=== PATIENT | male | born 1940 | race American Indian/Alaskan Native ===

== ENCOUNTER 2017-06-19 16:11 | Inpatient (IN) | payer MEDICARE ==
[2017-06-19 17:40] LABS: Hematocrit 51.3 % (35.5-45.6); Hemoglobin 15.7 gm/dl (11.8-15.2); Mean Corpuscular HGB Conc 31 % (32-34); Mean Corpuscular Hemoglobin 32 pg (28-32); Mean Corpuscular Volume 105 fl (84-94); Platelet Count 192 K/mm3 (140-440); Red Cell Distribution Width 15.4 % (13.2-15.2); White Blood Count 8.4 K/mm3 (4.5-11.0)
[2017-06-19 18:02] LABS: BUN/Creatinine Ratio 30; Blood Urea Nitrogen 66 mg/dL (9-20); Calcium 9.2 mg/dL (8.4-10.2); Chloride 80.4 mmol/L (98-107); Sodium 132 mmol/L (137-145)
[2017-06-19 18:12] LABS: Basophils % (Manual) 0 % (0.0-1.8); Blastocytes % (Manual) 0 %; Eosinophils % (Manual) 0 % (0.0-4.3)
[2017-06-19 18:14] LABS: Anisocytosis Few; Diff Status Complete; Poikilocytosis Few
[2017-06-19 18:15] LABS: Anion Gap 50 mmol/L; Carbon Dioxide 9 mmol/L (22-30); Potassium 7.5 mmol/L (3.6-5.0)
[2017-06-19 18:16] LABS: Glucose 865 mg/dL (75-100)
[2017-06-19] MEDS ORDERED: KIONEX PO ONE (18:42)
[2017-06-19] MEDS ORDERED: D50W (25GM) Syringe IV PRN (18:45)
[2017-06-19] MEDS ORDERED: NACL 0.9% 500 ML 500 ML IV ONE (18:48)
--- NOTE | 2017-06-19 18:54 | Emergency Department Report ---
ED Chest Pain HPI - General Chief Complaint: Chest Pain Stated Complaint: CP Time Seen by Provider: 06/19/17 18:31 Source: patient Mode of arrival: Ambulatory Limitations: No Limitations - History of Present Illness Initial Comments: 76 yo male who comes in today due to chest pain, fatigue, and malaise times three days. He states that he hasn't felt well, and has a decreased appetite. History of diabetes. Chest pain described as midsternal, pressure-like, 4/10, with no associated nausea, vomiting, diaphoresis, shortness of breath, or radiation of the pain. Patient admits to extreme thirst. MD Complaint: chest pain -: days(s) (3) Onset: during rest Pain Location: substernal Pain Radiation: none Severity scale (0 -10): 4 Quality: aching, heaviness, pressure Consistency: constant Improves With: nothing Worsens With: exertion, movement Context: other (elevated blood glucose/history of diabetes ) re: other (none) Other Symptoms: other (polydipsia) Treatments Prior to Arrival: none Aspirin use within the Past 7 Days: (0) No - Related Data On Oral Contraceptives: No Home Medications Medication Instructions Recorded Confirmed Last Taken Insulin Aspart [Novolog Flexpen] 4 unit SQ TIDDIAB 12/31/13 12/31/13 12/31/13 17 :30 Insulin Glargine,Hum.rec.anlog 16 unit SQ QHS 12/31/13 12/31/13 12/30/13 21:00 [Lantus Solostar] Allergies Allergy/AdvReac Type Severity Reaction Status Date / Time No Known Allergies Allergy Verified 06/19/17 16:27 Heart Score - HEART Score History: Slightly suspicious EKG: Non-specific Age: > 65 Risk factors: 1-2 risk factors Troponin: < normal limit HEART Score: 4 ED Review of Systems ROS: Stated complaint: CP Other details as noted in HPI Constitutional: malaise, weakness Eyes: denies: eye pain, eye discharge, vision change ENT: other (dry mucous membranes ) Respiratory: denies: cough, shortness of breath, wheezing Cardiovascular: as per HPI, chest pain Endocrine: see HPI, increased thirst Gastrointestinal: denies: abdominal pain, nausea, diarrhea Genitourinary: denies: urgency, dysuria Musculoskeletal: denies: back pain, joint swelling, arthralgia Skin: denies: rash, lesions Neurological: denies: headache, weakness, paresthesias Psychiatric: denies: anxiety, depression Hematological/Lymphatic: denies: easy bleeding, easy bruising ED Past Medical Hx - Past Medical History Previous Medical History?: Yes Hx Diabetes: Yes - Surgical History Past Surgical History?: Yes Additional Surgical History: hernia repair - Social History Smoking Status: Former Smoker Substance Use Type: Alcohol - Medications Home Medications: Home Medications Medication Instructions Recorded Confirmed Last Taken Type Insulin Aspart [Novolog Flexpen] 4 unit SQ TIDDIAB 12/31/13 12/31/13 12/31/13 17 :30 History Insulin Glargine,Hum.rec.anlog 16 unit SQ QHS 12/31/13 12/31/13 12/30/13 21:00 History [Lantus Solostar] ED Physical Exam - General Limitations: No Limitations General appearance: other (somnolent ) - Head Head exam: Present: atraumatic, normocephalic - Eye Eye exam: Present: normal appearance - ENT ENT exam: Present: mucous membranes dry - Neck Neck exam: Present: normal inspection - Respiratory Respiratory exam: Present: normal lung sounds bilaterally. Absent: respiratory distress - Cardiovascular Cardiovascular Exam: Present: tachycardia - GI/Abdominal GI/Abdominal exam: Present: soft, normal bowel sounds - Extremities Exam Extremities exam: Present: normal inspection - Back Exam Back exam: Present: normal inspection - Neurological Exam Neurological exam: Present: alert, oriented X3 - Psychiatric Psychiatric exam: Present: other (somnolent ) - Skin Skin exam: Present: warm, dry, intact, normal color. Absent: rash ED Course Vital Signs 06/19/17 06/19/17 06/19/17 16:28 19:18 21:44 Temperature 97.3 F L Pulse Rate 119 H 99 H Respiratory 18 22 Rate Blood Pressure 141/79 Blood Pressure 147/96 [Left] O2 Sat by Pulse 97 95 Oximetry EMERY score - Emery Score Age > 65: (1) Yes Aspirin use within the Past 7 Days: (0) No 3 or more CAD Risk Factors: (0) No 2 or more Angina events in past 24 hrs: (0) No Known CAD with more than 50% Stenosis: (0) No Elevated Cardiac Markers: (0) No ST Deviation Greater than 0.5mm: (0) No EMERY Score: 1 ED Medical Decision Making - Lab Data Result diagrams: 06/19/17 16:57 06/19/17 21:15 - EKG Data -: EKG Interpreted by Me EKG shows normal: sinus rhythm (sinus tachycardia) Rate: tachycardia - EKG Data When compared to previous EKG there are: other (Normal prior ekg dated-2015) Interpretation: other (sinus tachycardia ) - Radiology Data Radiology results: report reviewed No acute pathology. - Medical Decision Making DKA - Differential Diagnosis DKA Critical care attestation.: If time is entered above; I have spent that time in minutes in the direct care of this critically ill patient, excluding procedure time. ED Disposition Clinical Impression: DKA (diabetic ketoacidosis) Disposition: DC-[id number] OP ADMIT IP TO THIS HOSP Is pt being admited?: Yes Does the pt Need Aspirin: No Condition: Stable Instructions: Diabetic Ketoacidosis (ED) Time of Disposition: 22:41
[2017-06-19] MEDS ORDERED: NACL 0.9% 1000 ML 1,000 ML IV SCH ×2 (19:00→23:45)
[2017-06-19] MEDS ORDERED: D5W/0.45% NACL/KCL 20 MEQ 20 MEQ/1,000 ML BAG IV SCH (19:00)
[2017-06-19] MEDS ORDERED: CALCIUM GLUCONATE 1,000 MG in NACL 0.9% 100 ML IV ONE (19:30)
--- NOTE | 2017-06-19 19:55 | XRay Report ---
FINAL REPORT PROCEDURE: XR CHEST 1V AP TECHNIQUE: Chest radiograph anteroposterior view. CPT 30785 HISTORY: chest pain COMPARISON: No prior studies are available for comparison. FINDINGS: Heart: Normal. Mediastinum/Vessels: Central vascular congestion. Left suprahilar prominence may reflect pulmonary vascularity or adenopathy.. Suspect calcified adenopathy in the AP window. Lungs/Pleural space: Pulmonary emphysema with central bronchiectasis and peribronchial cuffing. Bony thorax: No acute osseous abnormality. Life support devices: None. IMPRESSION: No acute cardiopulmonary process.
[2017-06-19] MEDS: NovoLIN R 100 UNITS in NACL 0.9% 99 ML IV SCH (20:00)
[2017-06-19 20:01] LABS: Magnesium 2.8 mg/dL (1.7-2.3); Phosphorous 7.5 mg/dL (2.5-4.5)
[2017-06-19 20:26] LABS: Calcium 8.5 mg/dL (8.4-10.2); Chloride 81.3 mmol/L (98-107)
[2017-06-19 20:28] LABS: Creatine Kinase 221 units/L (55-170); Creatine Kinase MB 4.2 ng/mL (0.0-4.0)
[2017-06-19 21:04] LABS: Potassium 6.5 mmol/L (3.6-5.0)
[2017-06-19 21:51] LABS: Calcium 8.3 mg/dL (8.4-10.2); Chloride 93.5 mmol/L (98-107); Potassium 5.3 mmol/L (3.6-5.0)
[2017-06-19] MEDS ORDERED: NACL 0.9% 1000 ML 1,000 ML IV ONE (23:04)
--- NOTE | 2017-06-19 23:04 | History and Physical Report ---
History of Present Illness Date of examination: 06/19/17 History of present illness: This is a 76-year-old man with a history of diabetes, emergency room with complaints of subjective fever. He stated he caught a cold, complaining of cough productive of yellow phlegm, generalized weakness, no appetite over the last 3 days Review Of Systems: Constitutional: no weight loss Ears, eyes, nose, mouth and throat: no nasal congestion, no nasal discharge, no sinus pressure, blurry vision, diplopia Neck: No neck pain or rigidity. Cardiovascular: No chest pain, palpitations Respiratory: No shortness of breath, cough Gastrointestinal: No abdominal pain, hematochezia Genitourinary : no dysuria, frequency , hematuria Musculoskeletal: no muscle ache Integumentary: no rash, no pruritis Neurological: no parathesias, focal weakness Endocrine: no cold or heat intolerance, no polyuria or polydipsia Hematologic/Lymphatic: no easy bruising, no easy bleeding, no gland swelling Allergic/Immunologic: no urticaria, no angioedema. PAST MEDICAL HISTORY:diabetes PAST SURGICAL HISTORY: Hernia repair FAMILY HISTORY:diabetes SOCIAL HISTORY: Denies alcohol, tobacco, drugs Medications and Allergies Allergies Allergy/AdvReac Type Severity Reaction Status Date / Time No Known Allergies Allergy Verified 06/19/17 16:27 Home Medications Medication Instructions Recorded Confirmed Last Taken Type Insulin Aspart [Novolog Flexpen] 4 unit SQ TIDDIAB 12/31/13 12/31/13 12/31/13 17 :30 History Insulin Glargine,Hum.rec.anlog 16 unit SQ QHS 12/31/13 12/31/13 12/30/13 21:00 History [Lantus Solostar] Active Meds: Active Medications Dextrose (D50w (25gm) Syringe) 0 ml IV ONCE PRN PRN Reason: Hypoglycemia Sodium Chloride (Nacl 0.9% 1000 Ml) 1,000 mls @ 200 mls/hr IV DIRECT ZENY Potassium Chloride/Dextrose/Sod Cl (D5w/0.45% Nacl/Kcl 20 Meq) 20 meq in 1,000 mls @ 125 mls/hr IV DIRECT ZENY Insulin Human Regular 100 (units/ Sodium Chloride) 100 mls @ 1 mls/hr IV TITR ZENY; 1 UNITS/HR PRN Reason: Protocol Last Titration: 06/19/17 21:13 Dose: 8 units/hr, 8 mls/hr Exam - Physical Exam Narrative exam: Gen. appearance: Patient lying in bed in no acute distress HEENT: Normocephalic/atraumatic, pupils equal round reactive to light, extra occular movement intact, no scleral icterus, no JVD or thyromegaly or nodule, neck is supple, mucous membrane very dry, no erythema or exudate Heart: S1-S2, regular rate and rhythm Lungs: Clear to auscultation bilateral breathing comfortable Abdomen: Positive bowel sounds, nontender, nondistended, no organomegaly Extremities: No edema, cyanosis, clubbing Neuro:: Oriented 3 , cranial nerves II-12 intact, speech, motor intact Skin: No rash, nodules, warm dry - Constitutional Vitals: Temp Pulse Resp BP Pulse Ox 97.3 F L 99 H 22 147/96 95 06/19/17 16:28 06/19/17 21:44 06/19/17 19:18 06/19/17 21:44 06/19/17 19:18 Results - Labs CBC & Chem 7: 06/19/17 16:57 06/19/17 21:15 Labs: Abnormal lab results 06/19/17 06/19/17 06/19/17 Range/Units 16:57 16:57 19:12 Hgb 15.7 H (11.8-15.2) gm/dl Hct 51.3 H (35.5-45.6) % MCV 105 H (84-94) fl MCHC 31 L (32-34) % RDW 15.4 H (13.2-15.2) % Seg Neuts % (Manual) 82.0 H (40.0-70.0) % Lymphocytes % (Manual) 10.0 L (13.4-35.0) % Monocytes % (Manual) 8.0 H (0.0-7.3) % Lymphocytes # (Manual) 0.8 L (1.2-5.4) K/mm3 Sodium 132 L (137-145) mmol/L Potassium 7.5 H* (3.6-5.0) mmol/L Chloride 80.4 L (98-107) mmol/L Carbon Dioxide 9 L* (22-30) mmol/L BUN 66 H (9-20) mg/dL Creatinine 2.2 H (0.8-1.5) mg/dL Glucose 865 H* (75-100) mg/dL POC Glucose (70-105) Calcium (8.4-10.2) mg/dL Phosphorus (2.5-4.5) mg/dL Magnesium (1.7-2.3) mg/dL Total Creatine Kinase 221 H (55-170) units/L CK-MB (CK-2) 4.2 H (0.0-4.0) ng/mL 06/19/17 06/19/17 06/19/17 Range/Units 19:12 19:12 19:59 Hgb (11.8-15.2) gm/dl Hct (35.5-45.6) % MCV (84-94) fl MCHC (32-34) % RDW (13.2-15.2) % Seg Neuts % (Manual) (40.0-70.0) % Lymphocytes % (Manual) (13.4-35.0) % Monocytes % (Manual) (0.0-7.3) % Lymphocytes # (Manual) (1.2-5.4) K/mm3 Sodium 132 L (137-145) mmol/L Potassium 6.5 H* (3.6-5.0) mmol/L Chloride 81.3 L (98-107) mmol/L Carbon Dioxide 6 L* (22-30) mmol/L BUN 68 H (9-20) mg/dL Creatinine 2.1 H (0.8-1.5) mg/dL Glucose 879 H* (75-100) mg/dL POC Glucose > 500 H (70-105) Calcium (8.4-10.2) mg/dL Phosphorus 7.50 H (2.5-4.5) mg/dL Magnesium 2.80 H (1.7-2.3) mg/dL Total Creatine Kinase (55-170) units/L CK-MB (CK-2) (0.0-4.0) ng/mL 06/19/17 Range/Units 21:15 Hgb (11.8-15.2) gm/dl Hct (35.5-45.6) % MCV (84-94) fl MCHC (32-34) % RDW (13.2-15.2) % Seg Neuts % (Manual) (40.0-70.0) % Lymphocytes % (Manual) (13.4-35.0) % Monocytes % (Manual) (0.0-7.3) % Lymphocytes # (Manual) (1.2-5.4) K/mm3 Sodium 132 L (137-145) mmol/L Potassium 5.3 H (3.6-5.0) mmol/L Chloride 93.5 L (98-107) mmol/L Carbon Dioxide 7 L* (22-30) mmol/L BUN 66 H (9-20) mg/dL Creatinine 2.1 H (0.8-1.5) mg/dL Glucose 734 H* (75-100) mg/dL POC Glucose (70-105) Calcium 8.3 L (8.4-10.2) mg/dL Phosphorus (2.5-4.5) mg/dL Magnesium (1.7-2.3) mg/dL Total Creatine Kinase (55-170) units/L CK-MB (CK-2) (0.0-4.0) ng/mL - Imaging and Cardiology EKG: image reviewed Abdominal x-ray: image reviewed Assessment and Plan Assessment DKA Metabolic acidosis Dehydration Plan Admit to medicine Continue insulin drip, start IV fluid Check serial chemistry, blood sugar Consult critical care DVT prophylaxis
[2017-06-19] MEDS ORDERED: TYLENOL PO PRN (23:05)
[2017-06-19] MEDS ORDERED: ZOFRAN IV PRN (23:05)
[2017-06-19] MEDS ORDERED: DULCOLAX PR PRN (23:05)
[2017-06-19] MEDS ORDERED: MILK OF MAGNESIA PO PRN (23:05)
[2017-06-19 23:33] LABS: Calcium 8.2 mg/dL (8.4-10.2); Chloride 97.4 mmol/L (98-107)
[2017-06-20 00:10] LABS: Bilirubin,Urine NEG (Negative); Blood,Urine SM (Negative); Ketones,Urine 20 mg/dL (Negative); Leukocyte Esterase,Urine NEG (Negative); Mucus,Urine FEW /HPF; Nitrite,Urine NEG (Negative); Protein,Urine <15 mg/dL mg/dL (Negative); Urobilinogen,Urine < 2.0 mg/dL (<2.0)
[2017-06-20 01:51] LABS: Calcium 8.3 mg/dL (8.4-10.2); Chloride 102.6 mmol/L (98-107); Potassium 4.7 mmol/L (3.6-5.0)
[2017-06-20 03:37] LABS: Calcium 8.2 mg/dL (8.4-10.2); Chloride 108.1 mmol/L (98-107); Potassium 3.9 mmol/L (3.6-5.0)
[2017-06-20] MEDS: NovoLIN R 100 UNITS in NACL 0.9% 99 ML IV SCH (04:01)
[2017-06-20] MEDS: cefTRIAXone 1 GM in NACL 0.9% 20 ML IV SCH (07:16)
[2017-06-20] MEDS: D5/0.45NS 1,000 ML IV SCH ×2 (08:40→20:47)
[2017-06-20] MEDS: LOVENOX SUB-Q SCH (09:49)
[2017-06-20 11:26] LABS: BUN/Creatinine Ratio 36; Blood Urea Nitrogen 40 mg/dL (9-20); Calcium 7.9 mg/dL (8.4-10.2); Carbon Dioxide 25 mmol/L (22-30); Glucose 118 mg/dL (75-100)
[2017-06-20 11:27] LABS: Chloride 112.7 mmol/L (98-107); Sodium 151 mmol/L (137-145)
[2017-06-20 12:00] LABS: Anion Gap 16 mmol/L; Potassium 2.7 mmol/L (3.6-5.0)
[2017-06-20] MEDS: KCL 10MEQ/100ML 10 MEQ/100 ML BAG IV SCH ×4 (13:09→17:10)
[2017-06-20 13:45] LABS: Anion Gap 17 mmol/L; BUN/Creatinine Ratio 35; Blood Urea Nitrogen 38 mg/dL (9-20); Calcium 8.1 mg/dL (8.4-10.2); Carbon Dioxide 27 mmol/L (22-30); Chloride 111.3 mmol/L (98-107); Glucose 154 mg/dL (75-100); Sodium 152 mmol/L (137-145)
[2017-06-20 13:46] LABS: Magnesium 2.3 mg/dL (1.7-2.3)
--- NOTE | 2017-06-20 15:08 | Consultation ---
History of Present Illness Consult date: 06/20/17 Reason for consult: other (DKA) History of present illness: 76-year-old -[place] male was admitted to the hospital with cough congestion shortness of breath. Patient was found to be in diabetic ketoacidosis with blood sugar over 600. Patient is currently being treated with IV fluids and insulin drip with improvement in his lab data patient is a poor historian remain somewhat lethargic but awake. Has history of diabetes. Past History Past Medical History: diabetes Medications and Allergies Allergies Allergy/AdvReac Type Severity Reaction Status Date / Time No Known Allergies Allergy Verified 06/19/17 16:27 Home Medications Medication Instructions Recorded Confirmed Last Taken Type Insulin Aspart [Novolog Flexpen] 4 unit SQ TIDDIAB 12/31/13 12/31/13 12/31/13 17 :30 History Insulin Glargine,Hum.rec.anlog 16 unit SQ QHS 12/31/13 12/31/13 12/30/13 21:00 History [Lantus Solostar] Active Meds: Active Medications Acetaminophen (Tylenol) 650 mg PO Q4H PRN PRN Reason: Pain MILD(1-3)/Fever >100.5/COHEN Bisacodyl (Dulcolax) 10 mg VT QDAY PRN PRN Reason: Constipation unrelieved by MOM Dextrose (D50w (25gm) Syringe) 0 ml IV ONCE PRN PRN Reason: Hypoglycemia Enoxaparin Sodium (Lovenox) 30 mg SUB-Q QDAY ZENY Last Admin: 06/20/17 09:49 Dose: 30 mg Insulin Human Regular 100 (units/ Sodium Chloride) 100 mls @ 1 mls/hr IV TITR ZENY; 1 UNITS/HR PRN Reason: Protocol Last Titration: 06/20/17 14:46 Dose: 2 units/hr, 2 mls/hr Dextrose/Sodium Chloride (D5/0.45ns) 1,000 mls @ 150 mls/hr IV DIRECT ZENY Last Admin: 06/20/17 08:40 Dose: 150 mls/hr Sodium Chloride (Nacl 0.9% 1000 Ml) 1,000 mls @ 150 mls/hr IV DIRECT ZENY Last Admin: 06/20/17 04:11 Dose: 150 mls/hr Ceftriaxone Sodium 1 gm/ (Sodium Chloride) 20 mls @ 20 mls/10 min IV Q24HR ZENY PRN Reason: Protocol Last Admin: 06/20/17 07:16 Dose: 20 mls/10 min Potassium Chloride (Kcl 10meq/100ml) 10 meq in 100 mls @ 100 mls/hr IV Q1H ZENY Stop: 06/20/17 16:59 Last Admin: 06/20/17 14:28 Dose: 100 mls/hr Magnesium Hydroxide (Milk Of Magnesia) 30 ml PO Q4H PRN PRN Reason: Constipation Ondansetron HCl (Zofran) 4 mg IV Q8H PRN PRN Reason: N/V unrelieved by Reglan Review of Systems ROS unobtainable: due to mental status Physical Examination Vital signs: Vital Signs Pulse Resp Pulse Ox 81 17 98 06/19/17 16:16 06/19/17 16:16 06/19/17 16:16 General appearance: no acute distress, lethargic, other (smaller statured thin) Eyes: non-icteric ENT: oropharynx dry Neck: other (rigid in all directions) Ascultation: Bilateral: clear, diminished breath sounds Cardiovascular: irregular rhythm Gastrointestinal: normoactive bowel sounds, soft, non-tender Extremities: no cyanosis, no edema Musculoskeletal: no deformities Gait: other (not evaluated) unable to assess Results - Laboratory Findings CBC and BMP: 06/19/17 16:57 06/20/17 13:29 Abnormal lab findings: Abnormal Labs 06/19/17 06/19/17 06/19/17 16:57 16:57 19:12 Hgb 15.7 H Hct 51.3 H MCV 105 H MCHC 31 L RDW 15.4 H Seg Neuts % (Manual) 82.0 H Lymphocytes % (Manual) 10.0 L Monocytes % (Manual) 8.0 H Lymphocytes # (Manual) 0.8 L Sodium 132 L Potassium 7.5 H* Chloride 80.4 L Carbon Dioxide 9 L* BUN 66 H Creatinine 2.2 H Glucose 865 H* POC Glucose Calcium Phosphorus Magnesium Total Creatine Kinase 221 H CK-MB (CK-2) 4.2 H 06/19/17 06/19/17 06/19/17 19:12 19:12 19:59 Hgb Hct MCV MCHC RDW Seg Neuts % (Manual) Lymphocytes % (Manual) Monocytes % (Manual) Lymphocytes # (Manual) Sodium 132 L Potassium 6.5 H* Chloride 81.3 L Carbon Dioxide 6 L* BUN 68 H Creatinine 2.1 H Glucose 879 H* POC Glucose > 500 H Calcium Phosphorus 7.50 H Magnesium 2.80 H Total Creatine Kinase CK-MB (CK-2) 06/19/17 06/19/17 06/19/17 21:09 21:15 22:46 Hgb Hct MCV MCHC RDW Seg Neuts % (Manual) Lymphocytes % (Manual) Monocytes % (Manual) Lymphocytes # (Manual) Sodium 132 L Potassium 5.3 H Chloride 93.5 L 97.4 L Carbon Dioxide 7 L* 9 L* BUN 66 H 63 H Creatinine 2.1 H 2.0 H Glucose 734 H* 673 H* POC Glucose > 500 H Calcium 8.3 L 8.2 L Phosphorus Magnesium Total Creatine Kinase CK-MB (CK-2) 06/19/17 06/20/17 06/20/17 23:11 00:12 00:59 Hgb Hct MCV MCHC RDW Seg Neuts % (Manual) Lymphocytes % (Manual) Monocytes % (Manual) Lymphocytes # (Manual) Sodium Potassium Chloride Carbon Dioxide BUN Creatinine Glucose POC Glucose > 500 H 483 H 484 H Calcium Phosphorus Magnesium Total Creatine Kinase CK-MB (CK-2) 06/20/17 06/20/17 06/20/17 01:11 02:35 02:51 Hgb Hct MCV MCHC RDW Seg Neuts % (Manual) Lymphocytes % (Manual) Monocytes % (Manual) Lymphocytes # (Manual) Sodium 148 H Potassium Chloride 108.1 H Carbon Dioxide 14 L 17 L BUN 58 H 54 H Creatinine 1.7 H 1.6 H Glucose 539 H* 426 H POC Glucose 483 H Calcium 8.3 L 8.2 L Phosphorus Magnesium Total Creatine Kinase CK-MB (CK-2) 06/20/17 06/20/17 06/20/17 03:38 05:11 06:08 Hgb Hct MCV MCHC RDW Seg Neuts % (Manual) Lymphocytes % (Manual) Monocytes % (Manual) Lymphocytes # (Manual) Sodium Potassium Chloride Carbon Dioxide BUN Creatinine Glucose POC Glucose 363 H 317 H 272 H Calcium Phosphorus Magnesium Total Creatine Kinase CK-MB (CK-2) 06/20/17 06/20/17 06/20/17 06:49 07:43 08:36 Hgb Hct MCV MCHC RDW Seg Neuts % (Manual) Lymphocytes % (Manual) Monocytes % (Manual) Lymphocytes # (Manual) Sodium Potassium Chloride Carbon Dioxide BUN Creatinine Glucose POC Glucose 256 H 238 H 139 H Calcium Phosphorus Magnesium Total Creatine Kinase CK-MB (CK-2) 06/20/17 06/20/17 06/20/17 09:56 10:50 11:05 Hgb Hct MCV MCHC RDW Seg Neuts % (Manual) Lymphocytes % (Manual) Monocytes % (Manual) Lymphocytes # (Manual) Sodium 151 H Potassium 2.7 L* D Chloride 112.7 H Carbon Dioxide BUN 40 H Creatinine Glucose 118 H POC Glucose 136 H 117 H Calcium 7.9 L Phosphorus Magnesium Total Creatine Kinase CK-MB (CK-2) 06/20/17 06/20/17 06/20/17 13:29 13:29 13:48 Hgb Hct MCV MCHC RDW Seg Neuts % (Manual) Lymphocytes % (Manual) Monocytes % (Manual) Lymphocytes # (Manual) Sodium 152 H Potassium 3.0 L Chloride 111.3 H Carbon Dioxide BUN 38 H Creatinine Glucose 154 H POC Glucose 107 H Calcium 8.1 L Phosphorus 2.00 L D Magnesium Total Creatine Kinase CK-MB (CK-2) - Diagnostic Findings Chest x-ray: report reviewed (unremarkable), image reviewed (unremarkable) Assessment and Plan Impression: Diuretic ketoacidosis with improvement with insulin drip Hypernatremia and dehydration Recommendation: Continue the current therapy with insulin drip to be wean off as blood sugar declines Supplemental potassium line check magnesium and phosphorus as well. Continue with IV fluids Critical care time 31 minute
--- NOTE | 2017-06-20 16:46 | Progress Note ---
Subjective Date of service: 06/20/17 Objective - Constitutional Vitals: Vital Signs - 12hr 06/20/17 06/20/17 06/20/17 04:51 05:00 05:11 Temperature Pulse Rate Pulse Rate [ From Monitor] Pulse Rate [ None] Respiratory Rate Blood Pressure 107/60 96/57 96/57 O2 Sat by Pulse 98 98 99 Oximetry 06/20/17 06/20/17 06/20/17 05:21 05:31 05:41 Temperature Pulse Rate Pulse Rate [ From Monitor] Pulse Rate [ None] Respiratory Rate Blood Pressure 96/57 96/57 96/57 O2 Sat by Pulse 99 98 99 Oximetry 06/20/17 06/20/17 06/20/17 05:56 06:10 07:00 Temperature Pulse Rate 95 H Pulse Rate [ From Monitor] Pulse Rate [ 94 H None] Respiratory 17 Rate Blood Pressure 96/57 115/67 O2 Sat by Pulse 94 95 Oximetry 06/20/17 06/20/17 06/20/17 07:15 08:00 09:00 Temperature 97.6 F Pulse Rate Pulse Rate [ From Monitor] Pulse Rate [ 93 H 90 None] Respiratory 18 16 15 Rate Blood Pressure 113/67 114/63 O2 Sat by Pulse 96 93 93 Oximetry 06/20/17 06/20/17 06/20/17 10:00 10:07 10:08 Temperature Pulse Rate 87 90 Pulse Rate [ From Monitor] Pulse Rate [ None] Respiratory 18 Rate Blood Pressure O2 Sat by Pulse 93 94 Oximetry 06/20/17 06/20/17 06/20/17 10:11 10:21 10:31 Temperature Pulse Rate 86 90 91 H Pulse Rate [ From Monitor] Pulse Rate [ None] Respiratory 17 14 17 Rate Blood Pressure O2 Sat by Pulse 95 94 94 Oximetry 06/20/17 06/20/17 06/20/17 10:41 10:51 11:00 Temperature Pulse Rate 93 H 87 88 Pulse Rate [ From Monitor] Pulse Rate [ None] Respiratory 19 17 16 Rate Blood Pressure 119/66 116/67 O2 Sat by Pulse 93 88 Oximetry 06/20/17 06/20/17 06/20/17 11:11 11:21 11:31 Temperature Pulse Rate 86 86 94 H Pulse Rate [ From Monitor] Pulse Rate [ None] Respiratory 18 16 21 Rate Blood Pressure 116/67 116/67 116/67 O2 Sat by Pulse 91 93 94 Oximetry 06/20/17 06/20/17 06/20/17 11:33 11:41 11:51 Temperature Pulse Rate 86 86 Pulse Rate [ 89 From Monitor] Pulse Rate [ None] Respiratory 14 18 19 Rate Blood Pressure 116/67 116/67 O2 Sat by Pulse 93 92 92 Oximetry 06/20/17 06/20/17 06/20/17 12:00 12:11 12:21 Temperature 97.7 F Pulse Rate 83 83 81 Pulse Rate [ From Monitor] Pulse Rate [ None] Respiratory 18 18 16 Rate Blood Pressure 122/65 122/65 122/65 O2 Sat by Pulse 93 94 Oximetry 06/20/17 06/20/17 06/20/17 12:31 12:41 12:51 Temperature Pulse Rate 81 86 76 Pulse Rate [ From Monitor] Pulse Rate [ None] Respiratory 15 16 20 Rate Blood Pressure 122/65 122/65 122/65 O2 Sat by Pulse 95 94 94 Oximetry 06/20/17 06/20/17 06/20/17 13:00 13:11 13:21 Temperature Pulse Rate 87 82 83 Pulse Rate [ From Monitor] Pulse Rate [ None] Respiratory 14 17 18 Rate Blood Pressure 121/72 121/72 121/72 O2 Sat by Pulse 98 94 93 Oximetry 06/20/17 06/20/17 06/20/17 13:31 13:41 13:57 Temperature Pulse Rate 83 83 96 H Pulse Rate [ From Monitor] Pulse Rate [ None] Respiratory 20 18 22 Rate Blood Pressure 121/72 121/72 121/72 O2 Sat by Pulse 92 92 Oximetry 06/20/17 06/20/17 06/20/17 14:00 14:11 14:21 Temperature Pulse Rate 82 91 H 87 Pulse Rate [ From Monitor] Pulse Rate [ None] Respiratory 21 15 16 Rate Blood Pressure 139/78 139/78 139/78 O2 Sat by Pulse 93 93 92 Oximetry 06/20/17 06/20/17 06/20/17 14:30 14:31 14:41 Temperature Pulse Rate 92 H 96 H Pulse Rate [ From Monitor] Pulse Rate [ None] Respiratory 15 15 15 Rate Blood Pressure 121/72 121/72 O2 Sat by Pulse 93 93 96 Oximetry 06/20/17 06/20/17 06/20/17 14:50 15:00 15:11 Temperature Pulse Rate 79 76 80 Pulse Rate [ From Monitor] Pulse Rate [ None] Respiratory 15 16 18 Rate Blood Pressure 139/78 129/78 129/78 O2 Sat by Pulse 94 96 93 Oximetry 06/20/17 06/20/17 06/20/17 15:21 15:31 15:38 Temperature Pulse Rate 80 82 Pulse Rate [ 83 From Monitor] Pulse Rate [ None] Respiratory 16 16 16 Rate Blood Pressure 129/78 129/78 O2 Sat by Pulse 93 92 94 Oximetry 06/20/17 15:41 Temperature Pulse Rate 81 Pulse Rate [ From Monitor] Pulse Rate [ None] Respiratory 15 Rate Blood Pressure 129/78 O2 Sat by Pulse 94 Oximetry - Labs CBC & Chem 7: 06/19/17 16:57 06/20/17 13:29 Labs: Abnormal lab results 06/19/17 06/19/17 06/19/17 Range/Units 16:57 16:57 19:12 Hgb 15.7 H (11.8-15.2) gm/dl Hct 51.3 H (35.5-45.6) % MCV 105 H (84-94) fl MCHC 31 L (32-34) % RDW 15.4 H (13.2-15.2) % Seg Neuts % (Manual) 82.0 H (40.0-70.0) % Lymphocytes % (Manual) 10.0 L (13.4-35.0) % Monocytes % (Manual) 8.0 H (0.0-7.3) % Lymphocytes # (Manual) 0.8 L (1.2-5.4) K/mm3 Sodium 132 L (137-145) mmol/L Potassium 7.5 H* (3.6-5.0) mmol/L Chloride 80.4 L (98-107) mmol/L Carbon Dioxide 9 L* (22-30) mmol/L BUN 66 H (9-20) mg/dL Creatinine 2.2 H (0.8-1.5) mg/dL Glucose 865 H* (75-100) mg/dL POC Glucose (70-105) Calcium (8.4-10.2) mg/dL Phosphorus (2.5-4.5) mg/dL Magnesium (1.7-2.3) mg/dL Total Creatine Kinase 221 H (55-170) units/L CK-MB (CK-2) 4.2 H (0.0-4.0) ng/mL 06/19/17 06/19/17 06/19/17 Range/Units 19:12 19:12 19:59 Hgb (11.8-15.2) gm/dl Hct (35.5-45.6) % MCV (84-94) fl MCHC (32-34) % RDW (13.2-15.2) % Seg Neuts % (Manual) (40.0-70.0) % Lymphocytes % (Manual) (13.4-35.0) % Monocytes % (Manual) (0.0-7.3) % Lymphocytes # (Manual) (1.2-5.4) K/mm3 Sodium 132 L (137-145) mmol/L Potassium 6.5 H* (3.6-5.0) mmol/L Chloride 81.3 L (98-107) mmol/L Carbon Dioxide 6 L* (22-30) mmol/L BUN 68 H (9-20) mg/dL Creatinine 2.1 H (0.8-1.5) mg/dL Glucose 879 H* (75-100) mg/dL POC Glucose > 500 H (70-105) Calcium (8.4-10.2) mg/dL Phosphorus 7.50 H (2.5-4.5) mg/dL Magnesium 2.80 H (1.7-2.3) mg/dL Total Creatine Kinase (55-170) units/L CK-MB (CK-2) (0.0-4.0) ng/mL 06/19/17 06/19/17 06/19/17 Range/Units 21:09 21:15 22:46 Hgb (11.8-15.2) gm/dl Hct (35.5-45.6) % MCV (84-94) fl MCHC (32-34) % RDW (13.2-15.2) % Seg Neuts % (Manual) (40.0-70.0) % Lymphocytes % (Manual) (13.4-35.0) % Monocytes % (Manual) (0.0-7.3) % Lymphocytes # (Manual) (1.2-5.4) K/mm3 Sodium 132 L (137-145) mmol/L Potassium 5.3 H (3.6-5.0) mmol/L Chloride 93.5 L 97.4 L (98-107) mmol/L Carbon Dioxide 7 L* 9 L* (22-30) mmol/L BUN 66 H 63 H (9-20) mg/dL Creatinine 2.1 H 2.0 H (0.8-1.5) mg/dL Glucose 734 H* 673 H* (75-100) mg/dL POC Glucose > 500 H (70-105) Calcium 8.3 L 8.2 L (8.4-10.2) mg/dL Phosphorus (2.5-4.5) mg/dL Magnesium (1.7-2.3) mg/dL Total Creatine Kinase (55-170) units/L CK-MB (CK-2) (0.0-4.0) ng/mL 06/19/17 06/20/17 06/20/17 Range/Units 23:11 00:12 00:59 Hgb (11.8-15.2) gm/dl Hct (35.5-45.6) % MCV (84-94) fl MCHC (32-34) % RDW (13.2-15.2) % Seg Neuts % (Manual) (40.0-70.0) % Lymphocytes % (Manual) (13.4-35.0) % Monocytes % (Manual) (0.0-7.3) % Lymphocytes # (Manual) (1.2-5.4) K/mm3 Sodium (137-145) mmol/L Potassium (3.6-5.0) mmol/L Chloride (98-107) mmol/L Carbon Dioxide (22-30) mmol/L BUN (9-20) mg/dL Creatinine (0.8-1.5) mg/dL Glucose (75-100) mg/dL POC Glucose > 500 H 483 H 484 H (70-105) Calcium (8.4-10.2) mg/dL Phosphorus (2.5-4.5) mg/dL Magnesium (1.7-2.3) mg/dL Total Creatine Kinase (55-170) units/L CK-MB (CK-2) (0.0-4.0) ng/mL 06/20/17 06/20/17 06/20/17 Range/Units 01:11 02:35 02:51 Hgb (11.8-15.2) gm/dl Hct (35.5-45.6) % MCV (84-94) fl MCHC (32-34) % RDW (13.2-15.2) % Seg Neuts % (Manual) (40.0-70.0) % Lymphocytes % (Manual) (13.4-35.0) % Monocytes % (Manual) (0.0-7.3) % Lymphocytes # (Manual) (1.2-5.4) K/mm3 Sodium 148 H (137-145) mmol/L Potassium (3.6-5.0) mmol/L Chloride 108.1 H (98-107) mmol/L Carbon Dioxide 14 L 17 L (22-30) mmol/L BUN 58 H 54 H (9-20) mg/dL Creatinine 1.7 H 1.6 H (0.8-1.5) mg/dL Glucose 539 H* 426 H (75-100) mg/dL POC Glucose 483 H (70-105) Calcium 8.3 L 8.2 L (8.4-10.2) mg/dL Phosphorus (2.5-4.5) mg/dL Magnesium (1.7-2.3) mg/dL Total Creatine Kinase (55-170) units/L CK-MB (CK-2) (0.0-4.0) ng/mL 06/20/17 06/20/17 06/20/17 Range/Units 03:38 05:11 06:08 Hgb (11.8-15.2) gm/dl Hct (35.5-45.6) % MCV (84-94) fl MCHC (32-34) % RDW (13.2-15.2) % Seg Neuts % (Manual) (40.0-70.0) % Lymphocytes % (Manual) (13.4-35.0) % Monocytes % (Manual) (0.0-7.3) % Lymphocytes # (Manual) (1.2-5.4) K/mm3 Sodium (137-145) mmol/L Potassium (3.6-5.0) mmol/L Chloride (98-107) mmol/L Carbon Dioxide (22-30) mmol/L BUN (9-20) mg/dL Creatinine (0.8-1.5) mg/dL Glucose (75-100) mg/dL POC Glucose 363 H 317 H 272 H (70-105) Calcium (8.4-10.2) mg/dL Phosphorus (2.5-4.5) mg/dL Magnesium (1.7-2.3) mg/dL Total Creatine Kinase (55-170) units/L CK-MB (CK-2) (0.0-4.0) ng/mL 06/20/17 06/20/17 06/20/17 Range/Units 06:49 07:43 08:36 Hgb (11.8-15.2) gm/dl Hct (35.5-45.6) % MCV (84-94) fl MCHC (32-34) % RDW (13.2-15.2) % Seg Neuts % (Manual) (40.0-70.0) % Lymphocytes % (Manual) (13.4-35.0) % Monocytes % (Manual) (0.0-7.3) % Lymphocytes # (Manual) (1.2-5.4) K/mm3 Sodium (137-145) mmol/L Potassium (3.6-5.0) mmol/L Chloride (98-107) mmol/L Carbon Dioxide (22-30) mmol/L BUN (9-20) mg/dL Creatinine (0.8-1.5) mg/dL Glucose (75-100) mg/dL POC Glucose 256 H 238 H 139 H (70-105) Calcium (8.4-10.2) mg/dL Phosphorus (2.5-4.5) mg/dL Magnesium (1.7-2.3) mg/dL Total Creatine Kinase (55-170) units/L CK-MB (CK-2) (0.0-4.0) ng/mL 06/20/17 06/20/17 06/20/17 Range/Units 09:56 10:50 11:05 Hgb (11.8-15.2) gm/dl Hct (35.5-45.6) % MCV (84-94) fl MCHC (32-34) % RDW (13.2-15.2) % Seg Neuts % (Manual) (40.0-70.0) % Lymphocytes % (Manual) (13.4-35.0) % Monocytes % (Manual) (0.0-7.3) % Lymphocytes # (Manual) (1.2-5.4) K/mm3 Sodium 151 H (137-145) mmol/L Potassium 2.7 L* D (3.6-5.0) mmol/L Chloride 112.7 H (98-107) mmol/L Carbon Dioxide (22-30) mmol/L BUN 40 H (9-20) mg/dL Creatinine (0.8-1.5) mg/dL Glucose 118 H (75-100) mg/dL POC Glucose 136 H 117 H (70-105) Calcium 7.9 L (8.4-10.2) mg/dL Phosphorus (2.5-4.5) mg/dL Magnesium (1.7-2.3) mg/dL Total Creatine Kinase (55-170) units/L CK-MB (CK-2) (0.0-4.0) ng/mL 06/20/17 06/20/17 06/20/17 Range/Units 13:29 13:29 13:48 Hgb (11.8-15.2) gm/dl Hct (35.5-45.6) % MCV (84-94) fl MCHC (32-34) % RDW (13.2-15.2) % Seg Neuts % (Manual) (40.0-70.0) % Lymphocytes % (Manual) (13.4-35.0) % Monocytes % (Manual) (0.0-7.3) % Lymphocytes # (Manual) (1.2-5.4) K/mm3 Sodium 152 H (137-145) mmol/L Potassium 3.0 L (3.6-5.0) mmol/L Chloride 111.3 H (98-107) mmol/L Carbon Dioxide (22-30) mmol/L BUN 38 H (9-20) mg/dL Creatinine (0.8-1.5) mg/dL Glucose 154 H (75-100) mg/dL POC Glucose 107 H (70-105) Calcium 8.1 L (8.4-10.2) mg/dL Phosphorus 2.00 L D (2.5-4.5) mg/dL Magnesium (1.7-2.3) mg/dL Total Creatine Kinase (55-170) units/L CK-MB (CK-2) (0.0-4.0) ng/mL 06/20/17 06/20/17 Range/Units 14:48 16:03 Hgb (11.8-15.2) gm/dl Hct (35.5-45.6) % MCV (84-94) fl MCHC (32-34) % RDW (13.2-15.2) % Seg Neuts % (Manual) (40.0-70.0) % Lymphocytes % (Manual) (13.4-35.0) % Monocytes % (Manual) (0.0-7.3) % Lymphocytes # (Manual) (1.2-5.4) K/mm3 Sodium (137-145) mmol/L Potassium (3.6-5.0) mmol/L Chloride (98-107) mmol/L Carbon Dioxide (22-30) mmol/L BUN (9-20) mg/dL Creatinine (0.8-1.5) mg/dL Glucose (75-100) mg/dL POC Glucose 132 H 158 H (70-105) Calcium (8.4-10.2) mg/dL Phosphorus (2.5-4.5) mg/dL Magnesium (1.7-2.3) mg/dL Total Creatine Kinase (55-170) units/L CK-MB (CK-2) (0.0-4.0) ng/mL
[2017-06-20 16:48] LABS: Magnesium 2.1 mg/dL (1.7-2.3); Phosphorous 1.4 mg/dL (2.5-4.5)
[2017-06-20] MEDS ORDERED: NOVOLOG SUB-Q SCH (20:00)
[2017-06-20] MEDS ORDERED: KPHOS 30 MMOL in NACL 0.9% 500 ML 500 ML IV ONE (20:00)
[2017-06-20] MEDS: NOVOLOG SUB-Q SCH ×2 (20:44→23:53)
[2017-06-21 02:04] LABS: Anion Gap 22 mmol/L; BUN/Creatinine Ratio 26; Blood Urea Nitrogen 23 mg/dL (9-20); Calcium 8.2 mg/dL (8.4-10.2); Carbon Dioxide 22 mmol/L (22-30); Chloride 106.1 mmol/L (98-107); Glucose 204 mg/dL (75-100); Potassium 3.6 mmol/L (3.6-5.0); Sodium 146 mmol/L (137-145)
[2017-06-21] MEDS: NOVOLOG SUB-Q SCH ×4 (02:45→14:50)
[2017-06-21] MEDS: LOVENOX SUB-Q SCH (10:09)
[2017-06-21] MEDS: cefTRIAXone 1 GM in NACL 0.9% 20 ML IV SCH (10:09)
--- NOTE | 2017-06-21 10:32 | Progress Note ---
Assessment and Plan Assessment and plan: DKA. Resolved. We will start 70/30 twice a day. Accu-Cheks and sliding scale insulin. The patient will be transferred to the Hypernatremia. Etiology likely second Continue IV fluid hydration. hypokalemia. It resolved. History Interval history: no new complaints overnight Hospitalist Physical - Constitutional Vitals: Temp Pulse Resp BP Pulse Ox 99.1 F 68 15 119/63 96 06/21/17 08:00 06/21/17 08:40 06/21/17 08:40 06/21/17 08:40 06/21/17 08:40 General appearance: Present: no acute distress, well-nourished - EENT Eyes: Present: PERRL, EOM intact ENT: hearing intact, clear oral mucosa, dentition normal - Neck Neck: Present: supple, normal ROM - Respiratory Respiratory effort: normal Respiratory: bilateral: CTA - Cardiovascular Rhythm: regular Heart Sounds: Present: S1 & S2. Absent: gallop, rub - Extremities Extremities: no ischemia, No edema, Full ROM - Abdominal General gastrointestinal: soft, non-tender, non-distended, normal bowel sounds - Integumentary Integumentary: Present: clear, warm, dry - Neurologic Neurologic: CNII-XII intact, moves all extremities Results - Labs CBC & Chem 7: 06/19/17 16:57 06/21/17 00:58 Labs: Laboratory Last Values WBC 8.4 K/mm3 (4.5-11.0) 06/19/17 16:57 RBC 4.90 M/mm3 (3.65-5.03) 06/19/17 16:57 Hgb 15.7 gm/dl (11.8-15.2) H 06/19/17 16:57 Hct 51.3 % (35.5-45.6) H 06/19/17 16:57 MCV 105 fl (84-94) H 06/19/17 16:57 MCH 32 pg (28-32) 06/19/17 16:57 MCHC 31 % (32-34) L 06/19/17 16:57 RDW 15.4 % (13.2-15.2) H 06/19/17 16:57 Plt Count 192 K/mm3 (140-440) 06/19/17 16:57 Add Manual Diff Complete 06/19/17 16:57 Total Counted 100 06/19/17 16:57 Seg Neuts % (Manual) 82.0 % (40.0-70.0) H 06/19/17 16:57 Band Neutrophils % 0 % 06/19/17 16:57 Lymphocytes % (Manual) 10.0 % (13.4-35.0) L 06/19/17 16:57 Reactive Lymphs % (Man) 0 % 06/19/17 16:57 Monocytes % (Manual) 8.0 % (0.0-7.3) H 06/19/17 16:57 Eosinophils % (Manual) 0 % (0.0-4.3) 06/19/17 16:57 Basophils % (Manual) 0 % (0.0-1.8) 06/19/17 16:57 Metamyelocytes % 0 % 06/19/17 16:57 Myelocytes % 0 % 06/19/17 16:57 Promyelocytes % 0 % 06/19/17 16:57 Blast Cells % 0 % 06/19/17 16:57 Nucleated RBC % Not Reportable 06/19/17 16:57 Seg Neutrophils # Man 6.9 K/mm3 (1.8-7.7) 06/19/17 16:57 Band Neutrophils # 0.0 K/mm3 06/19/17 16:57 Lymphocytes # (Manual) 0.8 K/mm3 (1.2-5.4) L 06/19/17 16:57 Abs React Lymphs (Man) 0.0 K/mm3 06/19/17 16:57 Monocytes # (Manual) 0.7 K/mm3 (0.0-0.8) 06/19/17 16:57 Eosinophils # (Manual) 0.0 K/mm3 (0.0-0.4) 06/19/17 16:57 Basophils # (Manual) 0.0 K/mm3 (0.0-0.1) 06/19/17 16:57 Metamyelocytes # 0.0 K/mm3 06/19/17 16:57 Myelocytes # 0.0 K/mm3 06/19/17 16:57 Promyelocytes # 0.0 K/mm3 06/19/17 16:57 Blast Cells # 0.0 K/mm3 06/19/17 16:57 WBC Morphology Not Reportable 06/19/17 16:57 Hypersegmented Neuts Not Reportable 06/19/17 16:57 Hyposegmented Neuts Not Reportable 06/19/17 16:57 Hypogranular Neuts Not Reportable 06/19/17 16:57 Smudge Cells Not Reportable 06/19/17 16:57 Toxic Granulation Not Reportable 06/19/17 16:57 Toxic Vacuolation Not Reportable 06/19/17 16:57 Dohle Bodies Not Reportable 06/19/17 16:57 Pelger-Huet Anomaly Not Reportable 06/19/17 16:57 Carmen Rods Not Reportable 06/19/17 16:57 Platelet Estimate Appears normal 06/19/17 16:57 Clumped Platelets Not Reportable 06/19/17 16:57 Plt Clumps, EDTA Not Reportable 06/19/17 16:57 Large Platelets Not Reportable 06/19/17 16:57 Giant Platelets Not Reportable 06/19/17 16:57 Platelet Satelliting Not Reportable 06/19/17 16:57 Plt Morphology Comment Not Reportable 06/19/17 16:57 RBC Morphology Not Reportable 06/19/17 16:57 Dimorphic RBCs Not Reportable 06/19/17 16:57 Polychromasia Not Reportable 06/19/17 16:57 Hypochromasia Not Reportable 06/19/17 16:57 Poikilocytosis Few 06/19/17 16:57 Anisocytosis Few 06/19/17 16:57 Microcytosis Not Reportable 06/19/17 16:57 Macrocytosis Not Reportable 06/19/17 16:57 Spherocytes Not Reportable 06/19/17 16:57 Pappenheimer Bodies Not Reportable 06/19/17 16:57 Sickle Cells Not Reportable 06/19/17 16:57 Target Cells Not Reportable 06/19/17 16:57 Tear Drop Cells Not Reportable 06/19/17 16:57 Ovalocytes Not Reportable 06/19/17 16:57 Helmet Cells Not Reportable 06/19/17 16:57 [place] Bodies Not Reportable 06/19/17 16:57 [place] Rings Not Reportable 06/19/17 16:57 [place] Cells Not Reportable 06/19/17 16:57 Bite Cells Not Reportable 06/19/17 16:57 Crenated Cell Not Reportable 06/19/17 16:57 Elliptocytes Not Reportable 06/19/17 16:57 Acanthocytes (Spur) Not Reportable 06/19/17 16:57 Rouleaux Not Reportable 06/19/17 16:57 Hemoglobin C Crystals Not Reportable 06/19/17 16:57 Schistocytes Not Reportable 06/19/17 16:57 Malaria parasites Not Reportable 06/19/17 16:57 Janes Bodies Not Reportable 06/19/17 16:57 Hem Pathologist Commnt No 06/19/17 16:57 Sodium 146 mmol/L (137-145) H 06/21/17 00:58 Potassium 3.6 mmol/L (3.6-5.0) 06/21/17 00:58 Chloride 106.1 mmol/L (98-107) 06/21/17 00:58 Carbon Dioxide 22 mmol/L (22-30) 06/21/17 00:58 Anion Gap 22 mmol/L 06/21/17 00:58 BUN 23 mg/dL (9-20) H 06/21/17 00:58 Creatinine 0.9 mg/dL (0.8-1.5) 06/21/17 00:58 Estimated GFR > 60 ml/min 06/21/17 00:58 BUN/Creatinine Ratio 26 % 06/21/17 00:58 Glucose 204 mg/dL (75-100) H 06/21/17 00:58 POC Glucose 211 (70-105) H 06/21/17 05:38 Calcium 8.2 mg/dL (8.4-10.2) L 06/21/17 00:58 Phosphorus 1.40 mg/dL (2.5-4.5) L D 06/20/17 15:57 Magnesium 2.10 mg/dL (1.7-2.3) 06/20/17 15:57 Total Creatine Kinase 221 units/L (55-170) H 06/19/17 19:12 CK-MB (CK-2) 4.2 ng/mL (0.0-4.0) H 06/19/17 19:12 CK-MB (CK-2) Rel Index 1.9 (0-4) 06/19/17 19:12 Troponin T < 0.010 ng/mL (0.00-0.029) 06/19/17 22:46 Urine Color Yellow (Yellow) 06/19/17 Unknown Urine Turbidity Clear (Clear) 06/19/17 Unknown Urine pH 5.0 (5.0-7.0) 06/19/17 Unknown Ur Specific [place] 1.016 (1.003-1.030) 06/19/17 Unknown Urine Protein <15 mg/dl mg/dL (Negative) 06/19/17 Unknown Urine Glucose (UA) >=500 mg/dL (Negative) 06/19/17 Unknown Urine Ketones 20 mg/dL (Negative) 06/19/17 Unknown Urine Blood Sm (Negative) 06/19/17 Unknown Urine Nitrite Neg (Negative) 06/19/17 Unknown Urine Bilirubin Neg (Negative) 06/19/17 Unknown Urine Urobilinogen < 2.0 mg/dL (<2.0) 06/19/17 Unknown Ur Leukocyte Esterase Neg (Negative) 06/19/17 Unknown Urine WBC (Auto) 2.0 /HPF (0.0-6.0) 06/19/17 Unknown Urine RBC (Auto) 1.0 /HPF (0.0-6.0) 06/19/17 Unknown Urine Mucus Few /HPF 06/19/17 Unknown
[2017-06-21] MEDS ORDERED: D50W (25GM) Syringe IV PRN (10:34)
[2017-06-21] MEDS ORDERED: NACL 0.45% 1000 ML 1,000 ML IV SCH (11:00)
--- NOTE | 2017-06-21 16:00 | Progress Note ---
Assessment and Plan Impression: Diuretic ketoacidosis with resolved with insulin drip Hypernatremia and dehydration Possible COPD Recommendation: Add nebs PFT as out pt Subjective Date of service: 06/21/17 Interval history: C/o cough and congestion. H/o smoking in the past Objective Vital Signs - 12hr 06/21/17 06/21/17 06/21/17 04:00 04:10 04:20 Temperature Pulse Rate 85 80 81 Respiratory 17 18 16 Rate Blood Pressure 114/65 114/65 114/65 O2 Sat by Pulse 95 95 94 Oximetry 06/21/17 06/21/17 06/21/17 04:30 04:34 04:40 Temperature Pulse Rate 86 86 75 Respiratory 18 16 Rate Blood Pressure 114/65 122/54 O2 Sat by Pulse 94 94 Oximetry 06/21/17 06/21/17 06/21/17 04:50 05:00 05:10 Temperature Pulse Rate 87 79 81 Respiratory 21 18 18 Rate Blood Pressure 122/54 113/62 114/65 O2 Sat by Pulse 93 93 92 Oximetry 06/21/17 06/21/17 06/21/17 05:20 05:30 05:40 Temperature Pulse Rate 74 81 78 Respiratory 16 15 20 Rate Blood Pressure 114/65 114/65 113/62 O2 Sat by Pulse 96 94 95 Oximetry 06/21/17 06/21/17 06/21/17 05:50 06:00 06:10 Temperature Pulse Rate 78 75 79 Respiratory 18 19 17 Rate Blood Pressure 113/62 108/45 108/45 O2 Sat by Pulse 94 93 91 Oximetry 06/21/17 06/21/17 06/21/17 06:20 06:30 06:40 Temperature Pulse Rate 81 89 90 Respiratory 18 19 20 Rate Blood Pressure 108/45 108/45 108/45 O2 Sat by Pulse 94 94 93 Oximetry 06/21/17 06/21/17 06/21/17 06:50 07:00 07:10 Temperature Pulse Rate 85 84 83 Respiratory 19 19 18 Rate Blood Pressure 108/45 110/63 108/45 O2 Sat by Pulse 94 94 92 Oximetry 06/21/17 06/21/17 06/21/17 07:20 07:30 07:40 Temperature Pulse Rate 83 83 78 Respiratory 17 18 19 Rate Blood Pressure 108/45 108/45 108/45 O2 Sat by Pulse 94 95 95 Oximetry 06/21/17 06/21/17 06/21/17 07:50 08:00 08:10 Temperature 99.1 F Pulse Rate 73 71 76 Respiratory 17 18 21 Rate Blood Pressure 108/45 119/63 119/63 O2 Sat by Pulse 94 94 95 Oximetry 06/21/17 06/21/17 06/21/17 08:16 08:20 08:30 Temperature Pulse Rate 69 70 Respiratory 15 19 Rate Blood Pressure 119/63 119/63 O2 Sat by Pulse 94 96 96 Oximetry 06/21/17 06/21/17 06/21/17 08:40 08:50 09:00 Temperature Pulse Rate 68 85 82 Respiratory 15 22 20 Rate Blood Pressure 119/63 119/63 127/69 O2 Sat by Pulse 96 96 93 Oximetry 06/21/17 06/21/17 06/21/17 09:10 09:20 09:30 Temperature Pulse Rate 74 75 93 H Respiratory 17 19 16 Rate Blood Pressure 127/69 127/69 127/69 O2 Sat by Pulse 94 94 95 Oximetry 06/21/17 06/21/17 06/21/17 09:40 09:50 10:00 Temperature Pulse Rate 82 86 98 H Respiratory 20 21 18 Rate Blood Pressure 127/69 127/69 132/76 O2 Sat by Pulse 94 96 95 Oximetry 06/21/17 06/21/17 06/21/17 10:10 10:20 10:30 Temperature Pulse Rate 88 92 H 84 Respiratory 22 20 22 Rate Blood Pressure 132/76 132/76 132/76 O2 Sat by Pulse 90 93 Oximetry 06/21/17 06/21/17 10:40 10:50 Temperature Pulse Rate 83 89 Respiratory 20 19 Rate Blood Pressure 132/76 132/76 O2 Sat by Pulse 95 91 Oximetry Constitutional: no acute distress, lethargic, other (smaller statured thin) Eyes: non-icteric ENT: oropharynx dry Neck: other (rigid in all directions) Ascultation: Bilateral: clear, diminished breath sounds Cardiovascular: irregular rhythm Gastrointestinal: normoactive bowel sounds, soft, non-tender Extremities: no cyanosis, no edema Neurologic: unable to assess CBC and BMP: 06/19/17 16:57 06/21/17 00:58 Abnormal lab findings: Abnormal Labs 06/19/17 06/19/17 06/19/17 16:57 16:57 19:12 Hgb 15.7 H Hct 51.3 H MCV 105 H MCHC 31 L RDW 15.4 H Seg Neuts % (Manual) 82.0 H Lymphocytes % (Manual) 10.0 L Monocytes % (Manual) 8.0 H Lymphocytes # (Manual) 0.8 L Sodium 132 L Potassium 7.5 H* Chloride 80.4 L Carbon Dioxide 9 L* BUN 66 H Creatinine 2.2 H Glucose 865 H* POC Glucose Calcium Phosphorus Magnesium Total Creatine Kinase 221 H CK-MB (CK-2) 4.2 H 06/19/17 06/19/17 06/19/17 19:12 19:12 19:59 Hgb Hct MCV MCHC RDW Seg Neuts % (Manual) Lymphocytes % (Manual) Monocytes % (Manual) Lymphocytes # (Manual) Sodium 132 L Potassium 6.5 H* Chloride 81.3 L Carbon Dioxide 6 L* BUN 68 H Creatinine 2.1 H Glucose 879 H* POC Glucose > 500 H Calcium Phosphorus 7.50 H Magnesium 2.80 H Total Creatine Kinase CK-MB (CK-2) 06/19/17 06/19/17 06/19/17 21:09 21:15 22:46 Hgb Hct MCV MCHC RDW Seg Neuts % (Manual) Lymphocytes % (Manual) Monocytes % (Manual) Lymphocytes # (Manual) Sodium 132 L Potassium 5.3 H Chloride 93.5 L 97.4 L Carbon Dioxide 7 L* 9 L* BUN 66 H 63 H Creatinine 2.1 H 2.0 H Glucose 734 H* 673 H* POC Glucose > 500 H Calcium 8.3 L 8.2 L Phosphorus Magnesium Total Creatine Kinase CK-MB (CK-2) 06/19/17 06/20/17 06/20/17 23:11 00:12 00:59 Hgb Hct MCV MCHC RDW Seg Neuts % (Manual) Lymphocytes % (Manual) Monocytes % (Manual) Lymphocytes # (Manual) Sodium Potassium Chloride Carbon Dioxide BUN Creatinine Glucose POC Glucose > 500 H 483 H 484 H Calcium Phosphorus Magnesium Total Creatine Kinase CK-MB (CK-2) 06/20/17 06/20/17 06/20/17 01:11 02:35 02:51 Hgb Hct MCV MCHC RDW Seg Neuts % (Manual) Lymphocytes % (Manual) Monocytes % (Manual) Lymphocytes # (Manual) Sodium 148 H Potassium Chloride 108.1 H Carbon Dioxide 14 L 17 L BUN 58 H 54 H Creatinine 1.7 H 1.6 H Glucose 539 H* 426 H POC Glucose 483 H Calcium 8.3 L 8.2 L Phosphorus Magnesium Total Creatine Kinase CK-MB (CK-2) 06/20/17 06/20/17 06/20/17 03:38 05:11 06:08 Hgb Hct MCV MCHC RDW Seg Neuts % (Manual) Lymphocytes % (Manual) Monocytes % (Manual) Lymphocytes # (Manual) Sodium Potassium Chloride Carbon Dioxide BUN Creatinine Glucose POC Glucose 363 H 317 H 272 H Calcium Phosphorus Magnesium Total Creatine Kinase CK-MB (CK-2) 06/20/17 06/20/17 06/20/17 06:49 07:43 08:36 Hgb Hct MCV MCHC RDW Seg Neuts % (Manual) Lymphocytes % (Manual) Monocytes % (Manual) Lymphocytes # (Manual) Sodium Potassium Chloride Carbon Dioxide BUN Creatinine Glucose POC Glucose 256 H 238 H 139 H Calcium Phosphorus Magnesium Total Creatine Kinase CK-MB (CK-2) 06/20/17 06/20/17 06/20/17 09:56 10:50 11:05 Hgb Hct MCV MCHC RDW Seg Neuts % (Manual) Lymphocytes % (Manual) Monocytes % (Manual) Lymphocytes # (Manual) Sodium 151 H Potassium 2.7 L* D Chloride 112.7 H Carbon Dioxide BUN 40 H Creatinine Glucose 118 H POC Glucose 136 H 117 H Calcium 7.9 L Phosphorus Magnesium Total Creatine Kinase CK-MB (CK-2) 06/20/17 06/20/17 06/20/17 13:29 13:29 13:48 Hgb Hct MCV MCHC RDW Seg Neuts % (Manual) Lymphocytes % (Manual) Monocytes % (Manual) Lymphocytes # (Manual) Sodium 152 H Potassium 3.0 L Chloride 111.3 H Carbon Dioxide BUN 38 H Creatinine Glucose 154 H POC Glucose 107 H Calcium 8.1 L Phosphorus 2.00 L D Magnesium Total Creatine Kinase CK-MB (CK-2) 06/20/17 06/20/17 06/20/17 14:48 15:57 16:03 Hgb Hct MCV MCHC RDW Seg Neuts % (Manual) Lymphocytes % (Manual) Monocytes % (Manual) Lymphocytes # (Manual) Sodium Potassium Chloride Carbon Dioxide BUN Creatinine Glucose POC Glucose 132 H 158 H Calcium Phosphorus 1.40 L D Magnesium Total Creatine Kinase CK-MB (CK-2) 06/20/17 06/20/17 06/20/17 17:06 20:09 23:31 Hgb Hct MCV MCHC RDW Seg Neuts % (Manual) Lymphocytes % (Manual) Monocytes % (Manual) Lymphocytes # (Manual) Sodium Potassium Chloride Carbon Dioxide BUN Creatinine Glucose POC Glucose 118 H 144 H 200 H Calcium Phosphorus Magnesium Total Creatine Kinase CK-MB (CK-2) 06/21/17 06/21/17 06/21/17 00:58 02:14 05:38 Hgb Hct MCV MCHC RDW Seg Neuts % (Manual) Lymphocytes % (Manual) Monocytes % (Manual) Lymphocytes # (Manual) Sodium 146 H Potassium Chloride Carbon Dioxide BUN 23 H Creatinine Glucose 204 H POC Glucose 205 H 211 H Calcium 8.2 L Phosphorus Magnesium Total Creatine Kinase CK-MB (CK-2) 06/21/17 06/21/17 09:03 14:47 Hgb Hct MCV MCHC RDW Seg Neuts % (Manual) Lymphocytes % (Manual) Monocytes % (Manual) Lymphocytes # (Manual) Sodium Potassium Chloride Carbon Dioxide BUN Creatinine Glucose POC Glucose 308 H 424 H Calcium Phosphorus Magnesium Total Creatine Kinase CK-MB (CK-2)
--- NOTE | 2017-06-22 10:02 | Progress Note ---
Assessment and Plan Assessment and plan: DKA. Resolved. We will start 70/30 6 units twice a day. Accu-Cheks and sliding scale insulin. The patient will be transferred to the Hypernatremia. Etiology likely second Continue IV fluid hydration. hypokalemia. resolved deconditioning. PT eval History Interval history: no new complaints overnight Hospitalist Physical - Constitutional Vitals: Temp Pulse Resp BP Pulse Ox 99.2 F 90 18 127/81 96 06/22/17 07:48 06/22/17 07:48 06/22/17 07:48 06/22/17 07:48 06/22/17 07:48 General appearance: Present: no acute distress, well-nourished - EENT Eyes: Present: PERRL, EOM intact ENT: hearing intact, clear oral mucosa, dentition normal - Neck Neck: Present: supple, normal ROM - Respiratory Respiratory effort: normal Respiratory: bilateral: CTA - Cardiovascular Rhythm: regular Heart Sounds: Present: S1 & S2. Absent: gallop, rub - Extremities Extremities: no ischemia, No edema, Full ROM - Abdominal General gastrointestinal: soft, non-tender, non-distended, normal bowel sounds - Integumentary Integumentary: Present: clear, warm, dry - Neurologic Neurologic: CNII-XII intact, moves all extremities Results - Labs CBC & Chem 7: 06/19/17 16:57 06/21/17 00:58 Labs: Laboratory Last Values WBC 8.4 K/mm3 (4.5-11.0) 06/19/17 16:57 RBC 4.90 M/mm3 (3.65-5.03) 06/19/17 16:57 Hgb 15.7 gm/dl (11.8-15.2) H 06/19/17 16:57 Hct 51.3 % (35.5-45.6) H 06/19/17 16:57 MCV 105 fl (84-94) H 06/19/17 16:57 MCH 32 pg (28-32) 06/19/17 16:57 MCHC 31 % (32-34) L 06/19/17 16:57 RDW 15.4 % (13.2-15.2) H 06/19/17 16:57 Plt Count 192 K/mm3 (140-440) 06/19/17 16:57 Add Manual Diff Complete 12/22/17 16:57 Total Counted 100 06/19/17 16:57 Seg Neuts % (Manual) 82.0 % (40.0-70.0) H 06/19/17 16:57 Band Neutrophils % 0 % 06/19/17 16:57 Lymphocytes % (Manual) 10.0 % (13.4-35.0) L 06/19/17 16:57 Reactive Lymphs % (Man) 0 % 06/19/17 16:57 Monocytes % (Manual) 8.0 % (0.0-7.3) H 06/19/17 16:57 Eosinophils % (Manual) 0 % (0.0-4.3) 06/19/17 16:57 Basophils % (Manual) 0 % (0.0-1.8) 06/19/17 16:57 Metamyelocytes % 0 % 06/19/17 16:57 Myelocytes % 0 % 06/19/17 16:57 Promyelocytes % 0 % 06/19/17 16:57 Blast Cells % 0 % 06/19/17 16:57 Nucleated RBC % Not Reportable 06/19/17 16:57 Seg Neutrophils # Man 6.9 K/mm3 (1.8-7.7) 06/19/17 16:57 Band Neutrophils # 0.0 K/mm3 06/19/17 16:57 Lymphocytes # (Manual) 0.8 K/mm3 (1.2-5.4) L 06/19/17 16:57 Abs React Lymphs (Man) 0.0 K/mm3 06/19/17 16:57 Monocytes # (Manual) 0.7 K/mm3 (0.0-0.8) 06/19/17 16:57 Eosinophils # (Manual) 0.0 K/mm3 (0.0-0.4) 06/19/17 16:57 Basophils # (Manual) 0.0 K/mm3 (0.0-0.1) 06/19/17 16:57 Metamyelocytes # 0.0 K/mm3 06/19/17 16:57 Myelocytes # 0.0 K/mm3 06/19/17 16:57 Promyelocytes # 0.0 K/mm3 06/19/17 16:57 Blast Cells # 0.0 K/mm3 06/19/17 16:57 WBC Morphology Not Reportable 06/19/17 16:57 Hypersegmented Neuts Not Reportable 06/19/17 16:57 Hyposegmented Neuts Not Reportable 06/19/17 16:57 Hypogranular Neuts Not Reportable 06/19/17 16:57 Smudge Cells Not Reportable 06/19/17 16:57 Toxic Granulation Not Reportable 06/19/17 16:57 Toxic Vacuolation Not Reportable 06/19/17 16:57 Dohle Bodies Not Reportable 06/19/17 16:57 Pelger-Huet Anomaly Not Reportable 06/19/17 16:57 Carmen Rods Not Reportable 06/19/17 16:57 Platelet Estimate Appears normal 06/19/17 16:57 Clumped Platelets Not Reportable 06/19/17 16:57 Plt Clumps, EDTA Not Reportable 06/19/17 16:57 Large Platelets Not Reportable 06/19/17 16:57 Giant Platelets Not Reportable 06/19/17 16:57 Platelet Satelliting Not Reportable 06/19/17 16:57 Plt Morphology Comment Not Reportable 06/19/17 16:57 RBC Morphology Not Reportable 06/19/17 16:57 Dimorphic RBCs Not Reportable 06/19/17 16:57 Polychromasia Not Reportable 06/19/17 16:57 Hypochromasia Not Reportable 06/19/17 16:57 Poikilocytosis Few 06/19/17 16:57 Anisocytosis Few 06/19/17 16:57 Microcytosis Not Reportable 06/19/17 16:57 Macrocytosis Not Reportable 06/19/17 16:57 Spherocytes Not Reportable 06/19/17 16:57 Pappenheimer Bodies Not Reportable 06/19/17 16:57 Sickle Cells Not Reportable 06/19/17 16:57 Target Cells Not Reportable 06/19/17 16:57 Tear Drop Cells Not Reportable 06/19/17 16:57 Ovalocytes Not Reportable 06/19/17 16:57 Helmet Cells Not Reportable 06/19/17 16:57 Perez-Marrero Bodies Not Reportable 06/19/17 16:57 [place] Rings Not Reportable 06/19/17 16:57 Srinivas Cells Not Reportable 06/19/17 16:57 Bite Cells Not Reportable 06/19/17 16:57 Crenated Cell Not Reportable 06/19/17 16:57 Elliptocytes Not Reportable 06/19/17 16:57 Acanthocytes (Spur) Not Reportable 06/19/17 16:57 Rouleaux Not Reportable 06/19/17 16:57 Hemoglobin C Crystals Not Reportable 06/19/17 16:57 Schistocytes Not Reportable 06/19/17 16:57 Malaria parasites Not Reportable 06/19/17 16:57 Janes Bodies Not Reportable 06/19/17 16:57 Hem Pathologist Commnt No 06/19/17 16:57 Sodium 146 mmol/L (137-145) H 06/21/17 00:58 Potassium 3.6 mmol/L (3.6-5.0) 06/21/17 00:58 Chloride 106.1 mmol/L (98-107) 06/21/17 00:58 Carbon Dioxide 22 mmol/L (22-30) 06/21/17 00:58 Anion Gap 22 mmol/L 06/21/17 00:58 BUN 23 mg/dL (9-20) H 06/21/17 00:58 Creatinine 0.9 mg/dL (0.8-1.5) 06/21/17 00:58 Estimated GFR > 60 ml/min 06/21/17 00:58 BUN/Creatinine Ratio 26 % 06/21/17 00:58 Glucose 204 mg/dL (75-100) H 06/21/17 00:58 POC Glucose 247 (70-105) H 06/22/17 05:59 Calcium 8.2 mg/dL (8.4-10.2) L 06/21/17 00:58 Phosphorus 1.40 mg/dL (2.5-4.5) L D 06/20/17 15:57 Magnesium 2.10 mg/dL (1.7-2.3) 06/20/17 15:57 Total Creatine Kinase 221 units/L (55-170) H 06/19/17 19:12 CK-MB (CK-2) 4.2 ng/mL (0.0-4.0) H 06/19/17 19:12 CK-MB (CK-2) Rel Index 1.9 (0-4) 06/19/17 19:12 Troponin T < 0.010 ng/mL (0.00-0.029) 06/19/17 22:46 Urine Color Yellow (Yellow) 06/19/17 Unknown Urine Turbidity Clear (Clear) 06/19/17 Unknown Urine pH 5.0 (5.0-7.0) 06/19/17 Unknown Ur Specific Flushing 1.016 (1.003-1.030) 06/19/17 Unknown Urine Protein <15 mg/dl mg/dL (Negative) 06/19/17 Unknown Urine Glucose (UA) >=500 mg/dL (Negative) 06/19/17 Unknown Urine Ketones 20 mg/dL (Negative) 06/19/17 Unknown Urine Blood Sm (Negative) 06/19/17 Unknown Urine Nitrite Neg (Negative) 06/19/17 Unknown Urine Bilirubin Neg (Negative) 06/19/17 Unknown Urine Urobilinogen < 2.0 mg/dL (<2.0) 06/19/17 Unknown Ur Leukocyte Esterase Neg (Negative) 06/19/17 Unknown Urine WBC (Auto) 2.0 /HPF (0.0-6.0) 06/19/17 Unknown Urine RBC (Auto) 1.0 /HPF (0.0-6.0) 06/19/17 Unknown Urine Mucus Few /HPF 06/19/17 Unknown
[2017-06-22] MEDS: LOVENOX SUB-Q SCH (10:23)
[2017-06-22] MEDS: cefTRIAXone 1 GM in NACL 0.9% 20 ML IV SCH (10:23)
--- NOTE | 2017-06-22 14:50 | Progress Note ---
Assessment and Plan Impression: Diuretic ketoacidosis with resolved with insulin drip Hypernatremia and dehydration Possible COPD Recommendation: Add nebs PFT as out pt Subjective Date of service: 06/22/17 Interval history: C/o cough and congestion yellowish sputum. H/o smoking in the past Objective Vital Signs - 12hr 06/22/17 06/22/17 06/22/17 03:37 07:48 10:00 Temperature 98.5 F 99.2 F Pulse Rate 87 90 Respiratory 18 18 20 Rate Blood Pressure 108/63 127/81 O2 Sat by Pulse 92 96 Oximetry Constitutional: no acute distress, alert Eyes: non-icteric ENT: oropharynx dry Neck: other (rigid in all directions) Ascultation: Bilateral: clear, diminished breath sounds Cardiovascular: irregular rhythm Gastrointestinal: normoactive bowel sounds, soft, non-tender Extremities: no cyanosis, no edema Neurologic: unable to assess CBC and BMP: 06/19/17 16:57 06/21/17 00:58 Abnormal lab findings: Abnormal Labs 06/19/17 06/19/17 06/19/17 16:57 16:57 19:12 Hgb 15.7 H Hct 51.3 H MCV 105 H MCHC 31 L RDW 15.4 H Seg Neuts % (Manual) 82.0 H Lymphocytes % (Manual) 10.0 L Monocytes % (Manual) 8.0 H Lymphocytes # (Manual) 0.8 L Sodium 132 L Potassium 7.5 H* Chloride 80.4 L Carbon Dioxide 9 L* BUN 66 H Creatinine 2.2 H Glucose 865 H* POC Glucose Calcium Phosphorus Magnesium Total Creatine Kinase 221 H CK-MB (CK-2) 4.2 H 06/19/17 06/19/17 06/19/17 19:12 19:12 19:59 Hgb Hct MCV MCHC RDW Seg Neuts % (Manual) Lymphocytes % (Manual) Monocytes % (Manual) Lymphocytes # (Manual) Sodium 132 L Potassium 6.5 H* Chloride 81.3 L Carbon Dioxide 6 L* BUN 68 H Creatinine 2.1 H Glucose 879 H* POC Glucose > 500 H Calcium Phosphorus 7.50 H Magnesium 2.80 H Total Creatine Kinase CK-MB (CK-2) 06/19/17 06/19/17 06/19/17 21:09 21:15 22:46 Hgb Hct MCV MCHC RDW Seg Neuts % (Manual) Lymphocytes % (Manual) Monocytes % (Manual) Lymphocytes # (Manual) Sodium 132 L Potassium 5.3 H Chloride 93.5 L 97.4 L Carbon Dioxide 7 L* 9 L* BUN 66 H 63 H Creatinine 2.1 H 2.0 H Glucose 734 H* 673 H* POC Glucose > 500 H Calcium 8.3 L 8.2 L Phosphorus Magnesium Total Creatine Kinase CK-MB (CK-2) 06/19/17 06/20/17 06/20/17 23:11 00:12 00:59 Hgb Hct MCV MCHC RDW Seg Neuts % (Manual) Lymphocytes % (Manual) Monocytes % (Manual) Lymphocytes # (Manual) Sodium Potassium Chloride Carbon Dioxide BUN Creatinine Glucose POC Glucose > 500 H 483 H 484 H Calcium Phosphorus Magnesium Total Creatine Kinase CK-MB (CK-2) 06/20/17 06/20/17 06/20/17 01:11 02:35 02:51 Hgb Hct MCV MCHC RDW Seg Neuts % (Manual) Lymphocytes % (Manual) Monocytes % (Manual) Lymphocytes # (Manual) Sodium 148 H Potassium Chloride 108.1 H Carbon Dioxide 14 L 17 L BUN 58 H 54 H Creatinine 1.7 H 1.6 H Glucose 539 H* 426 H POC Glucose 483 H Calcium 8.3 L 8.2 L Phosphorus Magnesium Total Creatine Kinase CK-MB (CK-2) 06/20/17 06/20/17 06/20/17 03:38 05:11 06:08 Hgb Hct MCV MCHC RDW Seg Neuts % (Manual) Lymphocytes % (Manual) Monocytes % (Manual) Lymphocytes # (Manual) Sodium Potassium Chloride Carbon Dioxide BUN Creatinine Glucose POC Glucose 363 H 317 H 272 H Calcium Phosphorus Magnesium Total Creatine Kinase CK-MB (CK-2) 06/20/17 06/20/17 06/20/17 06:49 07:43 08:36 Hgb Hct MCV MCHC RDW Seg Neuts % (Manual) Lymphocytes % (Manual) Monocytes % (Manual) Lymphocytes # (Manual) Sodium Potassium Chloride Carbon Dioxide BUN Creatinine Glucose POC Glucose 256 H 238 H 139 H Calcium Phosphorus Magnesium Total Creatine Kinase CK-MB (CK-2) 06/20/17 06/20/17 06/20/17 09:56 10:50 11:05 Hgb Hct MCV MCHC RDW Seg Neuts % (Manual) Lymphocytes % (Manual) Monocytes % (Manual) Lymphocytes # (Manual) Sodium 151 H Potassium 2.7 L* D Chloride 112.7 H Carbon Dioxide BUN 40 H Creatinine Glucose 118 H POC Glucose 136 H 117 H Calcium 7.9 L Phosphorus Magnesium Total Creatine Kinase CK-MB (CK-2) 06/20/17 06/20/17 06/20/17 13:29 13:29 13:48 Hgb Hct MCV MCHC RDW Seg Neuts % (Manual) Lymphocytes % (Manual) Monocytes % (Manual) Lymphocytes # (Manual) Sodium 152 H Potassium 3.0 L Chloride 111.3 H Carbon Dioxide BUN 38 H Creatinine Glucose 154 H POC Glucose 107 H Calcium 8.1 L Phosphorus 2.00 L D Magnesium Total Creatine Kinase CK-MB (CK-2) 06/20/17 06/20/17 06/20/17 14:48 15:57 16:03 Hgb Hct MCV MCHC RDW Seg Neuts % (Manual) Lymphocytes % (Manual) Monocytes % (Manual) Lymphocytes # (Manual) Sodium Potassium Chloride Carbon Dioxide BUN Creatinine Glucose POC Glucose 132 H 158 H Calcium Phosphorus 1.40 L D Magnesium Total Creatine Kinase CK-MB (CK-2) 06/20/17 06/20/17 06/20/17 17:06 20:09 23:31 Hgb Hct MCV MCHC RDW Seg Neuts % (Manual) Lymphocytes % (Manual) Monocytes % (Manual) Lymphocytes # (Manual) Sodium Potassium Chloride Carbon Dioxide BUN Creatinine Glucose POC Glucose 118 H 144 H 200 H Calcium Phosphorus Magnesium Total Creatine Kinase CK-MB (CK-2) 06/21/17 06/21/17 06/21/17 00:58 02:14 05:38 Hgb Hct MCV MCHC RDW Seg Neuts % (Manual) Lymphocytes % (Manual) Monocytes % (Manual) Lymphocytes # (Manual) Sodium 146 H Potassium Chloride Carbon Dioxide BUN 23 H Creatinine Glucose 204 H POC Glucose 205 H 211 H Calcium 8.2 L Phosphorus Magnesium Total Creatine Kinase CK-MB (CK-2) 06/21/17 06/21/17 06/21/17 09:03 14:47 17:28 Hgb Hct MCV MCHC RDW Seg Neuts % (Manual) Lymphocytes % (Manual) Monocytes % (Manual) Lymphocytes # (Manual) Sodium Potassium Chloride Carbon Dioxide BUN Creatinine Glucose POC Glucose 308 H 424 H 378 H Calcium Phosphorus Magnesium Total Creatine Kinase CK-MB (CK-2) 06/21/17 06/22/17 06/22/17 20:27 01:34 05:59 Hgb Hct MCV MCHC RDW Seg Neuts % (Manual) Lymphocytes % (Manual) Monocytes % (Manual) Lymphocytes # (Manual) Sodium Potassium Chloride Carbon Dioxide BUN Creatinine Glucose POC Glucose 212 H 183 H 247 H Calcium Phosphorus Magnesium Total Creatine Kinase CK-MB (CK-2) 06/22/17 10:26 Hgb Hct MCV MCHC RDW Seg Neuts % (Manual) Lymphocytes % (Manual) Monocytes % (Manual) Lymphocytes # (Manual) Sodium Potassium Chloride Carbon Dioxide BUN Creatinine Glucose POC Glucose 246 H Calcium Phosphorus Magnesium Total Creatine Kinase CK-MB (CK-2)
[2017-06-22] MEDS ORDERED: PROVENTIL IH PRN (20:00)
[2017-06-23 05:52] LABS: Anion Gap 14 mmol/L; BUN/Creatinine Ratio 28; Blood Urea Nitrogen 14 mg/dL (9-20); Calcium 8.1 mg/dL (8.4-10.2); Carbon Dioxide 28 mmol/L (22-30); Chloride 100.8 mmol/L (98-107); Glucose 170 mg/dL (75-100); Potassium 3.2 mmol/L (3.6-5.0); Sodium 140 mmol/L (137-145)
[2017-06-23 05:53] LABS: Basophils % (Auto) 0.8 % (0.0-1.8); Eosinophils % (Auto) 0.7 % (0.0-4.3); Hematocrit 38.9 % (35.5-45.6); Hemoglobin 12.8 gm/dl (11.8-15.2); Mean Corpuscular HGB Conc 33 % (32-34); Mean Corpuscular Hemoglobin 31 pg (28-32); Mean Corpuscular Volume 94 fl (84-94); Platelet Count 116 K/mm3 (140-440); Red Blood Count 4.16 M/mm3 (3.65-5.03); Red Cell Distribution Width 13.6 % (13.2-15.2); White Blood Count 4.4 K/mm3 (4.5-11.0)
[2017-06-23 08:23] VITALS: BP 128/79
--- NOTE | 2017-06-23 09:41 | Discharge Summary ---
<ALBERTRIGO STOREY - Last Filed: 06/23/17 14:58> Providers - Providers Date of Admission: 06/19/17 23:05 Date of discharge: 06/23/17 Attending physician: PURA RIVERA 06/19/17 23:05 Consult to Physician [CONS] Routine Consulting Provider: SOLIS YOUNG Reason For Exam: cc Place consult to:: Answering service Notified:: Katie Phone number called:: [phone] Was contact made?: Yes If yes, spoke with:: answering ag service manager Katie Time called:: 00:47 06/22/17 09:59 Physical Therapy Evaluation and Treat [CONS] Routine Comment: Reason For Exam: deconditioning Primary care physician: SONDRA ESPARZA Hospitalization Reason for admission: DKA Condition: Good Hospital course: Patient is a 76-year-old male with past medical history of diabetes who presentes to the emergency room with complaints of subjective fever,productive cough of yellow phlegm, generalized weakness, no appetite over the last 3 days. Patient diagnosed with Diabetes mellitus with Diabetic ketoacidosis,and Hypokalemia, Hypernatremia and hypokalemia.He was treated with potassium supplement ,IV insulin drip and subcutaneous. He is being discharged on insulin long acting and short acting. Patient clinically improved and stable for discharge. Patient was advised to follow up with his primary care. Discharge Diagnosed Diabetes mellitus with Diabetic ketoacidosis Hypernatremia. hypokalemia. Disposition: DC-01 TO HOME OR SELFCARE Time spent for discharge: 35 minuts Core Measure Documentation - Palliative Care Palliative Care/ Comfort Measures: Not Applicable - Core Measures Any of the following diagnoses?: none Exam - Constitutional Vitals: Temp Pulse Resp BP Pulse Ox 99.1 F 78 20 128/79 98 06/23/17 07:40 06/23/17 07:40 06/23/17 08:17 06/23/17 07:40 06/23/17 07:40 General appearance: Present: no acute distress - EENT Eyes: Present: PERRL, irregular pupil - Neck Neck: Present: supple, normal ROM - Respiratory Respiratory effort: normal Respiratory: bilateral: CTA - Cardiovascular Rhythm: regular Heart Sounds: Present: S1 & S2 - Abdominal General gastrointestinal: Present: soft, non-tender Male genitourinary: Present: deferred - Rectal Rectal Exam: deferred - Integumentary Integumentary: Present: clear, warm, dry - Musculoskeletal Musculoskeletal: strength equal bilaterally - Psychiatric Psychiatric: appropriate mood/affect - Neurologic Neurologic: moves all extremities - Allied Health Allied health notes reviewed: nursing Plan Diet: low fat, low cholesterol, low salt, diabetic Follow up with: [facility] [Provider Group] - 7 Days PRIMARY CARE,MD [Referring] - 3-5 Days Prescriptions: Insulin Glargine,Hum.rec.anlog [Lantus Solostar] 16 unit SQ QHS 30 Days insuln.pen Insulin Aspart [NovoLOG Flexpen] 4 unit SQ TIDDIAB 30 Days insuln.pen <PURA RIVERA - Last Filed: 06/24/17 08:33> Providers - Providers Date of Admission: 06/19/17 23:05 Attending physician: PURA RIVERA 06/19/17 23:05 Consult to Physician [CONS] Routine Consulting Provider: SOLIS YOUNG Reason For Exam: cc Place consult to:: Answering service Notified:: Katie Phone number called:: [phone] Was contact made?: Yes If yes, spoke with:: answering ag service manager Katie Time called:: 00:47 06/22/17 09:59 Physical Therapy Evaluation and Treat [CONS] Routine Comment: Reason For Exam: deconditioning Primary care physician: SONDRA ESPARZA Hospitalization Hospital course: I saw and evaluated the patient. I agree with the findings and the plan of care as documented in the Nurse Practitioner's~note, with the following corrections and additions. Exam - Constitutional Vitals: Temp Pulse Resp BP Pulse Ox 99.1 F 78 20 128/79 98 06/23/17 07:40 06/23/17 07:40 06/23/17 08:17 06/23/17 07:40 06/23/17 07:40
[2017-06-23] MEDS ORDERED: LOVENOX SUB-Q SCH (10:00)
[2017-06-23] MEDS: cefTRIAXone 1 GM in NACL 0.9% 20 ML IV SCH (10:11)
--- NOTE | 2017-06-29 15:13 | Query- Nutrition ---
Dearakesh Saba____Chuy Date:____06/29/17 Integrated Circuit Layout Designer/CDS:____[employer] / Kody Phone#:___[phone] Exercise your independent professional judgment when responding to query. Questions asked do not imply a particular answer is desired or expected. We greatly appreciate your clarification on this issue. Clinical Documentation States: 76 year old male was admitted on 06/19/17 The discharge summary (Dr. eVra) states " Patient is a 76-year-old male with past medical history of diabetes who presentes to the emergency room with complaints of subjective fever,productive cough of yellow phlegm, generalized weakness, no appetite over the last 3 days Discharge Diagnosed Diabetes mellitus with Diabetic ketoacidosis " Clinical Findings Show: BMI: 16.5 Please select the most appropriate option 3 [] Mild Malnutrition [x] Mild - Moderate Malnutrition [] Moderate - Severe Malnutrition [] Severe Malnutrition Serum Albumin 2.8 to 3.4 g/dl or Pre-albumin 5 to 17 mg/dl1,2 Inadequate nutritional intake1,2,3,4 NPO > 5 days Weight loss: 5% in 1 month or 7.5% in 3 months or 10% in 6 months1, 3,4 BMI 16 to 18.4 or Weight <90% of ideal body weight1,2,3,4 Serum Albumin < 2.8 g/ dl1,2 Lymphocytes < 1500/ L2 Inadequate nutritional intake3, high stress e.g. major trauma, sepsis,pancreatitis, lowery etc. Decubitus ulcers1,2, , skin breakdown2, easy hair pluckability2 Weight <80% standard for height2 Triceps skin fold <3 mm2 Mid-arm muscle circumference <15 cm2 Creatinine-height index <60% standard2 [ ] Cachexia [ ] Emaciated w/Malnutrition [ ] Other: [ ] Unable to determine [ ] Comment/Explanation: Present on Admission: [ x] Yes (Y) [ ] Clinically undeterminable (W) [ ] No (N) Please also document response in your Progress Notes and/or Discharge Summary and indicate if the condition was present on admission. MTDD
--- NOTE | 2017-06-29 15:22 | Query- General ---
Dear ____Chuy Date:___06/29/17 Server Programmer/CDS: Jaz / Kody Phone#:___[phone] Exercise your independent professional judgment when responding to this query. Questions asked do not imply a particular answer is desired or expected. We greatly appreciate your clarification on this issue. Clinical Documentation States: 76 year old male was admitted on 06/19/17 The discharge summary (Dr. Vera) states " presentes to the emergency room with complaints of subjective fever,productive cough of yellow phlegm, generalized weakness, no appetite over the last 3 days Discharge Diagnosed Diabetes mellitus with Diabetic ketoacidosis Hypernatremia. hypokalemia. " Clinical Findings Show (include reference to source document): 06/19/17 06/23/17 Creatinine: 2.2 0.5 BUN/Creatinine Ratio: 30 28 Given the above clinical scenario can you please provide an appropriate diagnosis based on your knowledge of the patient: PHYSICIAN RESPONSE: [ ] Tubular Necrosis [ ] Medullary Necrosis [x ] Vasomotor Nephropathy [ ] Shock Kidney [ ] Tubular Nephrosis [ ] Renal Tubular Stasis [ ] Cortical Necrosis [ ] Acute Renal Failure (unspecified) [ ] Lower Tubular Nephrosis [ ] Other: [ ] Not Applicable Present on Admission: [ x] Yes (Y) [ ] Clinically undeterminable (W) [ ]No(N) Please also document response in your Progress Notes and/or Discharge Summary and indicate if the condition was present on admission. [email or web address]
== END 2017-06-23 11:58 | disposition home or self-care (01) | DRG 682 ==
LOC: ED 16:11 → CC1 23:05 → 4A 06-21 11:12
PROVIDERS: ADMIT Internal Medicine; ATTEND Hospitalist
DX: N17.0 Acute kidney failure with tubular necrosis (principal); E11.10 Type 2 diabetes mellitus with ketoacidosis without coma; E87.0 Hyperosmolality and hypernatremia; E44.0 Moderate protein-calorie malnutrition; E87.6 Hypokalemia; E86.0 Dehydration; Z83.3 Family history of diabetes mellitus; Z79.4 Long term (current) use of insulin
CPT/HCPCS: 36415; 71010; 80048; 81001; 82550; 82553; 82962; 83735; 84100; 84484; 85007; 85025; 87040; 93005; 93010; 96361; 96374; G8978-GP; G8980-GP; J0610; J0696; J1650; J1815; J3480; J7030; J7040

== ENCOUNTER 2017-06-25 02:13 | Inpatient (IN) | payer MEDICARE ==
[2017-06-25] MEDS ORDERED: ROCEPHIN/NS 1 GM/50 ML 1 GM/50 ML BAG IV ONE (02:53)
[2017-06-25] MEDS ORDERED: NACL 0.9% 1000 ML 2,000 ML IV ONE (02:53)
[2017-06-25] MEDS ORDERED: NACL 0.9% 1000 ML 1,000 ML IV ONE ×4 (02:53→11:17)
--- NOTE | 2017-06-25 02:55 | Emergency Department Report ---
ED General Adult HPI - General Chief complaint: Weakness Stated complaint: HYPERGLYCEMIA Time Seen by Provider: 06/25/17 02:44 Source: patient, family, EMS, RN notes reviewed, old records reviewed Mode of arrival: Stretcher Limitations: Altered Mental Status - History of Present Illness Initial comments: This is a 76-year-old male who was previously unknown to this provider, patient has a past medical history of diabetic ketoacidosis, recently admitted to the hospital here at this institution for the same. 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 This is constant, and does not have exacerbating or relieving factors. She reports the patient has been lethargic and generally weak. There is no trauma. No exacerbating or relieving factors, patient is too altered to describe. -: Gradual Consistency: constant Improves with: none Worsens with: none Associated Symptoms: confusion, malaise, weakness - Related Data Previous Rx's Medication Instructions Recorded Last Taken Type Insulin Aspart [NovoLOG Flexpen] 4 unit SQ TIDDIAB 30 Days 06/23/17 Unknown Rx insuln.pen Insulin Glargine,Hum.rec.anlog 16 unit SQ QHS 30 Days insuln.pen 06/23/17 Unknown Rx [Lantus Solostar] Allergies Allergy/AdvReac Type Severity Reaction Status Date / Time No Known Allergies Allergy Verified 06/19/17 16:27 ED Review of Systems ROS: Stated complaint: HYPERGLYCEMIA Other details as noted in HPI Comment: Unobtainable due to pts medical conditions ED Past Medical Hx - Past Medical History Hx Congestive Heart Failure: No Hx Diabetes: Yes Hx Asthma: No Hx COPD: No - Surgical History Additional Surgical History: hernia repair - Social History Smoking Status: Former Smoker - Medications Home Medications: Home Medications Medication Instructions Recorded Confirmed Last Taken Type Insulin Aspart [NovoLOG Flexpen] 4 unit SQ TIDDIAB 30 Days 06/23/17 Unknown Rx insuln.pen Insulin Glargine,Hum.rec.anlog 16 unit SQ QHS 30 Days insuln.pen 06/23/17 Unknown Rx [Lantus Solostar] ED Physical Exam - General Limitations: Altered Mental Status General appearance: lethargic - Head Head exam: Present: atraumatic, normocephalic - Eye Eye exam: Present: normal appearance - ENT ENT exam: Present: mucous membranes dry - Neck Neck exam: Present: normal inspection, full ROM - Respiratory Respiratory exam: Present: normal lung sounds bilaterally. Absent: respiratory distress - Cardiovascular Cardiovascular Exam: Present: normal rhythm, tachycardia, normal heart sounds. Absent: systolic murmur, diastolic murmur, rubs, gallop - GI/Abdominal GI/Abdominal exam: Present: soft, normal bowel sounds. Absent: distended, tenderness, guarding, rebound, rigid, pulsatile mass - Rectal Rectal exam: Present: normal inspection - exam: Present: normal inspection External exam: Present: normal external exam - Extremities Exam Extremities exam: Present: normal inspection. Absent: pedal edema, joint swelling, calf tenderness - Back Exam Back exam: Present: normal inspection. Absent: tenderness, CVA tenderness (R), paraspinal tenderness, vertebral tenderness - Neurological Exam Neurological exam: Present: altered, other (patient occasionally moves 4 extremities and makes nonsensical sounds. Unable to assess orientation, or ability to perceive sensation.) - Psychiatric Psychiatric exam: Present: agitated - Skin Skin exam: Present: warm, dry, intact, normal color. Absent: rash ED Course Vital Signs 06/25/17 03:44 Temperature 94.7 F L Pulse Rate 114 H Respiratory 22 Rate Blood Pressure 93/49 [Right] O2 Sat by Pulse 100 Oximetry - Reevaluation(s) Reevaluation #1: 06/25/17 04:18 Differential diagnosis, including but not limited to: Bacteremia, viremia, pneumonia, urinary tract infection, diabetic ketoacidosis Assessment and plan: 76-year-old male who is hypotensive, hypothermic, tachycardic, altered, has a lactic acidosis, acidotic venous pH, laboratory studies are pending otherwise at this time, concerning for sepsis and diabetic ketoacidosis. Patient will be treated according to the empiric sepsis pathway, he is saturating well, protecting his airway at this time, arterial blood gas demonstrates a metabolic acidosis with respiratory compensation. He is also found to be hypothermic and we placed on a bear hugger. Noncontrast CT scan of the brain is pending at this time Reevaluation #2: 06/25/17 04:38 CT scan of the brain is negative. As expected, laboratory studies corroborated diagnosis of diabetic ketoacidosis, with ABG demonstrating a profound metabolic acidosis with respiratory compensation. Serum bicarbonate is less than 2. Patient given 2 A of sodium bicarbonate and in order for sodium bicarbonate drip. Case presents to the Hospital physician, Dr. Howard, who accepts the patient to the medical service, and requests broadening antibiotic coverage to vancomycin and Zosyn. Case also presented to the hospital intensive care physician on-call, Dr. Cruz, who agrees with placement into the intensive care unit, and will see the patient in consultation. ED Medical Decision Making - Lab Data Result diagrams: 06/25/17 03:28 Vital Signs 06/25/17 03:44 Temperature 94.7 F L Pulse Rate 114 H Respiratory 22 Rate Blood Pressure 93/49 [Right] O2 Sat by Pulse 100 Oximetry Lab Results 06/25/17 06/25/17 06/25/17 Range/Units 02:21 03:28 03:28 PT 14.9 (12.2-14.9) Sec. INR 1.11 (0.87-1.13) VBG pH (7.320-7.420) Sodium 141 (137-145) mmol/L Chloride 91.9 L (98-107) mmol/L BUN 31 H (9-20) mg/dL Estimated GFR 48 ml/min BUN/Creatinine Ratio 18 % POC Glucose 392 H (70-105) Lactic Acid (0.7-2.0) mmol/L Calcium 9.2 (8.4-10.2) mg/dL Total Bilirubin 0.20 (0.1-1.2) mg/dL AST 32 (5-40) units/L ALT 26 (7-56) units/L Alkaline Phosphatase 89 (35-129) units/L Ammonia (25-60) umol/L Troponin T 0.061 H (0.00-0.029) ng/mL Total Protein 5.7 L (6.3-8.2) g/dL Albumin 3.5 L (3.9-5) g/dL Albumin/Globulin Ratio 1.6 % Free T4 (0.76-1.46) ng/dL Salicylates (2.8-20.0) mg/dL 06/25/17 06/25/17 06/25/17 Range/Units 03:28 03:28 03:28 PT (12.2-14.9) Sec. INR (0.87-1.13) VBG pH 7.022 L* (7.320-7.420) Sodium (137-145) mmol/L Chloride (98-107) mmol/L BUN (9-20) mg/dL Estimated GFR ml/min BUN/Creatinine Ratio % POC Glucose (70-105) Lactic Acid (0.7-2.0) mmol/L Calcium (8.4-10.2) mg/dL Total Bilirubin (0.1-1.2) mg/dL AST (5-40) units/L ALT (7-56) units/L Alkaline Phosphatase (35-129) units/L Ammonia 44.0 (25-60) umol/L Troponin T (0.00-0.029) ng/mL Total Protein (6.3-8.2) g/dL Albumin (3.9-5) g/dL Albumin/Globulin Ratio % Free T4 1.10 (0.76-1.46) ng/dL Salicylates (2.8-20.0) mg/dL 06/25/17 06/25/17 Range/Units 03:28 03:28 PT (12.2-14.9) Sec. INR (0.87-1.13) VBG pH (7.320-7.420) Sodium (137-145) mmol/L Chloride (98-107) mmol/L BUN (9-20) mg/dL Estimated GFR ml/min BUN/Creatinine Ratio % POC Glucose (70-105) Lactic Acid 8.10 H* (0.7-2.0) mmol/L Calcium (8.4-10.2) mg/dL Total Bilirubin (0.1-1.2) mg/dL AST (5-40) units/L ALT (7-56) units/L Alkaline Phosphatase (35-129) units/L Ammonia (25-60) umol/L Troponin T (0.00-0.029) ng/mL Total Protein (6.3-8.2) g/dL Albumin (3.9-5) g/dL Albumin/Globulin Ratio % Free T4 (0.76-1.46) ng/dL Salicylates < 0.3 L (2.8-20.0) mg/dL - EKG Data -: EKG Interpreted by Me - EKG Data 06/25/17 04:17 EKG is profoundly limited by motion artifact. Appears to have a tachycardic rate, 124, patient does not endorse a complaint of chest pain, EKG is limited by motion artifact. Multiple requests were made by myself and staff members for patient to lay still , and to place hands underneath his back to obtain the EKG. Patient delirious, hypothermic, septic, therefore he is unable to cooperate. - Radiology Data Radiology results: report reviewed, image reviewed X-ray of the chest, interpreted by myself and radiology: No acute disease Noncontrast CT scan of the brain, interpreted by radiology: No acute disease Critical Care Time: Yes Critical care time in (mins) excluding proc time.: 45 Critical care attestation.: If time is entered above; I have spent that time in minutes in the direct care of this critically ill patient, excluding procedure time. ED Disposition Clinical Impression: Hypothermia, SIRS (systemic inflammatory response syndrome) Disposition: DC-[id number] OP ADMIT IP TO THIS HOSP Is pt being admited?: Yes Condition: Critical Referrals: SONDRA ESPARZA MD [Primary Care Provider] - 3-5 Days
--- NOTE | 2017-06-25 03:14 | XRay Report ---
FINAL REPORT EXAM: XR CHEST 1V AP HISTORY: Chest pain. TECHNIQUE: A single frontal portable radiograph of the chest was obtained. Comparison is made with prior study 06/19/2017. FINDINGS: The heart is normal in size. Small left suprahilar calcified lymph nodes are again demonstrated. The lungs are clear bilaterally, without focal infiltrate or effusion. There is no pneumothorax. No significant osseous abnormalities are identified. IMPRESSION: No active disease seen in the chest.
[2017-06-25] MEDS ORDERED: cefTRIAXone 1 GM in NACL 0.9% 20 ML IV ONE (03:15)
[2017-06-25 04:08] LABS: Alanine Aminotransferase 26 units/L (7-56); Albumin 3.5 g/dL (3.9-5); BUN/Creatinine Ratio 18; Blood Urea Nitrogen 31 mg/dL (9-20); Calcium 9.2 mg/dL (8.4-10.2); Hemolysis Index 5
--- NOTE | 2017-06-25 04:15 | Cat Scan Report ---
FINAL REPORT EXAM: CT HEAD/BRAIN WO CON HISTORY: ams TECHNIQUE: CT imaging is acquired through the brain without contrast. Transaxial reformations are provided. PRIORS: None. FINDINGS: Ventricles and CSF spaces are proportionately enlarged, consistent with parenchymal atrophy. Scattered deep and subcortical white matter hypodense foci are confluent in some areas and are compatible with microvascular angiopathy. No acute intracranial hemorrhage or mass effect. No skull fracture. No significant abnormality within the imaged paranasal sinuses or mastoid air cells. IMPRESSION: No acute intracranial abnormality. 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
[2017-06-25 04:17] LABS: INR 1.11 (0.87-1.13); Partial Thromboplastin Time 28.2 Sec. (24.2-36.6)
[2017-06-25 04:20] LABS: Mean Corpuscular HGB Conc 29 % (32-34); Mean Corpuscular Hemoglobin 31 pg (28-32); Mean Corpuscular Volume 108 fl (84-94); Platelet Count 331 K/mm3 (140-440); Red Cell Distribution Width 15.9 % (13.2-15.2)
[2017-06-25] MEDS ORDERED: SODIUM BICARBONATE 50 MEQ in NACL 0.9% 1000 ML 1,000 ML IV ONE (04:36)
[2017-06-25] MEDS ORDERED: VANCOMYCIN VIAL IV ONE (04:36)
[2017-06-25] MEDS ORDERED: SODIUM BICARBONATE IV ONE ×3 (04:36→04:50)
[2017-06-25] MEDS ORDERED: D50W (25GM) Syringe IV PRN ×2 (04:38→05:04)
[2017-06-25 04:47] LABS: Chol/HDL Ratio 5.39 %; HDL Cholesterol 33 mg/dL (40-59); LDL Cholesterol,Direct 83 mg/dL (50-130)
--- NOTE | 2017-06-25 04:57 | History and Physical Report ---
History of Present Illness Date of examination: 06/25/17 Chief complaint: Generalized weakness and altered mental status History of present illness: This is a 76-year-old male who was indicated to the hospital for DKA and discharged on Thursday. patient has a past medical history of diabetic ketoacidosis, Patient is brought to the hospital by EMS for "diabetic problems. 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 This is constant, and does not have exacerbating or relieving factors. She reports the patient has been lethargic and generally weak. There is no trauma. No exacerbating or relieving factors, patient is too altered to describe. Patient is a altered mental status confusion lethargic minimally responsive moaning and groaning in pain. Most of the history is obtained from his are hr payroll coordinator who is at the bedside. She states that he got home Thursday on was fine all day Thursday he started feeling bad was not eating well and went downhill pretty fast. He badly any diuretics for a few bites. She did not report any fevers chills or any nausea vomiting or diarrhea. Patient had not complained of any pain. Past History Past Medical History: diabetes Past Surgical History: hernia repair Social history: no significant social history Family history: other (unobtainable secondary to altered mental status) Medications and Allergies Allergies Allergy/AdvReac Type Severity Reaction Status Date / Time No Known Allergies Allergy Verified 06/19/17 16:27 Home Medications Medication Instructions Recorded Confirmed Last Taken Type Insulin Aspart [NovoLOG Flexpen] 4 unit SQ TIDDIAB 30 Days 06/23/17 Unknown Rx insuln.pen Insulin Glargine,Hum.rec.anlog 16 unit SQ QHS 30 Days insuln.pen 06/23/17 Unknown Rx [Lantus Solostar] Active Meds: Active Medications Dextrose (D50w (25gm) Syringe) 0 ml IV PRN PRN PRN Reason: Hypoglycemia Sodium Bicarbonate 50 meq/ (Sodium Chloride) 1,050 mls @ 100 mls/hr IV DIRECT ONE Stop: 06/25/17 15:05 Piperacillin Sod/Tazobactam Sod (Zosyn/Ns 3.375gm/50ml) 3.375 gm in 50 mls @ 100 mls/hr IV Q6HR ZENY Insulin Human Regular 100 (units/ Sodium Chloride) 100 mls @ 1 mls/hr IV TITR ZENY; 1 UNITS/HR PRN Reason: Protocol Sodium Chloride (Sodium Chloride Flush Syringe 10 Ml) 10 ml IV PRN PRN PRN Reason: LINE FLUSH Vancomycin HCl (Vancomycin Pharmacy To Dose) 1 each IV PKCONSULT ZENY PRN Reason: Protocol Vancomycin HCl (Vancomycin Vial) 1,250 mg 20 mg/kg (1250 mg) IV ONCE ONE PRN Reason: Protocol Stop: 06/25/17 04:37 Review of Systems ROS unobtainable: due to mental status Exam - Physical Exam Narrative exam: General: the patient is somnolent and poorly arousable. Moaning and groaning appears to be in distress. HEENT: Head is atraumatic normocephalic,. Pupils equal round reactive to light and accommodation, extraocular movements intact. Oral mucosa slightly dry. Oropharynx clear. Poor dentition, No pharyngeal erythema or tonsillar exudate. Neck: Supple no JVD no thyromegaly or lymphadenopathy. Heart: Regular rate and rhythm no murmurs or gallops. S1 and S2 normal. PMI not displaced. Lungs: Clear to auscultation bilaterally except for decreased breath sounds both bases. No rales rhonchi wheezing. Mildly labored breathing. No accessory respiratory muscle use. Normal chest wall expansion. Abdomen: Soft, nondistended, and nontender. Normoactive bowel sounds. No hepatosplenomegaly. No abdominal masses or bruit appreciated. Extremities: No cyanosis/clubbing/ edema. Musculoskeletal: No obvious deformity or tenderness to palpation. Normal muscle tone. Back: No midline or paraspinal tenderness. No CVA tenderness. Neurological: Limited exam due to altered mental status. Grossly intact and nonfocal. Patient moving all 4 extremities equally bilaterally Skin: Patient on a bear hugger blanket. Warm and dry no rashes or bruises. Psychiatric: Could not be assessed due to altered mental status Vascular system: No lymphadenopathy. Distal pulses 2+ bilaterally. - Constitutional Vitals: Temp Pulse Resp BP Pulse Ox 94.7 F L 114 H 22 93/49 100 06/25/17 03:44 06/25/17 03:44 06/25/17 03:44 06/25/17 03:44 06/25/17 03:44 Results - Labs CBC & Chem 7: 06/25/17 04:03 06/25/17 03:28 Labs: Laboratory Last Values WBC 19.7 K/mm3 (4.5-11.0) H 06/25/17 04:03 RBC 3.90 M/mm3 (3.65-5.03) 06/25/17 04:03 Hgb 12.0 gm/dl (11.8-15.2) 06/25/17 04:03 Hct 42.0 % (35.5-45.6) 06/25/17 04:03 MCV 108 fl (84-94) H 06/25/17 04:03 MCH 31 pg (28-32) 06/25/17 04:03 MCHC 29 % (32-34) L 06/25/17 04:03 RDW 15.9 % (13.2-15.2) H 06/25/17 04:03 Plt Count 331 K/mm3 (140-440) D 06/25/17 04:03 PT 14.9 Sec. (12.2-14.9) 06/25/17 03:28 INR 1.11 (0.87-1.13) 06/25/17 03:28 APTT 28.2 Sec. (24.2-36.6) 06/25/17 03:28 POC ABG pH 7.019 (7.35-7.45) L 06/25/17 04:22 POC ABG pCO2 11.4 (35-45) L 06/25/17 04:22 POC ABG pO2 149 (80-105) H 06/25/17 04:22 POC ABG HCO3 2.9 06/25/17 04:22 POC ABG Total CO2 < 5 06/25/17 04:22 POC ABG O2 Sat 98 06/25/17 04:22 POC ABG Base Excess -28 06/25/17 04:22 VBG pH 7.022 (7.320-7.420) L* 06/25/17 03:28 FiO2 21 % 06/25/17 04:22 Sodium 141 mmol/L (137-145) 06/25/17 03:28 Potassium 6.8 mmol/L (3.6-5.0) H* D 06/25/17 03:28 Chloride 91.9 mmol/L (98-107) L 06/25/17 03:28 Carbon Dioxide < 2.0 mmol/L (22-30) L* D 06/25/17 03:28 Anion Gap 54 mmol/L 06/25/17 03:28 BUN 31 mg/dL (9-20) H 06/25/17 03:28 Creatinine 1.7 mg/dL (0.8-1.5) H D 06/25/17 03:28 Estimated GFR 48 ml/min 06/25/17 03:28 BUN/Creatinine Ratio 18 % 06/25/17 03:28 Glucose 918 mg/dL (75-100) H* 06/25/17 03:28 POC Glucose 392 (70-105) H 06/25/17 02:21 Lactic Acid 8.10 mmol/L (0.7-2.0) H* 06/25/17 03:28 Calcium 9.2 mg/dL (8.4-10.2) 06/25/17 03:28 Total Bilirubin 0.20 mg/dL (0.1-1.2) 06/25/17 03:28 AST 32 units/L (5-40) 06/25/17 03:28 ALT 26 units/L (7-56) 06/25/17 03:28 Alkaline Phosphatase 89 units/L (35-129) 06/25/17 03:28 Ammonia 44.0 umol/L (25-60) 06/25/17 03:28 Troponin T 0.061 ng/mL (0.00-0.029) H 06/25/17 03:28 Total Protein 5.7 g/dL (6.3-8.2) L 06/25/17 03:28 Albumin 3.5 g/dL (3.9-5) L 06/25/17 03:28 Albumin/Globulin Ratio 1.6 % 06/25/17 03:28 Triglycerides 311 mg/dL (2-149) H 06/25/17 03:28 Cholesterol 178 mg/dL (50-199) 06/25/17 03:28 LDL Cholesterol Direct 83 mg/dL (50-130) 06/25/17 03:28 HDL Cholesterol 33 mg/dL (40-59) L 06/25/17 03:28 Cholesterol/HDL Ratio 5.39 % 12/28/17 03:28 TSH 0.840 mlU/mL (0.270-4.200) 06/25/17 03:28 Free T4 1.10 ng/dL (0.76-1.46) 06/25/17 03:28 Salicylates < 0.3 mg/dL (2.8-20.0) L 06/25/17 03:28 Acetaminophen < 15.0 ug/mL (10.0-30.0) 06/25/17 03:28 - Imaging and Cardiology Imaging and Cardiology: CT head without contrast showing no acute intracranial abnormality 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 Chest x-ray showing no active cardiopulmonary process Assessment and Plan Assessment and plan: Assessment and plan - * Altered mental status secondary to DKA / metabolic encephalopathy * Severe high anion gap metabolic acidosis secondary to DKA * Lactic acidosis * Sepsis - unclear source * Hyperlipidemia * Hyperkalemia * Acute renal failure * Leukocytosis - likely secondary to underlying sepsis Plan - Admit the patient to ICU, consult critical care for further evaluation and management recommendations Rubble Placer critical care DKA protocol Insulin drip as per DKA protocol Aggressive IV fluid rehydration Bicarbonate IV push followed by bicarbonate drip Monitor renal function quite all nephrotoxins avoided NSAIDs as he really does all medications Monitor labs frequently Patient has been pancultured, started the patient empirically on vancomycin and Zosyn. Follow culture results and modify antibiotic treatment based culture and sensitivity data Monitor CBC and electrolytes The patient electrolytes when necessary as per protocol DVT GI prophylaxis as ordered Monitor and follow the patient closely Total critical care time spent 55 minutes Advance Directives: No VTE prophylaxis?: Chemical, Mechanical Plan of care discussed with patient/family: Yes
[2017-06-25] MEDS ORDERED: VANCOMYCIN 1,250 MG in NACL 0.9% 250ML 250 ML IV ONE (05:00)
[2017-06-25] MEDS ORDERED: VANCOMYCIN PHARMACY TO DOSE IV SCH (05:00)
[2017-06-25] MEDS ORDERED: SODIUM CHLORIDE FLUSH SYRINGE 10 ML IV PRN (05:00)
[2017-06-25] MEDS ORDERED: NovoLIN R 100 UNITS in NACL 0.9% 99 ML IV SCH (05:00)
[2017-06-25] MEDS ORDERED: DULCOLAX PR PRN (05:04)
[2017-06-25] MEDS ORDERED: ZOFRAN IV PRN (05:04)
[2017-06-25] MEDS ORDERED: REGLAN IV PRN ×2 (05:04→05:28)
[2017-06-25] MEDS ORDERED: MILK OF MAGNESIA PO PRN (05:04)
[2017-06-25] MEDS ORDERED: ALUM-MAG HYDROX-SIMETH 200-200-20MG/5ML PO PRN (05:04)
[2017-06-25] MEDS ORDERED: MORPHINE IV PRN (05:04)
[2017-06-25] MEDS ORDERED: ATIVAN IV PRN (05:04)
[2017-06-25 05:32] LABS: Amorphous Crystals,Urine Few; Bacteria,Urine 1+ /HPF (Negative); Bilirubin,Urine NEG (Negative); Blood,Urine MOD (Negative); Color,Urine Yellow (Yellow); Mucus,Urine FEW /HPF; Nitrite,Urine NEG (Negative); Protein,Urine <15 mg/dL mg/dL (Negative); Urobilinogen,Urine < 2.0 mg/dL (<2.0)
[2017-06-25 05:43] LABS: Anisocytosis 1+; Band Neutrophils # (Manual) 0.2 K/mm3; Basophils % (Manual) 0 % (0.0-1.8); Eosinophils % (Manual) 0 % (0.0-4.3); Platelet Estimate Consistent w Auto; Total Cells Counted 100
[2017-06-25] MEDS: ZOSYN/NS 4.5GM/100ML 4.5 GM/100 ML VIAL IV SCH ×3 (06:00→22:52)
[2017-06-25] MEDS ORDERED: ZOSYN/NS 3.375GM/50ML 3.375 GM/50 ML BAG IV SCH (06:00)
[2017-06-25 06:01] LABS: Calcium 8.1 mg/dL (8.4-10.2)
[2017-06-25 06:26] LABS: Magnesium 2.5 mg/dL (1.7-2.3)
[2017-06-25] MEDS: NovoLIN R 100 UNITS in NACL 0.9% 99 ML IV SCH ×2 (06:30→16:20)
[2017-06-25 07:23] LABS: Calcium 8.3 mg/dL (8.4-10.2)
[2017-06-25 07:43] LABS: Calcium 8.3 mg/dL (8.4-10.2)
[2017-06-25 09:53] LABS: Calcium 8.2 mg/dL (8.4-10.2)
[2017-06-25] MEDS ORDERED: PROTONIX PO SCH (10:00)
--- NOTE | 2017-06-25 11:11 | Consultation ---
History of Present Illness Consult date: 06/25/17 Requesting physician: KAREN CRUZ History of present illness: This is a 76-year-old male who was indicated to the hospital for DKA and discharged on Thursday. patient has a past medical history of diabetic ketoacidosis, Patient is brought to the hospital by EMS for "diabetic problems. 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 This is constant, and does not have exacerbating or relieving factors. She reports the patient has been lethargic and generally weak. There is no trauma. No exacerbating or relieving factors, patient is too altered to describe. Patient is a altered mental status confusion lethargic minimally responsive moaning and groaning in pain. Most of the history is obtained from his are decorator store who is at the bedside. She states that he got home Thursday on was fine all day Thursday he started feeling bad was not eating well and went downhill pretty fast. He badly any diuretics for a few bites. She did not report any fevers chills or any nausea vomiting or diarrhea. Patient had not complained of any pain. Patient was seen and examined. Vitals, labs, medications, chart were reviewed. Past History Past Medical History: diabetes Past Surgical History: hernia repair Social history: no significant social history Family history: other (unobtainable secondary to altered mental status) Medications and Allergies Allergies Allergy/AdvReac Type Severity Reaction Status Date / Time No Known Allergies Allergy Verified 06/19/17 16:27 Home Medications Medication Instructions Recorded Confirmed Last Taken Type Insulin Aspart [NovoLOG Flexpen] 4 unit SQ TIDDIAB 30 Days 06/23/17 06/25/17 Unknown Rx insuln.pen Insulin Glargine,Hum.rec.anlog 16 unit SQ QHS 30 Days insuln.pen 06/23/1706/25 Unknown Rx [Lantus Solostar] Levofloxacin [Levaquin TAB] 500 mg PO QDAY #7 tablet 06/29/17 Unknown Rx Active Meds: Active Medications Al Hydrox/Mg Hydrox/Simethicone (Alum-Mag Hydrox-Simeth 208-139-56kl/5ml) 30 ml PO Q4H PRN PRN Reason: Indigestion Albuterol/Ipratropium (Duoneb *Not For Prn Use*) 1 ampul IH Q6HRT ZENY Bisacodyl (Dulcolax) 10 mg NM QDAY PRN PRN Reason: constipation unrelieved by MOM Dextrose (D50w (25gm) Syringe) 0 ml IV PRN PRN PRN Reason: Hypoglycemia Heparin Sodium (Porcine) (Heparin) 5,000 unit SUB-Q Q12HR ZENY Sodium Bicarbonate 50 meq/ (Sodium Chloride) 1,050 mls @ 100 mls/hr IV ONCE.ED ONE Stop: 06/25/17 15:05 Last Admin: 06/25/17 06:00 Dose: 100 mls/hr Insulin Human Regular 100 (units/ Sodium Chloride) 100 mls @ 1 mls/hr IV TITR ZENY; 1 UNITS/HR PRN Reason: Protocol Last Titration: 06/25/17 10:12 Dose: 11 units/hr, 11 mls/hr Piperacillin Sod/Tazobactam Sod (Zosyn/Ns 4.5gm/100ml) 4.5 gm in 100 mls @ 200 mls/hr IV Q8HR ZENY PRN Reason: Protocol Last Admin: 06/25/17 06:00 Dose: 200 mls/hr Vancomycin HCl (Vancomycin/Ns 1 Gm/250 Ml) 1 gm in 250 mls @ 166.667 mls/hr IV Q24H ZENY Lorazepam (Ativan) 1 mg IV Q4H PRN PRN Reason: Agitation Magnesium Hydroxide (Milk Of Magnesia) 30 ml PO Q4H PRN PRN Reason: Constipation Metoclopramide HCl (Reglan) 5 mg IV Q6H PRN PRN Reason: Nausea And Vomiting Morphine Sulfate (Morphine) 2 mg IV Q4H PRN PRN Reason: Pain, Moderate (4-6) Ondansetron HCl (Zofran) 4 mg IV Q8H PRN PRN Reason: N/V unrelieved by Reglan Pantoprazole Sodium (Protonix) 40 mg PO QDAY [facility] Sodium Chloride (Sodium Chloride Flush Syringe 10 Ml) 10 ml IV PRN PRN PRN Reason: LINE FLUSH Vancomycin HCl (Vancomycin Pharmacy To Dose) 1 each IV PKCONSULT ZENY PRN Reason: Protocol Review of Systems ROS unobtainable: due to mental status Physical Examination Vital signs: Vital Signs Temp Pulse Resp BP Pulse Ox 94.7 F L 114 H 22 93/49 100 06/25/17 03:44 06/25/17 03:44 06/25/17 03:44 06/25/17 03:44 06/25/17 03:44 General: the patient is somnolent and poorly arousable. Moaning and groaning appears to be in distress. HEENT: Head is atraumatic normocephalic,. Pupils equal round reactive to light and accommodation, extraocular movements intact. Oral mucosa slightly dry. Oropharynx clear. Poor dentition, No pharyngeal erythema or tonsillar exudate. Neck: Supple no JVD no thyromegaly or lymphadenopathy. Heart: Regular rate and rhythm no murmurs or gallops. S1 and S2 normal. PMI not displaced. Lungs: Clear to auscultation bilaterally except for decreased breath sounds both bases. No rales, rhonchi or wheezing. Mildly labored breathing. No accessory respiratory muscle use. Normal chest wall expansion. Abdomen: Soft, nondistended, and nontender. Normoactive bowel sounds. No hepatosplenomegaly. No abdominal masses or bruit appreciated. Extremities: No cyanosis/clubbing/ edema. Musculoskeletal: No obvious deformity or tenderness to palpation. Normal muscle tone. Back: No midline or paraspinal tenderness. No CVA tenderness. Neurological: Limited exam due to altered mental status. Grossly intact and non -focal. Patient moving all 4 extremities equally bilaterally Skin: Patient on a bear hugger blanket. Warm and dry no rashes or bruises. Psychiatric: Could not be assessed due to altered mental status Vascular system: No lymphadenopathy. Distal pulses 2+ bilaterally. Results - Laboratory Findings CBC and BMP: 06/27/17 07:53 06/29/17 06:06 ABG POC ABG pH 7.019 (7.35-7.45) L 06/25/17 04:22 POC ABG pCO2 11.4 (35-45) L 06/25/17 04:22 POC ABG pO2 149 (80-105) H 06/25/17 04:22 POC ABG HCO3 2.9 06/25/17 04:22 POC ABG Total CO2 < 5 06/25/17 04:22 POC ABG O2 Sat 98 06/25/17 04:22 PT/INR, D-dimer PT 14.9 Sec. (12.2-14.9) 06/25/17 03:28 INR 1.11 (0.87-1.13) 06/25/17 03:28 Abnormal lab findings: Abnormal Labs 06/25/17 06/25/17 06/25/17 02:21 03:28 03:28 WBC MCV MCHC RDW Seg Neuts % (Manual) Lymphocytes % (Manual) Monocytes % (Manual) Seg Neutrophils # Man Monocytes # (Manual) POC ABG pH POC ABG pCO2 POC ABG pO2 VBG pH 7.022 L* Sodium Potassium 6.8 H* D Chloride 91.9 L Carbon Dioxide < 2.0 L* D BUN 31 H Creatinine 1.7 H D Glucose 918 H* POC Glucose 392 H Lactic Acid Calcium Phosphorus Magnesium Troponin T 0.061 H Total Protein 5.7 L Albumin 3.5 L Triglycerides 311 H HDL Cholesterol 33 L Salicylates 06/25/17 06/25/17 06/25/17 03:28 03:28 04:03 WBC 19.7 H MCV 108 H MCHC 29 L RDW 15.9 H Seg Neuts % (Manual) 79.0 H Lymphocytes % (Manual) 8.0 L Monocytes % (Manual) 12.0 H Seg Neutrophils # Man 15.6 H Monocytes # (Manual) 2.4 H POC ABG pH POC ABG pCO2 POC ABG pO2 VBG pH Sodium Potassium Chloride Carbon Dioxide BUN Creatinine Glucose POC Glucose Lactic Acid 8.10 H* Calcium Phosphorus Magnesium Troponin T Total Protein Albumin Triglycerides HDL Cholesterol Salicylates < 0.3 L 06/25/17 06/25/17 06/25/17 04:22 04:54 05:24 WBC MCV MCHC RDW Seg Neuts % (Manual) Lymphocytes % (Manual) Monocytes % (Manual) Seg Neutrophils # Man Monocytes # (Manual) POC ABG pH 7.019 L POC ABG pCO2 11.4 L POC ABG pO2 149 H VBG pH Sodium Potassium Chloride Carbon Dioxide BUN Creatinine Glucose POC Glucose > 500 H Lactic Acid Calcium Phosphorus Magnesium Troponin T 0.104 H* D Total Protein Albumin Triglycerides HDL Cholesterol Salicylates 06/25/17 06/25/17 06/25/17 05:24 05:24 06:32 WBC MCV MCHC RDW Seg Neuts % (Manual) Lymphocytes % (Manual) Monocytes % (Manual) Seg Neutrophils # Man Monocytes # (Manual) POC ABG pH POC ABG pCO2 POC ABG pO2 VBG pH Sodium 146 H Potassium 5.9 H Chloride 97.1 L Carbon Dioxide 3 L* BUN 31 H Creatinine 1.6 H Glucose 857 H* POC Glucose > 500 H Lactic Acid Calcium 8.1 L Phosphorus 7.60 H Magnesium 2.50 H Troponin T Total Protein Albumin Triglycerides HDL Cholesterol Salicylates 06/25/17 06/25/17 06/25/17 06:50 07:18 09:03 WBC MCV MCHC RDW Seg Neuts % (Manual) Lymphocytes % (Manual) Monocytes % (Manual) Seg Neutrophils # Man Monocytes # (Manual) POC ABG pH POC ABG pCO2 POC ABG pO2 VBG pH Sodium 146 H 147 H Potassium 6.0 H 6.0 H Chloride Carbon Dioxide 5 L* 5 L* BUN 33 H 33 H Creatinine 1.7 H 1.7 H Glucose 802 H* 802 H* POC Glucose > 500 H Lactic Acid Calcium 8.3 L 8.3 L Phosphorus Magnesium Troponin T Total Protein Albumin Triglycerides HDL Cholesterol Salicylates 06/25/17 06/25/17 06/25/17 09:22 09:23 09:23 WBC MCV MCHC RDW Seg Neuts % (Manual) Lymphocytes % (Manual) Monocytes % (Manual) Seg Neutrophils # Man Monocytes # (Manual) POC ABG pH POC ABG pCO2 POC ABG pO2 VBG pH Sodium 150 H Potassium Chloride Carbon Dioxide 9 L* BUN 32 H Creatinine 1.7 H Glucose 647 H* POC Glucose Lactic Acid 2.40 H* Calcium 8.2 L Phosphorus Magnesium Troponin T 0.241 H* D Total Protein Albumin Triglycerides HDL Cholesterol Salicylates - Diagnostic Findings Chest x-ray: image reviewed Assessment and Plan Sepsis Syndrome DKA Acute Encephalopathy (Likely toxic-metabolic) NSTEMI Severe Hypernatremia Lactic Acidosis Hyperlipidemia Hyperkalemia Metabolic Acidosis Acute renal failure/Vasomotor nephropathy upon CKD -Admit ICU -- IV insulin infusion with DKA protocol -Monitor hemodynamics closely - cardiology consult for NSTEMI - aspiration precautions - continue isotonic fluids -Keep NPO for now - continue empiric AB's and follow cultures/clinically - GI & VTE prophylaxis - flu & pneumovax per protocol
[2017-06-25 11:15] LABS: Calcium 8.5 mg/dL (8.4-10.2)
--- NOTE | 2017-06-25 11:16 | Progress Note ---
Assessment and Plan Assessment and plan: This is a 76-year-old male who was indicated to the hospital for DKA and discharged on Thursday. patient has a past medical history of diabetic ketoacidosis, Patient is brought to the hospital by EMS for "diabetic problems. 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 This is constant, and does not have exacerbating or relieving factors. She reports the patient has been lethargic and generally weak. There is no trauma. No exacerbating or relieving factors, patient is too altered to describe. Patient is a altered mental status confusion lethargic minimally responsive moaning and groaning in pain. Most of the history is obtained from his are fusing machine operator who is at the bedside. She states that he got home Thursday on was fine all day Thursday he started feeling bad was not eating well and went downhill pretty fast. He badly any diuretics for a few bites. She did not report any fevers chills or any nausea vomiting or diarrhea. Patient had not complained of any pain. Assessment and plan - Altered mental status secondary to DKA / acute metabolic encephalopathy * rx underlying cause which is DKA and dehydrations DKA continue bicarb drip and Insulin drip and IVF SIRS; infectious workup so far neg, continue empiric abx Hyperlipidemia statin when able to tolerate PO Hypokalemia -continue K supplement Acute renal failure/Vasomotor nephropathy upon CKD continue IVF, should improve as he is hydrated Trop 0.2 * denies CP, likely a type 2 VT * cardiology consult hypernatremia: will switch to half NS, always give hypotonic solution Hypovolemic shock -has responded well to FLuid resuscitation The high probability of a clinically significant, sudden or life threatening deterioration of the [cv, neuro, endocrine, renal] system(s) required my full and direct attention, intervention and personal management. The aggregate critical care time was [44] minutes. This time is in addition to time spent performing reported procedures but includes the following: [] Data Review and interpretation [] Patient assessment and monitoring of vital signs [] Documentation [] Medication orders and management History Interval history: somnolent and lethargy reported by RN he denies CP, SOB, dysuria or abdominal pain, admits anorexia and lethargy Hospitalist Physical - Physical exam Narrative exam: General: the patient is somnolent and poorly arousable. Moaning and groaning appears to be in distress. HEENT: Head is atraumatic normocephalic,. Pupils equal round reactive to light and accommodation, extraocular movements intact. Oral mucosa slightly dry. Oropharynx clear. Poor dentition, No pharyngeal erythema or tonsillar exudate. Neck: Supple no JVD no thyromegaly or lymphadenopathy. Heart: Regular rate and rhythm no murmurs or gallops. S1 and S2 normal. PMI not displaced. Lungs: Clear to auscultation bilaterally except for decreased breath sounds both bases. No rales rhonchi wheezing. Mildly labored breathing. No accessory respiratory muscle use. Normal chest wall expansion. Abdomen: Soft, nondistended, and nontender. Normoactive bowel sounds. No hepatosplenomegaly. No abdominal masses or bruit appreciated. Extremities: No cyanosis/clubbing/ edema. Musculoskeletal: No obvious deformity or tenderness to palpation. Normal muscle tone. Back: No midline or paraspinal tenderness. No CVA tenderness. Neurological: Limited exam due to altered mental status. Grossly intact and nonfocal. Patient moving all 4 extremities equally bilaterally Skin: Patient on a bear hugger blanket. Warm and dry no rashes or bruises. Psychiatric: Could not be assessed due to altered mental status Vascular system: No lymphadenopathy. Distal pulses 2+ bilaterally. - Constitutional Vitals: Temp Pulse Resp BP Pulse Ox 97.5 F L 109 H 25 H 81/42 99 06/25/17 09:38 06/25/17 10:42 06/25/17 10:42 06/25/17 10:42 06/25/17 10:42 Results - Labs CBC & Chem 7: 06/26/17 05:20 06/26/17 05:20 Labs: Laboratory Last Values WBC 19.7 K/mm3 (4.5-11.0) H 06/25/17 04:03 RBC 3.90 M/mm3 (3.65-5.03) 06/25/17 04:03 Hgb 12.0 gm/dl (11.8-15.2) 06/25/17 04:03 Hct 42.0 % (35.5-45.6) 06/25/17 04:03 MCV 108 fl (84-94) H 06/25/17 04:03 MCH 31 pg (28-32) 06/25/17 04:03 MCHC 29 % (32-34) L 06/25/17 04:03 RDW 15.9 % (13.2-15.2) H 06/25/17 04:03 Plt Count 331 K/mm3 (140-440) D 06/25/17 04:03 Add Manual Diff Complete 06/25/17 04:03 Total Counted 100 06/25/17 04:03 Seg Neuts % (Manual) 79.0 % (40.0-70.0) H 06/25/17 04:03 Band Neutrophils % 1.0 % 06/25/17 04:03 Lymphocytes % (Manual) 8.0 % (13.4-35.0) L 06/25/17 04:03 Reactive Lymphs % (Man) 0 % 06/25/17 04:03 Monocytes % (Manual) 12.0 % (0.0-7.3) H 06/25/17 04:03 Eosinophils % (Manual) 0 % (0.0-4.3) 06/25/17 04:03 Basophils % (Manual) 0 % (0.0-1.8) 06/25/17 04:03 Metamyelocytes % 0 % 06/25/17 04:03 Myelocytes % 0 % 06/25/17 04:03 Promyelocytes % 0 % 06/25/17 04:03 Blast Cells % 0 % 06/25/17 04:03 Nucleated RBC % Not Reportable 06/25/17 04:03 Seg Neutrophils # Man 15.6 K/mm3 (1.8-7.7) H 06/25/17 04:03 Band Neutrophils # 0.2 K/mm3 06/25/17 04:03 Lymphocytes # (Manual) 1.6 K/mm3 (1.2-5.4) 06/25/17 04:03 Abs React Lymphs (Man) 0.0 K/mm3 06/25/17 04:03 Monocytes # (Manual) 2.4 K/mm3 (0.0-0.8) H 06/25/17 04:03 Eosinophils # (Manual) 0.0 K/mm3 (0.0-0.4) 06/25/17 04:03 Basophils # (Manual) 0.0 K/mm3 (0.0-0.1) 06/25/17 04:03 Metamyelocytes # 0.0 K/mm3 06/25/17 04:03 Myelocytes # 0.0 K/mm3 06/25/17 04:03 Promyelocytes # 0.0 K/mm3 06/25/17 04:03 Blast Cells # 0.0 K/mm3 06/25/17 04:03 WBC Morphology Not Reportable 06/25/17 04:03 Hypersegmented Neuts Not Reportable 06/25/17 04:03 Hyposegmented Neuts Not Reportable 06/25/17 04:03 Hypogranular Neuts Not Reportable 06/25/17 04:03 Smudge Cells Not Reportable 06/25/17 04:03 Toxic Granulation Not Reportable 06/25/17 04:03 Toxic Vacuolation Not Reportable 06/25/17 04:03 Dohle Bodies Not Reportable 06/25/17 04:03 Pelger-Huet Anomaly Not Reportable 06/25/17 04:03 Carmen Rods Not Reportable 06/25/17 04:03 Platelet Estimate Consistent w auto 06/25/17 04:03 Clumped Platelets Not Reportable 06/25/17 04:03 Plt Clumps, EDTA Not Reportable 06/25/17 04:03 Large Platelets Not Reportable 06/25/17 04:03 Giant Platelets Not Reportable 06/25/17 04:03 Platelet Satelliting Not Reportable 06/25/17 04:03 Plt Morphology Comment Not Reportable 06/25/17 04:03 RBC Morphology Not Reportable 06/25/17 04:03 Dimorphic RBCs Not Reportable 06/25/17 04:03 Polychromasia Not Reportable 06/25/17 04:03 Hypochromasia Not Reportable 06/25/17 04:03 Poikilocytosis Not Reportable 06/25/17 04:03 Anisocytosis 1+ 06/25/17 04:03 Microcytosis Not Reportable 06/25/17 04:03 Macrocytosis Not Reportable 06/25/17 04:03 Spherocytes Not Reportable 06/25/17 04:03 Pappenheimer Bodies Not Reportable 06/25/17 04:03 Sickle Cells Not Reportable 06/25/17 04:03 Target Cells Not Reportable 06/25/17 04:03 Tear Drop Cells Not Reportable 06/25/17 04:03 Ovalocytes Not Reportable 06/25/17 04:03 Helmet Cells Not Reportable 06/25/17 04:03 [place] Bodies Not Reportable 06/25/17 04:03 [place] Rings Not Reportable 06/25/17 04:03 Srinivas Cells Not Reportable 06/25/17 04:03 Bite Cells Not Reportable 06/25/17 04:03 Crenated Cell Not Reportable 06/25/17 04:03 Elliptocytes Not Reportable 06/25/17 04:03 Acanthocytes (Spur) Not Reportable 06/25/17 04:03 Rouleaux Not Reportable 06/25/17 04:03 Hemoglobin C Crystals Not Reportable 06/25/17 04:03 Schistocytes Not Reportable 06/25/17 04:03 Malaria parasites Not Reportable 06/25/17 04:03 Janes Bodies Not Reportable 06/25/17 04:03 Hem Pathologist Commnt No 06/25/17 04:03 PT 14.9 Sec. (12.2-14.9) 06/25/17 03:28 INR 1.11 (0.87-1.13) 06/25/17 03:28 APTT 28.2 Sec. (24.2-36.6) 06/25/17 03:28 POC ABG pH 7.019 (7.35-7.45) L 06/25/17 04:22 POC ABG pCO2 11.4 (35-45) L 06/25/17 04:22 POC ABG pO2 149 (80-105) H 06/25/17 04:22 POC ABG HCO3 2.9 06/25/17 04:22 POC ABG Total CO2 < 5 06/25/17 04:22 POC ABG O2 Sat 98 06/25/17 04:22 POC ABG Base Excess -28 06/25/17 04:22 VBG pH 7.022 (7.320-7.420) L* 06/25/17 03:28 FiO2 21 % 06/25/17 04:22 Sodium 150 mmol/L (137-145) H 06/25/17 09:23 Potassium 4.7 mmol/L (3.6-5.0) D 06/25/17 09:23 Chloride 104.4 mmol/L (98-107) 06/25/17 09:23 Carbon Dioxide 9 mmol/L (22-30) L* 06/25/17 09:23 Anion Gap 41 mmol/L 06/25/17 09:23 BUN 32 mg/dL (9-20) H 06/25/17 09:23 Creatinine 1.7 mg/dL (0.8-1.5) H 06/25/17 09:23 Estimated GFR 48 ml/min 06/25/17 09:23 BUN/Creatinine Ratio 19 % 06/25/17 09:23 Glucose 647 mg/dL (75-100) H* 06/25/17 09:23 POC Glucose > 500 (70-105) H 06/25/17 09:03 Lactic Acid 2.40 mmol/L (0.7-2.0) H* 06/25/17 09:23 Calcium 8.2 mg/dL (8.4-10.2) L 06/25/17 09:23 Phosphorus 7.60 mg/dL (2.5-4.5) H 06/25/17 05:24 Magnesium 2.50 mg/dL (1.7-2.3) H 06/25/17 05:24 Total Bilirubin 0.20 mg/dL (0.1-1.2) 06/25/17 03:28 AST 32 units/L (5-40) 06/25/17 03:28 ALT 26 units/L (7-56) 06/25/17 03:28 Alkaline Phosphatase 89 units/L (35-129) 06/25/17 03:28 Ammonia 44.0 umol/L (25-60) 06/25/17 03:28 Troponin T 0.241 ng/mL (0.00-0.029) H* D 06/25/17 09:22 Total Protein 5.7 g/dL (6.3-8.2) L 06/25/17 03:28 Albumin 3.5 g/dL (3.9-5) L 06/25/17 03:28 Albumin/Globulin Ratio 1.6 % 06/25/17 03:28 Triglycerides 311 mg/dL (2-149) H 06/25/17 03:28 Cholesterol 178 mg/dL (50-199) 06/25/17 03:28 LDL Cholesterol Direct 83 mg/dL (50-130) 06/25/17 03:28 HDL Cholesterol 33 mg/dL (40-59) L 06/25/17 03:28 Cholesterol/HDL Ratio 5.39 % 06/25/17 03:28 TSH 0.840 mlU/mL (0.270-4.200) 06/25/17 03:28 Free T4 1.10 ng/dL (0.76-1.46) 06/25/17 03:28 Urine Color Yellow (Yellow) 06/25/17 Unknown Urine Turbidity Clear (Clear) 06/25/17 Unknown Urine pH 5.0 (5.0-7.0) 06/25/17 Unknown Ur Specific [place] 1.017 (1.003-1.030) 06/25/17 Unknown Urine Protein <15 mg/dl mg/dL (Negative) 06/25/17 Unknown Urine Glucose (UA) >=500 mg/dL (Negative) 06/25/17 Unknown Urine Ketones 80 mg/dL (Negative) 06/25/17 Unknown Urine Blood Mod (Negative) 06/25/17 Unknown Urine Nitrite Neg (Negative) 06/25/17 Unknown Urine Bilirubin Neg (Negative) 06/25/17 Unknown Urine Urobilinogen < 2.0 mg/dL (<2.0) 06/25/17 Unknown Ur Leukocyte Esterase Neg (Negative) 06/25/17 Unknown Urine WBC (Auto) 5.0 /HPF (0.0-6.0) 06/25/17 Unknown Urine RBC (Auto) 3.0 /HPF (0.0-6.0) 06/25/17 Unknown Urine Bacteria (Auto) 1+ /HPF (Negative) 06/25/17 Unknown Amorphous Crystals Few 06/25/17 Unknown Urine Mucus Few /HPF 06/25/17 Unknown Salicylates < 0.3 mg/dL (2.8-20.0) L 06/25/17 03:28 Acetaminophen < 15.0 ug/mL (10.0-30.0) 06/25/17 03:28 Blood Type O NEGATIVE 06/25/17 05:24 Antibody Screen Negative 06/25/17 05:24 - Imaging and Cardiology Chest x-ray: image reviewed (no acute path) CT Scan - head: image reviewed (no acute pathology)
[2017-06-25] MEDS: HEPARIN SUB-Q SCH ×2 (12:06→23:52)
[2017-06-25 12:35] LABS: Calcium 8.4 mg/dL (8.4-10.2)
[2017-06-25 12:51] LABS: Calcium 8.3 mg/dL (8.4-10.2)
[2017-06-25 14:27] LABS: Calcium 8.2 mg/dL (8.4-10.2)
[2017-06-25 14:30] LABS: Calcium 8.5 mg/dL (8.4-10.2)
[2017-06-25 15:46] LABS: Calcium 7.9 mg/dL (8.4-10.2)
[2017-06-25] MEDS: DUONEB *Not for PRN Use IH SCH ×2 (16:59→17:00)
--- NOTE | 2017-06-25 17:45 | XRay Report ---
FINAL REPORT EXAM: XR CHEST 1V AP HISTORY: L arm PICC placement TECHNIQUE: Frontal chest radiograph. PRIORS: 06/24/2017. FINDINGS: Left upper extremity PICC tip lies in the mid SVC. The cardiomediastinal silhouette is normal. No focal consolidation. Unchanged hyperinflated lungs. The left lateral costophrenic angle was not completely included on the study. No pleural effusion. No pneumothorax. No acute osseous abnormality. IMPRESSION: Left upper extremity PICC tip lying in the mid SVC.
[2017-06-25] MEDS: PROTONIX IV SCH (18:21)
[2017-06-25 21:41] LABS: BUN/Creatinine Ratio 16; Blood Urea Nitrogen 21 mg/dL (9-20); Calcium 7.8 mg/dL (8.4-10.2); Hemolysis Index 4
[2017-06-25] MEDS: D5W/0.45% NACL/KCL 20 MEQ 20 MEQ/1,000 ML BAG IV SCH (23:45)
[2017-06-26] MEDS: DUONEB *Not for PRN Use IH SCH ×5 (00:14→20:41)
[2017-06-26] MEDS: NovoLIN R 100 UNITS in NACL 0.9% 99 ML IV SCH (00:31)
[2017-06-26] MEDS: ZOSYN/NS 4.5GM/100ML 4.5 GM/100 ML VIAL IV SCH ×3 (05:29→22:30)
[2017-06-26] MEDS: D5W/0.45% NACL/KCL 20 MEQ 20 MEQ/1,000 ML BAG IV SCH ×2 (05:36→08:08)
[2017-06-26 05:38] LABS: Basophils % (Auto) 0.2 % (0.0-1.8); Hematocrit 33.9 % (35.5-45.6); Hemoglobin 11.5 gm/dl (11.8-15.2); Lymphocytes % (Auto) 9.4 % (13.4-35.0); Mean Corpuscular HGB Conc 34 % (32-34); Mean Corpuscular Hemoglobin 32 pg (28-32); Mean Corpuscular Volume 93 fl (84-94); Monocytes # (Auto) 1.2 K/mm3 (0.0-0.8); Monocytes % (Auto) 10.8 % (0.0-7.3); Platelet Count 238 K/mm3 (140-440); Red Blood Count 3.63 M/mm3 (3.65-5.03); Red Cell Distribution Width 13.8 % (13.2-15.2)
[2017-06-26] MEDS ORDERED: VANCOMYCIN/NS 1 GM/250 ML 1 GM/250 ML BAG IV SCH (06:00)
[2017-06-26 07:05] LABS: Alanine Aminotransferase 29 units/L (7-56); Albumin 2.7 g/dL (3.9-5); BUN/Creatinine Ratio 16; Blood Urea Nitrogen 21 mg/dL (9-20); Calcium 8.2 mg/dL (8.4-10.2); Hemolysis Index 3
[2017-06-26] MEDS ORDERED: K-DUR PO NR (10:00)
[2017-06-26] MEDS: PROTONIX IV SCH (12:01)
[2017-06-26] MEDS: HEPARIN SUB-Q SCH (12:01)
--- NOTE | 2017-06-26 12:42 | Progress Note ---
Assessment and Plan Sepsis Syndrome DKA Acute Encephalopathy (Likely toxic-metabolic) NSTEMI Severe Hypernatremia Lactic Acidosis Hyperlipidemia Hyperkalemia Metabolic Acidosis - continue to transition off IV insulin - to begin long acting insulin - cardiology consult for NSTEMI - aspiration precautions - SSI for BG >180 - continue isotonic fluids - continue empiric AB's and folow cultures/clinically - continue GI & VTE prophylaxis - flu & pneumovax per protocol - continue other care per attending and other consultants ....improved .....re-evaluate in am & prn ..36' Subjective Date of service: 06/26/17 Principal diagnosis: Sepsis Syndrome; DKA; Adult FTT Interval history: Patient is seen today for: Sepsis Syndrome; DKA; Adult FTT Seen and examined at bedside; 24hour events reviewed; nursing and respiratory care staff consulted; no adverse overnight events reported to me; resting in bed ; eating lunch; denies acute chest pains or increased SOB; No N/V/F/C; about to transition off IV insulin Objective Vital Signs - 12hr 06/26/17 06/26/17 06/26/17 01:15 02:00 03:00 Temperature Pulse Rate 94 H 99 H 96 H Pulse Rate [ Anterior Bilateral Throughout] Respiratory 13 25 H 23 Rate Respiratory Rate [Anterior Bilateral Throughout] Blood Pressure 126/71 106/70 94/73 O2 Sat by Pulse 100 98 98 Oximetry 06/26/17 06/26/17 06/26/17 03:44 04:00 05:00 Temperature 99.8 F H Pulse Rate 93 H 91 H Pulse Rate [ Anterior Bilateral Throughout] Respiratory 21 18 Rate Respiratory Rate [Anterior Bilateral Throughout] Blood Pressure 120/68 120/68 O2 Sat by Pulse 100 100 Oximetry 06/26/17 06/26/17 06/26/17 06:00 07:04 07:06 Temperature Pulse Rate 90 Pulse Rate [ 82 Anterior Bilateral Throughout] Respiratory 23 Rate Respiratory 12 Rate [Anterior Bilateral Throughout] Blood Pressure 118/69 O2 Sat by Pulse 100 100 Oximetry 06/26/17 06/26/17 07:15 08:09 Temperature 97.8 F Pulse Rate Pulse Rate [ 88 Anterior Bilateral Throughout] Respiratory Rate Respiratory 18 Rate [Anterior Bilateral Throughout] Blood Pressure O2 Sat by Pulse Oximetry Constitutional: alert, appears uncomfortable Eyes: non-icteric ENT: oropharynx moist, other (mallampatti III) Neck: supple, no lymphadenopathy, no JVD, other (No thyromegaly) Effort: mildly labored Ascultation: Bilateral: diminished breath sounds, rales (bases) Percussion: Bilateral: not dull Cardiovascular: regular rate and rhythm, other (No rubs or murmurs) Gastrointestinal: normoactive bowel sounds, soft, non-tender, non-distended, other (No HSM) Integumentary: other (poor turgor; no rash or cellulitis) Extremities: no cyanosis, no edema, pulses normal, no ischemia or petechiae Neurologic: normal mental status, non-focal exam (grossly), pupils equal and round, CN II-XII normal Psychiatric: mood appropriate CBC and BMP: 06/26/17 05:20 06/26/17 05:20 ABG, PT/INR, D-dimer: ABG POC ABG pH 7.379 (7.35-7.45) 06/25/17 12:59 POC ABG pCO2 27.4 (35-45) L 06/25/17 12:59 POC ABG pO2 126 (80-105) H 06/25/17 12:59 POC ABG HCO3 16.1 06/25/17 12:59 POC ABG Total CO2 17 06/25/17 12:59 POC ABG O2 Sat 99 06/25/17 12:59 PT/INR, D-dimer PT 14.9 Sec. (12.2-14.9) 06/25/17 03:28 INR 1.11 (0.87-1.13) 06/25/17 03:28 Abnormal lab findings: Abnormal Labs 06/25/17 06/25/17 06/25/17 02:21 03:28 03:28 WBC RBC Hgb Hct MCV MCHC RDW Lymph % (Auto) [place] % (Auto) Lymph # [place] # Seg Neutrophils % Seg Neuts % (Manual) Lymphocytes % (Manual) Monocytes % (Manual) Seg Neutrophils # Seg Neutrophils # Man Monocytes # (Manual) POC ABG pH POC ABG pCO2 POC ABG pO2 VBG pH 7.022 L* Sodium Potassium 6.8 H* D Chloride 91.9 L Carbon Dioxide < 2.0 L* D BUN 31 H Creatinine 1.7 H D Glucose 918 H* POC Glucose 392 H Lactic Acid Calcium Phosphorus Magnesium AST Troponin T 0.061 H Total Protein 5.7 L Albumin 3.5 L Triglycerides 311 H HDL Cholesterol 33 L Salicylates 06/25/17 06/25/17 06/25/17 03:28 03:28 04:03 WBC 19.7 H RBC Hgb Hct MCV 108 H MCHC 29 L RDW 15.9 H Lymph % (Auto) [place] % (Auto) Lymph # [place] # Seg Neutrophils % Seg Neuts % (Manual) 79.0 H Lymphocytes % (Manual) 8.0 L Monocytes % (Manual) 12.0 H Seg Neutrophils # Seg Neutrophils # Man 15.6 H Monocytes # (Manual) 2.4 H POC ABG pH POC ABG pCO2 POC ABG pO2 VBG pH Sodium Potassium Chloride Carbon Dioxide BUN Creatinine Glucose POC Glucose Lactic Acid 8.10 H* Calcium Phosphorus Magnesium AST Troponin T Total Protein Albumin Triglycerides HDL Cholesterol Salicylates < 0.3 L 06/25/17 06/25/17 06/25/17 04:22 04:54 05:24 WBC RBC Hgb Hct MCV MCHC RDW Lymph % (Auto) [place] % (Auto) Lymph # [place] # Seg Neutrophils % Seg Neuts % (Manual) Lymphocytes % (Manual) Monocytes % (Manual) Seg Neutrophils # Seg Neutrophils # Man Monocytes # (Manual) POC ABG pH 7.019 L POC ABG pCO2 11.4 L POC ABG pO2 149 H VBG pH Sodium Potassium Chloride Carbon Dioxide BUN Creatinine Glucose POC Glucose > 500 H Lactic Acid Calcium Phosphorus Magnesium AST Troponin T 0.104 H* D Total Protein Albumin Triglycerides HDL Cholesterol Salicylates 06/25/17 06/25/17 06/25/17 05:24 05:24 06:32 WBC RBC Hgb Hct MCV MCHC RDW Lymph % (Auto) [place] % (Auto) Lymph # [place] # Seg Neutrophils % Seg Neuts % (Manual) Lymphocytes % (Manual) Monocytes % (Manual) Seg Neutrophils # Seg Neutrophils # Man Monocytes # (Manual) POC ABG pH POC ABG pCO2 POC ABG pO2 VBG pH Sodium 146 H Potassium 5.9 H Chloride 97.1 L Carbon Dioxide 3 L* BUN 31 H Creatinine 1.6 H Glucose 857 H* POC Glucose > 500 H Lactic Acid Calcium 8.1 L Phosphorus 7.60 H Magnesium 2.50 H AST Troponin T Total Protein Albumin Triglycerides HDL Cholesterol Salicylates 06/25/17 06/25/17 06/25/17 06:50 07:18 09:03 WBC RBC Hgb Hct MCV MCHC RDW Lymph % (Auto) [place] % (Auto) Lymph # [place] # Seg Neutrophils % Seg Neuts % (Manual) Lymphocytes % (Manual) Monocytes % (Manual) Seg Neutrophils # Seg Neutrophils # Man Monocytes # (Manual) POC ABG pH POC ABG pCO2 POC ABG pO2 VBG pH Sodium 146 H 147 H Potassium 6.0 H 6.0 H Chloride Carbon Dioxide 5 L* 5 L* BUN 33 H 33 H Creatinine 1.7 H 1.7 H Glucose 802 H* 802 H* POC Glucose > 500 H Lactic Acid Calcium 8.3 L 8.3 L Phosphorus Magnesium AST Troponin T Total Protein Albumin Triglycerides HDL Cholesterol Salicylates 06/25/17 06/25/17 06/25/17 09:22 09:23 09:23 WBC RBC Hgb Hct MCV MCHC RDW Lymph % (Auto) [place] % (Auto) Lymph # [place] # Seg Neutrophils % Seg Neuts % (Manual) Lymphocytes % (Manual) Monocytes % (Manual) Seg Neutrophils # Seg Neutrophils # Man Monocytes # (Manual) POC ABG pH POC ABG pCO2 POC ABG pO2 VBG pH Sodium 150 H Potassium Chloride Carbon Dioxide 9 L* BUN 32 H Creatinine 1.7 H Glucose 647 H* POC Glucose Lactic Acid 2.40 H* Calcium 8.2 L Phosphorus Magnesium AST Troponin T 0.241 H* D Total Protein Albumin Triglycerides HDL Cholesterol Salicylates 06/25/17 06/25/17 06/25/17 10:30 11:58 12:22 WBC RBC Hgb Hct MCV MCHC RDW Lymph % (Auto) [place] % (Auto) Lymph # [place] # Seg Neutrophils % Seg Neuts % (Manual) Lymphocytes % (Manual) Monocytes % (Manual) Seg Neutrophils # Seg Neutrophils # Man Monocytes # (Manual) POC ABG pH POC ABG pCO2 POC ABG pO2 VBG pH Sodium 150 H 155 H 154 H Potassium Chloride 112.3 H 113.1 H Carbon Dioxide 8 L* 15 L D 15 L BUN 31 H 30 H 27 H Creatinine 1.7 H 1.6 H Glucose 646 H* 500 H 484 H POC Glucose Lactic Acid Calcium 8.3 L Phosphorus Magnesium AST Troponin T Total Protein Albumin Triglycerides HDL Cholesterol Salicylates 06/25/17 06/25/17 06/25/17 12:49 12:59 13:24 WBC RBC Hgb Hct MCV MCHC RDW Lymph % (Auto) [place] % (Auto) Lymph # [place] # Seg Neutrophils % Seg Neuts % (Manual) Lymphocytes % (Manual) Monocytes % (Manual) Seg Neutrophils # Seg Neutrophils # Man Monocytes # (Manual) POC ABG pH POC ABG pCO2 27.4 L POC ABG pO2 126 H VBG pH Sodium 156 H 155 H Potassium Chloride 113.3 H 112.2 H Carbon Dioxide 14 L 15 L BUN 28 H 28 H Creatinine 1.7 H 1.6 H Glucose 482 H 466 H POC Glucose Lactic Acid Calcium 8.2 L Phosphorus Magnesium AST Troponin T Total Protein Albumin Triglycerides HDL Cholesterol Salicylates 06/25/17 06/25/17 06/25/17 14:59 16:07 17:00 WBC RBC Hgb Hct MCV MCHC RDW Lymph % (Auto) [place] % (Auto) Lymph # [place] # Seg Neutrophils % Seg Neuts % (Manual) Lymphocytes % (Manual) Monocytes % (Manual) Seg Neutrophils # Seg Neutrophils # Man Monocytes # (Manual) POC ABG pH POC ABG pCO2 POC ABG pO2 VBG pH Sodium 157 H Potassium Chloride 119.0 H Carbon Dioxide 20 L BUN 25 H Creatinine Glucose 328 H POC Glucose 365 H 337 H Lactic Acid Calcium 7.9 L Phosphorus Magnesium AST Troponin T Total Protein Albumin Triglycerides HDL Cholesterol Salicylates 06/25/17 06/25/17 06/25/17 18:04 19:20 20:13 WBC RBC Hgb Hct MCV MCHC RDW Lymph % (Auto) [place] % (Auto) Lymph # [place] # Seg Neutrophils % Seg Neuts % (Manual) Lymphocytes % (Manual) Monocytes % (Manual) Seg Neutrophils # Seg Neutrophils # Man Monocytes # (Manual) POC ABG pH POC ABG pCO2 POC ABG pO2 VBG pH Sodium Potassium Chloride Carbon Dioxide BUN Creatinine Glucose POC Glucose 275 H 284 H 108 H Lactic Acid Calcium Phosphorus Magnesium AST Troponin T Total Protein Albumin Triglycerides HDL Cholesterol Salicylates 06/25/17 06/25/17 06/25/17 20:30 21:15 21:53 WBC RBC Hgb Hct MCV MCHC RDW Lymph % (Auto) [place] % (Auto) Lymph # [place] # Seg Neutrophils % Seg Neuts % (Manual) Lymphocytes % (Manual) Monocytes % (Manual) Seg Neutrophils # Seg Neutrophils # Man Monocytes # (Manual) POC ABG pH POC ABG pCO2 POC ABG pO2 VBG pH Sodium 161 H* Potassium 3.4 L Chloride 125.2 H Carbon Dioxide BUN 21 H Creatinine Glucose 40 L POC Glucose 201 H < 40 L Lactic Acid Calcium 7.8 L Phosphorus Magnesium AST Troponin T Total Protein Albumin Triglycerides HDL Cholesterol Salicylates 06/25/17 06/25/17 06/25/17 21:55 22:18 23:53 WBC RBC Hgb Hct MCV MCHC RDW Lymph % (Auto) [place] % (Auto) Lymph # [place] # Seg Neutrophils % Seg Neuts % (Manual) Lymphocytes % (Manual) Monocytes % (Manual) Seg Neutrophils # Seg Neutrophils # Man Monocytes # (Manual) POC ABG pH POC ABG pCO2 POC ABG pO2 VBG pH Sodium Potassium Chloride Carbon Dioxide BUN Creatinine Glucose POC Glucose < 40 L 150 H 123 H Lactic Acid Calcium Phosphorus Magnesium AST Troponin T Total Protein Albumin Triglycerides HDL Cholesterol Salicylates 06/26/17 06/26/17 06/26/17 01:09 01:54 03:07 WBC RBC Hgb Hct MCV MCHC RDW Lymph % (Auto) [place] % (Auto) Lymph # [place] # Seg Neutrophils % Seg Neuts % (Manual) Lymphocytes % (Manual) Monocytes % (Manual) Seg Neutrophils # Seg Neutrophils # Man Monocytes # (Manual) POC ABG pH POC ABG pCO2 POC ABG pO2 VBG pH Sodium Potassium Chloride Carbon Dioxide BUN Creatinine Glucose POC Glucose 180 H 183 H 151 H Lactic Acid Calcium Phosphorus Magnesium AST Troponin T Total Protein Albumin Triglycerides HDL Cholesterol Salicylates 06/26/17 06/26/17 06/26/17 04:50 05:20 05:20 WBC RBC 3.63 L Hgb 11.5 L Hct 33.9 L D MCV MCHC RDW Lymph % (Auto) 9.4 L [place] % (Auto) 10.8 H Lymph # 1.0 L [place] # 1.2 H Seg Neutrophils % 79.6 H Seg Neuts % (Manual) Lymphocytes % (Manual) Monocytes % (Manual) Seg Neutrophils # 8.7 H Seg Neutrophils # Man Monocytes # (Manual) POC ABG pH POC ABG pCO2 POC ABG pO2 VBG pH Sodium 160 H Potassium 3.3 L Chloride 125.1 H Carbon Dioxide BUN 21 H Creatinine Glucose POC Glucose 124 H Lactic Acid Calcium 8.2 L Phosphorus Magnesium AST 72 H Troponin T Total Protein 5.0 L Albumin 2.7 L Triglycerides HDL Cholesterol Salicylates 06/26/17 06/26/17 06/26/17 07:56 09:03 10:03 WBC RBC Hgb Hct MCV MCHC RDW Lymph % (Auto) [place] % (Auto) Lymph # [place] # Seg Neutrophils % Seg Neuts % (Manual) Lymphocytes % (Manual) Monocytes % (Manual) Seg Neutrophils # Seg Neutrophils # Man Monocytes # (Manual) POC ABG pH POC ABG pCO2 POC ABG pO2 VBG pH Sodium Potassium Chloride Carbon Dioxide BUN Creatinine Glucose POC Glucose 147 H 206 H 212 H Lactic Acid Calcium Phosphorus Magnesium AST Troponin T Total Protein Albumin Triglycerides HDL Cholesterol Salicylates 06/26/17 06/26/17 11:09 12:16 WBC RBC Hgb Hct MCV MCHC RDW Lymph % (Auto) [place] % (Auto) Lymph # [place] # Seg Neutrophils % Seg Neuts % (Manual) Lymphocytes % (Manual) Monocytes % (Manual) Seg Neutrophils # Seg Neutrophils # Man Monocytes # (Manual) POC ABG pH POC ABG pCO2 POC ABG pO2 VBG pH Sodium Potassium Chloride Carbon Dioxide BUN Creatinine Glucose POC Glucose 202 H 126 H Lactic Acid Calcium Phosphorus Magnesium AST Troponin T Total Protein Albumin Triglycerides HDL Cholesterol Salicylates Chest x-ray: image reviewed (New left chest PICC with tip in distal SVC) Allied health notes reviewed: nursing
[2017-06-26] MEDS ORDERED: LEVEMIR SUB-Q ONE (13:00)
[2017-06-26] MEDS ORDERED: NACL 0.9% 1000 ML 1,000 ML ONE (13:41)
--- NOTE | 2017-06-26 15:53 | Progress Note ---
Assessment and Plan Assessment and plan: 76-year-old male was discharged recently from the hospital after he was treated for DKA. Patient presented to the emergency department for the complaints of altered mental status and workup showed DKA. Patient said patient was sick and was not able to take his medications at home. Patient said he had subjective fever DKA - Resolved after he was treated according to DKA protocol Metabolic encephalopathy - Resolved likely due to DKS Metabolic acidosis - Resolved SIRS; infectious workup so far neg, continue empiric abx HLD - Continue statin Hypokalemia -continue K supplement Acute renal failure/Vasomotor nephropathy upon CKD -continue IVF, should improve as he is hydrated Elevated troponin level - Continue give consulted The high probability of a clinically significant, sudden or life threatening deterioration of the [neuro, endocrine, renal] system(s) required my full and direct attention, intervention and personal management. The aggregate critical care time was [41] minutes. This time is in addition to time spent performing reported procedures but includes the following: [x] Data Review and interpretation [x] Patient assessment and monitoring of vital signs [x] Documentation [x] Medication orders and management History Interval history: Patient was seen and evaluated this morning, patient is feeling better. Hospitalist Physical - Physical exam Narrative exam: Not in cardiopulmonary distress. The patient appeared well nourished and normally developed. Vital signs as documented. Head exam is unremarkable. No scleral icterus . Neck is without jugular venous distension, thyromegaly, or carotid bruits. Lungs are clear to auscultation. Cardiac exam reveals regular rate and Rhythm. First and second heart sounds normal. No murmurs, rubs or gallops. Abdominal exam reveals normal bowel sounds, no masses, no organomegaly and no aortic enlargement. Extremities are nonedematous and both femoral and pedal pulses are normal. [employer]: Alert and oriented 3. - Constitutional Vitals: Temp Pulse Resp BP Pulse Ox 97.8 F 88 18 118/69 100 06/26/17 08:09 06/26/17 07:15 06/26/17 07:15 06/26/17 06:00 06/26/17 07:04 Results - Labs CBC & Chem 7: 06/26/17 05:20 06/26/17 05:20 Labs: Laboratory Last Values WBC 10.9 K/mm3 (4.5-11.0) 06/26/17 05:20 RBC 3.63 M/mm3 (3.65-5.03) L 06/26/17 05:20 Hgb 11.5 gm/dl (11.8-15.2) L 06/26/17 05:20 Hct 33.9 % (35.5-45.6) L D 06/26/17 05:20 MCV 93 fl (84-94) 06/26/17 05:20 MCH 32 pg (28-32) 06/26/17 05:20 MCHC 34 % (32-34) 06/26/17 05:20 RDW 13.8 % (13.2-15.2) 06/26/17 05:20 Plt Count 238 K/mm3 (140-440) 06/26/17 05:20 Lymph % (Auto) 9.4 % (13.4-35.0) L 06/26/17 05:20 [place] % (Auto) 10.8 % (0.0-7.3) H 06/26/17 05:20 Eos % (Auto) 0.0 % (0.0-4.3) 06/26/17 05:20 Baso % (Auto) 0.2 % (0.0-1.8) 06/26/17 05:20 Lymph # 1.0 K/mm3 (1.2-5.4) L 06/26/17 05:20 [place] # 1.2 K/mm3 (0.0-0.8) H 06/26/17 05:20 Eos # 0.0 K/mm3 (0.0-0.4) 06/26/17 05:20 Baso # 0.0 K/mm3 (0.0-0.1) 06/26/17 05:20 Add Manual Diff Complete 06/25/17 04:03 Total Counted 100 06/25/17 04:03 Seg Neutrophils % 79.6 % (40.0-70.0) H 06/26/17 05:20 Seg Neuts % (Manual) 79.0 % (40.0-70.0) H 06/25/17 04:03 Band Neutrophils % 1.0 % 06/25/17 04:03 Lymphocytes % (Manual) 8.0 % (13.4-35.0) L 06/25/17 04:03 Reactive Lymphs % (Man) 0 % 06/25/17 04:03 Monocytes % (Manual) 12.0 % (0.0-7.3) H 06/25/17 04:03 Eosinophils % (Manual) 0 % (0.0-4.3) 06/25/17 04:03 Basophils % (Manual) 0 % (0.0-1.8) 06/25/17 04:03 Metamyelocytes % 0 % 06/25/17 04:03 Myelocytes % 0 % 06/25/17 04:03 Promyelocytes % 0 % 06/25/17 04:03 Blast Cells % 0 % 06/25/17 04:03 Nucleated RBC % Not Reportable 06/25/17 04:03 Seg Neutrophils # 8.7 K/mm3 (1.8-7.7) H 06/26/17 05:20 Seg Neutrophils # Man 15.6 K/mm3 (1.8-7.7) H 06/25/17 04:03 Band Neutrophils # 0.2 K/mm3 06/25/17 04:03 Lymphocytes # (Manual) 1.6 K/mm3 (1.2-5.4) 06/25/17 04:03 Abs React Lymphs (Man) 0.0 K/mm3 06/25/17 04:03 Monocytes # (Manual) 2.4 K/mm3 (0.0-0.8) H 06/25/17 04:03 Eosinophils # (Manual) 0.0 K/mm3 (0.0-0.4) 06/25/17 04:03 Basophils # (Manual) 0.0 K/mm3 (0.0-0.1) 06/25/17 04:03 Metamyelocytes # 0.0 K/mm3 06/25/17 04:03 Myelocytes # 0.0 K/mm3 06/25/17 04:03 Promyelocytes # 0.0 K/mm3 06/25/17 04:03 Blast Cells # 0.0 K/mm3 06/25/17 04:03 WBC Morphology Not Reportable 06/25/17 04:03 Hypersegmented Neuts Not Reportable 06/25/17 04:03 Hyposegmented Neuts Not Reportable 06/25/17 04:03 Hypogranular Neuts Not Reportable 06/25/17 04:03 Smudge Cells Not Reportable 06/25/17 04:03 Toxic Granulation Not Reportable 06/25/17 04:03 Toxic Vacuolation Not Reportable 06/25/17 04:03 Dohle Bodies Not Reportable 06/25/17 04:03 Pelger-Huet Anomaly Not Reportable 06/25/17 04:03 Carmen Rods Not Reportable 06/25/17 04:03 Platelet Estimate Consistent w auto 06/25/17 04:03 Clumped Platelets Not Reportable 06/25/17 04:03 Plt Clumps, EDTA Not Reportable 06/25/17 04:03 Large Platelets Not Reportable 06/25/17 04:03 Giant Platelets Not Reportable 06/25/17 04:03 Platelet Satelliting Not Reportable 06/25/17 04:03 Plt Morphology Comment Not Reportable 06/25/17 04:03 RBC Morphology Not Reportable 06/25/17 04:03 Dimorphic RBCs Not Reportable 06/25/17 04:03 Polychromasia Not Reportable 06/25/17 04:03 Hypochromasia Not Reportable 06/25/17 04:03 Poikilocytosis Not Reportable 06/25/17 04:03 Anisocytosis 1+ 06/25/17 04:03 Microcytosis Not Reportable 06/25/17 04:03 Macrocytosis Not Reportable 06/25/17 04:03 Spherocytes Not Reportable 06/25/17 04:03 Pappenheimer Bodies Not Reportable 06/25/17 04:03 Sickle Cells Not Reportable 06/25/17 04:03 Target Cells Not Reportable 06/25/17 04:03 Tear Drop Cells Not Reportable 06/25/17 04:03 Ovalocytes Not Reportable 06/25/17 04:03 Helmet Cells Not Reportable 06/25/17 04:03 [place] Bodies Not Reportable 06/25/17 04:03 [place] Rings Not Reportable 06/25/17 04:03 [place] Cells Not Reportable 06/25/17 04:03 Bite Cells Not Reportable 06/25/17 04:03 Crenated Cell Not Reportable 06/25/17 04:03 Elliptocytes Not Reportable 06/25/17 04:03 Acanthocytes (Spur) Not Reportable 06/25/17 04:03 Rouleaux Not Reportable 06/25/17 04:03 Hemoglobin C Crystals Not Reportable 06/25/17 04:03 Schistocytes Not Reportable 06/25/17 04:03 Malaria parasites Not Reportable 06/25/17 04:03 Janes Bodies Not Reportable 06/25/17 04:03 Hem Pathologist Commnt No 06/25/17 04:03 PT 14.9 Sec. (12.2-14.9) 06/25/17 03:28 INR 1.11 (0.87-1.13) 06/25/17 03:28 APTT 28.2 Sec. (24.2-36.6) 06/25/17 03:28 POC ABG pH 7.379 (7.35-7.45) 06/25/17 12:59 POC ABG pCO2 27.4 (35-45) L 06/25/17 12:59 POC ABG pO2 126 (80-105) H 06/25/17 12:59 POC ABG HCO3 16.1 06/25/17 12:59 POC ABG Total CO2 17 06/25/17 12:59 POC ABG O2 Sat 99 06/25/17 12:59 POC ABG Base Excess -9 06/25/17 12:59 VBG pH 7.022 (7.320-7.420) L* 06/25/17 03:28 FiO2 36 % 06/25/17 12:59 Sodium 160 mmol/L (137-145) H 06/26/17 05:20 Potassium 3.3 mmol/L (3.6-5.0) L 06/26/17 05:20 Chloride 125.1 mmol/L (98-107) H 06/26/17 05:20 Carbon Dioxide 25 mmol/L (22-30) 06/26/17 05:20 Anion Gap 14 mmol/L 06/26/17 05:20 BUN 21 mg/dL (9-20) H 06/26/17 05:20 Creatinine 1.3 mg/dL (0.8-1.5) 06/26/17 05:20 Estimated GFR > 60 ml/min 06/26/17 05:20 BUN/Creatinine Ratio 16 % 06/26/17 05:20 Glucose 94 mg/dL (75-100) 06/26/17 05:20 POC Glucose 168 (70-105) H 06/26/17 14:22 Lactic Acid 2.40 mmol/L (0.7-2.0) H* 06/25/17 09:23 Calcium 8.2 mg/dL (8.4-10.2) L 06/26/17 05:20 Phosphorus 7.60 mg/dL (2.5-4.5) H 06/25/17 05:24 Magnesium 2.50 mg/dL (1.7-2.3) H 06/25/17 05:24 Total Bilirubin 0.20 mg/dL (0.1-1.2) 06/26/17 05:20 AST 72 units/L (5-40) H 06/26/17 05:20 ALT 29 units/L (7-56) 06/26/17 05:20 Alkaline Phosphatase 68 units/L (35-129) 06/26/17 05:20 Ammonia 44.0 umol/L (25-60) 06/25/17 03:28 Troponin T 0.241 ng/mL (0.00-0.029) H* D 06/25/17 09:22 Total Protein 5.0 g/dL (6.3-8.2) L 06/26/17 05:20 Albumin 2.7 g/dL (3.9-5) L 06/26/17 05:20 Albumin/Globulin Ratio 1.2 % 06/26/17 05:20 Triglycerides 311 mg/dL (2-149) H 06/25/17 03:28 Cholesterol 178 mg/dL (50-199) 06/25/17 03:28 LDL Cholesterol Direct 83 mg/dL (50-130) 06/25/17 03:28 HDL Cholesterol 33 mg/dL (40-59) L 06/25/17 03:28 Cholesterol/HDL Ratio 5.39 % 06/25/17 03:28 TSH 0.840 mlU/mL (0.270-4.200) 06/25/17 03:28 Free T4 1.10 ng/dL (0.76-1.46) 06/25/17 03:28 Urine Color Yellow (Yellow) 06/25/17 Unknown Urine Turbidity Clear (Clear) 06/25/17 Unknown Urine pH 5.0 (5.0-7.0) 06/25/17 Unknown Ur Specific [place] 1.017 (1.003-1.030) 06/25/17 Unknown Urine Protein <15 mg/dl mg/dL (Negative) 06/25/17 Unknown Urine Glucose (UA) >=500 mg/dL (Negative) 06/25/17 Unknown Urine Ketones 80 mg/dL (Negative) 06/25/17 Unknown Urine Blood Mod (Negative) 06/25/17 Unknown Urine Nitrite Neg (Negative) 06/25/17 Unknown Urine Bilirubin Neg (Negative) 06/25/17 Unknown Urine Urobilinogen < 2.0 mg/dL (<2.0) 06/25/17 Unknown Ur Leukocyte Esterase Neg (Negative) 06/25/17 Unknown Urine WBC (Auto) 5.0 /HPF (0.0-6.0) 06/25/17 Unknown Urine RBC (Auto) 3.0 /HPF (0.0-6.0) 06/25/17 Unknown Urine Bacteria (Auto) 1+ /HPF (Negative) 06/25/17 Unknown Amorphous Crystals Few 06/25/17 Unknown Urine Mucus Few /HPF 06/25/17 Unknown Salicylates < 0.3 mg/dL (2.8-20.0) L 06/25/17 03:28 Acetaminophen < 15.0 ug/mL (10.0-30.0) 06/25/17 03:28 Blood Type O NEGATIVE 06/25/17 05:24 Antibody Screen Negative 06/25/17 05:24 Hypokalemia
[2017-06-26] MEDS ORDERED: NACL 0.9% 1000 ML 1,000 ML IV SCH (18:00)
[2017-06-26] MEDS ORDERED: D5W/0.45% NACL/KCL 10 MEQ 10 MEQ/1,000 ML BAG IV SCH (18:00)
--- NOTE | 2017-06-27 07:15 | Progress Note ---
Assessment and Plan Assessment and plan: 76-year-old male was discharged recently from the hospital after he was treated for DKA. Patient presented to the emergency department for the complaints of altered mental status and workup showed DKA. Patient said patient was sick and was not able to take his medications at home. Patient said he had subjective fever DKA - Resolved after he was treated according to DKA protocol Metabolic encephalopathy - Resolved likely due to DKA Metabolic acidosis - Resolved SIRS - Infectious workup so far neg, continue empiric abx HLD - Continue statin Hypokalemia - repleted and currently hyperkalemia Acute renal failure - continue IVF - Resolved Elevated troponin level - Cardiology consulted Hypernatremia - Resolved DVT prophylaxis - Heparin Plan - Possible DC tomorrow. History Interval history: Patient was seen and evaluated this morning, patient is feeling better. Hospitalist Physical - Physical exam Narrative exam: Not in cardiopulmonary distress. The patient is cachectic. Vital signs as documented. Head exam is unremarkable. No scleral icterus . Neck is without jugular venous distension, thyromegaly, or carotid bruits. Lungs are clear to auscultation. Cardiac exam reveals regular rate and Rhythm. First and second heart sounds normal. No murmurs, rubs or gallops. Abdominal exam reveals normal bowel sounds, no masses, no organomegaly and no aortic enlargement. Extremities are nonedematous and both femoral and pedal pulses are normal. DRIER TENDER: Alert and oriented 3. - Constitutional Vitals: Temp Pulse Resp BP Pulse Ox 99.1 F 85 19 109/65 99 06/27/17 04:10 06/27/17 04:10 06/27/17 04:10 06/27/17 04:10 06/27/17 04:10 Results - Labs CBC & Chem 7: 06/27/17 07:53 06/27/17 12:22 Labs: Laboratory Last Values WBC 10.9 K/mm3 (4.5-11.0) 06/26/17 05:20 RBC 3.63 M/mm3 (3.65-5.03) L 06/26/17 05:20 Hgb 11.5 gm/dl (11.8-15.2) L 06/26/17 05:20 Hct 33.9 % (35.5-45.6) L D 06/26/17 05:20 MCV 93 fl (84-94) 06/26/17 05:20 MCH 32 pg (28-32) 06/26/17 05:20 MCHC 34 % (32-34) 06/26/17 05:20 RDW 13.8 % (13.2-15.2) 06/26/17 05:20 Plt Count 238 K/mm3 (140-440) 06/26/17 05:20 Lymph % (Auto) 9.4 % (13.4-35.0) L 06/26/17 05:20 [place] % (Auto) 10.8 % (0.0-7.3) H 06/26/17 05:20 Eos % (Auto) 0.0 % (0.0-4.3) 06/26/17 05:20 Baso % (Auto) 0.2 % (0.0-1.8) 06/26/17 05:20 Lymph # 1.0 K/mm3 (1.2-5.4) L 06/26/17 05:20 [place] # 1.2 K/mm3 (0.0-0.8) H 06/26/17 05:20 Eos # 0.0 K/mm3 (0.0-0.4) 06/26/17 05:20 Baso # 0.0 K/mm3 (0.0-0.1) 06/26/17 05:20 Add Manual Diff Complete 06/25/17 04:03 Total Counted 100 06/25/17 04:03 Seg Neutrophils % 79.6 % (40.0-70.0) H 06/26/17 05:20 Seg Neuts % (Manual) 79.0 % (40.0-70.0) H 06/25/17 04:03 Band Neutrophils % 1.0 % 06/25/17 04:03 Lymphocytes % (Manual) 8.0 % (13.4-35.0) L 06/25/17 04:03 Reactive Lymphs % (Man) 0 % 06/25/17 04:03 Monocytes % (Manual) 12.0 % (0.0-7.3) H 06/25/17 04:03 Eosinophils % (Manual) 0 % (0.0-4.3) 06/25/17 04:03 Basophils % (Manual) 0 % (0.0-1.8) 06/25/17 04:03 Metamyelocytes % 0 % 06/25/17 04:03 Myelocytes % 0 % 06/25/17 04:03 Promyelocytes % 0 % 06/25/17 04:03 Blast Cells % 0 % 06/25/17 04:03 Nucleated RBC % Not Reportable 06/25/17 04:03 Seg Neutrophils # 8.7 K/mm3 (1.8-7.7) H 06/26/17 05:20 Seg Neutrophils # Man 15.6 K/mm3 (1.8-7.7) H 06/25/17 04:03 Band Neutrophils # 0.2 K/mm3 06/25/17 04:03 Lymphocytes # (Manual) 1.6 K/mm3 (1.2-5.4) 06/25/17 04:03 Abs React Lymphs (Man) 0.0 K/mm3 06/25/17 04:03 Monocytes # (Manual) 2.4 K/mm3 (0.0-0.8) H 06/25/17 04:03 Eosinophils # (Manual) 0.0 K/mm3 (0.0-0.4) 06/25/17 04:03 Basophils # (Manual) 0.0 K/mm3 (0.0-0.1) 06/25/17 04:03 Metamyelocytes # 0.0 K/mm3 06/25/17 04:03 Myelocytes # 0.0 K/mm3 06/25/17 04:03 Promyelocytes # 0.0 K/mm3 06/25/17 04:03 Blast Cells # 0.0 K/mm3 06/25/17 04:03 WBC Morphology Not Reportable 06/25/17 04:03 Hypersegmented Neuts Not Reportable 06/25/17 04:03 Hyposegmented Neuts Not Reportable 06/25/17 04:03 Hypogranular Neuts Not Reportable 06/25/17 04:03 Smudge Cells Not Reportable 06/25/17 04:03 Toxic Granulation Not Reportable 06/25/17 04:03 Toxic Vacuolation Not Reportable 06/25/17 04:03 Dohle Bodies Not Reportable 06/25/17 04:03 Pelger-Huet Anomaly Not Reportable 06/25/17 04:03 Carmen Rods Not Reportable 06/25/17 04:03 Platelet Estimate Consistent w auto 06/25/17 04:03 Clumped Platelets Not Reportable 06/25/17 04:03 Plt Clumps, EDTA Not Reportable 06/25/17 04:03 Large Platelets Not Reportable 06/25/17 04:03 Giant Platelets Not Reportable 06/25/17 04:03 Platelet Satelliting Not Reportable 06/25/17 04:03 Plt Morphology Comment Not Reportable 06/25/17 04:03 RBC Morphology Not Reportable 06/25/17 04:03 Dimorphic RBCs Not Reportable 06/25/17 04:03 Polychromasia Not Reportable 06/25/17 04:03 Hypochromasia Not Reportable 06/25/17 04:03 Poikilocytosis Not Reportable 06/25/17 04:03 Anisocytosis 1+ 06/25/17 04:03 Microcytosis Not Reportable 06/25/17 04:03 Macrocytosis Not Reportable 06/25/17 04:03 Spherocytes Not Reportable 06/25/17 04:03 Pappenheimer Bodies Not Reportable 06/25/17 04:03 Sickle Cells Not Reportable 06/25/17 04:03 Target Cells Not Reportable 06/25/17 04:03 Tear Drop Cells Not Reportable 06/25/17 04:03 Ovalocytes Not Reportable 06/25/17 04:03 Helmet Cells Not Reportable 06/25/17 04:03 Perez-Gillette Bodies Not Reportable 06/25/17 04:03 [place]ifton Rings Not Reportable 06/25/17 04:03 Srinivas Cells Not Reportable 06/25/17 04:03 Bite Cells Not Reportable 06/25/17 04:03 Crenated Cell Not Reportable 06/25/17 04:03 Elliptocytes Not Reportable 06/25/17 04:03 Acanthocytes (Spur) Not Reportable 06/25/17 04:03 Rouleaux Not Reportable 06/25/17 04:03 Hemoglobin C Crystals Not Reportable 06/25/17 04:03 Schistocytes Not Reportable 06/25/17 04:03 Malaria parasites Not Reportable 06/25/17 04:03 Janes Bodies Not Reportable 06/25/17 04:03 Hem Pathologist Commnt No 06/25/17 04:03 PT 14.9 Sec. (12.2-14.9) 06/25/17 03:28 INR 1.11 (0.87-1.13) 06/25/17 03:28 APTT 28.2 Sec. (24.2-36.6) 06/25/17 03:28 POC ABG pH 7.379 (7.35-7.45) 06/25/17 12:59 POC ABG pCO2 27.4 (35-45) L 06/25/17 12:59 POC ABG pO2 126 (80-105) H 06/25/17 12:59 POC ABG HCO3 16.1 06/25/17 12:59 POC ABG Total CO2 17 06/25/17 12:59 POC ABG O2 Sat 99 06/25/17 12:59 POC ABG Base Excess -9 06/25/17 12:59 VBG pH 7.022 (7.320-7.420) L* 06/25/17 03:28 FiO2 36 % 06/25/17 12:59 Sodium 160 mmol/L (137-145) H 06/26/17 05:20 Potassium 3.3 mmol/L (3.6-5.0) L 06/26/17 05:20 Chloride 125.1 mmol/L (98-107) H 06/26/17 05:20 Carbon Dioxide 25 mmol/L (22-30) 06/26/17 05:20 Anion Gap 14 mmol/L 06/26/17 05:20 BUN 21 mg/dL (9-20) H 06/26/17 05:20 Creatinine 1.3 mg/dL (0.8-1.5) 06/26/17 05:20 Estimated GFR > 60 ml/min 06/26/17 05:20 BUN/Creatinine Ratio 16 % 06/26/17 05:20 Glucose 107 mg/dL (75-100) H 06/27/17 00:15 POC Glucose < 40 (70-105) L 06/26/17 23:30 Lactic Acid 2.40 mmol/L (0.7-2.0) H* 06/25/17 09:23 Calcium 8.2 mg/dL (8.4-10.2) L 06/26/17 05:20 Phosphorus 7.60 mg/dL (2.5-4.5) H 06/25/17 05:24 Magnesium 2.50 mg/dL (1.7-2.3) H 06/25/17 05:24 Total Bilirubin 0.20 mg/dL (0.1-1.2) 06/26/17 05:20 AST 72 units/L (5-40) H 06/26/17 05:20 ALT 29 units/L (7-56) 06/26/17 05:20 Alkaline Phosphatase 68 units/L (35-129) 06/26/17 05:20 Ammonia 44.0 umol/L (25-60) 06/25/17 03:28 Troponin T 0.241 ng/mL (0.00-0.029) H* D 06/25/17 09:22 Total Protein 5.0 g/dL (6.3-8.2) L 06/26/17 05:20 Albumin 2.7 g/dL (3.9-5) L 06/26/17 05:20 Albumin/Globulin Ratio 1.2 % 06/26/17 05:20 Triglycerides 311 mg/dL (2-149) H 06/25/17 03:28 Cholesterol 178 mg/dL (50-199) 06/25/17 03:28 LDL Cholesterol Direct 83 mg/dL (50-130) 06/25/17 03:28 HDL Cholesterol 33 mg/dL (40-59) L 06/25/17 03:28 Cholesterol/HDL Ratio 5.39 % 06/25/17 03:28 TSH 0.840 mlU/mL (0.270-4.200) 06/25/17 03:28 Free T4 1.10 ng/dL (0.76-1.46) 06/25/17 03:28 Urine Color Yellow (Yellow) 06/25/17 Unknown Urine Turbidity Clear (Clear) 06/25/17 Unknown Urine pH 5.0 (5.0-7.0) 06/25/17 Unknown Ur Specific [place] 1.017 (1.003-1.030) 06/25/17 Unknown Urine Protein <15 mg/dl mg/dL (Negative) 06/25/17 Unknown Urine Glucose (UA) >=500 mg/dL (Negative) 06/25/17 Unknown Urine Ketones 80 mg/dL (Negative) 06/25/17 Unknown Urine Blood Mod (Negative) 06/25/17 Unknown Urine Nitrite Neg (Negative) 06/25/17 Unknown Urine Bilirubin Neg (Negative) 06/25/17 Unknown Urine Urobilinogen < 2.0 mg/dL (<2.0) 06/25/17 Unknown Ur Leukocyte Esterase Neg (Negative) 06/25/17 Unknown Urine WBC (Auto) 5.0 /HPF (0.0-6.0) 06/25/17 Unknown Urine RBC (Auto) 3.0 /HPF (0.0-6.0) 06/25/17 Unknown Urine Bacteria (Auto) 1+ /HPF (Negative) 06/25/17 Unknown Amorphous Crystals Few 06/25/17 Unknown Urine Mucus Few /HPF 06/25/17 Unknown Salicylates < 0.3 mg/dL (2.8-20.0) L 06/25/17 03:28 Acetaminophen < 15.0 ug/mL (10.0-30.0) 06/25/17 03:28 Blood Type O NEGATIVE 06/25/17 05:24 Antibody Screen Negative 06/25/17 05:24
[2017-06-27] MEDS ORDERED: INSULIN ASPART 4 UNIT SQ SCH (08:00)
[2017-06-27 08:14] LABS: Basophils % (Auto) 0.5 % (0.0-1.8); Eosinophils % (Auto) 0.2 % (0.0-4.3); Hematocrit 37.7 % (35.5-45.6); Hemoglobin 12.4 gm/dl (11.8-15.2); Lymphocytes # (Auto) 1.6 K/mm3 (1.2-5.4); Lymphocytes % (Auto) 21.1 % (13.4-35.0); Mean Corpuscular HGB Conc 33 % (32-34); Mean Corpuscular Hemoglobin 31 pg (28-32); Mean Corpuscular Volume 94 fl (84-94); Monocytes # (Auto) 0.8 K/mm3 (0.0-0.8); Monocytes % (Auto) 10.3 % (0.0-7.3); Platelet Count 220 K/mm3 (140-440); Red Blood Count 3.99 M/mm3 (3.65-5.03); Red Cell Distribution Width 14.2 % (13.2-15.2)
[2017-06-27 08:30] LABS: BUN/Creatinine Ratio 11; Blood Urea Nitrogen 11 mg/dL (9-20); Calcium 8.3 mg/dL (8.4-10.2); Hemolysis Index 25
[2017-06-27] MEDS: NOVOLOG SUB-Q SCH ×6 (08:30→23:04)
[2017-06-27] MEDS: DUONEB *Not for PRN Use IH SCH ×3 (08:56→20:47)
[2017-06-27] MEDS: HEPARIN SUB-Q SCH ×3 (10:08→23:08)
[2017-06-27] MEDS ORDERED: K-DUR PO ONE ×2 (11:30→19:30)
[2017-06-27] MEDS: NACL 0.45% 1000 ML 1,000 ML IV SCH ×2 (11:30→23:24)
[2017-06-27] MEDS: PROTONIX IV SCH (11:32)
[2017-06-27 13:12] LABS: BUN/Creatinine Ratio 13; Blood Urea Nitrogen 12 mg/dL (9-20); Calcium 7.8 mg/dL (8.4-10.2); Hemolysis Index 303
[2017-06-27] MEDS: ZOSYN/NS 4.5GM/100ML 4.5 GM/100 ML VIAL IV SCH ×4 (14:05→23:03)
--- NOTE | 2017-06-27 16:06 | Event Note ---
Date: 06/27/17 Cardiology note dictated #1 abnormal troponin. Possible N STEMI Patient denies any chest pain. EKG shows inferior ST changes there is a nonspecific and difficult to assess because of poor baseline. Will obtain a repeat EKG and monitor closely. Will obtain echocardiogram for further assessment. Thank you Dr. SHARIFA Cruz
--- NOTE | 2017-06-27 20:56 | Progress Note ---
Assessment and Plan Patient sleeping at this time. On room air. O2 saturation 98%. - Patient Problems (1) Hypothermia Current Visit: Yes Status: Acute Plan to address problem: Improved. To days temparature 99.7. (2) SIRS (systemic inflammatory response syndrome) Current Visit: Yes Status: Acute Plan to address problem: Patient is on zosyn and vancomycin. (3) DKA (diabetic ketoacidosis) Current Visit: No Status: Acute Plan to address problem: Improving. Management as per primary care. Subjective Date of service: 06/27/17 Principal diagnosis: Sepsis Syndrome; DKA; Adult FTT Interval history: Patient sleeping at this time. On room air. O2 saturation 98%. Objective Vital Signs - 12hr 06/27/17 06/27/17 06/27/17 08:56 08:58 09:25 Temperature Pulse Rate Pulse Rate [ 84 62 Anterior Bilateral Throughout] Respiratory Rate Respiratory 18 18 Rate [Anterior Bilateral Throughout] Blood Pressure O2 Sat by Pulse 96 Oximetry 06/27/17 06/27/17 06/27/17 10:00 13:48 14:53 Temperature 98.5 F Pulse Rate 78 Pulse Rate [ 107 H Anterior Bilateral Throughout] Respiratory 16 Rate Respiratory 18 Rate [Anterior Bilateral Throughout] Blood Pressure 109/62 O2 Sat by Pulse Oximetry 06/27/17 06/27/17 06/27/17 15:10 20:47 20:48 Temperature Pulse Rate Pulse Rate [ 104 H 88 Anterior Bilateral Throughout] Respiratory Rate Respiratory 18 19 Rate [Anterior Bilateral Throughout] Blood Pressure O2 Sat by Pulse 98 Oximetry Constitutional: no acute distress, alert, asleep Eyes: non-icteric ENT: oropharynx moist, other (mallampatti III) Neck: supple, no lymphadenopathy, no JVD, other (No thyromegaly) Effort: mildly labored Ascultation: Bilateral: diminished breath sounds, rhonchi (Bilateral rhonchi) Percussion: Bilateral: not dull Cardiovascular: regular rate and rhythm, other (No rubs or murmurs) Gastrointestinal: normoactive bowel sounds, soft, non-tender, non-distended, other (No HSM) Integumentary: other (poor turgor; no rash or cellulitis) Extremities: no cyanosis, no edema, pulses normal, no ischemia or petechiae Neurologic: normal mental status, non-focal exam (grossly), pupils equal and round, CN II-XII normal Psychiatric: mood appropriate CBC and BMP: 06/27/17 07:53 06/27/17 12:22 ABG, PT/INR, D-dimer: ABG POC ABG pH 7.379 (7.35-7.45) 06/25/17 12:59 POC ABG pCO2 27.4 (35-45) L 06/25/17 12:59 POC ABG pO2 126 (80-105) H 06/25/17 12:59 POC ABG HCO3 16.1 06/25/17 12:59 POC ABG Total CO2 17 06/25/17 12:59 POC ABG O2 Sat 99 06/25/17 12:59 PT/INR, D-dimer PT 14.9 Sec. (12.2-14.9) 06/25/17 03:28 INR 1.11 (0.87-1.13) 06/25/17 03:28 Abnormal lab findings: Abnormal Labs 06/25/17 06/25/17 06/25/17 02:21 03:28 03:28 WBC RBC Hgb Hct MCV MCHC RDW Lymph % (Auto) [place] % (Auto) Lymph # [place] # Seg Neutrophils % Seg Neuts % (Manual) Lymphocytes % (Manual) Monocytes % (Manual) Seg Neutrophils # Seg Neutrophils # Man Monocytes # (Manual) POC ABG pH POC ABG pCO2 POC ABG pO2 VBG pH 7.022 L* Sodium Potassium 6.8 H* D Chloride 91.9 L Carbon Dioxide < 2.0 L* D BUN 31 H Creatinine 1.7 H D Glucose 918 H* POC Glucose 392 H Lactic Acid Calcium Phosphorus Magnesium AST Troponin T 0.061 H Total Protein 5.7 L Albumin 3.5 L Triglycerides 311 H HDL Cholesterol 33 L Salicylates 06/25/17 06/25/17 06/25/17 03:28 03:28 04:03 WBC 19.7 H RBC Hgb Hct MCV 108 H MCHC 29 L RDW 15.9 H Lymph % (Auto) [place] % (Auto) Lymph # [place] # Seg Neutrophils % Seg Neuts % (Manual) 79.0 H Lymphocytes % (Manual) 8.0 L Monocytes % (Manual) 12.0 H Seg Neutrophils # Seg Neutrophils # Man 15.6 H Monocytes # (Manual) 2.4 H POC ABG pH POC ABG pCO2 POC ABG pO2 VBG pH Sodium Potassium Chloride Carbon Dioxide BUN Creatinine Glucose POC Glucose Lactic Acid 8.10 H* Calcium Phosphorus Magnesium AST Troponin T Total Protein Albumin Triglycerides HDL Cholesterol Salicylates < 0.3 L 06/25/17 06/25/17 06/25/17 04:22 04:54 05:24 WBC RBC Hgb Hct MCV MCHC RDW Lymph % (Auto) [place] % (Auto) Lymph # [place] # Seg Neutrophils % Seg Neuts % (Manual) Lymphocytes % (Manual) Monocytes % (Manual) Seg Neutrophils # Seg Neutrophils # Man Monocytes # (Manual) POC ABG pH 7.019 L POC ABG pCO2 11.4 L POC ABG pO2 149 H VBG pH Sodium Potassium Chloride Carbon Dioxide BUN Creatinine Glucose POC Glucose > 500 H Lactic Acid Calcium Phosphorus Magnesium AST Troponin T 0.104 H* D Total Protein Albumin Triglycerides HDL Cholesterol Salicylates 06/25/17 06/25/17 06/25/17 05:24 05:24 06:32 WBC RBC Hgb Hct MCV MCHC RDW Lymph % (Auto) [place] % (Auto) Lymph # [place] # Seg Neutrophils % Seg Neuts % (Manual) Lymphocytes % (Manual) Monocytes % (Manual) Seg Neutrophils # Seg Neutrophils # Man Monocytes # (Manual) POC ABG pH POC ABG pCO2 POC ABG pO2 VBG pH Sodium 146 H Potassium 5.9 H Chloride 97.1 L Carbon Dioxide 3 L* BUN 31 H Creatinine 1.6 H Glucose 857 H* POC Glucose > 500 H Lactic Acid Calcium 8.1 L Phosphorus 7.60 H Magnesium 2.50 H AST Troponin T Total Protein Albumin Triglycerides HDL Cholesterol Salicylates 06/25/17 06/25/17 06/25/17 06:50 07:18 09:03 WBC RBC Hgb Hct MCV MCHC RDW Lymph % (Auto) [place] % (Auto) Lymph # [place] # Seg Neutrophils % Seg Neuts % (Manual) Lymphocytes % (Manual) Monocytes % (Manual) Seg Neutrophils # Seg Neutrophils # Man Monocytes # (Manual) POC ABG pH POC ABG pCO2 POC ABG pO2 VBG pH Sodium 146 H 147 H Potassium 6.0 H 6.0 H Chloride Carbon Dioxide 5 L* 5 L* BUN 33 H 33 H Creatinine 1.7 H 1.7 H Glucose 802 H* 802 H* POC Glucose > 500 H Lactic Acid Calcium 8.3 L 8.3 L Phosphorus Magnesium AST Troponin T Total Protein Albumin Triglycerides HDL Cholesterol Salicylates 06/25/17 06/25/17 06/25/17 09:22 09:23 09:23 WBC RBC Hgb Hct MCV MCHC RDW Lymph % (Auto) [place] % (Auto) Lymph # [place] # Seg Neutrophils % Seg Neuts % (Manual) Lymphocytes % (Manual) Monocytes % (Manual) Seg Neutrophils # Seg Neutrophils # Man Monocytes # (Manual) POC ABG pH POC ABG pCO2 POC ABG pO2 VBG pH Sodium 150 H Potassium Chloride Carbon Dioxide 9 L* BUN 32 H Creatinine 1.7 H Glucose 647 H* POC Glucose Lactic Acid 2.40 H* Calcium 8.2 L Phosphorus Magnesium AST Troponin T 0.241 H* D Total Protein Albumin Triglycerides HDL Cholesterol Salicylates 06/25/17 06/25/17 06/25/17 10:30 11:58 12:22 WBC RBC Hgb Hct MCV MCHC RDW Lymph % (Auto) [place] % (Auto) Lymph # [place] # Seg Neutrophils % Seg Neuts % (Manual) Lymphocytes % (Manual) Monocytes % (Manual) Seg Neutrophils # Seg Neutrophils # Man Monocytes # (Manual) POC ABG pH POC ABG pCO2 POC ABG pO2 VBG pH Sodium 150 H 155 H 154 H Potassium Chloride 112.3 H 113.1 H Carbon Dioxide 8 L* 15 L D 15 L BUN 31 H 30 H 27 H Creatinine 1.7 H 1.6 H Glucose 646 H* 500 H 484 H POC Glucose Lactic Acid Calcium 8.3 L Phosphorus Magnesium AST Troponin T Total Protein Albumin Triglycerides HDL Cholesterol Salicylates 06/25/17 06/25/17 06/25/17 12:49 12:59 13:24 WBC RBC Hgb Hct MCV MCHC RDW Lymph % (Auto) [place] % (Auto) Lymph # [place] # Seg Neutrophils % Seg Neuts % (Manual) Lymphocytes % (Manual) Monocytes % (Manual) Seg Neutrophils # Seg Neutrophils # Man Monocytes # (Manual) POC ABG pH POC ABG pCO2 27.4 L POC ABG pO2 126 H VBG pH Sodium 156 H 155 H Potassium Chloride 113.3 H 112.2 H Carbon Dioxide 14 L 15 L BUN 28 H 28 H Creatinine 1.7 H 1.6 H Glucose 482 H 466 H POC Glucose Lactic Acid Calcium 8.2 L Phosphorus Magnesium AST Troponin T Total Protein Albumin Triglycerides HDL Cholesterol Salicylates 06/25/17 06/25/17 06/25/17 14:59 16:07 17:00 WBC RBC Hgb Hct MCV MCHC RDW Lymph % (Auto) [place] % (Auto) Lymph # [place] # Seg Neutrophils % Seg Neuts % (Manual) Lymphocytes % (Manual) Monocytes % (Manual) Seg Neutrophils # Seg Neutrophils # Man Monocytes # (Manual) POC ABG pH POC ABG pCO2 POC ABG pO2 VBG pH Sodium 157 H Potassium Chloride 119.0 H Carbon Dioxide 20 L BUN 25 H Creatinine Glucose 328 H POC Glucose 365 H 337 H Lactic Acid Calcium 7.9 L Phosphorus Magnesium AST Troponin T Total Protein Albumin Triglycerides HDL Cholesterol Salicylates 06/25/17 06/25/17 06/25/17 18:04 19:20 20:13 WBC RBC Hgb Hct MCV MCHC RDW Lymph % (Auto) [place] % (Auto) Lymph # [place] # Seg Neutrophils % Seg Neuts % (Manual) Lymphocytes % (Manual) Monocytes % (Manual) Seg Neutrophils # Seg Neutrophils # Man Monocytes # (Manual) POC ABG pH POC ABG pCO2 POC ABG pO2 VBG pH Sodium Potassium Chloride Carbon Dioxide BUN Creatinine Glucose POC Glucose 275 H 284 H 108 H Lactic Acid Calcium Phosphorus Magnesium AST Troponin T Total Protein Albumin Triglycerides HDL Cholesterol Salicylates 06/25/17 06/25/17 06/25/17 20:30 21:15 21:53 WBC RBC Hgb Hct MCV MCHC RDW Lymph % (Auto) [place] % (Auto) Lymph # [place] # Seg Neutrophils % Seg Neuts % (Manual) Lymphocytes % (Manual) Monocytes % (Manual) Seg Neutrophils # Seg Neutrophils # Man Monocytes # (Manual) POC ABG pH POC ABG pCO2 POC ABG pO2 VBG pH Sodium 161 H* Potassium 3.4 L Chloride 125.2 H Carbon Dioxide BUN 21 H Creatinine Glucose 40 L POC Glucose 201 H < 40 L Lactic Acid Calcium 7.8 L Phosphorus Magnesium AST Troponin T Total Protein Albumin Triglycerides HDL Cholesterol Salicylates 06/25/17 06/25/17 06/25/17 21:55 22:18 23:53 WBC RBC Hgb Hct MCV MCHC RDW Lymph % (Auto) [place] % (Auto) Lymph # [place] # Seg Neutrophils % Seg Neuts % (Manual) Lymphocytes % (Manual) Monocytes % (Manual) Seg Neutrophils # Seg Neutrophils # Man Monocytes # (Manual) POC ABG pH POC ABG pCO2 POC ABG pO2 VBG pH Sodium Potassium Chloride Carbon Dioxide BUN Creatinine Glucose POC Glucose < 40 L 150 H 123 H Lactic Acid Calcium Phosphorus Magnesium AST Troponin T Total Protein Albumin Triglycerides HDL Cholesterol Salicylates 06/26/17 06/26/17 06/26/17 01:09 01:54 03:07 WBC RBC Hgb Hct MCV MCHC RDW Lymph % (Auto) [place] % (Auto) Lymph # [place] # Seg Neutrophils % Seg Neuts % (Manual) Lymphocytes % (Manual) Monocytes % (Manual) Seg Neutrophils # Seg Neutrophils # Man Monocytes # (Manual) POC ABG pH POC ABG pCO2 POC ABG pO2 VBG pH Sodium Potassium Chloride Carbon Dioxide BUN Creatinine Glucose POC Glucose 180 H 183 H 151 H Lactic Acid Calcium Phosphorus Magnesium AST Troponin T Total Protein Albumin Triglycerides HDL Cholesterol Salicylates 06/26/17 06/26/17 06/26/17 04:50 05:20 05:20 WBC RBC 3.63 L Hgb 11.5 L Hct 33.9 L D MCV MCHC RDW Lymph % (Auto) 9.4 L [place] % (Auto) 10.8 H Lymph # 1.0 L [place] # 1.2 H Seg Neutrophils % 79.6 H Seg Neuts % (Manual) Lymphocytes % (Manual) Monocytes % (Manual) Seg Neutrophils # 8.7 H Seg Neutrophils # Man Monocytes # (Manual) POC ABG pH POC ABG pCO2 POC ABG pO2 VBG pH Sodium 160 H Potassium 3.3 L Chloride 125.1 H Carbon Dioxide BUN 21 H Creatinine Glucose POC Glucose 124 H Lactic Acid Calcium 8.2 L Phosphorus Magnesium AST 72 H Troponin T Total Protein 5.0 L Albumin 2.7 L Triglycerides HDL Cholesterol Salicylates 06/26/17 06/26/17 06/26/17 07:56 09:03 10:03 WBC RBC Hgb Hct MCV MCHC RDW Lymph % (Auto) [place] % (Auto) Lymph # [place] # Seg Neutrophils % Seg Neuts % (Manual) Lymphocytes % (Manual) Monocytes % (Manual) Seg Neutrophils # Seg Neutrophils # Man Monocytes # (Manual) POC ABG pH POC ABG pCO2 POC ABG pO2 VBG pH Sodium Potassium Chloride Carbon Dioxide BUN Creatinine Glucose POC Glucose 147 H 206 H 212 H Lactic Acid Calcium Phosphorus Magnesium AST Troponin T Total Protein Albumin Triglycerides HDL Cholesterol Salicylates 06/26/17 06/26/17 06/26/17 11:09 12:16 13:23 WBC RBC Hgb Hct MCV MCHC RDW Lymph % (Auto) [place] % (Auto) Lymph # [place] # Seg Neutrophils % Seg Neuts % (Manual) Lymphocytes % (Manual) Monocytes % (Manual) Seg Neutrophils # Seg Neutrophils # Man Monocytes # (Manual) POC ABG pH POC ABG pCO2 POC ABG pO2 VBG pH Sodium Potassium Chloride Carbon Dioxide BUN Creatinine Glucose POC Glucose 202 H 126 H 130 H Lactic Acid Calcium Phosphorus Magnesium AST Troponin T Total Protein Albumin Triglycerides HDL Cholesterol Salicylates 06/26/17 06/26/17 06/26/17 14:22 17:13 23:30 WBC RBC Hgb Hct MCV MCHC RDW Lymph % (Auto) [place] % (Auto) Lymph # [place] # Seg Neutrophils % Seg Neuts % (Manual) Lymphocytes % (Manual) Monocytes % (Manual) Seg Neutrophils # Seg Neutrophils # Man Monocytes # (Manual) POC ABG pH POC ABG pCO2 POC ABG pO2 VBG pH Sodium Potassium Chloride Carbon Dioxide BUN Creatinine Glucose POC Glucose 168 H 122 H < 40 L Lactic Acid Calcium Phosphorus Magnesium AST Troponin T Total Protein Albumin Triglycerides HDL Cholesterol Salicylates 06/27/17 06/27/17 06/27/17 00:15 07:53 07:53 WBC RBC Hgb Hct MCV MCHC RDW Lymph % (Auto) [place] % (Auto) 10.3 H Lymph # [place] # Seg Neutrophils % Seg Neuts % (Manual) Lymphocytes % (Manual) Monocytes % (Manual) Seg Neutrophils # Seg Neutrophils # Man Monocytes # (Manual) POC ABG pH POC ABG pCO2 POC ABG pO2 VBG pH Sodium 152 H Potassium 3.0 L Chloride 114.3 H Carbon Dioxide BUN Creatinine Glucose 107 H POC Glucose Lactic Acid Calcium 8.3 L Phosphorus Magnesium AST Troponin T Total Protein Albumin Triglycerides HDL Cholesterol Salicylates 06/27/17 06/27/17 06/27/17 11:43 12:22 17:01 WBC RBC Hgb Hct MCV MCHC RDW Lymph % (Auto) [place] % (Auto) Lymph # [place] # Seg Neutrophils % Seg Neuts % (Manual) Lymphocytes % (Manual) Monocytes % (Manual) Seg Neutrophils # Seg Neutrophils # Man Monocytes # (Manual) POC ABG pH POC ABG pCO2 POC ABG pO2 VBG pH Sodium Potassium 5.4 H D Chloride 110.3 H Carbon Dioxide 19 L BUN Creatinine Glucose 297 H POC Glucose 305 H 356 H Lactic Acid Calcium 7.8 L Phosphorus Magnesium AST Troponin T Total Protein Albumin Triglycerides HDL Cholesterol Salicylates Chest x-ray: report reviewed (No focal consolidation, No pneumothorax, No pleural effusions.), image reviewed Allied health notes reviewed: nursing
[2017-06-27] MEDS ORDERED: LEVEMIR SUB-Q SCH (22:00)
[2017-06-27] MEDS: LEVEMIR SUB-Q SCH (23:06)
[2017-06-27] MEDS: KCL 10 MEQ in NACL 0.45% 1000 ML 1,000 ML IV SCH (23:23)
[2017-06-27] MEDS: VANCOMYCIN VIAL 500 MG in NACL 0.9% 100 ML IV SCH (23:25)
[2017-06-28] MEDS: VANCOMYCIN VIAL 500 MG in NACL 0.9% 100 ML IV SCH (06:08)
[2017-06-28] MEDS: ZOSYN/NS 4.5GM/100ML 4.5 GM/100 ML VIAL IV SCH ×3 (06:08→22:07)
[2017-06-28] MEDS ORDERED: LEVEMIR SUB-Q ONE (09:00)
[2017-06-28] MEDS: NOVOLOG SUB-Q SCH ×4 (09:02→22:10)
[2017-06-28] MEDS: DUONEB *Not for PRN Use IH SCH ×3 (09:16→20:50)
[2017-06-28 10:10] LABS: BUN/Creatinine Ratio 10; Blood Urea Nitrogen 9 mg/dL (9-20); Calcium 8.3 mg/dL (8.4-10.2); Hemolysis Index 9
[2017-06-28] MEDS: PROTONIX IV SCH (11:01)
[2017-06-28] MEDS: HEPARIN SUB-Q SCH ×2 (11:02→22:08)
--- NOTE | 2017-06-28 13:57 | Progress Note ---
Assessment and Plan Assessment and plan: 76-year-old male was discharged recently from the hospital after he was treated for DKA. Patient presented to the emergency department for the complaints of altered mental status and workup showed DKA. Patient said patient was sick and was not able to take his medications at home. Patient said he had subjective fever DKA - Resolved after he was treated according to DKA protocol Metabolic encephalopathy - Resolved likely due to DKA Metabolic acidosis - Resolved SIRS - Infectious workup so far neg, continue empiric abx HLD - Continue statin Hypokalemia - repleted Acute renal failure - continue IVF - Resolved Elevated troponin level - Cardiology consulted - Echo is pending Hypernatremia - Resolved Malnutrition - nutrition consulted DVT prophylaxis - Heparin Plan - waiting for Echo that was recommended by cardiology. History Interval history: Patient was seen and evaluated this morning, patient is feeling better. Hospitalist Physical - Physical exam Narrative exam: Not in cardiopulmonary distress. The patient is cachectic. Vital signs as documented. Head exam is unremarkable. No scleral icterus . Neck is without jugular venous distension, thyromegaly, or carotid bruits. Lungs are clear to auscultation. Cardiac exam reveals regular rate and Rhythm. First and second heart sounds normal. No murmurs, rubs or gallops. Abdominal exam reveals normal bowel sounds, no masses, no organomegaly and no aortic enlargement. Extremities are nonedematous and both femoral and pedal pulses are normal. CHEMICAL TESTER: Alert and oriented 3. - Constitutional Vitals: Temp Pulse Resp BP Pulse Ox 98.5 F 70 18 107/64 98 06/28/17 08:15 06/28/17 08:15 06/28/17 08:15 06/28/17 08:15 06/28/17 08:15 Results - Labs CBC & Chem 7: 06/27/17 07:53 06/28/17 09:30 Labs: Laboratory Last Values WBC 7.4 K/mm3 (4.5-11.0) 06/27/17 07:53 RBC 3.99 M/mm3 (3.65-5.03) 06/27/17 07:53 Hgb 12.4 gm/dl (11.8-15.2) 06/27/17 07:53 Hct 37.7 % (35.5-45.6) 06/27/17 07:53 MCV 94 fl (84-94) 06/27/17 07:53 MCH 31 pg (28-32) 06/27/17 07:53 MCHC 33 % (32-34) 06/27/17 07:53 RDW 14.2 % (13.2-15.2) 06/27/17 07:53 Plt Count 220 K/mm3 (140-440) 06/27/17 07:53 Lymph % (Auto) 21.1 % (13.4-35.0) 06/27/17 07:53 [place] % (Auto) 10.3 % (0.0-7.3) H 06/27/17 07:53 Eos % (Auto) 0.2 % (0.0-4.3) 06/27/17 07:53 Baso % (Auto) 0.5 % (0.0-1.8) 06/27/17 07:53 Lymph # 1.6 K/mm3 (1.2-5.4) 06/27/17 07:53 [place] # 0.8 K/mm3 (0.0-0.8) 06/27/17 07:53 Eos # 0.0 K/mm3 (0.0-0.4) 06/27/17 07:53 Baso # 0.0 K/mm3 (0.0-0.1) 06/27/17 07:53 Add Manual Diff Complete 06/25/17 04:03 Total Counted 100 06/25/17 04:03 Seg Neutrophils % 67.9 % (40.0-70.0) 06/27/17 07:53 Seg Neuts % (Manual) 79.0 % (40.0-70.0) H 06/25/17 04:03 Band Neutrophils % 1.0 % 06/25/17 04:03 Lymphocytes % (Manual) 8.0 % (13.4-35.0) L 06/25/17 04:03 Reactive Lymphs % (Man) 0 % 06/25/17 04:03 Monocytes % (Manual) 12.0 % (0.0-7.3) H 06/25/17 04:03 Eosinophils % (Manual) 0 % (0.0-4.3) 06/25/17 04:03 Basophils % (Manual) 0 % (0.0-1.8) 06/25/17 04:03 Metamyelocytes % 0 % 06/25/17 04:03 Myelocytes % 0 % 06/25/17 04:03 Promyelocytes % 0 % 06/25/17 04:03 Blast Cells % 0 % 06/25/17 04:03 Nucleated RBC % Not Reportable 06/25/17 04:03 Seg Neutrophils # 5.0 K/mm3 (1.8-7.7) 06/27/17 07:53 Seg Neutrophils # Man 15.6 K/mm3 (1.8-7.7) H 06/25/17 04:03 Band Neutrophils # 0.2 K/mm3 06/25/17 04:03 Lymphocytes # (Manual) 1.6 K/mm3 (1.2-5.4) 06/25/17 04:03 Abs React Lymphs (Man) 0.0 K/mm3 06/25/17 04:03 Monocytes # (Manual) 2.4 K/mm3 (0.0-0.8) H 06/25/17 04:03 Eosinophils # (Manual) 0.0 K/mm3 (0.0-0.4) 06/25/17 04:03 Basophils # (Manual) 0.0 K/mm3 (0.0-0.1) 06/25/17 04:03 Metamyelocytes # 0.0 K/mm3 06/25/17 04:03 Myelocytes # 0.0 K/mm3 06/25/17 04:03 Promyelocytes # 0.0 K/mm3 06/25/17 04:03 Blast Cells # 0.0 K/mm3 06/25/17 04:03 WBC Morphology Not Reportable 06/25/17 04:03 Hypersegmented Neuts Not Reportable 06/25/17 04:03 Hyposegmented Neuts Not Reportable 06/25/17 04:03 Hypogranular Neuts Not Reportable 06/25/17 04:03 Smudge Cells Not Reportable 06/25/17 04:03 Toxic Granulation Not Reportable 06/25/17 04:03 Toxic Vacuolation Not Reportable 06/25/17 04:03 Dohle Bodies Not Reportable 06/25/17 04:03 Pelger-Huet Anomaly Not Reportable 06/25/17 04:03 Carmen Rods Not Reportable 06/25/17 04:03 Platelet Estimate Consistent w auto 06/25/17 04:03 Clumped Platelets Not Reportable 06/25/17 04:03 Plt Clumps, EDTA Not Reportable 06/25/17 04:03 Large Platelets Not Reportable 06/25/17 04:03 Giant Platelets Not Reportable 06/25/17 04:03 Platelet Satelliting Not Reportable 06/25/17 04:03 Plt Morphology Comment Not Reportable 06/25/17 04:03 RBC Morphology Not Reportable 06/25/17 04:03 Dimorphic RBCs Not Reportable 06/25/17 04:03 Polychromasia Not Reportable 06/25/17 04:03 Hypochromasia Not Reportable 06/25/17 04:03 Poikilocytosis Not Reportable 06/25/17 04:03 Anisocytosis 1+ 06/25/17 04:03 Microcytosis Not Reportable 06/25/17 04:03 Macrocytosis Not Reportable 06/25/17 04:03 Spherocytes Not Reportable 06/25/17 04:03 Pappenheimer Bodies Not Reportable 06/25/17 04:03 Sickle Cells Not Reportable 06/25/17 04:03 Target Cells Not Reportable 06/25/17 04:03 Tear Drop Cells Not Reportable 06/25/17 04:03 Ovalocytes Not Reportable 06/25/17 04:03 Helmet Cells Not Reportable 06/25/17 04:03 [place] Bodies Not Reportable 06/25/17 04:03 [place] Rings Not Reportable 06/25/17 04:03 [place] Cells Not Reportable 06/25/17 04:03 Bite Cells Not Reportable 06/25/17 04:03 Crenated Cell Not Reportable 06/25/17 04:03 Elliptocytes Not Reportable 06/25/17 04:03 Acanthocytes (Spur) Not Reportable 06/25/17 04:03 Rouleaux Not Reportable 06/25/17 04:03 Hemoglobin C Crystals Not Reportable 06/25/17 04:03 Schistocytes Not Reportable 06/25/17 04:03 Malaria parasites Not Reportable 06/25/17 04:03 Janes Bodies Not Reportable 06/25/17 04:03 Hem Pathologist Commnt No 06/25/17 04:03 PT 14.9 Sec. (12.2-14.9) 06/25/17 03:28 INR 1.11 (0.87-1.13) 06/25/17 03:28 APTT 28.2 Sec. (24.2-36.6) 06/25/17 03:28 POC ABG pH 7.379 (7.35-7.45) 06/25/17 12:59 POC ABG pCO2 27.4 (35-45) L 06/25/17 12:59 POC ABG pO2 126 (80-105) H 06/25/17 12:59 POC ABG HCO3 16.1 06/25/17 12:59 POC ABG Total CO2 17 06/25/17 12:59 POC ABG O2 Sat 99 06/25/17 12:59 POC ABG Base Excess -9 06/25/17 12:59 VBG pH 7.022 (7.320-7.420) L* 06/25/17 03:28 FiO2 36 % 06/25/17 12:59 Sodium 147 mmol/L (137-145) H 06/28/17 09:30 Potassium 3.2 mmol/L (3.6-5.0) L D 06/28/17 09:30 Chloride 111.1 mmol/L (98-107) H 06/28/17 09:30 Carbon Dioxide 26 mmol/L (22-30) D 06/28/17 09:30 Anion Gap 13 mmol/L 06/28/17 09:30 BUN 9 mg/dL (9-20) 06/28/17 09:30 Creatinine 0.9 mg/dL (0.8-1.5) 06/28/17 09:30 Estimated GFR > 60 ml/min 06/28/17 09:30 BUN/Creatinine Ratio 10 % 06/28/17 09:30 Glucose 51 mg/dL (75-100) L 06/28/17 09:30 POC Glucose 95 (70-105) 06/28/17 11:38 Lactic Acid 2.40 mmol/L (0.7-2.0) H* 06/25/17 09:23 Calcium 8.3 mg/dL (8.4-10.2) L 06/28/17 09:30 Phosphorus 7.60 mg/dL (2.5-4.5) H 06/25/17 05:24 Magnesium 2.50 mg/dL (1.7-2.3) H 06/25/17 05:24 Total Bilirubin 0.20 mg/dL (0.1-1.2) 06/26/17 05:20 AST 72 units/L (5-40) H 06/26/17 05:20 ALT 29 units/L (7-56) 06/26/17 05:20 Alkaline Phosphatase 68 units/L (35-129) 06/26/17 05:20 Ammonia 44.0 umol/L (25-60) 06/25/17 03:28 Troponin T 0.241 ng/mL (0.00-0.029) H* D 06/25/17 09:22 Total Protein 5.0 g/dL (6.3-8.2) L 06/26/17 05:20 Albumin 2.7 g/dL (3.9-5) L 06/26/17 05:20 Albumin/Globulin Ratio 1.2 % 06/26/17 05:20 Triglycerides 311 mg/dL (2-149) H 06/25/17 03:28 Cholesterol 178 mg/dL (50-199) 06/25/17 03:28 LDL Cholesterol Direct 83 mg/dL (50-130) 06/25/17 03:28 HDL Cholesterol 33 mg/dL (40-59) L 06/25/17 03:28 Cholesterol/HDL Ratio 5.39 % 06/25/17 03:28 TSH 0.840 mlU/mL (0.270-4.200) 06/25/17 03:28 Free T4 1.10 ng/dL (0.76-1.46) 06/25/17 03:28 Urine Color Yellow (Yellow) 06/25/17 Unknown Urine Turbidity Clear (Clear) 06/25/17 Unknown Urine pH 5.0 (5.0-7.0) 06/25/17 Unknown Ur Specific [place] 1.017 (1.003-1.030) 06/25/17 Unknown Urine Protein <15 mg/dl mg/dL (Negative) 06/25/17 Unknown Urine Glucose (UA) >=500 mg/dL (Negative) 06/25/17 Unknown Urine Ketones 80 mg/dL (Negative) 06/25/17 Unknown Urine Blood Mod (Negative) 06/25/17 Unknown Urine Nitrite Neg (Negative) 06/25/17 Unknown Urine Bilirubin Neg (Negative) 06/25/17 Unknown Urine Urobilinogen < 2.0 mg/dL (<2.0) 06/25/17 Unknown Ur Leukocyte Esterase Neg (Negative) 06/25/17 Unknown Urine WBC (Auto) 5.0 /HPF (0.0-6.0) 06/25/17 Unknown Urine RBC (Auto) 3.0 /HPF (0.0-6.0) 06/25/17 Unknown Urine Bacteria (Auto) 1+ /HPF (Negative) 06/25/17 Unknown Amorphous Crystals Few 06/25/17 Unknown Urine Mucus Few /HPF 06/25/17 Unknown Salicylates < 0.3 mg/dL (2.8-20.0) L 06/25/17 03:28 Acetaminophen < 15.0 ug/mL (10.0-30.0) 06/25/17 03:28 Blood Type O NEGATIVE 06/25/17 05:24 Antibody Screen Negative 06/25/17 05:24
[2017-06-28] MEDS ORDERED: K-DUR PO ONE (15:00)
--- NOTE | 2017-06-28 15:04 | Progress Note ---
Assessment and Plan No significant chest pain today. Repeat EKG does not show acute changes in the inferior leads. Cardiac examination is stable. Waiting for the echocardiogram. Cardiac status appears to be stable. - Patient Problems (1) DKA (diabetic ketoacidosis) Current Visit: No Status: Acute Subjective Date of service: 06/28/17 Principal diagnosis: Sepsis Syndrome; DKA; Adult FTT Interval history: Patient is comfortable today no significant chest pain is noted. Objective Vital Signs Temp Pulse Pulse Resp Resp Resp BP 06/28/17 14:35 82 15 06/28/17 14:34 06/28/17 14:18 83 14 06/28/17 13:58 98.3 F 73 16 113/64 06/28/17 10:00 20 06/28/17 08:15 98.5 F 70 18 107/64 06/28/17 03:25 98.1 F 83 18 97/56 06/27/17 22:00 20 20 06/27/17 20:57 88 19 06/27/17 20:48 06/27/17 20:47 88 19 06/27/17 20:16 99.4 F 96 H 18 98/59 06/27/17 15:10 104 H 18 Pulse Ox 06/28/17 14:35 06/28/17 14:34 97 06/28/17 14:18 06/28/17 13:58 99 06/28/17 10:00 06/28/17 08:15 98 06/28/17 03:25 98 06/27/17 22:00 97 06/27/17 20:57 06/27/17 20:48 98 06/27/17 20:47 06/27/17 20:16 97 06/27/17 15:10 - Physical Examination General: Appears Well HEENT: Positive: PERRL Neck: Positive: neck supple Cardiac: Positive: Regular Rate, Regular Rhythm Lungs: Positive: clear to auscultation Abdomen: Positive: Soft Skin: Positive: Clear Extremities: Present: Other (mild edema is present) - Labs and Meds Comprehensive Metabolic Panel 06/28/17 Range/Units 09:30 Sodium 147 H (137-145) mmol/L Potassium 3.2 L D (3.6-5.0) mmol/L Chloride 111.1 H (98-107) mmol/L Carbon Dioxide 26 D (22-30) mmol/L BUN 9 (9-20) mg/dL Creatinine 0.9 (0.8-1.5) mg/dL Glucose 51 L (75-100) mg/dL Calcium 8.3 L (8.4-10.2) mg/dL - Allied health notes Allied health notes reviewed: nursing
[2017-06-28] MEDS ORDERED: POTASSIUM CHLORIDE PO ONE (17:00)
--- NOTE | 2017-06-28 21:46 | Progress Note ---
Assessment and Plan Patient sleeping at this time. On room air. O2 saturation 97%. - Patient Problems (1) Hypothermia Current Visit: Yes Status: Acute Plan to address problem: Improved. To days temparature 98.3. (2) SIRS (systemic inflammatory response syndrome) Current Visit: Yes Status: Acute Plan to address problem: Patient is on zosyn and vancomycin. (3) DKA (diabetic ketoacidosis) Current Visit: No Status: Acute Plan to address problem: Improving. Management as per primary care. Subjective Date of service: 06/28/17 Principal diagnosis: Sepsis Syndrome; DKA; Adult FTT Interval history: Patient sleeping at this time. On room air. O2 saturation 97%. Objective Vital Signs - 12hr 06/28/17 06/28/17 06/28/17 10:00 13:58 14:18 Temperature 98.3 F Pulse Rate 73 Pulse Rate [ 83 Anterior Bilateral Throughout] Respiratory 16 Rate Respiratory 14 Rate [Anterior Bilateral Throughout] Respiratory 20 Rate [Upper Chest] Blood Pressure 113/64 O2 Sat by Pulse 99 Oximetry 06/28/17 06/28/17 14:34 14:35 Temperature Pulse Rate Pulse Rate [ 82 Anterior Bilateral Throughout] Respiratory Rate Respiratory 15 Rate [Anterior Bilateral Throughout] Respiratory Rate [Upper Chest] Blood Pressure O2 Sat by Pulse 97 Oximetry Constitutional: no acute distress, alert, asleep Eyes: non-icteric ENT: oropharynx moist, other (mallampatti III) Neck: supple, no lymphadenopathy, no JVD, other (No thyromegaly) Effort: mildly labored Ascultation: Bilateral: diminished breath sounds, rales (bases), rhonchi ( Bilateral rhonchi) Percussion: Bilateral: not dull Cardiovascular: regular rate and rhythm, other (No rubs or murmurs) Gastrointestinal: normoactive bowel sounds, soft, non-tender, non-distended, other (No HSM) Integumentary: other (poor turgor; no rash or cellulitis) Extremities: no cyanosis, no edema, pulses normal, no ischemia or petechiae Neurologic: normal mental status, non-focal exam (grossly), pupils equal and round, CN II-XII normal Psychiatric: mood appropriate CBC and BMP: 06/27/17 07:53 06/28/17 09:30 ABG, PT/INR, D-dimer: ABG POC ABG pH 7.379 (7.35-7.45) 06/25/17 12:59 POC ABG pCO2 27.4 (35-45) L 06/25/17 12:59 POC ABG pO2 126 (80-105) H 06/25/17 12:59 POC ABG HCO3 16.1 06/25/17 12:59 POC ABG Total CO2 17 06/25/17 12:59 POC ABG O2 Sat 99 06/25/17 12:59 PT/INR, D-dimer PT 14.9 Sec. (12.2-14.9) 06/25/17 03:28 INR 1.11 (0.87-1.13) 06/25/17 03:28 Abnormal lab findings: Abnormal Labs 06/25/17 06/25/17 06/25/17 02:21 03:28 03:28 WBC RBC Hgb Hct MCV MCHC RDW Lymph % (Auto) Sac % (Auto) Lymph # Sac # Seg Neutrophils % Seg Neuts % (Manual) Lymphocytes % (Manual) Monocytes % (Manual) Seg Neutrophils # Seg Neutrophils # Man Monocytes # (Manual) POC ABG pH POC ABG pCO2 POC ABG pO2 VBG pH 7.022 L* Sodium Potassium 6.8 H* D Chloride 91.9 L Carbon Dioxide < 2.0 L* D BUN 31 H Creatinine 1.7 H D Glucose 918 H* POC Glucose 392 H Lactic Acid Calcium Phosphorus Magnesium AST Troponin T 0.061 H Total Protein 5.7 L Albumin 3.5 L Triglycerides 311 H HDL Cholesterol 33 L Salicylates 06/25/17 06/25/17 06/25/17 03:28 03:28 04:03 WBC 19.7 H RBC Hgb Hct MCV 108 H MCHC 29 L RDW 15.9 H Lymph % (Auto) Sac % (Auto) Lymph # Sac # Seg Neutrophils % Seg Neuts % (Manual) 79.0 H Lymphocytes % (Manual) 8.0 L Monocytes % (Manual) 12.0 H Seg Neutrophils # Seg Neutrophils # Man 15.6 H Monocytes # (Manual) 2.4 H POC ABG pH POC ABG pCO2 POC ABG pO2 VBG pH Sodium Potassium Chloride Carbon Dioxide BUN Creatinine Glucose POC Glucose Lactic Acid 8.10 H* Calcium Phosphorus Magnesium AST Troponin T Total Protein Albumin Triglycerides HDL Cholesterol Salicylates < 0.3 L 06/25/17 06/25/17 06/25/17 04:22 04:54 05:24 WBC RBC Hgb Hct MCV MCHC RDW Lymph % (Auto) Sac % (Auto) Lymph # Sac # Seg Neutrophils % Seg Neuts % (Manual) Lymphocytes % (Manual) Monocytes % (Manual) Seg Neutrophils # Seg Neutrophils # Man Monocytes # (Manual) POC ABG pH 7.019 L POC ABG pCO2 11.4 L POC ABG pO2 149 H VBG pH Sodium Potassium Chloride Carbon Dioxide BUN Creatinine Glucose POC Glucose > 500 H Lactic Acid Calcium Phosphorus Magnesium AST Troponin T 0.104 H* D Total Protein Albumin Triglycerides HDL Cholesterol Salicylates 06/25/17 06/25/17 06/25/17 05:24 05:24 06:32 WBC RBC Hgb Hct MCV MCHC RDW Lymph % (Auto) Sac % (Auto) Lymph # Sac # Seg Neutrophils % Seg Neuts % (Manual) Lymphocytes % (Manual) Monocytes % (Manual) Seg Neutrophils # Seg Neutrophils # Man Monocytes # (Manual) POC ABG pH POC ABG pCO2 POC ABG pO2 VBG pH Sodium 146 H Potassium 5.9 H Chloride 97.1 L Carbon Dioxide 3 L* BUN 31 H Creatinine 1.6 H Glucose 857 H* POC Glucose > 500 H Lactic Acid Calcium 8.1 L Phosphorus 7.60 H Magnesium 2.50 H AST Troponin T Total Protein Albumin Triglycerides HDL Cholesterol Salicylates 06/25/17 06/25/17 06/25/17 06:50 07:18 09:03 WBC RBC Hgb Hct MCV MCHC RDW Lymph % (Auto) Sac % (Auto) Lymph # Sac # Seg Neutrophils % Seg Neuts % (Manual) Lymphocytes % (Manual) Monocytes % (Manual) Seg Neutrophils # Seg Neutrophils # Man Monocytes # (Manual) POC ABG pH POC ABG pCO2 POC ABG pO2 VBG pH Sodium 146 H 147 H Potassium 6.0 H 6.0 H Chloride Carbon Dioxide 5 L* 5 L* BUN 33 H 33 H Creatinine 1.7 H 1.7 H Glucose 802 H* 802 H* POC Glucose > 500 H Lactic Acid Calcium 8.3 L 8.3 L Phosphorus Magnesium AST Troponin T Total Protein Albumin Triglycerides HDL Cholesterol Salicylates 06/25/17 06/25/17 06/25/17 09:22 09:23 09:23 WBC RBC Hgb Hct MCV MCHC RDW Lymph % (Auto) Sac % (Auto) Lymph # Sac # Seg Neutrophils % Seg Neuts % (Manual) Lymphocytes % (Manual) Monocytes % (Manual) Seg Neutrophils # Seg Neutrophils # Man Monocytes # (Manual) POC ABG pH POC ABG pCO2 POC ABG pO2 VBG pH Sodium 150 H Potassium Chloride Carbon Dioxide 9 L* BUN 32 H Creatinine 1.7 H Glucose 647 H* POC Glucose Lactic Acid 2.40 H* Calcium 8.2 L Phosphorus Magnesium AST Troponin T 0.241 H* D Total Protein Albumin Triglycerides HDL Cholesterol Salicylates 06/25/17 06/25/17 06/25/17 10:30 11:58 12:22 WBC RBC Hgb Hct MCV MCHC RDW Lymph % (Auto) Sac % (Auto) Lymph # Sac # Seg Neutrophils % Seg Neuts % (Manual) Lymphocytes % (Manual) Monocytes % (Manual) Seg Neutrophils # Seg Neutrophils # Man Monocytes # (Manual) POC ABG pH POC ABG pCO2 POC ABG pO2 VBG pH Sodium 150 H 155 H 154 H Potassium Chloride 112.3 H 113.1 H Carbon Dioxide 8 L* 15 L D 15 L BUN 31 H 30 H 27 H Creatinine 1.7 H 1.6 H Glucose 646 H* 500 H 484 H POC Glucose Lactic Acid Calcium 8.3 L Phosphorus Magnesium AST Troponin T Total Protein Albumin Triglycerides HDL Cholesterol Salicylates 06/25/17 06/25/17 06/25/17 12:49 12:59 13:24 WBC RBC Hgb Hct MCV MCHC RDW Lymph % (Auto) Sac % (Auto) Lymph # Sac # Seg Neutrophils % Seg Neuts % (Manual) Lymphocytes % (Manual) Monocytes % (Manual) Seg Neutrophils # Seg Neutrophils # Man Monocytes # (Manual) POC ABG pH POC ABG pCO2 27.4 L POC ABG pO2 126 H VBG pH Sodium 156 H 155 H Potassium Chloride 113.3 H 112.2 H Carbon Dioxide 14 L 15 L BUN 28 H 28 H Creatinine 1.7 H 1.6 H Glucose 482 H 466 H POC Glucose Lactic Acid Calcium 8.2 L Phosphorus Magnesium AST Troponin T Total Protein Albumin Triglycerides HDL Cholesterol Salicylates 06/25/17 06/25/17 06/25/17 14:59 16:07 17:00 WBC RBC Hgb Hct MCV MCHC RDW Lymph % (Auto) Sac % (Auto) Lymph # Sac # Seg Neutrophils % Seg Neuts % (Manual) Lymphocytes % (Manual) Monocytes % (Manual) Seg Neutrophils # Seg Neutrophils # Man Monocytes # (Manual) POC ABG pH POC ABG pCO2 POC ABG pO2 VBG pH Sodium 157 H Potassium Chloride 119.0 H Carbon Dioxide 20 L BUN 25 H Creatinine Glucose 328 H POC Glucose 365 H 337 H Lactic Acid Calcium 7.9 L Phosphorus Magnesium AST Troponin T Total Protein Albumin Triglycerides HDL Cholesterol Salicylates 06/25/17 06/25/17 06/25/17 18:04 19:20 20:13 WBC RBC Hgb Hct MCV MCHC RDW Lymph % (Auto) Sac % (Auto) Lymph # Sac # Seg Neutrophils % Seg Neuts % (Manual) Lymphocytes % (Manual) Monocytes % (Manual) Seg Neutrophils # Seg Neutrophils # Man Monocytes # (Manual) POC ABG pH POC ABG pCO2 POC ABG pO2 VBG pH Sodium Potassium Chloride Carbon Dioxide BUN Creatinine Glucose POC Glucose 275 H 284 H 108 H Lactic Acid Calcium Phosphorus Magnesium AST Troponin T Total Protein Albumin Triglycerides HDL Cholesterol Salicylates 06/25/17 06/25/17 06/25/17 20:30 21:15 21:53 WBC RBC Hgb Hct MCV MCHC RDW Lymph % (Auto) Sac % (Auto) Lymph # Sac # Seg Neutrophils % Seg Neuts % (Manual) Lymphocytes % (Manual) Monocytes % (Manual) Seg Neutrophils # Seg Neutrophils # Man Monocytes # (Manual) POC ABG pH POC ABG pCO2 POC ABG pO2 VBG pH Sodium 161 H* Potassium 3.4 L Chloride 125.2 H Carbon Dioxide BUN 21 H Creatinine Glucose 40 L POC Glucose 201 H < 40 L Lactic Acid Calcium 7.8 L Phosphorus Magnesium AST Troponin T Total Protein Albumin Triglycerides HDL Cholesterol Salicylates 06/25/17 06/25/17 06/25/17 21:55 22:18 23:53 WBC RBC Hgb Hct MCV MCHC RDW Lymph % (Auto) Sac % (Auto) Lymph # Sac # Seg Neutrophils % Seg Neuts % (Manual) Lymphocytes % (Manual) Monocytes % (Manual) Seg Neutrophils # Seg Neutrophils # Man Monocytes # (Manual) POC ABG pH POC ABG pCO2 POC ABG pO2 VBG pH Sodium Potassium Chloride Carbon Dioxide BUN Creatinine Glucose POC Glucose < 40 L 150 H 123 H Lactic Acid Calcium Phosphorus Magnesium AST Troponin T Total Protein Albumin Triglycerides HDL Cholesterol Salicylates 06/26/17 06/26/17 06/26/17 01:09 01:54 03:07 WBC RBC Hgb Hct MCV MCHC RDW Lymph % (Auto) Sac % (Auto) Lymph # Sac # Seg Neutrophils % Seg Neuts % (Manual) Lymphocytes % (Manual) Monocytes % (Manual) Seg Neutrophils # Seg Neutrophils # Man Monocytes # (Manual) POC ABG pH POC ABG pCO2 POC ABG pO2 VBG pH Sodium Potassium Chloride Carbon Dioxide BUN Creatinine Glucose POC Glucose 180 H 183 H 151 H Lactic Acid Calcium Phosphorus Magnesium AST Troponin T Total Protein Albumin Triglycerides HDL Cholesterol Salicylates 06/26/17 06/26/17 06/26/17 04:50 05:20 05:20 WBC RBC 3.63 L Hgb 11.5 L Hct 33.9 L D MCV MCHC RDW Lymph % (Auto) 9.4 L Sac % (Auto) 10.8 H Lymph # 1.0 L Sac # 1.2 H Seg Neutrophils % 79.6 H Seg Neuts % (Manual) Lymphocytes % (Manual) Monocytes % (Manual) Seg Neutrophils # 8.7 H Seg Neutrophils # Man Monocytes # (Manual) POC ABG pH POC ABG pCO2 POC ABG pO2 VBG pH Sodium 160 H Potassium 3.3 L Chloride 125.1 H Carbon Dioxide BUN 21 H Creatinine Glucose POC Glucose 124 H Lactic Acid Calcium 8.2 L Phosphorus Magnesium AST 72 H Troponin T Total Protein 5.0 L Albumin 2.7 L Triglycerides HDL Cholesterol Salicylates 06/26/17 06/26/17 06/26/17 07:56 09:03 10:03 WBC RBC Hgb Hct MCV MCHC RDW Lymph % (Auto) Sac % (Auto) Lymph # Sac # Seg Neutrophils % Seg Neuts % (Manual) Lymphocytes % (Manual) Monocytes % (Manual) Seg Neutrophils # Seg Neutrophils # Man Monocytes # (Manual) POC ABG pH POC ABG pCO2 POC ABG pO2 VBG pH Sodium Potassium Chloride Carbon Dioxide BUN Creatinine Glucose POC Glucose 147 H 206 H 212 H Lactic Acid Calcium Phosphorus Magnesium AST Troponin T Total Protein Albumin Triglycerides HDL Cholesterol Salicylates 06/26/17 06/26/17 06/26/17 11:09 12:16 13:23 WBC RBC Hgb Hct MCV MCHC RDW Lymph % (Auto) Sac % (Auto) Lymph # Sac # Seg Neutrophils % Seg Neuts % (Manual) Lymphocytes % (Manual) Monocytes % (Manual) Seg Neutrophils # Seg Neutrophils # Man Monocytes # (Manual) POC ABG pH POC ABG pCO2 POC ABG pO2 VBG pH Sodium Potassium Chloride Carbon Dioxide BUN Creatinine Glucose POC Glucose 202 H 126 H 130 H Lactic Acid Calcium Phosphorus Magnesium AST Troponin T Total Protein Albumin Triglycerides HDL Cholesterol Salicylates 06/26/17 06/26/17 06/26/17 14:22 17:13 23:30 WBC RBC Hgb Hct MCV MCHC RDW Lymph % (Auto) Sac % (Auto) Lymph # Sac # Seg Neutrophils % Seg Neuts % (Manual) Lymphocytes % (Manual) Monocytes % (Manual) Seg Neutrophils # Seg Neutrophils # Man Monocytes # (Manual) POC ABG pH POC ABG pCO2 POC ABG pO2 VBG pH Sodium Potassium Chloride Carbon Dioxide BUN Creatinine Glucose POC Glucose 168 H 122 H < 40 L Lactic Acid Calcium Phosphorus Magnesium AST Troponin T Total Protein Albumin Triglycerides HDL Cholesterol Salicylates 06/27/17 06/27/17 06/27/17 00:15 07:53 07:53 WBC RBC Hgb Hct MCV MCHC RDW Lymph % (Auto) Sac % (Auto) 10.3 H Lymph # Sac # Seg Neutrophils % Seg Neuts % (Manual) Lymphocytes % (Manual) Monocytes % (Manual) Seg Neutrophils # Seg Neutrophils # Man Monocytes # (Manual) POC ABG pH POC ABG pCO2 POC ABG pO2 VBG pH Sodium 152 H Potassium 3.0 L Chloride 114.3 H Carbon Dioxide BUN Creatinine Glucose 107 H POC Glucose Lactic Acid Calcium 8.3 L Phosphorus Magnesium AST Troponin T Total Protein Albumin Triglycerides HDL Cholesterol Salicylates 06/27/17 06/27/17 06/27/17 11:43 12:22 17:01 WBC RBC Hgb Hct MCV MCHC RDW Lymph % (Auto) Sac % (Auto) Lymph # Sac # Seg Neutrophils % Seg Neuts % (Manual) Lymphocytes % (Manual) Monocytes % (Manual) Seg Neutrophils # Seg Neutrophils # Man Monocytes # (Manual) POC ABG pH POC ABG pCO2 POC ABG pO2 VBG pH Sodium Potassium 5.4 H D Chloride 110.3 H Carbon Dioxide 19 L BUN Creatinine Glucose 297 H POC Glucose 305 H 356 H Lactic Acid Calcium 7.8 L Phosphorus Magnesium AST Troponin T Total Protein Albumin Triglycerides HDL Cholesterol Salicylates 1206/28/17 06/28/17 22:05 09:30 16:39 WBC RBC Hgb Hct MCV MCHC RDW Lymph % (Auto) Sac % (Auto) Lymph # Sac # Seg Neutrophils % Seg Neuts % (Manual) Lymphocytes % (Manual) Monocytes % (Manual) Seg Neutrophils # Seg Neutrophils # Man Monocytes # (Manual) POC ABG pH POC ABG pCO2 POC ABG pO2 VBG pH Sodium 147 H Potassium 3.2 L D Chloride 111.1 H Carbon Dioxide BUN Creatinine Glucose 51 L POC Glucose 304 H 320 H Lactic Acid Calcium 8.3 L Phosphorus Magnesium AST Troponin T Total Protein Albumin Triglycerides HDL Cholesterol Salicylates Allied health notes reviewed: nursing
[2017-06-28] MEDS: LEVEMIR SUB-Q SCH (22:18)
[2017-06-29] MEDS: ZOSYN/NS 4.5GM/100ML 4.5 GM/100 ML VIAL IV SCH ×2 (05:39→14:42)
[2017-06-29] MEDS: VANCOMYCIN VIAL 500 MG in NACL 0.9% 100 ML IV SCH (05:49)
[2017-06-29 07:01] LABS: BUN/Creatinine Ratio 14; Blood Urea Nitrogen 11 mg/dL (9-20); Calcium 7.8 mg/dL (8.4-10.2); Hemolysis Index 7
[2017-06-29] MEDS: KCL 10 MEQ in NACL 0.45% 1000 ML 1,000 ML IV SCH (07:06)
[2017-06-29] MEDS: NOVOLOG SUB-Q SCH ×3 (07:30→17:12)
[2017-06-29] MEDS: DUONEB *Not for PRN Use IH SCH ×3 (08:40→19:04)
--- NOTE | 2017-06-29 09:14 | Progress Note ---
Assessment and Plan Assessment and plan: 76-year-old male was discharged recently from the hospital after he was treated for DKA. Patient presented to the emergency department for the complaints of altered mental status and workup showed DKA. Patient said patient was sick and was not able to take his medications at home. Patient said he had subjective fever DKA - Resolved after he was treated according to DKA protocol Metabolic encephalopathy - Resolved likely due to DKA Metabolic acidosis - Resolved SIRS - Infectious workup so far neg, continue empiric abx HLD - Continue statin Hypokalemia - repleted Acute renal failure - continue IVF - Resolved Elevated troponin level - Cardiology consulted - Echo can be done as an O/P Hypernatremia - Resolved Malnutrition - nutrition consulted Diarrhea - C diff was sent DVT prophylaxis - Heparin Plan - Discharge home. History Interval history: Patient diarrhea yesterday. Hospitalist Physical - Physical exam Narrative exam: Not in cardiopulmonary distress. The patient is cachectic. Vital signs as documented. Head exam is unremarkable. No scleral icterus . Neck is without jugular venous distension, thyromegaly, or carotid bruits. Lungs are clear to auscultation. Cardiac exam reveals regular rate and Rhythm. First and second heart sounds normal. No murmurs, rubs or gallops. Abdominal exam reveals normal bowel sounds, no masses, no organomegaly and no aortic enlargement. Extremities are nonedematous and both femoral and pedal pulses are normal. 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 - Constitutional Vitals: Temp Pulse Resp BP Pulse Ox 98.5 F 77 18 121/73 96 06/29/17 08:21 06/29/17 08:00 06/29/17 08:21 06/29/17 08:21 06/28/17 22:00 Results - Labs CBC & Chem 7: 06/27/17 07:53 06/29/17 06:06 Labs: Laboratory Last Values WBC 7.4 K/mm3 (4.5-11.0) 06/27/17 07:53 RBC 3.99 M/mm3 (3.65-5.03) 06/27/17 07:53 Hgb 12.4 gm/dl (11.8-15.2) 06/27/17 07:53 Hct 37.7 % (35.5-45.6) 06/27/17 07:53 MCV 94 fl (84-94) 06/27/17 07:53 MCH 31 pg (28-32) 06/27/17 07:53 MCHC 33 % (32-34) 06/27/17 07:53 RDW 14.2 % (13.2-15.2) 06/27/17 07:53 Plt Count 220 K/mm3 (140-440) 06/27/17 07:53 Lymph % (Auto) 21.1 % (13.4-35.0) 06/27/17 07:53 [place] % (Auto) 10.3 % (0.0-7.3) H 06/27/17 07:53 Eos % (Auto) 0.2 % (0.0-4.3) 06/27/17 07:53 Baso % (Auto) 0.5 % (0.0-1.8) 06/27/17 07:53 Lymph # 1.6 K/mm3 (1.2-5.4) 06/27/17 07:53 [place] # 0.8 K/mm3 (0.0-0.8) 06/27/17 07:53 Eos # 0.0 K/mm3 (0.0-0.4) 06/27/17 07:53 Baso # 0.0 K/mm3 (0.0-0.1) 06/27/17 07:53 Add Manual Diff Complete 06/25/17 04:03 Total Counted 100 06/25/17 04:03 Seg Neutrophils % 67.9 % (40.0-70.0) 06/27/17 07:53 Seg Neuts % (Manual) 79.0 % (40.0-70.0) H 06/25/17 04:03 Band Neutrophils % 1.0 % 06/25/17 04:03 Lymphocytes % (Manual) 8.0 % (13.4-35.0) L 06/25/17 04:03 Reactive Lymphs % (Man) 0 % 06/25/17 04:03 Monocytes % (Manual) 12.0 % (0.0-7.3) H 06/25/17 04:03 Eosinophils % (Manual) 0 % (0.0-4.3) 06/25/17 04:03 Basophils % (Manual) 0 % (0.0-1.8) 06/25/17 04:03 Metamyelocytes % 0 % 06/25/17 04:03 Myelocytes % 0 % 06/25/17 04:03 Promyelocytes % 0 % 06/25/17 04:03 Blast Cells % 0 % 06/25/17 04:03 Nucleated RBC % Not Reportable 06/25/17 04:03 Seg Neutrophils # 5.0 K/mm3 (1.8-7.7) 06/27/17 07:53 Seg Neutrophils # Man 15.6 K/mm3 (1.8-7.7) H 06/25/17 04:03 Band Neutrophils # 0.2 K/mm3 06/25/17 04:03 Lymphocytes # (Manual) 1.6 K/mm3 (1.2-5.4) 06/25/17 04:03 Abs React Lymphs (Man) 0.0 K/mm3 06/25/17 04:03 Monocytes # (Manual) 2.4 K/mm3 (0.0-0.8) H 06/25/17 04:03 Eosinophils # (Manual) 0.0 K/mm3 (0.0-0.4) 06/25/17 04:03 Basophils # (Manual) 0.0 K/mm3 (0.0-0.1) 06/25/17 04:03 Metamyelocytes # 0.0 K/mm3 06/25/17 04:03 Myelocytes # 0.0 K/mm3 06/25/17 04:03 Promyelocytes # 0.0 K/mm3 06/25/17 04:03 Blast Cells # 0.0 K/mm3 06/25/17 04:03 WBC Morphology Not Reportable 06/25/17 04:03 Hypersegmented Neuts Not Reportable 06/25/17 04:03 Hyposegmented Neuts Not Reportable 06/25/17 04:03 Hypogranular Neuts Not Reportable 06/25/17 04:03 Smudge Cells Not Reportable 06/25/17 04:03 Toxic Granulation Not Reportable 06/25/17 04:03 Toxic Vacuolation Not Reportable 06/25/17 04:03 Dohle Bodies Not Reportable 06/25/17 04:03 Pelger-Huet Anomaly Not Reportable 06/25/17 04:03 Carmen Rods Not Reportable 06/25/17 04:03 Platelet Estimate Consistent w auto 06/25/17 04:03 Clumped Platelets Not Reportable 06/25/17 04:03 Plt Clumps, EDTA Not Reportable 06/25/17 04:03 Large Platelets Not Reportable 06/25/17 04:03 Giant Platelets Not Reportable 06/25/17 04:03 Platelet Satelliting Not Reportable 06/25/17 04:03 Plt Morphology Comment Not Reportable 06/25/17 04:03 RBC Morphology Not Reportable 06/25/17 04:03 Dimorphic RBCs Not Reportable 06/25/17 04:03 Polychromasia Not Reportable 06/25/17 04:03 Hypochromasia Not Reportable 06/25/17 04:03 Poikilocytosis Not Reportable 06/25/17 04:03 Anisocytosis 1+ 06/25/17 04:03 Microcytosis Not Reportable 06/25/17 04:03 Macrocytosis Not Reportable 06/25/17 04:03 Spherocytes Not Reportable 06/25/17 04:03 Pappenheimer Bodies Not Reportable 06/25/17 04:03 Sickle Cells Not Reportable 06/25/17 04:03 Target Cells Not Reportable 06/25/17 04:03 Tear Drop Cells Not Reportable 06/25/17 04:03 Ovalocytes Not Reportable 06/25/17 04:03 Helmet Cells Not Reportable 06/25/17 04:03 [place] Bodies Not Reportable 06/25/17 04:03 [place] Rings Not Reportable 06/25/17 04:03 Srinivas Cells Not Reportable 06/25/17 04:03 Bite Cells Not Reportable 06/25/17 04:03 Crenated Cell Not Reportable 06/25/17 04:03 Elliptocytes Not Reportable 06/25/17 04:03 Acanthocytes (Spur) Not Reportable 06/25/17 04:03 Rouleaux Not Reportable 06/25/17 04:03 Hemoglobin C Crystals Not Reportable 06/25/17 04:03 Schistocytes Not Reportable 06/25/17 04:03 Malaria parasites Not Reportable 06/25/17 04:03 Janes Bodies Not Reportable 06/25/17 04:03 Hem Pathologist Commnt No 06/25/17 04:03 PT 14.9 Sec. (12.2-14.9) 06/25/17 03:28 INR 1.11 (0.87-1.13) 06/25/17 03:28 APTT 28.2 Sec. (24.2-36.6) 06/25/17 03:28 POC ABG pH 7.379 (7.35-7.45) 06/25/17 12:59 POC ABG pCO2 27.4 (35-45) L 06/25/17 12:59 POC ABG pO2 126 (80-105) H 06/25/17 12:59 POC ABG HCO3 16.1 06/25/17 12:59 POC ABG Total CO2 17 06/25/17 12:59 POC ABG O2 Sat 99 06/25/17 12:59 POC ABG Base Excess -9 06/25/17 12:59 VBG pH 7.022 (7.320-7.420) L* 06/25/17 03:28 FiO2 36 % 06/25/17 12:59 Sodium 145 mmol/L (137-145) 06/29/17 06:06 Potassium 3.5 mmol/L (3.6-5.0) L 06/29/17 06:06 Chloride 110.8 mmol/L (98-107) H 06/29/17 06:06 Carbon Dioxide 24 mmol/L (22-30) 06/29/17 06:06 Anion Gap 14 mmol/L 06/29/17 06:06 BUN 11 mg/dL (9-20) 06/29/17 06:06 Creatinine 0.8 mg/dL (0.8-1.5) 06/29/17 06:06 Estimated GFR > 60 ml/min 06/29/17 06:06 BUN/Creatinine Ratio 14 % 06/29/17 06:06 Glucose 94 mg/dL (75-100) 06/29/17 06:06 POC Glucose 89 (70-105) 06/29/17 06:27 Lactic Acid 2.40 mmol/L (0.7-2.0) H* 06/25/17 09:23 Calcium 7.8 mg/dL (8.4-10.2) L 06/29/17 06:06 Phosphorus 7.60 mg/dL (2.5-4.5) H 06/25/17 05:24 Magnesium 2.50 mg/dL (1.7-2.3) H 06/25/17 05:24 Total Bilirubin 0.20 mg/dL (0.1-1.2) 06/26/17 05:20 AST 72 units/L (5-40) H 06/26/17 05:20 ALT 29 units/L (7-56) 06/26/17 05:20 Alkaline Phosphatase 68 units/L (35-129) 06/26/17 05:20 Ammonia 44.0 umol/L (25-60) 06/25/17 03:28 Troponin T 0.241 ng/mL (0.00-0.029) H* D 06/25/17 09:22 Total Protein 5.0 g/dL (6.3-8.2) L 06/26/17 05:20 Albumin 2.7 g/dL (3.9-5) L 06/26/17 05:20 Albumin/Globulin Ratio 1.2 % 06/26/17 05:20 Triglycerides 311 mg/dL (2-149) H 06/25/17 03:28 Cholesterol 178 mg/dL (50-199) 06/25/17 03:28 LDL Cholesterol Direct 83 mg/dL (50-130) 06/25/17 03:28 HDL Cholesterol 33 mg/dL (40-59) L 06/25/17 03:28 Cholesterol/HDL Ratio 5.39 % 06/25/17 03:28 TSH 0.840 mlU/mL (0.270-4.200) 06/25/17 03:28 Free T4 1.10 ng/dL (0.76-1.46) 06/25/17 03:28 Urine Color Yellow (Yellow) 06/25/17 Unknown Urine Turbidity Clear (Clear) 06/25/17 Unknown Urine pH 5.0 (5.0-7.0) 06/25/17 Unknown Ur Specific [place] 1.017 (1.003-1.030) 06/25/17 Unknown Urine Protein <15 mg/dl mg/dL (Negative) 06/25/17 Unknown Urine Glucose (UA) >=500 mg/dL (Negative) 06/25/17 Unknown Urine Ketones 80 mg/dL (Negative) 06/25/17 Unknown Urine Blood Mod (Negative) 06/25/17 Unknown Urine Nitrite Neg (Negative) 06/25/17 Unknown Urine Bilirubin Neg (Negative) 06/25/17 Unknown Urine Urobilinogen < 2.0 mg/dL (<2.0) 06/25/17 Unknown Ur Leukocyte Esterase Neg (Negative) 06/25/17 Unknown Urine WBC (Auto) 5.0 /HPF (0.0-6.0) 06/25/17 Unknown Urine RBC (Auto) 3.0 /HPF (0.0-6.0) 06/25/17 Unknown Urine Bacteria (Auto) 1+ /HPF (Negative) 06/25/17 Unknown Amorphous Crystals Few 06/25/17 Unknown Urine Mucus Few /HPF 06/25/17 Unknown Salicylates < 0.3 mg/dL (2.8-20.0) L 06/25/17 03:28 Acetaminophen < 15.0 ug/mL (10.0-30.0) 06/25/17 03:28 Blood Type O NEGATIVE 06/25/17 05:24 Antibody Screen Negative 06/25/17 05:24 Mild hypokalemia
[2017-06-29] MEDS: PROTONIX IV SCH (10:34)
[2017-06-29] MEDS: HEPARIN SUB-Q SCH (10:34)
--- NOTE | 2017-06-29 10:50 | Consultation ---
CARDIOLOGY EVALUATION REASON FOR EVALUATION: Abnormal cardiac enzymes. HISTORY OF PRESENT ILLNESS: The patient is a 76-year-old gentleman is known to have diabetes and he was admitted with altered mental status. Prior to this admission on 06/19/2017, he was admitted with generalized weakness, loss of appetite and what sounded like acute bronchitis. He was discharged on 06/23/2017 after being evaluated by Pulmonary. He was also noted to have hypokalemia and hypernatremia. Discharge diagnosis included diabetes ketoacidosis. The patient was readmitted on 06/25/2017 because of altered mental status and lethargy. The patient did not have any fever, chills, nausea, or vomiting. During the evaluation, he was noted to have elevated troponins and hence the consultation. The patient is presently reasonably alert, but he does complain about difficulty in breathing, but no chest pain. Troponins were noted to be elevated, but EKGs showed sinus rhythm with no acute changes; however, the baseline is very poor, even though the computer interprets it as an acute inferior myocardial infarction, it is rather difficult to see significant ST elevation because of the abnormal baseline. The patient denies any chest pain. He denies previous myocardial infarction and hypertension. The patient is a nonsmoker and nonalcoholic. Except for diabetes, he did not have any significant past history. The patient did have a hernia repair in the past. Rest of the system review is somewhat difficult to obtain, but from reviewing the chart, does not appear to have significant other medical issues. PHYSICAL EXAMINATION: GENERAL: Adult gentleman appears to be chronically ill, but currently he is fairly alert, in no acute distress. The patient is getting respiratory treatment. VITAL SIGNS: Blood pressure is 109/62, pulse 100. HEAD, EYES, EARS, NOSE and THROAT: Unremarkable. NECK: Supple. No thyromegaly. Both carotids are palpable and equal. Neck veins are flat. CHEST: Symmetrical. LUNGS: Somewhat prolonged expiratory phase is noted. Otherwise, essentially clear. HEART: S1 and S2 are heard well. No significant murmurs are appreciated. ABDOMEN: Soft, nontender. EXTREMITIES: No significant edema or calf tenderness. IMAGING: EKG sinus rhythm, extremely poor baseline. We will repeat the EKG. The computer interpretation is acute inferior NC. However, I doubt significant acute injury. LABORATORY DATA: WBC 7.4, hemoglobin 12.4, hematocrit 37.7. Sodium 143, potassium 5.4, chloride 110. Blood sugar 297. BUN 12, creatinine 0.9. Troponin 0.061, 0.104 and 0.241. Last troponin was done on 06/25/2017. IMPRESSION: 1. Abnormal cardiac enzymes in the absence of chest pain, possible non-ST elevation myocardial infarction. 2. Diabetes. 3. Acute bronchitis. The patient is seen for cardiac evaluation. At present, cardiac status appears to be satisfactory. His abnormal enzymes are somewhat bothersome. We will obtain an echocardiogram for further cardiac assessment. Once the pulmonary status improves, we may consider obtaining a nuclear stress test for further ischemic evaluation. Thank you for allowing me to participate in the care of this gentleman. JOB# [id number] DELTA/MARIA LUZ
[2017-06-29] MEDS ORDERED: K-DUR PO ONE (12:57)
--- NOTE | 2017-06-29 13:59 | Discharge Summary ---
Providers - Providers Date of Admission: 06/25/17 05:04 Date of discharge: 06/29/17 Attending physician: CHINYERE LOYA MD 06/25/17 04:34 Consult to Physician [CONS] Urgent Consulting Provider: PJ CRUZ Reason For Exam: dka Place consult to:: Dr. Cruz Notified:: Her number Phone number called:: Her number Was contact made?: Yes If yes, spoke with:: Dr. Cruz Time called:: 04:37 Comment:: Dr. Harman ( dr) spoke with Dr. Cruz 06/26/17 13:05 Consult to Physician [CONS] Routine Consulting Provider: LUIS WISE Reason For Exam: elevated trop Place consult to:: Notified:: Phone number called:: [phone] Was contact made?: Yes If yes, spoke with:: JEFF Time called:: 08:15 Comment:: EUGENIO 06/26/17 18:07 Occupational Therapy Evaluate and Treat [CONS] Routine Comment: Reason For Exam: debility Physical Therapy Evaluation and Treat [CONS] Routine Comment: Reason For Exam: debility Speech Therapy Evaluation and Treat [CONS] Routine Reason For Exam: dysphagia 06/27/17 11:22 Consult to Dietitian/Nutrition [CONS] Routine Physician Instructions: Reason For Exam: Reason for Consult: Malnutrition Primary care physician: SONDRA ESPARZA Hospitalization Reason for admission: DKA, SIRS Condition: Critical Hospital course: This is a 76-year-old male who was indicated to the hospital for DKA and discharged on Thursday. patient has a past medical history of diabetic ketoacidosis, Patient is brought to the hospital by EMS for "diabetic problems. " As per patient's /textbook associate, patient has been "out of it" for most of the day. This is constant, and does not have exacerbating or relieving factors. She reports the patient has been lethargic and generally weak. There is no trauma. No exacerbating or relieving factors, patient is too altered to describe. Patient is a altered mental status confusion lethargic minimally responsive moaning and groaning in pain. Most of the history is obtained from his are auto club travel counselor who is at the bedside. She states that he got home Thursday morning on was fine all day Thursday he started feeling bad was not eating well and went downhill pretty fast. He badly any diuretics for a few bites. She did not report any fevers chills or any nausea vomiting or diarrhea. Patient had not complained of any pain. Patient was admitted to the floor and he was managed for DKA according to DKA protocol and DKA resolved. Patient had SIRS and given his recent hospital admission patient was monitored vancomycin and Zosyn, but culture was negative, it was negative, stool culture was positive for Pseudomonas and antibiotics was switched to Levaquin at the time of discharge. Patient had elevated troponin and cardiology was consulted, given his normal EKG and no chest pain, recommended that to have an outpatient echo as sounds at [facility] cardiology office. Patient said he has enough insulin at home. Patient's medications were updated at the time of discharge. Patient is hemodynamically stable to discharge. Patient discharged home in stable condition. Cardiology and pulmonary consult appreciated. Disposition: TO HOME OR SELFCARE Time spent for discharge: 31 minutes - Discharge Diagnoses (1) Abnormal cardiac enzyme level Status: Acute (2) Hypothermia Status: Acute (3) SIRS (systemic inflammatory response syndrome) Status: Acute (4) DKA (diabetic ketoacidosis) Status: Acute Core Measure Documentation - Palliative Care Palliative Care/ Comfort Measures: Not Applicable - Core Measures Any of the following diagnoses?: none Exam - Physical Exam Narrative exam: Not in cardiopulmonary distress. The patient is cachectic. Vital signs as documented. Head exam is unremarkable. No scleral icterus . Neck is without jugular venous distension, thyromegaly, or carotid bruits. Lungs are clear to auscultation. Cardiac exam reveals regular rate and Rhythm. First and second heart sounds normal. No murmurs, rubs or gallops. Abdominal exam reveals normal bowel sounds, no masses, no organomegaly and no aortic enlargement. Extremities are nonedematous and both femoral and pedal pulses are normal. VIDEO PRODUCTION COORDINATOR: Alert and oriented 3. - Constitutional Vitals: Temp Pulse Resp BP Pulse Ox 98.5 F 98 H 20 121/73 97 06/29/17 08:21 06/29/17 08:50 06/29/17 08:50 06/29/17 08:21 06/29/17 08:40 Plan Activity: no restrictions Weight Bearing Status: Full Weight Bearing Diet: low cholesterol, low salt, diabetic Follow up with: SONDRA ESPARZA MD [Primary Care Provider] - 7 Days MACHELLE HARGROVE MD [Staff Physician] - 10 Days Prescriptions: Levofloxacin [Levaquin TAB] 500 mg PO QDAY #7 tablet
[2017-06-29] MEDS ORDERED: POTASSIUM CHLORIDE PO ONE (14:00)
--- NOTE | 2017-06-29 14:37 | Progress Note ---
Assessment and Plan No significant chest pain today. Cardiac examination is stable. Waiting for the echocardiogram. Cardiac status appears to be stable. - Patient Problems (1) DKA (diabetic ketoacidosis) Current Visit: No Status: Acute Subjective Date of service: 06/29/17 Principal diagnosis: Sepsis Syndrome; DKA; Adult FTT Interval history: Patient is comfortable today no significant chest pain is noted. Objective Vital Signs Temp Pulse Pulse Pulse Resp Resp BP 06/29/17 10:00 06/29/17 08:50 98 H 20 06/29/17 08:40 67 20 06/29/17 08:21 98.5 F 18 121/73 06/29/17 08:00 98.5 F 77 18 06/29/17 05:08 98.8 F 18 108/62 06/28/17 22:00 104 H 20 06/28/17 20:59 98.3 F 18 123/69 06/28/17 20:30 104 H 20 06/28/17 20:10 106 H 20 BP Pulse Ox 06/29/17 10:00 97 06/29/17 08:50 06/29/17 08:40 97 06/29/17 08:21 06/29/17 08:00 121/73 06/29/17 05:08 06/28/17 22:00 96 06/28/17 20:59 06/28/17 20:30 06/28/17 20:10 - Physical Examination General: Appears Well HEENT: Positive: PERRL Neck: Positive: neck supple Cardiac: Positive: Regular Rhythm Lungs: Positive: clear to auscultation Neuro: Positive: Grossly Intact Abdomen: Positive: Soft Skin: Positive: Clear Extremities: Present: Other (mild edema is present) - Labs and Meds Comprehensive Metabolic Panel 06/29/17 Range/Units 06:06 Sodium 145 (137-145) mmol/L Potassium 3.5 L (3.6-5.0) mmol/L Chloride 110.8 H (98-107) mmol/L Carbon Dioxide 24 (22-30) mmol/L BUN 11 (9-20) mg/dL Creatinine 0.8 (0.8-1.5) mg/dL Glucose 94 (75-100) mg/dL Calcium 7.8 L (8.4-10.2) mg/dL - Allied health notes Allied health notes reviewed: nursing
[2017-06-29 15:27] VITALS: BP 106/65
--- NOTE | 2017-06-29 18:00 | Progress Note ---
Assessment and Plan Patient alert, awake and resting On room air. O2 saturation 100%.No complaint of chest pain or shortness of breath. - Patient Problems (1) Hypothermia Current Visit: Yes Status: Acute Plan to address problem: Improved. To days temparature 98.5. (2) SIRS (systemic inflammatory response syndrome) Current Visit: Yes Status: Acute Plan to address problem: Patient is on zosyn and vancomycin. (3) DKA (diabetic ketoacidosis) Current Visit: No Status: Acute Plan to address problem: Improving. Management as per primary care. Subjective Date of service: 06/29/17 Principal diagnosis: Sepsis Syndrome; DKA; Adult FTT Interval history: Patient alert, awake and resting On room air. O2 saturation 100%.No complaint of chest pain or shortness of breath. Objective Vital Signs - 12hr 06/29/17 06/29/17 06/29/17 08:00 08:21 08:40 Temperature 98.5 F 98.5 F Pulse Rate 77 Pulse Rate [ 67 Anterior Bilateral Throughout] Respiratory 18 18 Rate Respiratory 20 Rate [Anterior Bilateral Throughout] Blood Pressure 121/73 Blood Pressure 121/73 [Right] O2 Sat by Pulse 97 Oximetry 06/29/17 06/29/17 06/29/17 08:50 10:00 14:54 Temperature 98.5 F Pulse Rate 101 H Pulse Rate [ 98 H Anterior Bilateral Throughout] Respiratory 18 Rate Respiratory 20 Rate [Anterior Bilateral Throughout] Blood Pressure 106/65 Blood Pressure [Right] O2 Sat by Pulse 97 100 Oximetry Constitutional: no acute distress, alert, asleep Eyes: non-icteric ENT: oropharynx moist, other (mallampatti III) Neck: supple, no lymphadenopathy, no JVD, other (No thyromegaly) Effort: mildly labored Ascultation: Bilateral: diminished breath sounds, rales (bases), rhonchi ( Bilateral rhonchi) Percussion: Bilateral: not dull Cardiovascular: regular rate and rhythm, other (No rubs or murmurs) Gastrointestinal: normoactive bowel sounds, soft, non-tender, non-distended, other (No HSM) Integumentary: other (poor turgor; no rash or cellulitis) Extremities: no cyanosis, no edema, pulses normal, no ischemia or petechiae Neurologic: normal mental status, non-focal exam (grossly), pupils equal and round, CN II-XII normal Psychiatric: mood appropriate CBC and BMP: 06/27/17 07:53 06/29/17 06:06 ABG, PT/INR, D-dimer: ABG POC ABG pH 7.379 (7.35-7.45) 06/25/17 12:59 POC ABG pCO2 27.4 (35-45) L 06/25/17 12:59 POC ABG pO2 126 (80-105) H 06/25/17 12:59 POC ABG HCO3 16.1 06/25/17 12:59 POC ABG Total CO2 17 06/25/17 12:59 POC ABG O2 Sat 99 06/25/17 12:59 PT/INR, D-dimer PT 14.9 Sec. (12.2-14.9) 06/25/17 03:28 INR 1.11 (0.87-1.13) 06/25/17 03:28 Abnormal lab findings: Abnormal Labs 06/25/17 06/25/17 06/25/17 02:21 03:28 03:28 WBC RBC Hgb Hct MCV MCHC RDW Lymph % (Auto) Travis % (Auto) Lymph # Travis # Seg Neutrophils % Seg Neuts % (Manual) Lymphocytes % (Manual) Monocytes % (Manual) Seg Neutrophils # Seg Neutrophils # Man Monocytes # (Manual) POC ABG pH POC ABG pCO2 POC ABG pO2 VBG pH 7.022 L* Sodium Potassium 6.8 H* D Chloride 91.9 L Carbon Dioxide < 2.0 L* D BUN 31 H Creatinine 1.7 H D Glucose 918 H* POC Glucose 392 H Lactic Acid Calcium Phosphorus Magnesium AST Troponin T 0.061 H Total Protein 5.7 L Albumin 3.5 L Triglycerides 311 H HDL Cholesterol 33 L Salicylates 06/25/17 06/25/17 06/25/17 03:28 03:28 04:03 WBC 19.7 H RBC Hgb Hct MCV 108 H MCHC 29 L RDW 15.9 H Lymph % (Auto) Travis % (Auto) Lymph # Travis # Seg Neutrophils % Seg Neuts % (Manual) 79.0 H Lymphocytes % (Manual) 8.0 L Monocytes % (Manual) 12.0 H Seg Neutrophils # Seg Neutrophils # Man 15.6 H Monocytes # (Manual) 2.4 H POC ABG pH POC ABG pCO2 POC ABG pO2 VBG pH Sodium Potassium Chloride Carbon Dioxide BUN Creatinine Glucose POC Glucose Lactic Acid 8.10 H* Calcium Phosphorus Magnesium AST Troponin T Total Protein Albumin Triglycerides HDL Cholesterol Salicylates < 0.3 L 06/25/17 06/25/17 06/25/17 04:22 04:54 05:24 WBC RBC Hgb Hct MCV MCHC RDW Lymph % (Auto) Travis % (Auto) Lymph # Travis # Seg Neutrophils % Seg Neuts % (Manual) Lymphocytes % (Manual) Monocytes % (Manual) Seg Neutrophils # Seg Neutrophils # Man Monocytes # (Manual) POC ABG pH 7.019 L POC ABG pCO2 11.4 L POC ABG pO2 149 H VBG pH Sodium Potassium Chloride Carbon Dioxide BUN Creatinine Glucose POC Glucose > 500 H Lactic Acid Calcium Phosphorus Magnesium AST Troponin T 0.104 H* D Total Protein Albumin Triglycerides HDL Cholesterol Salicylates 06/25/17 06/25/17 06/25/17 05:24 05:24 06:32 WBC RBC Hgb Hct MCV MCHC RDW Lymph % (Auto) Travis % (Auto) Lymph # Travis # Seg Neutrophils % Seg Neuts % (Manual) Lymphocytes % (Manual) Monocytes % (Manual) Seg Neutrophils # Seg Neutrophils # Man Monocytes # (Manual) POC ABG pH POC ABG pCO2 POC ABG pO2 VBG pH Sodium 146 H Potassium 5.9 H Chloride 97.1 L Carbon Dioxide 3 L* BUN 31 H Creatinine 1.6 H Glucose 857 H* POC Glucose > 500 H Lactic Acid Calcium 8.1 L Phosphorus 7.60 H Magnesium 2.50 H AST Troponin T Total Protein Albumin Triglycerides HDL Cholesterol Salicylates 06/25/17 06/25/17 06/25/17 06:50 07:18 09:03 WBC RBC Hgb Hct MCV MCHC RDW Lymph % (Auto) Travis % (Auto) Lymph # Travis # Seg Neutrophils % Seg Neuts % (Manual) Lymphocytes % (Manual) Monocytes % (Manual) Seg Neutrophils # Seg Neutrophils # Man Monocytes # (Manual) POC ABG pH POC ABG pCO2 POC ABG pO2 VBG pH Sodium 146 H 147 H Potassium 6.0 H 6.0 H Chloride Carbon Dioxide 5 L* 5 L* BUN 33 H 33 H Creatinine 1.7 H 1.7 H Glucose 802 H* 802 H* POC Glucose > 500 H Lactic Acid Calcium 8.3 L 8.3 L Phosphorus Magnesium AST Troponin T Total Protein Albumin Triglycerides HDL Cholesterol Salicylates 06/25/17 06/25/17 06/25/17 09:22 09:23 09:23 WBC RBC Hgb Hct MCV MCHC RDW Lymph % (Auto) Travis % (Auto) Lymph # Travis # Seg Neutrophils % Seg Neuts % (Manual) Lymphocytes % (Manual) Monocytes % (Manual) Seg Neutrophils # Seg Neutrophils # Man Monocytes # (Manual) POC ABG pH POC ABG pCO2 POC ABG pO2 VBG pH Sodium 150 H Potassium Chloride Carbon Dioxide 9 L* BUN 32 H Creatinine 1.7 H Glucose 647 H* POC Glucose Lactic Acid 2.40 H* Calcium 8.2 L Phosphorus Magnesium AST Troponin T 0.241 H* D Total Protein Albumin Triglycerides HDL Cholesterol Salicylates 06/25/17 06/25/17 06/25/17 10:30 11:58 12:22 WBC RBC Hgb Hct MCV MCHC RDW Lymph % (Auto) Travis % (Auto) Lymph # Travis # Seg Neutrophils % Seg Neuts % (Manual) Lymphocytes % (Manual) Monocytes % (Manual) Seg Neutrophils # Seg Neutrophils # Man Monocytes # (Manual) POC ABG pH POC ABG pCO2 POC ABG pO2 VBG pH Sodium 150 H 155 H 154 H Potassium Chloride 112.3 H 113.1 H Carbon Dioxide 8 L* 15 L D 15 L BUN 31 H 30 H 27 H Creatinine 1.7 H 1.6 H Glucose 646 H* 500 H 484 H POC Glucose Lactic Acid Calcium 8.3 L Phosphorus Magnesium AST Troponin T Total Protein Albumin Triglycerides HDL Cholesterol Salicylates 06/25/17 06/25/17 06/25/17 12:49 12:59 13:24 WBC RBC Hgb Hct MCV MCHC RDW Lymph % (Auto) Travis % (Auto) Lymph # Travis # Seg Neutrophils % Seg Neuts % (Manual) Lymphocytes % (Manual) Monocytes % (Manual) Seg Neutrophils # Seg Neutrophils # Man Monocytes # (Manual) POC ABG pH POC ABG pCO2 27.4 L POC ABG pO2 126 H VBG pH Sodium 156 H 155 H Potassium Chloride 113.3 H 112.2 H Carbon Dioxide 14 L 15 L BUN 28 H 28 H Creatinine 1.7 H 1.6 H Glucose 482 H 466 H POC Glucose Lactic Acid Calcium 8.2 L Phosphorus Magnesium AST Troponin T Total Protein Albumin Triglycerides HDL Cholesterol Salicylates 06/25/17 06/25/17 06/25/17 14:59 16:07 17:00 WBC RBC Hgb Hct MCV MCHC RDW Lymph % (Auto) Travis % (Auto) Lymph # Travis # Seg Neutrophils % Seg Neuts % (Manual) Lymphocytes % (Manual) Monocytes % (Manual) Seg Neutrophils # Seg Neutrophils # Man Monocytes # (Manual) POC ABG pH POC ABG pCO2 POC ABG pO2 VBG pH Sodium 157 H Potassium Chloride 119.0 H Carbon Dioxide 20 L BUN 25 H Creatinine Glucose 328 H POC Glucose 365 H 337 H Lactic Acid Calcium 7.9 L Phosphorus Magnesium AST Troponin T Total Protein Albumin Triglycerides HDL Cholesterol Salicylates 06/25/17 06/25/17 06/25/17 18:04 19:20 20:13 WBC RBC Hgb Hct MCV MCHC RDW Lymph % (Auto) Travis % (Auto) Lymph # Travis # Seg Neutrophils % Seg Neuts % (Manual) Lymphocytes % (Manual) Monocytes % (Manual) Seg Neutrophils # Seg Neutrophils # Man Monocytes # (Manual) POC ABG pH POC ABG pCO2 POC ABG pO2 VBG pH Sodium Potassium Chloride Carbon Dioxide BUN Creatinine Glucose POC Glucose 275 H 284 H 108 H Lactic Acid Calcium Phosphorus Magnesium AST Troponin T Total Protein Albumin Triglycerides HDL Cholesterol Salicylates 06/25/17 06/25/17 06/25/17 20:30 21:15 21:53 WBC RBC Hgb Hct MCV MCHC RDW Lymph % (Auto) Travis % (Auto) Lymph # Travis # Seg Neutrophils % Seg Neuts % (Manual) Lymphocytes % (Manual) Monocytes % (Manual) Seg Neutrophils # Seg Neutrophils # Man Monocytes # (Manual) POC ABG pH POC ABG pCO2 POC ABG pO2 VBG pH Sodium 161 H* Potassium 3.4 L Chloride 125.2 H Carbon Dioxide BUN 21 H Creatinine Glucose 40 L POC Glucose 201 H < 40 L Lactic Acid Calcium 7.8 L Phosphorus Magnesium AST Troponin T Total Protein Albumin Triglycerides HDL Cholesterol Salicylates 06/25/17 06/25/17 06/25/17 21:55 22:18 23:53 WBC RBC Hgb Hct MCV MCHC RDW Lymph % (Auto) Travis % (Auto) Lymph # Travis # Seg Neutrophils % Seg Neuts % (Manual) Lymphocytes % (Manual) Monocytes % (Manual) Seg Neutrophils # Seg Neutrophils # Man Monocytes # (Manual) POC ABG pH POC ABG pCO2 POC ABG pO2 VBG pH Sodium Potassium Chloride Carbon Dioxide BUN Creatinine Glucose POC Glucose < 40 L 150 H 123 H Lactic Acid Calcium Phosphorus Magnesium AST Troponin T Total Protein Albumin Triglycerides HDL Cholesterol Salicylates 06/26/17 06/26/17 06/26/17 01:09 01:54 03:07 WBC RBC Hgb Hct MCV MCHC RDW Lymph % (Auto) Travis % (Auto) Lymph # Travis # Seg Neutrophils % Seg Neuts % (Manual) Lymphocytes % (Manual) Monocytes % (Manual) Seg Neutrophils # Seg Neutrophils # Man Monocytes # (Manual) POC ABG pH POC ABG pCO2 POC ABG pO2 VBG pH Sodium Potassium Chloride Carbon Dioxide BUN Creatinine Glucose POC Glucose 180 H 183 H 151 H Lactic Acid Calcium Phosphorus Magnesium AST Troponin T Total Protein Albumin Triglycerides HDL Cholesterol Salicylates 06/26/17 06/26/17 06/26/17 04:50 05:20 05:20 WBC RBC 3.63 L Hgb 11.5 L Hct 33.9 L D MCV MCHC RDW Lymph % (Auto) 9.4 L Travis % (Auto) 10.8 H Lymph # 1.0 L Travis # 1.2 H Seg Neutrophils % 79.6 H Seg Neuts % (Manual) Lymphocytes % (Manual) Monocytes % (Manual) Seg Neutrophils # 8.7 H Seg Neutrophils # Man Monocytes # (Manual) POC ABG pH POC ABG pCO2 POC ABG pO2 VBG pH Sodium 160 H Potassium 3.3 L Chloride 125.1 H Carbon Dioxide BUN 21 H Creatinine Glucose POC Glucose 124 H Lactic Acid Calcium 8.2 L Phosphorus Magnesium AST 72 H Troponin T Total Protein 5.0 L Albumin 2.7 L Triglycerides HDL Cholesterol Salicylates 06/26/17 06/26/17 06/26/17 07:56 09:03 10:03 WBC RBC Hgb Hct MCV MCHC RDW Lymph % (Auto) Travis % (Auto) Lymph # Travis # Seg Neutrophils % Seg Neuts % (Manual) Lymphocytes % (Manual) Monocytes % (Manual) Seg Neutrophils # Seg Neutrophils # Man Monocytes # (Manual) POC ABG pH POC ABG pCO2 POC ABG pO2 VBG pH Sodium Potassium Chloride Carbon Dioxide BUN Creatinine Glucose POC Glucose 147 H 206 H 212 H Lactic Acid Calcium Phosphorus Magnesium AST Troponin T Total Protein Albumin Triglycerides HDL Cholesterol Salicylates 06/26/17 06/26/17 06/26/17 11:09 12:16 13:23 WBC RBC Hgb Hct MCV MCHC RDW Lymph % (Auto) Travis % (Auto) Lymph # Travis # Seg Neutrophils % Seg Neuts % (Manual) Lymphocytes % (Manual) Monocytes % (Manual) Seg Neutrophils # Seg Neutrophils # Man Monocytes # (Manual) POC ABG pH POC ABG pCO2 POC ABG pO2 VBG pH Sodium Potassium Chloride Carbon Dioxide BUN Creatinine Glucose POC Glucose 202 H 126 H 130 H Lactic Acid Calcium Phosphorus Magnesium AST Troponin T Total Protein Albumin Triglycerides HDL Cholesterol Salicylates 06/26/17 06/26/17 06/26/17 14:22 17:13 23:30 WBC RBC Hgb Hct MCV MCHC RDW Lymph % (Auto) Travis % (Auto) Lymph # Travis # Seg Neutrophils % Seg Neuts % (Manual) Lymphocytes % (Manual) Monocytes % (Manual) Seg Neutrophils # Seg Neutrophils # Man Monocytes # (Manual) POC ABG pH POC ABG pCO2 POC ABG pO2 VBG pH Sodium Potassium Chloride Carbon Dioxide BUN Creatinine Glucose POC Glucose 168 H 122 H < 40 L Lactic Acid Calcium Phosphorus Magnesium AST Troponin T Total Protein Albumin Triglycerides HDL Cholesterol Salicylates 06/27/17 06/27/17 06/27/17 00:15 07:53 07:53 WBC RBC Hgb Hct MCV MCHC RDW Lymph % (Auto) Travis % (Auto) 10.3 H Lymph # Travis # Seg Neutrophils % Seg Neuts % (Manual) Lymphocytes % (Manual) Monocytes % (Manual) Seg Neutrophils # Seg Neutrophils # Man Monocytes # (Manual) POC ABG pH POC ABG pCO2 POC ABG pO2 VBG pH Sodium 152 H Potassium 3.0 L Chloride 114.3 H Carbon Dioxide BUN Creatinine Glucose 107 H POC Glucose Lactic Acid Calcium 8.3 L Phosphorus Magnesium AST Troponin T Total Protein Albumin Triglycerides HDL Cholesterol Salicylates 06/27/17 06/27/17 06/27/17 11:43 12:22 17:01 WBC RBC Hgb Hct MCV MCHC RDW Lymph % (Auto) Travis % (Auto) Lymph # Travis # Seg Neutrophils % Seg Neuts % (Manual) Lymphocytes % (Manual) Monocytes % (Manual) Seg Neutrophils # Seg Neutrophils # Man Monocytes # (Manual) POC ABG pH POC ABG pCO2 POC ABG pO2 VBG pH Sodium Potassium 5.4 H D Chloride 110.3 H Carbon Dioxide 19 L BUN Creatinine Glucose 297 H POC Glucose 305 H 356 H Lactic Acid Calcium 7.8 L Phosphorus Magnesium AST Troponin T Total Protein Albumin Triglycerides HDL Cholesterol Salicylates 06/27/17 06/28/17 06/28/17 22:05 09:30 16:39 WBC RBC Hgb Hct MCV MCHC RDW Lymph % (Auto) Travis % (Auto) Lymph # Travis # Seg Neutrophils % Seg Neuts % (Manual) Lymphocytes % (Manual) Monocytes % (Manual) Seg Neutrophils # Seg Neutrophils # Man Monocytes # (Manual) POC ABG pH POC ABG pCO2 POC ABG pO2 VBG pH Sodium 147 H Potassium 3.2 L D Chloride 111.1 H Carbon Dioxide BUN Creatinine Glucose 51 L POC Glucose 304 H 320 H Lactic Acid Calcium 8.3 L Phosphorus Magnesium AST Troponin T Total Protein Albumin Triglycerides HDL Cholesterol Salicylates 06/28/17 06/29/17 06/29/17 22:01 06:06 12:12 WBC RBC Hgb Hct MCV MCHC RDW Lymph % (Auto) Travis % (Auto) Lymph # Travis # Seg Neutrophils % Seg Neuts % (Manual) Lymphocytes % (Manual) Monocytes % (Manual) Seg Neutrophils # Seg Neutrophils # Man Monocytes # (Manual) POC ABG pH POC ABG pCO2 POC ABG pO2 VBG pH Sodium Potassium 3.5 L Chloride 110.8 H Carbon Dioxide BUN Creatinine Glucose POC Glucose 400 H 245 H Lactic Acid Calcium 7.8 L Phosphorus Magnesium AST Troponin T Total Protein Albumin Triglycerides HDL Cholesterol Salicylates 06/29/17 17:08 WBC RBC Hgb Hct MCV MCHC RDW Lymph % (Auto) Travis % (Auto) Lymph # Travis # Seg Neutrophils % Seg Neuts % (Manual) Lymphocytes % (Manual) Monocytes % (Manual) Seg Neutrophils # Seg Neutrophils # Man Monocytes # (Manual) POC ABG pH POC ABG pCO2 POC ABG pO2 VBG pH Sodium Potassium Chloride Carbon Dioxide BUN Creatinine Glucose POC Glucose 346 H Lactic Acid Calcium Phosphorus Magnesium AST Troponin T Total Protein Albumin Triglycerides HDL Cholesterol Salicylates Allied health notes reviewed: nursing
== END 2017-06-29 17:37 | disposition home or self-care (01) | DRG 871 ==
LOC: ED 02:13 → CC1 05:04 → 2B-ACE 06-26 18:42
PROVIDERS: ADMIT Internal Medicine Geriatric Medicine; ATTEND Internal Medicine
PROC: 4A033R1 Measurement of Arterial Saturation, Peripheral, Percutaneous Approach (ICD-10-PCS; principal; 2017-06-25)
PROC: 02HV33Z Insertion of Infusion Device into Superior Vena Cava, Percutaneous Approach (ICD-10-PCS; 2017-06-25)
DX: A41.9 Sepsis, unspecified organism (principal); I21.4 Non-ST elevation (NSTEMI) myocardial infarction; G93.41 Metabolic encephalopathy; E11.10 Type 2 diabetes mellitus with ketoacidosis without coma; N17.0 Acute kidney failure with tubular necrosis; R57.1 Hypovolemic shock; E87.0 Hyperosmolality and hypernatremia; E46 Unspecified protein-calorie malnutrition; Z68.1 Body mass index [BMI] 19.9 or less, adult; T68.XXXA Hypothermia, initial encounter; E87.5 Hyperkalemia; J20.9 Acute bronchitis, unspecified; E78.5 Hyperlipidemia, unspecified; Z79.4 Long term (current) use of insulin
CPT/HCPCS: 36415; 36600; 70450; 71010; 80048; 80053; 80061; 80320; 81001; 82140; 82803; 82805; 82947; 82962; 83735; 84100; 84439; 84443; 84484; 85007; 85025; 85610; 85730; 86850; 86900; 86901; 87040; 87045; 87076; 87086; 87186; 87400; 93005; 93010; 94640; 94760; 99291; C9113; G0480; G8978-GP; G8979-GP; G8987-GO; G8988-GO; G8996-GN; G8997-GN; J0696; J1644; J1815; J1818; J2270; J2543; J3370; J3480; J7030; J7050

== ENCOUNTER 2021-10-26 10:50 | Inpatient (IN) | payer MEDICARE ==
[2021-10-26] MEDS ORDERED: SODIUM CHLORIDE 0.9% 1000 ML 1,000 ML IV ONE ×2 (10:56→12:32)
--- NOTE | 2021-10-26 11:01 | Emergency Department Report ---
ED General Adult HPI - General Chief complaint: Weakness Stated complaint: RESP DISTRESS Time Seen by Provider: 10/26/21 10:55 Source: patient, family, EMS (Verbal report received from emergency medical services. EMS documentation not available at time of chart dictation ), RN notes reviewed, old records reviewed Mode of arrival: Stretcher Limitations: Physical Limitation - History of Present Illness Initial comments: This is an elderly 80-year-old gentleman, with a history of diabetes, hyperosmolar state, dehydration, presenting to the hospital with EMS, with an EMS articulated complaint of hyperglycemia, shortness of breath and weakness. Patient denies physical pain. He reports that he is short of breath and he is weak. He endorses urinary frequency. He reports that he is having shortness of breath and that he has received his COVID-19 vaccination series. He denies loss of taste and smell. -: Gradual Consistency: constant Improves with: none Worsens with: none - Related Data Previous Rx's Medication Instructions Recorded Last Taken Type HYDROcodone/APAP 5-325 [[place] 1 each PO Q6H PRN #10 tablet 06/17/18 Unknown Rx 5-325 mg TAB] Insulin Aspart (Nf) [NovoLOG 6 unit SQ TIDDIAB 30 Days #3 06/17/18 Unknown Rx Flexpen] insuln.pen Insulin Glargine,Hum.rec.anlog 20 unit SQ QHS #3 insuln.pen 06/17/18 Unknown Rx [Lantus Solostar] metFORMIN [Glucophage] 500 mg PO BID #60 tablet 06/17/18 Unknown Rx Allergies Allergy/AdvReac Type Severity Reaction Status Date / Time No Known Allergies Allergy Verified 06/19/17 16:27 ED Review of Systems ROS: Stated complaint: RESP DISTRESS Other details as noted in HPI Constitutional: malaise, weakness Respiratory: shortness of breath Cardiovascular: denies: chest pain Gastrointestinal: denies: abdominal pain Genitourinary: frequency Neurological: weakness ED Past Medical Hx - Past Medical History Hx Congestive Heart Failure: No Hx Diabetes: Yes Hx Deep Vein Thrombosis: No Hx Asthma: No Hx COPD: No - Surgical History Hx Pacemaker: No Hx Internal Defibrillator: No Additional Surgical History: hernia repair - Social History Smoking Status: Former Smoker Substance Use Type: None - Medications Home Medications: Home Medications Medication Instructions Recorded Confirmed Last Taken Type HYDROcodone/APAP 5-325 [[place] 1 each PO Q6H PRN #10 tablet 06/17/18 Unknown Rx 5-325 mg TAB] Insulin Aspart (Nf) [NovoLOG 6 unit SQ TIDDIAB 30 Days #3 06/17/18 Unknown Rx Flexpen] insuln.pen Insulin Glargine,Hum.rec.anlog 20 unit SQ QHS #3 insuln.pen 06/17/18 Unknown Rx [Lantus Solostar] metFORMIN [Glucophage] 500 mg PO BID #60 tablet 06/17/18 Unknown Rx ED Physical Exam - General Limitations: Physical Limitation General appearance: alert, anxious, in distress - Head Head exam: Present: atraumatic, normocephalic - Eye Eye exam: Present: normal appearance, EOMI. Absent: nystagmus - ENT ENT exam: Present: normal exam, mucous membranes dry, normal external ear exam - Neck Neck exam: Present: normal inspection, full ROM. Absent: tenderness, meningismu s - Respiratory Respiratory exam: Present: accessory muscle use. Absent: rales, rhonchi, stridor - Cardiovascular Cardiovascular Exam: Present: normal rhythm, tachycardia, normal heart sounds. Absent: bradycardia, irregular rhythm, systolic murmur, diastolic murmur, rubs, gallop - GI/Abdominal GI/Abdominal exam: Present: soft. Absent: distended, tenderness, guarding, rebound, rigid, pulsatile mass - Rectal Rectal exam: Present: deferred - Extremities Exam Extremities exam: Present: normal inspection, full ROM, other (2+ pulses noted in the bilateral upper and lower extremities. There is no palpable cord. negative Homans sign. Muscular compartments are soft. The pelvis is stable.). Absent: pedal edema, calf tenderness - Back Exam Back exam: Present: normal inspection. Absent: tenderness, CVA tenderness (R), CVA tenderness (L), paraspinal tenderness, vertebral tenderness - Neurological Exam Neurological exam: Present: alert, other (No facial droop. Tongue midline. Extraocular movements intact bilaterally. Facial sensation intact to light touch in V1, V2, V3 distribution bilaterally. 5 and a 5 strength in 4 extremities. Sensation intact to light touch in 4 extremities.) - Psychiatric Psychiatric exam: Present: flat affect - Skin Skin exam: Present: warm, dry, intact, normal color. Absent: rash ED Course Vital Signs 10/26/21 10/26/2122 10:51 10:54 11:02 Temperature 97.4 F L 94.5 F L Pulse Rate 118 H 119 H Respiratory 22 16 Rate Blood Pressure 126/66 102/32 O2 Sat by Pulse 96 100 100 Oximetry 10/26/21 11:34 Temperature Pulse Rate Respiratory Rate Blood Pressure O2 Sat by Pulse 100 Oximetry - Reevaluation(s) Reevaluation #1: 10/26/21 11:44 Differential diagnosis, including but not limited to: Diabetic ketoacidosis hyperosmolar state, pneumonia, UTI, dehydration, sepsis Assessment and plan: 80-year-old gentleman with tachypnea, hyperglycemia, tachycardia, hypothermia and weakness, ruling in for systemic inflammatory response syndrome, and probable metabolic crisis. Place patient on personnel monitor, start IV fluids and empiric antibiotics. Patient is awake, alert, oriented and not encephalopathic. He is in marked respiratory distress but he is protecting his airway at this time. Start high flow high humidity nasal cannula for airway support. Laboratory studies and chest x-ray pending. Anticipate need for placement in the intensive care unit. Reassess once laboratory studies and x-ray have resulted. Reevaluation #2: 10/26/21 11:47 Patient appears markedly improved on high flow high humidity nasal cannula. 10/26/21 12:19 Leukocytosis may be a stress reaction or secondary to sepsis. Antibiotics ordered. Fluids are infusing. Patient found to have acidotic venous pH. This is consistent with suspected diabetic ketoacidosis. Admit to the ICU under the care of hospital physician, Dr. Quinteros. Discussed this with patient and his , who articulated understanding. Awaiting callback from critical care physician to coordinate ICU transfer. 10/26/21 12:33 Lactic acidosis of 9 reviewed and appreciated. Uncertain if type I or type II lactic acidosis, although I suspect that this is a type II lactic acidosis Relative hyperkalemia reviewed and appreciated. This is likely secondary to dehydration and cellular shifts. Fluids and insulin should improve this. Elevated troponin is likely a type II troponin leak. 10/26/21 13:00 Dr Trevizo to follow in consultation ED Medical Decision Making - Lab Data Result diagrams: 10/26/21 11:50 10/26/21 11:50 Vital Signs 10/26/21 10/26/21 10/26/21 10:51 10:54 11:02 Temperature 97.4 F L 94.5 F L Pulse Rate 118 H 119 H Respiratory 22 16 Rate Blood Pressure 126/66 102/32 O2 Sat by Pulse 96 100 100 Oximetry 10/26/21 11:34 Temperature Pulse Rate Respiratory Rate Blood Pressure O2 Sat by Pulse 100 Oximetry Lab Results 10/26/21 10/26/21 10/26/21 Range/Units 10:54 11:50 11:50 WBC 21.7 H (4.5-11.0) K/mm3 RBC 4.17 (3.65-5.03) M/mm3 Hgb 13.1 (11.8-15.2) gm/dl Hct 44.5 (35.5-45.6) % MCV 107 H (84-94) fl MCH 31 (28-32) pg MCHC 30 L (32-34) % RDW 15.5 H (13.2-15.2) % Plt Count 225 (140-440) K/mm3 Lymph % (Auto) Map Mounter [place] % (Auto) Map Mounter Eos % (Auto) Map Mounter Baso % (Auto) Map Mounter Lymph # (Auto) Map Mounter [place] # (Auto) Map Mounter Eos # (Auto) Map Mounter Baso # (Auto) Map Mounter Seg Neutrophils % Map Mounter Seg Neutrophils # Map Mounter PT 17.2 H (12.2-14.9) Sec. INR 1.25 H (0.87-1.13) VBG pH (7.320-7.420) POC Glucose > 600 H (70-105) mg/dL 10/26/21 Range/Units 11:50 WBC (4.5-11.0) K/mm3 RBC (3.65-5.03) M/mm3 Hgb (11.8-15.2) gm/dl Hct (35.5-45.6) % MCV (84-94) fl MCH (28-32) pg MCHC (32-34) % RDW (13.2-15.2) % Plt Count (140-440) K/mm3 Lymph % (Auto) [place] % (Auto) Eos % (Auto) Baso % (Auto) Lymph # (Auto) [place] # (Auto) Eos # (Auto) Baso # (Auto) Seg Neutrophils % Seg Neutrophils # PT (12.2-14.9) Sec. INR (0.87-1.13) VBG pH 6.984 L* (7.320-7.420) POC Glucose (70-105) mg/dL Lab Results 10/26/21 10/26/21 10/26/21 Range/Units 10:54 11:50 11:50 WBC 21.7 H (4.5-11.0) K/mm3 RBC 4.17 (3.65-5.03) M/mm3 Hgb 13.1 (11.8-15.2) gm/dl Hct 44.5 (35.5-45.6) % MCV 107 H (84-94) fl MCH 31 (28-32) pg MCHC 30 L (32-34) % RDW 15.5 H (13.2-15.2) % Plt Count 225 (140-440) K/mm3 Lymph % (Auto) Map Mounter [place] % (Auto) Map Mounter Eos % (Auto) Map Mounter Baso % (Auto) Map Mounter Lymph # (Auto) Map Mounter [place] # (Auto) Map Mounter Eos # (Auto) Map Mounter Baso # (Auto) Map Mounter Seg Neutrophils % Map Mounter Seg Neutrophils # Map Mounter WBC Morphology PT 17.2 H (12.2-14.9) Sec. INR 1.25 H (0.87-1.13) VBG pH (7.320-7.420) Sodium (137-145) mmol/L Chloride (98-107) mmol/L BUN (9-20) mg/dL Creatinine (0.8-1.3) mg/dL Estimated GFR ml/min BUN/Creatinine Ratio % POC Glucose > 600 H (70-105) mg/dL Lactic Acid (0.7-2.0) mmol/L Calcium (8.4-10.2) mg/dL Magnesium (1.7-2.3) mg/dL Total Bilirubin (0.1-1.2) mg/dL Alkaline Phosphatase (35-129) units/L Troponin T (0.00-0.029) ng/mL Total Protein (6.3-8.2) g/dL Albumin (3.9-5) g/dL Albumin/Globulin Ratio % 10/26/21 10/26/21 10/26/21 Range/Units 11:50 11:50 11:50 WBC (4.5-11.0) K/mm3 RBC (3.65-5.03) M/mm3 Hgb (11.8-15.2) gm/dl Hct (35.5-45.6) % MCV (84-94) fl MCH (28-32) pg MCHC (32-34) % RDW (13.2-15.2) % Plt Count (140-440) K/mm3 Lymph % (Auto) [place] % (Auto) Eos % (Auto) Baso % (Auto) Lymph # (Auto) [place] # (Auto) Eos # (Auto) Baso # (Auto) Seg Neutrophils % Seg Neutrophils # WBC Morphology PT (12.2-14.9) Sec. INR (0.87-1.13) VBG pH 6.984 L* (7.320-7.420) Sodium 137 (137-145) mmol/L Chloride 89.5 L (98-107) mmol/L BUN 33 H (9-20) mg/dL Creatinine 2.4 H (0.8-1.3) mg/dL Estimated GFR 32 ml/min BUN/Creatinine Ratio 14 % POC Glucose (70-105) mg/dL Lactic Acid 9.20 H* (0.7-2.0) mmol/L Calcium 10.3 H (8.4-10.2) mg/dL Magnesium 3.00 H (1.7-2.3) mg/dL Total Bilirubin 0.20 (0.1-1.2) mg/dL Alkaline Phosphatase 88 (35-129) units/L Troponin T 0.051 H (0.00-0.029) ng/mL Total Protein 6.6 (6.3-8.2) g/dL Albumin 4.4 (3.9-5) g/dL Albumin/Globulin Ratio 2.0 % 10/26/ Range/Units 11:50 WBC (4.5-11.0) K/mm3 RBC (3.65-5.03) M/mm3 Hgb (11.8-15.2) gm/dl Hct (35.5-45.6) % MCV (84-94) fl MCH (28-32) pg MCHC (32-34) % RDW (13.2-15.2) % Plt Count (140-440) K/mm3 Lymph % (Auto) [place] % (Auto) Eos % (Auto) Baso % (Auto) Lymph # (Auto) [place] # (Auto) Eos # (Auto) Baso # (Auto) Seg Neutrophils % Seg Neutrophils # WBC Morphology TNR PT (12.2-14.9) Sec. INR (0.87-1.13) VBG pH (7.320-7.420) Sodium (137-145) mmol/L Chloride (98-107) mmol/L BUN (9-20) mg/dL Creatinine (0.8-1.3) mg/dL Estimated GFR ml/min BUN/Creatinine Ratio % POC Glucose (70-105) mg/dL Lactic Acid (0.7-2.0) mmol/L Calcium (8.4-10.2) mg/dL Magnesium (1.7-2.3) mg/dL Total Bilirubin (0.1-1.2) mg/dL Alkaline Phosphatase (35-129) units/L Troponin T (0.00-0.029) ng/mL Total Protein (6.3-8.2) g/dL Albumin (3.9-5) g/dL Albumin/Globulin Ratio % - EKG Data -: EKG Interpreted by Hi Rate: tachycardia - EKG Data 10/26/21 11:42 The EKG is interpreted at 11:00 AM. Sinus tachycardia, rate 118 bpm. Left axis deviation, left anterior fascicular block, symmetric peak T waves, and left ventricular hypertrophy. There is motion artifact. This EKG is not consistent with a STEMI. QTc is prolonged at 6 6 2 ms. When compared to prior EKG from 05/2018, appears grossly unchanged, with the exception of motion artifact. - Radiology Data Radiology results: pending Critical Care Time: Yes Critical care time in (mins) excluding proc time.: 35 Critical care attestation.: If time is entered above; I have spent that time in minutes in the direct care of this critically ill patient, excluding procedure time. ED Disposition Clinical Impression: SIRS (systemic inflammatory response syndrome), Dyspnea, Hyperglycemia, Hypothermia, DKA (diabetic ketoacidosis), KARRIE (acute kidney injury) Disposition: 09 ADMITTED INPATIENT Is pt being admited?: Yes Condition: Serious Instructions: Diabetic Ketoacidosis (ED) Referrals: PRIMARY CARE, [Primary Care Provider] - 3-5 Days
[2021-10-26] MEDS ORDERED: SODIUM CHLORIDE 0.9% IV ONE (11:39)
[2021-10-26] MEDS ORDERED: cefTRIAXone/NS 1 GM/50 ML 1 GM/50 ML BAG IV ONE (11:39)
[2021-10-26 12:08] LABS: Mean Corpuscular HGB Conc 30 % (32-34); Mean Corpuscular Volume 107 fl (84-94); Platelet Count 225 K/mm3 (140-440); Red Blood Count 4.17 M/mm3 (3.65-5.03); Red Cell Distribution Width 15.5 % (13.2-15.2)
[2021-10-26 12:12] LABS: INR 1.25 (0.87-1.13)
[2021-10-26 12:13] LABS: Hematocrit 44.5 % (35.5-45.6); Hemoglobin 13.1 gm/dl (11.8-15.2)
[2021-10-26] MEDS ORDERED: INSULIN REGULAR, HUMAN 100 UNITS/1 ML IV ONE (12:16)
[2021-10-26] MEDS ORDERED: DEXTROSE 50% IN WATER (25GM) 50 ML SYRINGE IV PRN (12:16)
--- NOTE | 2021-10-26 12:20 | History and Physical Report ---
History of Present Illness Chief complaint: I do not feel good History of present illness: 80 YO Male with DM, Vascular Dementia, Cerebral Atherosclerosis presents to ED for evaluation. Patient is confused with diminished cognition at time of evaluation and only provides minimal history. Patient reports "I do not feel good". Additional history taken from EMS staff, ED staff, as well as the patient's spouse who was made available by telephone interview. As per patient's spouse the patient has reported increased weakness over the past 2 days with persistent symptoms over the same timeframe. Patient was noted to have increased blood sugar levels. EMS was notified and upon arrival the patient was found to be in distress and subsequently transported to [facility] for further care and evaluation of the aforementioned symptoms. The patient was seen and evaluated in the emergency department. All lab and imaging studies reviewed. The patient was found to have sepsis complicated by toxic metabolic encephalopathy, DKA, metabolic acidosis, volume depletion. No reports of fever, chills, chest pain, palpitation, productive cough, skin rash, recent contact, known exposure to COVID-19. No prior admission for review. All medication listed at time of admission has been reconciled. Advanced care planning conduc luis eduardo in ED. Patient has diminished cognition at the time my evaluation but has a positive gag reflex and is able to protect his airway without difficulty. Past History Past Medical History: diabetes, other (See HPI) Past Surgical History: hernia repair Social history: , lives with family. denies: smoking, alcohol abuse Family history: diabetes, hypertension Medications and Allergies Allergies Allergy/AdvReac Type Severity Reaction Status Date / Time No Known Allergies Allergy Verified 06/19/17 16:27 Home Medications Medication Instructions Recorded Confirmed Last Taken Type HYDROcodone/APAP 5-325 [[place] 1 each PO Q6H PRN #10 tablet 06/17/18 Unknown Rx 5-325 mg TAB] Insulin Aspart (Nf) [NovoLOG 6 unit SQ TIDDIAB 30 Days #3 06/17/18 Unknown Rx Flexpen] insuln.pen Insulin Glargine,Hum.rec.anlog 20 unit SQ QHS #3 insuln.pen 06/17/18 Unknown Rx [Lantus Solostar] metFORMIN [Glucophage] 500 mg PO BID #60 tablet 06/17/18 Unknown Rx Active Meds: Active Medications Dextrose (Dextrose 50% In Water (25gm) 50 Ml Syringe) 0 ml IV Q30MIN PRN; Protocol PRN Reason: Hypoglycemia Sodium Chloride (Nacl 0.9% 1000 Ml) 1,004 mls @ 999 mls/hr IV BOLUS ONE Stop: 10/26/21 12:39 Last Admin: 10/26/21 11:51 Dose: 999 mls/hr Insulin Human Regular 100 (units/ Sodium Chloride) 100 mls @ 1 mls/hr IV TITR ZENY; Protocol Potassium Chloride/Dextrose/Sod Cl (D5w/0.45% Nacl/Kcl 20 Meq) 20 meq in 1,000 mls @ 125 mls/hr IV DIRECT ZENY Review of Systems ROS unobtainable: due to mental status Exam - Constitutional Vitals: Temp Pulse Resp BP Pulse Ox 94.5 F L 119 H 16 102/32 100 10/26/21 10:54 10/26/21 10:54 10/26/21 10:54 10/26/21 10:54 10/26/21 11:34 General appearance: Present: mild distress - EENT Eyes: Present: PERRL ENT: clear oral mucosa, hearing decreased, other (Oral mucosa dry) - Neck Neck: Present: supple, normal ROM - Respiratory Respiratory effort: normal Respiratory: bilateral: CTA - Cardiovascular Rhythm: other (Tachycardia) Heart Sounds: Present: S1 & S2. Absent: rub, click - Extremities Extremities: pulses symmetrical, No edema Peripheral Pulses: abnormal (Capillary refill greater than 3.5 seconds) - Abdominal General gastrointestinal: Present: soft, non-tender, non-distended, normal bowel sounds Male genitourinary: Present: normal - Integumentary Integumentary: Present: clear, warm, dry - Musculoskeletal Musculoskeletal: generalized weakness - Psychiatric Psychiatric: no appropriate mood/affect, no intact judgment & insight - Neurologic Neurologic: CNII-XII intact, no focal deficits, moves all extremities, no gait normal Results - Labs CBC & Chem 7: 10/26/21 11:50 10/26/21 14:25 Labs: Abnormal lab results 10/26/21 10/26/21 10/26/21 Range/Units 10:54 11:50 11:50 WBC 21.7 H (4.5-11.0) K/mm3 MCV 107 H (84-94) fl MCHC 30 L (32-34) % RDW 15.5 H (13.2-15.2) % PT 17.2 H (12.2-14.9) Sec. INR 1.25 H (0.87-1.13) VBG pH (7.320-7.420) POC Glucose > 600 H (70-105) mg/dL 10/26/21 Range/Units 11:50 WBC (4.5-11.0) K/mm3 MCV (84-94) fl MCHC (32-34) % RDW (13.2-15.2) % PT (12.2-14.9) Sec. INR (0.87-1.13) VBG pH 6.984 L* (7.320-7.420) POC Glucose (70-105) mg/dL Assessment and Plan - Patient Problems (1) Sepsis Current Visit: Yes Status: Acute Plan to address problem: Sepsis protocol: Chest x-ray, CBC, BMP, urinalysis, IV fluid resuscitation therapy, IV antibiotic therapy, maintain mean arterial pressure greater than equal 65, serial lactic acid level, monitor fluid balance, blood culture. The high probability of a clinically significant, sudden or life threatening deterioration of the [cardiac, pulmonary, renal, neuro, endocrine] system(s) required my full and direct attention, intervention and personal management. The aggregate critical care time was [95] minutes. This time is in addition to time spent performing reported procedures but includes the following: [x] Data Review and interpretation [x] Patient assessment and monitoring of vital signs [x] Documentation [x] Medication orders and management (2) DKA (diabetic ketoacidosis) Current Visit: Yes Status: Acute Qualifiers: Diabetes mellitus type: type 1 Plan to address problem: DKA protocol: IV fluid resuscitation therapy, insulin drip, monitor fluid balance, serial BMP, monitor anion gap (3) Toxic metabolic encephalopathy Current Visit: Yes Status: Acute Plan to address problem: Treat sepsis, IV fluid resuscitation therapy, supportive care, neuro check. (4) Volume depletion Current Visit: Yes Status: Acute Plan to address problem: IV fluid resuscitation therapy, BMP, repeat BMP in a.m. (5) Vascular dementia Current Visit: Yes Status: Acute Qualifiers: Dementia behavioral disturbance: without behavioral disturbance Qualified Code(s): F01.50 - Vascular dementia without behavioral disturbance Plan to address problem: Verbal prompting, verbal redirection, benzodiazepine therapy as clinically indicated. (6) Cerebral atherosclerosis Current Visit: Yes Status: Acute Plan to address problem: Risk factor reduction, antiplatelet therapy as clinically indicated. (7) DVT prophylaxis Current Visit: Yes Status: Acute Plan to address problem: SCD to bilateral lower extremities while in bed (8) Advance care planning Current Visit: Yes Status: Acute Plan to address problem: Disease education conducted, care plan discussed, diagnoses discussed, prognosis discussed, patient is full code, +30 minutes.
[2021-10-26] MEDS ORDERED: oxyCODONE /ACETAMINOPHEN 5-325MG TAB PO PRN (12:21)
[2021-10-26] MEDS ORDERED: HYDROmorphone 1 MG/1 ML INJ IV PRN ×2 (12:21)
[2021-10-26] MEDS ORDERED: ACETAMINOPHEN 325 MG TAB PO PRN ×2 (12:21)
[2021-10-26] MEDS ORDERED: SODIUM CHLORIDE 0.9% 1000 ML IV SOLN IV ONE (12:21)
[2021-10-26] MEDS ORDERED: LORazepam 2 MG/ML VIAL IV PRN (12:21)
[2021-10-26 12:28] LABS: Albumin 4.4 g/dL (3.9-5); Calcium 10.3 mg/dL (8.4-10.2)
[2021-10-26] MEDS ORDERED: SODIUM BICARB 8.4% 50 MEQ/50 ML SYRINGE IV ONE (12:34)
[2021-10-26 12:51] LABS: Bilirubin,Urine NEG (Negative); Blood,Urine SM (Negative); Color,Urine Straw (Yellow); Urobilinogen,Urine < 2.0 mg/dL (<2.0)
[2021-10-26 12:59] LABS: Chol/HDL Ratio 3.61 %
[2021-10-26] MEDS ORDERED: D5W/0.45% NACL/KCL 20 MEQ 20 MEQ/1,000 ML BAG IV SCH (13:00)
--- NOTE | 2021-10-26 13:04 | XRay Report ---
CHEST 1 VIEW 10/26/2021 10:44 AM INDICATION / CLINICAL INFORMATION: Weakness. COMPARISON: 06/17/2018 FINDINGS: SUPPORT DEVICES: None. HEART / MEDIASTINUM: No significant abnormality. LUNGS / PLEURA: The lungs are hyperexpanded without focal airspace disease. No pneumothorax. ADDITIONAL FINDINGS: No significant additional findings. IMPRESSION: 1. No acute findings. Signer Name: Gautam Melgar MD Signed: 10/26/2021 1:00 PM Workstation Name: [id number]
[2021-10-26 13:16] LABS: Total Cells Counted 100
[2021-10-26 13:17] LABS: Basophils % (Manual) 0 % (0.0-1.8); Burr Cells Few
[2021-10-26 13:18] LABS: Platelet Estimate Consistent w Auto
[2021-10-26] MEDS: INSULIN REGULAR, HUMAN 100 UNITS in SODIUM CHLORIDE 0.9% 99 ML IV SCH ×2 (13:31→21:43)
[2021-10-26 15:04] LABS: Calcium 8.1 mg/dL (8.4-10.2)
[2021-10-26] MEDS ORDERED: SODIUM CHLORIDE 0.9% 1000 ML 1,000 ML IV SCH (15:30)
--- NOTE | 2021-10-26 16:00 | Procedure Note ---
Date of procedure: 10/26/21 Pre-op diagnosis: DKA, sepsis Post-op diagnosis: same Procedure: Right femoral vein triple-lumen catheter placement under ultrasound guidance The patient was prepped and draped in the usual sterile fashion. A timeout was taken with the patient's nurse at bedside to verify the correct patient, the correct procedure, and correct operative site. Local anesthesia was obtained with 1% lidocaine. The Seldinger technique was utilized to access the right fe moral vein under ultrasound guidance without difficulty. A seeker needle was utilized to access the right femoral vein under ultrasound guidance without difficulty. A guidewire was passed into the right femoral vein via the seeker needle and the seeker needle subsequently removed. A scalpel was used to incise the skin. A dilator was then passed over the guidewire into the right femoral vein and subsequently removed. A preflush triple-lumen catheter was then advanced into the right femoral vein and the guidewire subsequently removed. All 3 ports flush and drawl with ease. A Biopatch was placed at the insertion site. The triple-lumen catheter was secured in place with an adhesive dressing. Estimated blood loss minimal. Complications none. Anesthesia: local Surgeon: SLAVA DANIELSON Estimated blood loss: minimal Pathology: none Condition: critical Disposition: ICU
[2021-10-26] MEDS ORDERED: LACTATED RINGERS 2,000 ML IV ONE (17:20)
[2021-10-26 18:21] LABS: Calcium 8.8 mg/dL (8.4-10.2)
[2021-10-26 20:02] LABS: Calcium 8.7 mg/dL (8.4-10.2)
[2021-10-26 21:08] LABS: Calcium 8.8 mg/dL (8.4-10.2)
[2021-10-26] MEDS ORDERED: ONDANSETRON 4 MG ODT TAB PO PRN (22:33)
[2021-10-26] MEDS: ONDANSETRON 4 MG/2 ML INJ IV PRN (23:42)
[2021-10-26] MEDS ORDERED: D5W/0.45% NACL 1,000 ML IV SCH ×2 (23:45)
[2021-10-27 04:54] LABS: Hematocrit 35.5 % (35.5-45.6); Hemoglobin 12.1 gm/dl (11.8-15.2); Mean Corpuscular HGB Conc 34 % (32-34); Mean Corpuscular Volume 92 fl (84-94); Platelet Count 137 K/mm3 (140-440); Red Blood Count 3.85 M/mm3 (3.65-5.03); Red Cell Distribution Width 14.3 % (13.2-15.2)
[2021-10-27 05:09] LABS: Calcium 8.6 mg/dL (8.4-10.2)
[2021-10-27] MEDS: INSULIN LISPRO 100 UNIT/ML SUB-Q SCH ×4 (08:41→22:12)
[2021-10-27] MEDS: GENTAMICIN 0.3% OPHTH SOLN 5 ML OD SCH ×4 (09:19→22:14)
[2021-10-27] MEDS ORDERED: POTASSIUM PHOSPHATE 30 MMOL in SODIUM CHLORIDE 0.9% 500 ML 500 ML IV ONE (09:30)
[2021-10-27] MEDS: CYCLOPENTOLATE 1% OD SCH ×4 (09:38→22:14)
[2021-10-27] MEDS ORDERED: prednisoLONE ACETATE 1% OPHTH SUSP 5 ML OD SCH (10:00)
[2021-10-27] MEDS: ONDANSETRON 4 MG/2 ML INJ IV PRN (11:43)
--- NOTE | 2021-10-27 12:04 | Progress Note ---
Assessment and Plan Assessment and plan: This is a 80-year-old male with known past medical history of DM, vascular Dementia, and cerebral vascular dementia admitted for DKA Hospital Course to Date: 10/27: Transitioned to subQ insulin this am. Now hypoglycemic treated per hypoglycemic protocol. Continue BG and SSI ACHS, basal insulin Qhs. Leukocytosis resolved, patient remains afebrile and lactic acidosis resolved. Procal and blood cultures are pending, consider D/C Empiric IV Abx if procal is normal and B.cultures are with no growth. Renal function improved post IVF hydration, continue to monitor renal function and replaced electrolytes as needed. Case management also consulted for home assistance, per patient it is very difficult to give himself his insulin because he recently had eyes surgery and he is cur rently blind. Assessment and Plan #Uncontrolled Diabetes #s/p DKA (diabetic ketoacidosis) #Anion Gap Metabolic Acidosis-resolved - Presented with severe metabolic acidosis 2/2 DKA - s/p DKA protocol - HgbA1C- 14.9 - Transitioned this am, now hypoglycemia - Tolerating PO intake this am, consistent carbs diet - Continue BG and SSI ACHS - Basal, Lantus, Qhs - Avoid hypoglycemia - Hypoglycemic protocol #Leukocytosis-resolved #Lactic Acidosis-resolved #R/o Sepsis - most like due to DKA, volume depletion - Presented with severe acidosis, high lactic and leukocytosis - Sepsis protocol was initiated - Leukocytosis and lactic acidosis resolved this am, afebrile, VSS - UA is unremarkable for infectious process. Procal and Blood cultures pending - On Empiric IV Abx- Levaquin - Continue to F/U on cultures data - Consider D/C Empiric IV Abx if procal is normal and B.cultures are with no growth - ID consult if febrile or leukocytosis reoccur #Acute Kidney Injury(KARRIE) most likely Vasomotor Nephropathy 2/2 #Volume depletion/Dehydration - Due to DKA- s/p DKA protocol - Renal function improved post IVF resuscitation therapy - Continue to monitor renal function - Strict intake and output - Avoid nephrotoxic medications; Renally dose medications - Monitor and replace electrolytes as needed - Trend BMP #Toxic Metabolic Encephalopathy-resolved #H/o Vascular Dementia - Most likely due to severe acidosis/DKA - Avoid benzodiazepine to reduce the possibility of delirium - Prn analgesia for pain management - Verbal prompting and redirection - Maintenance of sleep-wake cycle #GI/DVT Prophylaxis - PPI- Pepcid - Lovenox SubQ - SCD to bilateral lower extremities while in bed #Advance Care Planning - Disease education conducted, care plan discussed, diagnoses discussed, prognosis discussed. 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 The high probability of a clinically significant, sudden or life threatening deterioration of the [multiple] system(s) required my full and direct attention, intervention and personal management. The aggregate critical care time was [60] minutes. This time is in addition to time spent performing reported procedures but includes the following: [x] Data Review and interpretation [x] Patient assessment and monitoring of vital signs [x] Documentation [x] Medication orders and management Disposition Plan: ICU Total Time Spent with Patient (Minutes): 60 History Interval history: Patient seen and examined at the bedside. Fully AAO, on RA, denied any pain nor any discomfort. Transitioned to subQ insulin this am. Hypoglycemic this am treated per Hypoglycemic protocol, VSS Hospitalist Physical - Constitutional Vitals: Temp Pulse Resp BP Pulse Ox 99.7 F H 96 H 17 111/64 100 10/27/21 11:37 10/27/21 11:10 10/27/21 11:10 10/27/21 11:10 10/27/21 11:10 General appearance: Present: no acute distress, cachectic - EENT Eyes: Present: PERRL (Current blind, s/o eyes surgery) ENT: hearing intact - Neck Neck: Present: normal ROM - Respiratory Respiratory effort: normal Respiratory: bilateral: diminished - Cardiovascular Rhythm: regular Heart Sounds: Present: S1 & S2 - Extremities Extremities: no ischemia, pulses intact, pulses symmetrical Peripheral Pulses: within normal limits - Abdominal General gastrointestinal: soft, non-distended, normal bowel sounds - Integumentary Integumentary: Present: warm, dry - Psychiatric Psychiatric: appropriate mood/affect, cooperative - Neurologic Neurologic: CNII-XII intact, moves all extremities - Allied Health Allied health notes reviewed: nursing HEART Score - HEART Score Troponin: Troponin T 0.055 ng/mL (0.00-0.029) H 10/26/21 Unknown Results - Labs CBC & Chem 7: 10/27/21 04:20 10/27/21 13:18 Labs: Laboratory Last Values WBC 10.5 K/mm3 (4.5-11.0) 10/27/21 04:20 RBC 3.85 M/mm3 (3.65-5.03) 10/27/21 04:20 Hgb 12.1 gm/dl (11.8-15.2) 10/27/21 04:20 Hct 35.5 % (35.5-45.6) D 10/27/21 04:20 MCV 92 fl (84-94) 10/27/21 04:20 MCH 31 pg (28-32) 10/27/21 04:20 MCHC 34 % (32-34) 10/27/21 04:20 RDW 14.3 % (13.2-15.2) 10/27/21 04:20 Plt Count 137 K/mm3 (140-440) L 10/27/21 04:20 Lymph % (Auto) Mortgage Processing Clerk 10/26/21 11:50 [place] % (Auto) Mortgage Processing Clerk 10/26/21 11:50 Eos % (Auto) Mortgage Processing Clerk 10/26/21 11:50 Baso % (Auto) Mortgage Processing Clerk 10/26/21 11:50 Lymph # (Auto) Mortgage Processing Clerk 10/26/21 11:50 [place] # (Auto) Mortgage Processing Clerk 10/26/21 11:50 Eos # (Auto) Mortgage Processing Clerk 10/26/21 11:50 Baso # (Auto) Mortgage Processing Clerk 10/26/21 11:50 Add Manual Diff Complete 10/26/21 11:50 Total Counted 100 10/26/21 11:50 Seg Neutrophils % Mortgage Processing Clerk 10/26/21 11:50 Seg Neuts % (Manual) 94.0 % (40.0-70.0) H 10/26/21 11:50 Band Neutrophils % 0 % 10/26/21 11:50 Lymphocytes % (Manual) 2.0 % (13.4-35.0) L 10/26/21 11:50 Reactive Lymphs % (Man) 0 % 10/26/21 11:50 Monocytes % (Manual) 2.0 % (0.0-7.3) 10/26/21 11:50 Eosinophils % (Manual) 1.0 % (0.0-4.3) 10/26/21 11:50 Basophils % (Manual) 0 % (0.0-1.8) 10/26/21 11:50 Metamyelocytes % 1.0 % 10/26/21 11:50 Myelocytes % 0 % 10/26/21 11:50 Promyelocytes % 0 % 10/26/21 11:50 Blast Cells % 0 % 10/26/21 11:50 Nucleated RBC % Not Reportable 10/26/21 11:50 Seg Neutrophils # Mortgage Processing Clerk 10/26/21 11:50 Seg Neutrophils # Man 20.4 K/mm3 (1.8-7.7) H 10/26/21 11:50 Band Neutrophils # 0.0 K/mm3 10/26/21 11:50 Lymphocytes # (Manual) 0.4 K/mm3 (1.2-5.4) L 10/26/21 11:50 Abs React Lymphs (Man) 0.0 K/mm3 10/26/21 11:50 Monocytes # (Manual) 0.4 K/mm3 (0.0-0.8) 10/26/21 11:50 Eosinophils # (Manual) 0.2 K/mm3 (0.0-0.4) 10/26/21 11:50 Basophils # (Manual) 0.0 K/mm3 (0.0-0.1) 10/26/21 11:50 Metamyelocytes # 0.2 K/mm3 10/26/21 11:50 Myelocytes # 0.0 K/mm3 10/26/21 11:50 Promyelocytes # 0.0 K/mm3 10/26/21 11:50 Blast Cells # 0.0 K/mm3 10/26/21 11:50 WBC Morphology Not Reportable 10/26/21 11:50 WBC Morphology TNR 10/26/21 11:50 Hypersegmented Neuts Not Reportable 10/26/21 11:50 Hyposegmented Neuts Not Reportable 10/26/21 11:50 Hypogranular Neuts Not Reportable 10/26/21 11:50 Smudge Cells Not Reportable 10/26/21 11:50 Toxic Granulation Not Reportable 10/26/21 11:50 Toxic Vacuolation Not Reportable 10/26/21 11:50 Dohle Bodies Not Reportable 10/26/21 11:50 Pelger-Huet Anomaly Not Reportable 10/26/21 11:50 Carmen Rods Not Reportable 10/26/21 11:50 Platelet Estimate Consistent w auto 10/26/21 11:50 Clumped Platelets Not Reportable 10/26/21 11:50 Plt Clumps, EDTA Not Reportable 10/26/21 11:50 Large Platelets Not Reportable 10/26/21 11:50 Giant Platelets Not Reportable 10/26/21 11:50 Platelet Satelliting Not Reportable 10/26/21 11:50 Plt Morphology Comment Not Reportable 10/26/21 11:50 RBC Morphology Not Reportable 10/26/21 11:50 Dimorphic RBCs Not Reportable 10/26/21 11:50 Polychromasia Not Reportable 10/26/21 11:50 Hypochromasia Not Reportable 10/26/21 11:50 Poikilocytosis Not Reportable 10/26/21 11:50 Anisocytosis Not Reportable 10/26/21 11:50 Microcytosis Not Reportable 10/26/21 11:50 Macrocytosis Not Reportable 10/26/21 11:50 Spherocytes Not Reportable 10/26/21 11:50 Pappenheimer Bodies Not Reportable 10/26/21 11:50 Sickle Cells Not Reportable 10/26/21 11:50 Target Cells Not Reportable 10/26/21 11:50 Tear Drop Cells Not Reportable 10/26/21 11:50 Ovalocytes Not Reportable 10/26/21 11:50 Helmet Cells Not Reportable 10/26/21 11:50 [place] Bodies Not Reportable 10/26/21 11:50 [place] Rings Not Reportable 10/26/21 11:50 [place] Cells Few 10/26/21 11:50 Bite Cells Not Reportable 10/26/21 11:50 Crenated Cell Not Reportable 10/26/21 11:50 Elliptocytes Not Reportable 10/26/21 11:50 Acanthocytes (Spur) Not Reportable 10/26/21 11:50 Rouleaux Not Reportable 10/26/21 11:50 Hemoglobin C Crystals Not Reportable 10/26/21 11:50 Schistocytes Not Reportable 10/26/21 11:50 Malaria parasites Not Reportable 10/26/21 11:50 [place]es Bodies Not Reportable 10/26/21 11:50 Hem Pathologist Commnt No 10/26/21 11:50 PT 17.2 Sec. (12.2-14.9) H 10/26/21 11:50 INR 1.25 (0.87-1.13) H 10/26/21 11:50 VBG pH 6.984 (7.320-7.420) L* 10/26/21 11:50 Sodium 151 mmol/L (137-145) H 10/27/21 04:20 Potassium 4.0 mmol/L (3.6-5.0) 10/27/21 04:20 Chloride 116.6 mmol/L (98-107) H 10/27/21 04:20 Carbon Dioxide 24 mmol/L (22-30) D 10/27/21 04:20 Anion Gap 14 mmol/L 10/27/21 04:20 BUN 26 mg/dL (9-20) H 10/27/21 04:20 Creatinine 1.4 mg/dL (0.8-1.3) H 10/27/21 04:20 Estimated GFR 59 ml/min 10/27/21 04:20 BUN/Creatinine Ratio 19 % 10/27/21 04:20 Glucose 87 mg/dL (75-100) 10/27/21 04:20 POC Glucose 117 mg/dL (70-105) H 10/27/21 04:28 Hemoglobin A1c 14.9 % (4-6) H 10/27/21 04:20 Lactic Acid 1.30 mmol/L (0.7-2.0) 10/27/21 04:20 Calcium 8.6 mg/dL (8.4-10.2) 10/27/21 04:20 Phosphorus 1.30 mg/dL (2.5-4.5) L D 10/27/21 04:20 Magnesium 2.00 mg/dL (1.7-2.3) 10/27/21 04:20 Total Bilirubin 0.20 mg/dL (0.1-1.2) 10/26/21 11:50 AST 29 units/L (5-40) 10/26/21 11:50 ALT 19 units/L (7-56) 10/26/21 11:50 Alkaline Phosphatase 88 units/L (35-129) 10/26/21 11:50 Total Creatine Kinase 141 units/L (55-170) 10/26/21 11:50 Troponin T 0.055 ng/mL (0.00-0.029) H 10/26/21 Unknown Total Protein 6.6 g/dL (6.3-8.2) 10/26/21 11:50 Albumin 4.4 g/dL (3.9-5) 10/26/21 11:50 Albumin/Globulin Ratio 2.0 % 10/26/21 11:50 Triglycerides 204 mg/dL (2-149) H 10/26/21 11:50 Cholesterol 278 mg/dL (50-199) H 10/26/21 11:50 LDL Cholesterol Direct 190 mg/dL (50-130) H 10/26/21 11:50 HDL Cholesterol 77 mg/dL (40-59) H 10/26/21 11:50 Cholesterol/HDL Ratio 3.61 % 10/26/21 11:50 TSH 4.730 mlU/mL (0.270-4.200) H 10/26/21 11:50 Urine Color Straw (Yellow) 10/26/21 11:57 Urine Turbidity Clear (Clear) 10/26/21 11:57 Urine pH 5.0 (5.0-7.0) 10/26/21 11:57 Ur Specific [place] 1.020 (1.003-1.030) 10/26/21 11:57 Urine Protein 30 mg/dl mg/dL (Negative) 10/26/21 11:57 Urine Glucose (UA) >=500 mg/dL (Negative) 10/26/21 11:57 Urine Ketones 80 mg/dL (Negative) 10/26/21 11:57 Urine Blood Sm (Negative) 10/26/21 11:57 Urine Nitrite Neg (Negative) 10/26/21 11:57 Urine Bilirubin Neg (Negative) 10/26/21 11:57 Urine Urobilinogen < 2.0 mg/dL (<2.0) 10/26/21 11:57 Ur Leukocyte Esterase Neg (Negative) 10/26/21 11:57 Urine WBC (Auto) 0.0 /HPF (0.0-6.0) 10/26/21 11:57 Urine RBC (Auto) 0.0 /HPF (0.0-6.0) 10/26/21 11:57 Blood Type O NEGATIVE 10/26/21 14:25 Antibody Screen Negative 10/26/21 14:25 Microbiology: Microbiology 10/26/21 11:50 Peripheral/Venous Blood Culture - Preliminary Culture in Progress 10/26/21 11:50 Peripheral/Venous Blood Culture - Preliminary Culture in Progress Manuel/IV: Voiding Method Indwelling Catheter Active Medications - Current Medications Current Medications: Generic Name Dose Route Start Last Admin Trade Name Freq PRN Reason Stop Dose Admin Acetaminophen 650 mg 10/26/21 12:21 Acetaminophen 325 Mg Tab PO Q6H PRN Pain, Mild (1-3) Cyclopentolate HCl 1 drops 10/27/21 10:00 10/27/21 09:38 Cyclopentolate 1% Ophth Soln 2 Ml OD 1 drops 4XD ZENY Administration Dextrose 0 ml 10/26/21 12:16 10/27/21 06:35 Dextrose 50% In Water (25gm) 50 Ml Syringe IV 50 ml Q30MIN PRN Administration Hypoglycemia Protocol Erythromycin 1 applic 10/27/21 22:00 Erythromycin 5 Mg/1 Gm Ophth Oint OD HS [facility] Gentamicin Sulfate 1 drops 10/27/21 10:00 10/27/21 09:19 Gentamicin 0.3% Ophth Soln 5 Ml OD 1 drops 4XD ZENY Administration Hydromorphone HCl 0.5 mg 10/26/21 12:21 Hydromorphone 1 Mg/1 Ml Inj IV Q13H PRN Pain , Severe (7-10) Levofloxacin/Dextrose 750 mg in 150 mls @ 100 mls/hr 10/26/21 14:00 10/26/21 13:31 Levaquin 750mg/150ml IV 100 mls/hr Q48H ZENY Administration Protocol Potassium Phosphate 30 mmol/ 510 mls @ 85 mls/hr 10/27/21 09:30 10/27/21 09:14 Sodium Chloride IV 10/27/21 15:29 85 mls/hr ONCE ONE Administration Insulin Glargine 25 units 10/27/21 22:00 Insulin Glargine 100 Units/Ml SUB-Q QHS ZENY Insulin Human Lispro 0 unit 10/27/21 07:30 10/27/21 11:41 Insulin Lispro 100 Unit/Ml SUB-Q 3 unit ACHS ZENY Administration Protocol Lorazepam 1 mg 10/26/21 12:21 Lorazepam 2 Mg/Ml Vial IV Q4H PRN Agitation Ondansetron HCl 4 mg 10/26/21 23:28 10/27/21 11:43 Ondansetron 4 Mg/2 Ml Inj IV 4 mg Q4H PRN Administration Nausea And Vomiting Oxycodone/Acetaminophen 1 tab 10/26/21 12:21 Oxycodone /Acetaminophen 5-325mg Tab PO Q6H PRN Pain, Moderate (4-6) Prednisolone Acetate 1 drops 10/27/21 14:00 Prednisolone Acetate 1% Ophth Susp 5 Ml OD QID ZENY Sodium Chloride 10 ml 10/26/21 22:00 10/27/21 09:14 Sodium Chloride 0.9% 10 Ml Flush Syringe IV 10 ml BID ZENY Administration Sodium Chloride 10 ml 10/26/21 12:21 Sodium Chloride 0.9% 10 Ml Flush Syringe IV PRN PRN LINE FLUSH
--- NOTE | 2021-10-27 13:24 | Consultation ---
History of Present Illness Consult date: 10/27/21 Requesting physician: KANG GIRON Reason for consult: other (DKA) History of present illness: PULMONARY/CCM CONSULT NOTE (Full dictation # [id number]) Please see dictated notes for full details Past History Past Medical History: diabetes, other (See HPI) Past Surgical History: hernia repair Social history: , lives with family. denies: smoking, alcohol abuse Family history: diabetes, hypertension Medications and Allergies Allergies Allergy/AdvReac Type Severity Reaction Status Date / Time No Known Allergies Allergy Verified 06/19/17 16:27 Home Medications Medication Instructions Recorded Confirmed Last Taken Type HYDROcodone/APAP 5-325 [[place] 1 each PO Q6H PRN #10 tablet 06/17/18 Unknown Rx 5-325 mg TAB] Insulin Aspart (Nf) [NovoLOG 6 unit SQ TIDDIAB 30 Days #3 06/17/18 Unknown Rx Flexpen] insuln.pen Insulin Glargine,Hum.rec.anlog 20 unit SQ QHS #3 insuln.pen 06/17/18 10/26/21 Unknown Rx [Lantus Solostar] metFORMIN [Glucophage] 500 mg PO BID #60 tablet 06/17/18 Unknown Rx Cyclopentolate 1% 1 applic OD 4XD 10/26/21 10/26/21 Unknown History Erythromycin Ophth Oint 1 applic OD HS 10/26/21 10/26/21 Unknown History Gentamicin 0.3% Ophth Oint 1 applic OD 4XD 10/26/21 10/26/21 Unknown History Prednisolone Acet 1% Eye Drop 1 applicatio OD HS 10/26/21 10/26/21 Unknown History Active Meds: Active Medications Acetaminophen (Acetaminophen 325 Mg Tab) 650 mg PO Q6H PRN PRN Reason: Pain, Mild (1-3) Cyclopentolate HCl (Cyclopentolate 1% Ophth Soln 2 Ml) 1 drops OD 4XD ZENY Last Admin: 10/27/21 09:38 Dose: 1 drops Dextrose (Dextrose 50% In Water (25gm) 50 Ml Syringe) 0 ml IV Q30MIN PRN; Protocol PRN Reason: Hypoglycemia Last Admin: 10/27/21 06:35 Dose: 50 ml Erythromycin (Erythromycin 5 Mg/1 Gm Ophth Oint) 1 applic OD HS ZENY Gentamicin Sulfate (Gentamicin 0.3% Ophth Soln 5 Ml) 1 drops OD 4XD [facility] Last Admin: 10/27/21 09:19 Dose: 1 drops Hydromorphone HCl (Hydromorphone 1 Mg/1 Ml Inj) 0.5 mg IV Q13H PRN PRN Reason: Pain , Severe (7-10) Levofloxacin/Dextrose (Levaquin 750mg/150ml) 750 mg in 150 mls @ 100 mls/hr IV Q48H [facility]; Protocol Last Admin: 10/26/21 13:31 Dose: 100 mls/hr Potassium Phosphate 30 mmol/ (Sodium Chloride) 510 mls @ 85 mls/hr IV ONCE ONE Stop: 10/27/21 15:29 Last Admin: 10/27/21 09:14 Dose: 85 mls/hr Insulin Glargine (Insulin Glargine 100 Units/Ml) 15 units SUB-Q QHS ZENY Insulin Human Lispro (Insulin Lispro 100 Unit/Ml) 0 unit SUB-Q ACHS [facility]; Pr otocol Last Admin: 10/27/21 11:41 Dose: 3 unit Lorazepam (Lorazepam 2 Mg/Ml Vial) 1 mg IV Q4H PRN PRN Reason: Agitation Ondansetron HCl (Ondansetron 4 Mg/2 Ml Inj) 4 mg IV Q4H PRN PRN Reason: Nausea And Vomiting Last Admin: 10/27/21 11:43 Dose: 4 mg Oxycodone/Acetaminophen (Oxycodone /Acetaminophen 5-325mg Tab) 1 tab PO Q6H PRN PRN Reason: Pain, Moderate (4-6) Prednisolone Acetate (Prednisolone Acetate 1% Ophth Susp 5 Ml) 1 drops OD QID [facility] Sodium Chloride (Sodium Chloride 0.9% 10 Ml Flush Syringe) 10 ml IV BID [facility] Last Admin: 10/27/21 09:14 Dose: 10 ml Sodium Chloride (Sodium Chloride 0.9% 10 Ml Flush Syringe) 10 ml IV PRN PRN PRN Reason: LINE FLUSH Physical Examination Vital signs: Vital Signs Temp Pulse Resp BP Pulse Ox 97.4 F L 118 H 22 126/66 96 10/26/21 10:51 10/26/21 10:51 10/26/21 10:51 10/26/21 10:51 10/26/21 10:51 Results - Laboratory Findings CBC and BMP: 10/27/21 04:20 10/27/21 04:20 PT/INR, D-dimer PT 17.2 Sec. (12.2-14.9) H 10/26/21 11:50 INR 1.25 (0.87-1.13) H 10/26/21 11:50 Abnormal lab findings: Abnormal Labs 10/26/21 10/26/21 10/26/21 10:54 11:50 11:50 WBC 21.7 H MCV 107 H MCHC 30 L RDW 15.5 H Plt Count Seg Neuts % (Manual) 94.0 H Lymphocytes % (Manual) 2.0 L Seg Neutrophils # Man 20.4 H Lymphocytes # (Manual) 0.4 L PT 17.2 H INR 1.25 H VBG pH Sodium Potassium Chloride Carbon Dioxide BUN Creatinine Glucose POC Glucose > 600 H Hemoglobin A1c Lactic Acid Calcium Phosphorus Magnesium Troponin T Triglycerides Cholesterol LDL Cholesterol Direct HDL Cholesterol TSH 10/26/21 10/26/21 10/26/21 11:50 11:50 11:50 WBC MCV MCHC RDW Plt Count Seg Neuts % (Manual) Lymphocytes % (Manual) Seg Neutrophils # Man Lymphocytes # (Manual) PT INR VBG pH Sodium Potassium 7.9 H* Chloride 89.5 L Carbon Dioxide 3 L* BUN 33 H Creatinine 2.4 H Glucose 882 H* POC Glucose Hemoglobin A1c Lactic Acid 9.20 H* Calcium 10.3 H Phosphorus Magnesium 3.00 H Troponin T 0.051 H Triglycerides Cholesterol LDL Cholesterol Direct HDL Cholesterol TSH 4.730 H 10/26/21 10/26/21 10/26/21 11:50 11:50 14:25 WBC MCV MCHC RDW Plt Count Seg Neuts % (Manual) Lymphocytes % (Manual) Seg Neutrophils # Man Lymphocytes # (Manual) PT INR VBG pH 6.984 L* Sodium Potassium 5.9 H D Chloride Carbon Dioxide 3 L* BUN 32 H Creatinine 2.1 H Glucose 773 H* POC Glucose Hemoglobin A1c Lactic Acid Calcium 8.1 L D Phosphorus Magnesium Troponin T Triglycerides 204 H Cholesterol 278 H LDL Cholesterol Direct 190 H HDL Cholesterol 77 H TSH 10/26/21 10/26/21 10/26/21 14:25 14:39 16:40 WBC MCV MCHC RDW Plt Count Seg Neuts % (Manual) Lymphocytes % (Manual) Seg Neutrophils # Man Lymphocytes # (Manual) PT INR VBG pH Sodium Potassium Chloride Carbon Dioxide BUN Creatinine Glucose POC Glucose > 600 H > 600 H Hemoglobin A1c Lactic Acid 6.10 H* Calcium Phosphorus Magnesium Troponin T Triglycerides Cholesterol LDL Cholesterol Direct HDL Cholesterol TSH 10/26/21 10/26/21 10/26/21 17:42 18:30 18:35 WBC MCV MCHC RDW Plt Count Seg Neuts % (Manual) Lymphocytes % (Manual) Seg Neutrophils # Man Lymphocytes # (Manual) PT INR VBG pH Sodium Potassium Chloride Carbon Dioxide 9 L* BUN 31 H Creatinine 1.8 H Glucose 488 H POC Glucose > 600 H 514 H Hemoglobin A1c Lactic Acid Calcium Phosphorus Magnesium Troponin T Triglycerides Cholesterol LDL Cholesterol Direct HDL Cholesterol TSH 10/26/21 10/26/21 10/26/21 19:24 20:30 20:32 WBC MCV MCHC RDW Plt Count Seg Neuts % (Manual) Lymphocytes % (Manual) Seg Neutrophils # Man Lymphocytes # (Manual) PT INR VBG pH Sodium 147 H Potassium Chloride 109.4 H Carbon Dioxide 13 L BUN 29 H Creatinine 1.7 H Glucose 326 H POC Glucose 430 H 301 H Hemoglobin A1c Lactic Acid Calcium Phosphorus Magnesium Troponin T Triglycerides Cholesterol LDL Cholesterol Direct HDL Cholesterol TSH 10/26/21 10/26/21 10/26/21 21:29 22:32 23:43 WBC MCV MCHC RDW Plt Count Seg Neuts % (Manual) Lymphocytes % (Manual) Seg Neutrophils # Man Lymphocytes # (Manual) PT INR VBG pH Sodium Potassium Chloride Carbon Dioxide BUN Creatinine Glucose POC Glucose 258 H 246 H 200 H Hemoglobin A1c Lactic Acid Calcium Phosphorus Magnesium Troponin T Triglycerides Cholesterol LDL Cholesterol Direct HDL Cholesterol TSH 10/26/21 10/26/21 10/27/21 Unknown Unknown 00:39 WBC MCV MCHC RDW Plt Count Seg Neuts % (Manual) Lymphocytes % (Manual) Seg Neutrophils # Man Lymphocytes # (Manual) PT INR VBG pH Sodium Potassium Chloride Carbon Dioxide 5 L* BUN 34 H Creatinine 2.1 H Glucose 646 H* POC Glucose 136 H Hemoglobin A1c Lactic Acid Calcium Phosphorus 6.10 H Magnesium 2.60 H Troponin T 0.055 H Triglycerides Cholesterol LDL Cholesterol Direct HDL Cholesterol TSH 10/27/21 10/27/21 10/27/21 01:41 02:28 03:28 WBC MCV MCHC RDW Plt Count Seg Neuts % (Manual) Lymphocytes % (Manual) Seg Neutrophils # Man Lymphocytes # (Manual) PT INR VBG pH Sodium Potassium Chloride Carbon Dioxide BUN Creatinine Glucose POC Glucose 130 H 110 H 134 H Hemoglobin A1c Lactic Acid Calcium Phosphorus Magnesium Troponin T Triglycerides Cholesterol LDL Cholesterol Direct HDL Cholesterol TSH 10/27/21 10/27/21 10/27/21 04:20 04:20 04:20 WBC MCV MCHC RDW Plt Count 137 L Seg Neuts % (Manual) Lymphocytes % (Manual) Seg Neutrophils # Man Lymphocytes # (Manual) PT INR VBG pH Sodium 151 H Potassium Chloride 116.6 H Carbon Dioxide BUN 26 H Creatinine 1.4 H Glucose POC Glucose Hemoglobin A1c Lactic Acid Calcium Phosphorus 1.30 L D Magnesium Troponin T Triglycerides Cholesterol LDL Cholesterol Direct HDL Cholesterol TSH 10/27/21 10/27/21 10/27/21 04:20 04:28 05:29 WBC MCV MCHC RDW Plt Count Seg Neuts % (Manual) Lymphocytes % (Manual) Seg Neutrophils # Man Lymphocytes # (Manual) PT INR VBG pH Sodium Potassium Chloride Carbon Dioxide BUN Creatinine Glucose POC Glucose 117 H 117 H Hemoglobin A1c 14.9 H Lactic Acid Calcium Phosphorus Magnesium Troponin T Triglycerides Cholesterol LDL Cholesterol Direct HDL Cholesterol TSH 10/27/21 10/27/21 10/27/21 06:20 06:54 08:02 WBC MCV MCHC RDW Plt Count Seg Neuts % (Manual) Lymphocytes % (Manual) Seg Neutrophils # Man Lymphocytes # (Manual) PT INR VBG pH Sodium Potassium Chloride Carbon Dioxide BUN Creatinine Glucose POC Glucose 49 L 128 H 130 H Hemoglobin A1c Lactic Acid Calcium Phosphorus Magnesium Troponin T Triglycerides Cholesterol LDL Cholesterol Direct HDL Cholesterol TSH 10/27/21 11:20 WBC MCV MCHC RDW Plt Count Seg Neuts % (Manual) Lymphocytes % (Manual) Seg Neutrophils # Man Lymphocytes # (Manual) PT INR VBG pH Sodium Potassium Chloride Carbon Dioxide BUN Creatinine Glucose POC Glucose 245 H Hemoglobin A1c Lactic Acid Calcium Phosphorus Magnesium Troponin T Triglycerides Cholesterol LDL Cholesterol Direct HDL Cholesterol TSH
[2021-10-27] MEDS: prednisoLONE ACETATE 1% OPHTH SUSP 5 ML OD SCH ×3 (13:54→22:14)
[2021-10-27 14:43] LABS: BUN/Creatinine Ratio 16; Blood Urea Nitrogen 21 mg/dL (9-20); Calcium 9.1 mg/dL (8.4-10.2); Hemolysis Index 45
[2021-10-27] MEDS ORDERED: INSULIN GLARGINE 100 UNITS/ML SUB-Q SCH ×2 (22:00)
[2021-10-27] MEDS: FAMOTIDINE 20 MG TAB PO SCH (22:12)
[2021-10-27] MEDS: ENOXAPARIN 30 MG/0.3 ML INJ SUB-Q SCH (22:12)
[2021-10-27] MEDS: ERYTHROMYCIN 5 MG/1 GM OPHTH OINT OD SCH (22:13)
--- NOTE | 2021-10-28 03:00 | Consultation ---
DATE OF CONSULTATION: 10/27/2021 PULMONARY CRITICAL CARE CONSULT NOTE CONSULTING PHYSICIAN: Dr. Alberto aHrman, ER physician. REASON FOR CONSULTATION: Diabetic ketoacidosis. CHIEF COMPLAINT AND HISTORY OF PRESENT ILLNESS: The patient is a now 80-year-old male with a past medical history significant for a diagnosis of diabetes and reported vascular dementia, who presented to the Emergency Room confused with diminished cognition, stating that he was not feeling good. According to the patient's spouse, the patient had reported increasing weakness in the preceding 2-3 days. He was also noted to have increased blood sugar levels. EMS were called and upon arrival, they found him in distress, brought him to the Emergency Room. In the Emergency Room was evaluated further. He was found to be septic. He had an acute toxic metabolic encephalopathy, was also in diabetic ketoacidosis. There was no need for emergent intubation at that time. ICU admission was requested and offered and we were asked to assist with management. When I stopped by to see him, he was resting in bed, on room air. He was very coherent when I spoke with him. Denied any acute chest pain. Denied fevers or chills. He mentioned he has been compliant with his medications and nobody has changed his medication dosages of late. He does have approximately [id number] tobacco smoking history, but quit smoking he tells me 25 years ago. He denies any wounds, any open sores on his body. He denies dysuria. He denies hematuria, that really is as much of the history of presentation as I have. PAST MEDICAL HISTORY: Diabetes, vascular dementia. PAST SURGICAL HISTORY: He has had a hernia repair in the past. MEDICATIONS: He was on at the time I stopped by to see him, according to the medication administration record included the following: Tylenol 650 mg p.o. q. 6 hours p.r.n. mild pain or fevers, Cyclogyl eyedrops 1 drop affected eye 4 times daily, erythromycin ophthalmic ointment 1 application affected eyes at bedtime, gentamicin 0.3% ophthalmic solution 1 drop affected eye 4 times daily, Dilaudid 0.5 mg IV q. 13 hours p.r.n. severe pain. He has now been transitioned to Lantus insulin 50 units subcutaneous at bedtime as well as insulin via sliding scale, Levaquin 750 mg IV q. 48 hours, Ativan 1 mg IV q. 4 hours p.r.n. agitation, Zofran 4 mg IV q. 4 hours p.r.n. nausea and vomiting, Percocet 5/325 mg 1 tablet p.o. q. 6 hours p.r.n. moderate pain. He received 30 millimoles of potassium phosphate replacement this morning, prednisolone acetate 1% eyedrops to affected eye q.i.d. ALLERGIES: No known drug allergies. DIET: Thin gentleman. Denies acute weight loss or gain in the preceding few weeks to months. FAMILY AND SOCIAL HISTORY: He is . He lives in the community with his family. He has a [id number], remote tobacco smoking history. Denies current alcohol, tobacco or illicit drug use or abuse. FAMILY HISTORY: Otherwise, noncontributory. REVIEW OF SYSTEMS: No loss of consciousness. No new onset seizures. No new onset focal weakness. Denies gross hematochezia or melena. Denied fevers or chills prior to coming in. Denies gross hematuria or dysuria. Denies any new-onset seizures. Denies new-onset focal weakness. Denies polydipsia or polyuria. Complete 13-system review of system was obtained as best as I could. Pertinent positives and/or negatives as in body of history above, otherwise noncontributory. PHYSICAL EXAMINATION: VITAL SIGNS: At presentation, he was hypothermic, temperature 94.5 degrees rectally, pulse of 119, respiratory rate of 16, blood pressure 102/32, O2 sats 95% on 2 liters nasal cannula. GENERAL: Elderly looking male who looks his stated age, normocephalic, atraumatic. Resting in bed with normal respiratory effort at rest. HEAD, EYES, EARS, NOSE AND THROAT: Anicteric. No conjunctival erythema. Oropharynx was moist. NECK: No gross jugular venous distention, no thyromegaly. Grossly, there were no palpable lymph nodes in the supraclavicular or submandibular lymph node chains. LUNGS: Auscultation of both lung boogie significant really only for diminished bilateral breath sounds, slightly prolonged expiratory phase. No active wheezing at the time of my evaluation. HEART: Sounds 1 and 2 are heard, regular rate and rhythm without overt rubs or murmurs. ABDOMEN: Soft, flat, bowel sounds are positive, nontender, no palpable hepatosplenomegaly. EXTREMITIES: Without overt digital clubbing or cyanosis, no pedal edema. Pedal pulses are 2+ bilaterally. NEUROLOGIC: Pupils were equal, round, about 4 mm, reactive to light. Extraocular muscle movements were intact. He moves all 4 extremities spontaneously. SKIN: Normal turgor without overt cellulitis or rash in the areas I examined. Please see the wound care nurses' notes for full description of his skin. PSYCHIATRIC: Mood was normal. Affect was appropriate. He seemed to have relatively intact judgment and insight. LABORATORY DATA: From my review as follows: Admission white cell count 21,700, hemoglobin 13.1, hematocrit 44.5, platelet count 225. No band, neutrophils on the manual differential. INR 1.25. Venous blood gas showed a pH of 6.98. Serum sodium was 137, potassium was 7.9, chloride was 90, bicarbonate was 3, BUN was 33, creatinine was 2.4, glucose was 882. Magnesium 3, phosphorus 6.1. Liver function tests essentially within normal limits. Troponin was up at 0.051. LDL cholesterol elevated at 190. TSH was up at 4.73. Urinalysis was negative for nitrites and leukocyte esterase. Two sets of blood cultures have no growth to date. Chest x-ray was done. I have reviewed the chest x-ray, has evidence of hyperinflation, borderline cardiomegaly. Taking the hyperinflation into consideration, slight increase in interstitial markings in particular in the right upper lobe region; however, no focal infiltrates. No gross bony fractures, no pneumothorax, some enlargement of the right main pulmonary artery trunk may be consistent with pulmonary hypertension. ASSESSMENT: 1. Diabetic ketoacidosis. 2. Possible sepsis, etiology unknown. 3. Acute toxic metabolic encephalopathy. 4. Intravascular volume depletion. 5. Hyperkalemia. 6. History of vascular dementia. 7. Leukocytosis. 8. Severe metabolic acidosis at presentation. 9. Lactic acidosis. 10. Adult failure to thrive. 11. Hyperlipidemia. PLAN: He has done well on the DKA protocol and has now been transitioned off the IV insulin therapy. We will continue with long-acting treatments with Lantus insulin and sliding scale q.a.c. and at bedtime. Continued tobacco abstinence has been encouraged. We will continue with empiric Levaquin for now. However, I really do not see a source of infection. I will order a procalcitonin level, a CRP level to help guide clinical decision making and aid antibiotic de-escalation. Lactic acid was at 9 on presentation, but with volume resuscitation is now within normal limits. Oxygen will be offered as necessary to keep sats greater than or equal to about 90%. Aspiration precautions will be maintained. He is going to be placed on GI prophylaxis with Pepcid. I will also put him on DVT prophylaxis with Lovenox. Flu and pneumonia vaccination will be addressed per protocol. Glycemic education will be per the hospice educator. Thank you very much for the consult. We will follow along with further recommendations as picture progresses/becomes clearer. He is improved. I should mention I note acute kidney injury presumably prerenal. Nephrology evaluation will be at the behest of the attending physician. He is nonoliguric at this time and the serum creatinine is improving. TID: [id number] RECEIPT: [id number] SANDY/MAGDALENA
[2021-10-28 05:16] LABS: Hematocrit 39.2 % (35.5-45.6); Hemoglobin 12.9 gm/dl (11.8-15.2); Mean Corpuscular HGB Conc 33 % (32-34); Mean Corpuscular Volume 92 fl (84-94); Platelet Count 126 K/mm3 (140-440); Red Blood Count 4.24 M/mm3 (3.65-5.03); Red Cell Distribution Width 14.8 % (13.2-15.2)
[2021-10-28 05:38] LABS: BUN/Creatinine Ratio 15; Blood Urea Nitrogen 18 mg/dL (9-20); Calcium 9.1 mg/dL (8.4-10.2); Hemolysis Index 5
[2021-10-28] MEDS: INSULIN LISPRO 100 UNIT/ML SUB-Q SCH ×4 (08:34→21:15)
[2021-10-28] MEDS ORDERED: DEXTROSE 5% IN WATER 1,000 ML IV SCH (09:00)
[2021-10-28] MEDS: CYCLOPENTOLATE 1% OD SCH ×4 (09:34→21:44)
[2021-10-28] MEDS: prednisoLONE ACETATE 1% OPHTH SUSP 5 ML OD SCH ×4 (09:35→21:20)
[2021-10-28] MEDS: GENTAMICIN 0.3% OPHTH SOLN 5 ML OD SCH ×4 (09:35→21:25)
--- NOTE | 2021-10-28 10:47 | Progress Note ---
Assessment and Plan Assessment and plan: This is a 80-year-old male with known past medical history of DM, vascular Dementia, and cerebral vascular dementia admitted for DKA Hospital Course to Date: 10/27: Transitioned to subQ insulin this am. Now hypoglycemic treated per hypoglycemic protocol. Continue BG and SSI ACHS, basal insulin Qhs. Leukocytosis resolved, patient remains afebrile and lactic acidosis resolved. Procal and blood cultures are pending, consider D/C Empiric IV Abx if procal is normal and B.cultures are with no growth. Renal function improved post IVF hydration, continue to monitor renal function and replaced electrolytes as needed. Case management also consulted for home assistance, per patient it is very difficult to give himself his insulin because he recently had eyes surgery and he is cur rently blind. 10/28: TOBY overnight. Hypoglycemic this am, treated per hypoglycemic protocol, Lantus reduced. Worsening hypernatremia this am, D5wX1L. Renal function normalized, continue to monitor renal function and electrolytes. Transfer to floor once bed is available. PT/OT eval pending. Assessment and Plan #Uncontrolled Diabetes #s/p DKA (diabetic ketoacidosis) #Anion Gap Metabolic Acidosis-resolved - Presented with severe metabolic acidosis 2/ DKA - s/p DKA protocol - HgbA1C- 14.9 - Transitioned to subQ, now hypoglycemia - Tolerating PO intake this am, consistent carbs diet - Continue BG and SSI ACHS - Basal, Lantus, Qhs - Avoid hypoglycemia - Hypoglycemic protocol #Leukocytosis-resolved #Lactic Acidosis-resolved #R/o Sepsis - most like due to DKA, volume depletion - Presented with severe acidosis, high lactic and leukocytosis - Sepsis protocol was initiated - Leukocytosis and lactic acidosis resolved this am, afebrile, VSS - UA is unremarkable for infectious process. Procal-2.38 and Blood cultures with NGTD - Will hold IV abx for now - Continue to F/U on cultures data - ID consult if febrile or leukocytosis reoccur #Acute Kidney Injury(KARRIE) most likely Vasomotor Nephropathy #Hypernatremia #Volume depletion/Dehydration - Due to DKA- s/p DKA protocol - Renal function normalized post IVF resuscitation therapy - With persistent hypernatremia, probably still volume depleted- D5wX1L - Continue to monitor renal function - Strict intake and output - Avoid nephrotoxic medications; Renally dose medications - Monitor and replace electrolytes as needed - Trend BMP #Toxic Metabolic Encephalopathy-resolved #H/o Vascular Dementia - Most likely due to severe acidosis/DKA - Avoid benzodiazepine to reduce the possibility of delirium - Prn analgesia for pain management - Verbal prompting and redirection - Maintenance of sleep-wake cycle #GI/DVT Prophylaxis - PPI- Pepcid - Lovenox SubQ - SCD to bilateral lower extremities while in bed #Advance Care Planning - Disease education conducted, care plan discussed, diagnoses discussed, prognosis discussed. 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 The high probability of a clinically significant, sudden or life threatening deterioration of the [multiple] system(s) required my full and direct attention, intervention and personal management. The aggregate critical care time was [60] minutes. This time is in addition to time spent performing reported procedures but includes the following: [x] Data Review and interpretation [x] Patient assessment and monitoring of vital signs [x] Documentation [x] Medication orders and management Disposition Plan: ICU Total Time Spent with Patient (Minutes): 60 History Interval history: Patient seen and examined at the bedside. Fully AAO, on RA, denied any pain nor any discomfort. Hypoglycemic this am treated per Hypoglycemic protocol, VSS. Otherwise, TOBY overnight Hospitalist Physical - Physical exam Narrative exam: General appearance: Present: no acute distress, cachectic - EENT Eyes: Present: PERRL (Currently blind, s/o eyes surgery) ENT: hearing intact - Neck Neck: Present: normal ROM - Respiratory Respiratory effort: normal Respiratory: bilateral: diminished - Cardiovascular Rhythm: regular Heart Sounds: Present: S1 & S2 - Extremities Extremities: no ischemia, pulses intact, pulses symmetrical Peripheral Pulses: within normal limits - Abdominal General gastrointestinal: soft, non-distended, normal bowel sounds - Integumentary Integumentary: Present: warm, dry - Psychiatric Psychiatric: appropriate mood/affect, cooperative - Neurologic Neurologic: CNII-XII intact, moves all extremities - Allied Health Allied health notes reviewed: nursing, case management - Constitutional Vitals: Temp Pulse Resp BP Pulse Ox 98.2 F 86 17 101/64 96 10/28/21 07:00 10/28/21 10:41 10/28/21 10:41 10/28/21 10:41 10/28/21 10:41 HEART Score - HEART Score Troponin: Troponin T 0.055 ng/mL (0.00-0.029) H 10/26/21 Unknown Results - Labs CBC & Chem 7: 10/28/21 04:39 10/28/21 04:39 Labs: Laboratory Last Values WBC 11.9 K/mm3 (4.5-11.0) H 10/28/21 04:39 RBC 4.24 M/mm3 (3.65-5.03) 10/28/21 04:39 Hgb 12.9 gm/dl (11.8-15.2) 10/28/21 04:39 Hct 39.2 % (35.5-45.6) 10/28/21 04:39 MCV 92 fl (84-94) 10/28/21 04:39 MCH 31 pg (28-32) 10/28/21 04:39 MCHC 33 % (32-34) 10/28/21 04:39 RDW 14.8 % (13.2-15.2) 10/28/21 04:39 Plt Count 126 K/mm3 (140-440) L 10/28/21 04:39 Lymph % (Auto) Velvet Steamer 10/26/21 11:50 [place] % (Auto) Velvet Steamer 10/26/21 11:50 Eos % (Auto) Velvet Steamer 10/26/21 11:50 Baso % (Auto) Velvet Steamer 10/26/21 11:50 Lymph # (Auto) Velvet Steamer 10/26/21 11:50 [place] # (Auto) Velvet Steamer 10/26/21 11:50 Eos # (Auto) Velvet Steamer 10/26/21 11:50 Baso # (Auto) Velvet Steamer 10/26/21 11:50 Add Manual Diff Complete 10/26/21 11:50 Total Counted 100 10/26/21 11:50 Seg Neutrophils % Velvet Steamer 10/26/21 11:50 Seg Neuts % (Manual) 94.0 % (40.0-70.0) H 10/26/21 11:50 Band Neutrophils % 0 % 10/26/21 11:50 Lymphocytes % (Manual) 2.0 % (13.4-35.0) L 10/26/21 11:50 Reactive Lymphs % (Man) 0 % 10/26/21 11:50 Monocytes % (Manual) 2.0 % (0.0-7.3) 10/26/21 11:50 Eosinophils % (Manual) 1.0 % (0.0-4.3) 10/26/21 11:50 Basophils % (Manual) 0 % (0.0-1.8) 10/26/21 11:50 Metamyelocytes % 1.0 % 10/26/21 11:50 Myelocytes % 0 % 10/26/21 11:50 Promyelocytes % 0 % 10/26/21 11:50 Blast Cells % 0 % 10/26/21 11:50 Nucleated RBC % Not Reportable 10/26/21 11:50 Seg Neutrophils # Velvet Steamer 10/26/21 11:50 Seg Neutrophils # Man 20.4 K/mm3 (1.8-7.7) H 10/26/21 11:50 Band Neutrophils # 0.0 K/mm3 10/26/21 11:50 Lymphocytes # (Manual) 0.4 K/mm3 (1.2-5.4) L 10/26/21 11:50 Abs React Lymphs (Man) 0.0 K/mm3 10/26/21 11:50 Monocytes # (Manual) 0.4 K/mm3 (0.0-0.8) 10/26/21 11:50 Eosinophils # (Manual) 0.2 K/mm3 (0.0-0.4) 10/26/21 11:50 Basophils # (Manual) 0.0 K/mm3 (0.0-0.1) 10/26/21 11:50 Metamyelocytes # 0.2 K/mm3 10/26/21 11:50 Myelocytes # 0.0 K/mm3 10/26/21 11:50 Promyelocytes # 0.0 K/mm3 10/26/21 11:50 Blast Cells # 0.0 K/mm3 10/26/21 11:50 WBC Morphology Not Reportable 10/26/21 11:50 WBC Morphology TNR 10/26/21 11:50 Hypersegmented Neuts Not Reportable 10/26/21 11:50 Hyposegmented Neuts Not Reportable 10/26/21 11:50 Hypogranular Neuts Not Reportable 10/26/21 11:50 Smudge Cells Not Reportable 10/26/21 11:50 Toxic Granulation Not Reportable 10/26/21 11:50 Toxic Vacuolation Not Reportable 10/26/21 11:50 Dohle Bodies Not Reportable 10/26/21 11:50 Pelger-Huet Anomaly Not Reportable 10/26/21 11:50 Carmen Rods Not Reportable 10/26/21 11:50 Platelet Estimate Consistent w auto 10/26/21 11:50 Clumped Platelets Not Reportable 10/26/21 11:50 Plt Clumps, EDTA Not Reportable 10/26/21 11:50 Large Platelets Not Reportable 10/26/21 11:50 Giant Platelets Not Reportable 10/26/21 11:50 Platelet Satelliting Not Reportable 10/26/21 11:50 Plt Morphology Comment Not Reportable 10/26/21 11:50 RBC Morphology Not Reportable 10/26/21 11:50 Dimorphic RBCs Not Reportable 10/26/21 11:50 Polychromasia Not Reportable 10/26/21 11:50 Hypochromasia Not Reportable 10/26/21 11:50 Poikilocytosis Not Reportable 10/26/21 11:50 Anisocytosis Not Reportable 10/26/21 11:50 Microcytosis Not Reportable 10/26/21 11:50 Macrocytosis Not Reportable 10/26/21 11:50 Spherocytes Not Reportable 10/26/21 11:50 Pappenheimer Bodies Not Reportable 10/26/21 11:50 Sickle Cells Not Reportable 10/26/21 11:50 Target Cells Not Reportable 10/26/21 11:50 Tear Drop Cells Not Reportable 10/26/21 11:50 Ovalocytes Not Reportable 10/26/21 11:50 Helmet Cells Not Reportable 10/26/21 11:50 [place] Bodies Not Reportable 10/26/21 11:50 [place] Rings Not Reportable 10/26/21 11:50 [place] Cells Few 10/26/21 11:50 Bite Cells Not Reportable 10/26/21 11:50 Crenated Cell Not Reportable 10/26/21 11:50 Elliptocytes Not Reportable 10/26/21 11:50 Acanthocytes (Spur) Not Reportable 10/26/21 11:50 Rouleaux Not Reportable 10/26/21 11:50 Hemoglobin C Crystals Not Reportable 10/26/21 11:50 Schistocytes Not Reportable 10/26/21 11:50 Malaria parasites Not Reportable 10/26/21 11:50 Janes Bodies Not Reportable 10/26/21 11:50 Hem Pathologist Commnt No 10/26/21 11:50 PT 17.2 Sec. (12.2-14.9) H 10/26/21 11:50 INR 1.25 (0.87-1.13) H 10/26/21 11:50 VBG pH 6.984 (7.320-7.420) L* 10/26/21 11:50 Sodium 149 mmol/L (137-145) H 10/28/21 04:39 Potassium 4.4 mmol/L (3.6-5.0) 10/28/21 04:39 Chloride 111.1 mmol/L (98-107) H 10/28/21 04:39 Carbon Dioxide 23 mmol/L (22-30) 10/28/21 04:39 Anion Gap 19 mmol/L 10/28/21 04:39 BUN 18 mg/dL (9-20) 10/28/21 04:39 Creatinine 1.2 mg/dL (0.8-1.3) 10/28/21 04:39 Estimated GFR > 60 ml/min 10/28/21 04:39 BUN/Creatinine Ratio 15 % 10/28/21 04:39 Glucose 88 mg/dL (75-100) 10/28/21 04:39 POC Glucose 97 mg/dL (70-105) 10/28/21 08:39 Hemoglobin A1c 14.9 % (4-6) H 10/27/21 04:20 Lactic Acid 1.30 mmol/L (0.7-2.0) 10/27/21 04:20 Calcium 9.1 mg/dL (8.4-10.2) 10/28/21 04:39 Phosphorus 2.40 mg/dL (2.5-4.5) L D 10/28/21 04:39 Magnesium 2.10 mg/dL (1.7-2.3) 10/28/21 04:39 Total Bilirubin 0.20 mg/dL (0.1-1.2) 10/26/21 11:50 AST 29 units/L (5-40) 10/26/21 11:50 ALT 19 units/L (7-56) 10/26/21 11:50 Alkaline Phosphatase 88 units/L (35-129) 10/26/21 11:50 Total Creatine Kinase 141 units/L (55-170) 10/26/21 11:50 Troponin T 0.055 ng/mL (0.00-0.029) H 10/26/21 Unknown Total Protein 6.6 g/dL (6.3-8.2) 10/26/21 11:50 Albumin 4.4 g/dL (3.9-5) 10/26/21 11:50 Albumin/Globulin Ratio 2.0 % 10/26/21 11:50 Triglycerides 204 mg/dL (2-149) H 10/26/21 11:50 Cholesterol 278 mg/dL (50-199) H 10/26/21 11:50 LDL Cholesterol Direct 190 mg/dL (50-130) H 10/26/21 11:50 HDL Cholesterol 77 mg/dL (40-59) H 10/26/21 11:50 Cholesterol/HDL Ratio 3.61 % 10/26/21 11:50 Procalcitonin 2.38 ng/mL (<0.15) 10/27/21 13:18 TSH 4.730 mlU/mL (0.270-4.200) H 10/26/21 11:50 Urine Color Straw (Yellow) 10/26/21 11:57 Urine Turbidity Clear (Clear) 10/26/21 11:57 Urine pH 5.0 (5.0-7.0) 10/26/21 11:57 Ur Specific [place] 1.020 (1.003-1.030) 10/26/21 11:57 Urine Protein 30 mg/dl mg/dL (Negative) 10/26/21 11:57 Urine Glucose (UA) >=500 mg/dL (Negative) 10/26/21 11:57 Urine Ketones 80 mg/dL (Negative) 10/26/21 11:57 Urine Blood Sm (Negative) 10/26/21 11:57 Urine Nitrite Neg (Negative) 10/26/21 11:57 Urine Bilirubin Neg (Negative) 10/26/21 11:57 Urine Urobilinogen < 2.0 mg/dL (<2.0) 10/26/21 11:57 Ur Leukocyte Esterase Neg (Negative) 10/26/21 11:57 Urine WBC (Auto) 0.0 /HPF (0.0-6.0) 10/26/21 11:57 Urine RBC (Auto) 0.0 /HPF (0.0-6.0) 10/26/21 11:57 Blood Type O NEGATIVE 10/26/21 14:25 Antibody Screen Negative 10/26/21 14:25 Microbiology: Microbiology 10/26/21 11:50 Peripheral/Venous Blood Culture - Preliminary NO GROWTH AFTER 24 HOURS 10/26/21 11:50 Peripheral/Venous Blood Culture - Preliminary NO GROWTH AFTER 24 HOURS Manuel/IV: Voiding Method Urinal Active Medications - Current Medications Current Medications: Generic Name Dose Route Start Last Admin Trade Name Freq PRN Reason Stop Dose Admin Acetaminophen 650 mg 10/26/21 12:21 Acetaminophen 325 Mg Tab PO Q6H PRN Pain, Mild (1-3) Cyclopentolate HCl 1 drops 10/27/21 10:00 10/28/21 09:34 Cyclopentolate 1% Ophth Soln 2 Ml OD 1 drops 4XD ZENY Administration Dextrose 0 ml 10/26/21 12:16 10/27/21 06:35 Dextrose 50% In Water (25gm) 50 Ml Syringe IV 50 ml Q30MIN PRN Administration Hypoglycemia Protocol Enoxaparin Sodium 30 mg 10/27/21 22:00 10/27/21 22:12 Enoxaparin 30 Mg/0.3 Ml Inj SUB-Q 30 mg QHS ZENY Administration Protocol Erythromycin 1 applic 10/27/21 22:00 10/27/21 22:13 Erythromycin 5 Mg/1 Gm Ophth Oint OD 1 applic HS ZENY Administration Famotidine 20 mg 10/27/21 22:00 10/27/21 22:12 Famotidine 20 Mg Tab PO 20 mg QHS ZENY Administration Gentamicin Sulfate 1 drops 10/27/21 10:00 10/28/21 09:35 Gentamicin 0.3% Ophth Soln 5 Ml OD 1 drops 4XD ZENY Administration Hydromorphone HCl 0.5 mg 10/26/21 12:21 Hydromorphone 1 Mg/1 Ml Inj IV Q13H PRN Pain , Severe (7-10) Levofloxacin/Dextrose 750 mg in 150 mls @ 100 mls/hr 10/26/21 14:00 10/26/21 13:31 Levaquin 750mg/150ml IV 10/28/21 19:00 100 mls/hr Q48H ZENY Administration Protocol Dextrose 1,000 mls @ 75 mls/hr 10/28/21 09:00 10/28/21 08:34 D5w IV 10/28/21 22:19 75 mls/hr DIRECT ZENY Administration Insulin Glargine 10 units 10/28/21 10:45 Insulin Glargine 100 Units/Ml SUB-Q QHS [facility] Insulin Human Lispro 0 unit 10/27/21 07:30 10/28/21 08:34 Insulin Lispro 100 Unit/Ml SUB-Q Not Given ACHS [facility] Protocol Lorazepam 1 mg 10/26/21 12:21 Lorazepam 2 Mg/Ml Vial IV Q4H PRN Agitation Ondansetron HCl 4 mg 10/26/21 23:28 10/27/21 11:43 Ondansetron 4 Mg/2 Ml Inj IV 4 mg Q4H PRN Administration Nausea And Vomiting Oxycodone/Acetaminophen 1 tab 10/26/21 12:21 Oxycodone /Acetaminophen 5-325mg Tab PO Q6H PRN Pain, Moderate (4-6) Prednisolone Acetate 1 drops 10/27/21 14:00 10/28/21 09:35 Prednisolone Acetate 1% Ophth Susp 5 Ml OD 1 drops QID ZENY Administration Sodium Chloride 10 ml 10/26/21 22:00 10/28/21 09:34 Sodium Chloride 0.9% 10 Ml Flush Syringe IV 10 ml BID ZENY Administration Sodium Chloride 10 ml 10/26/21 12:21 Sodium Chloride 0.9% 10 Ml Flush Syringe IV PRN PRN LINE FLUSH
--- NOTE | 2021-10-28 11:34 | Progress Note ---
Assessment and Plan Diabetic ketoacidosis Acute toxic metabolic encephalopathy Intravascular volume depletion Hyperkalemia H/O vascular dementia Leukocytosis Severe metabolic acidosis at presentation Lactic acidosis Adult failure to thrive Hyperlipidemia - prn supplemental oxygen to keep O2 sats > 90% - prn bronchodilators (GLENN) with pulm hygiene per RT - avoid nephrotoxins, renally dose all medications - mobility protocols to prevent pressure ulcers - PT/OT as tolerated - Wound care per RN/WCT - continue accuchecks with glycemic control per SSI for target blood glucose < 180 mg/dL - continued tobacco abstinence strongly counseled at the bedside - home oxygen evaluation at discharge - prn analgesia per pain score - GI & VTE prophylaxis - Flu & pneumovax per protocol - Pulmonary out patient follow up for PFTs and optimization of respiratory status - continue other care per attending / other consultants ... re-evaluate in am & prn Subjective Date of service: 10/28/21 Principal diagnosis: DKA; AMS; IVVD; Hyperkalemia; metabolic acidosis; Lactic acidosis Interval history: Patient is seen today for: DKA; AMS; IVVD; Hyperkalemia; Severe metabolic acidosis at presentation; Lactic acidosis; Hyperlipidemia Seen and examined at bedside; 24hour events reviewed; nursing and respiratory care staff consulted; no adverse overnight events reported to me; resting peacefully in bed; just s/p PT/OT; about to eat lunch; denies acute chest pains or palpitations; denies N/V/F/C Objective Vital Signs - 12hr 10/27/21 10/27/21 10/27/21 23:41 23:51 23:57 Temperature Pulse Rate 106 H 105 H 106 H Pulse Rate [ From Monitor] Respiratory 15 15 15 Rate Blood Pressure 148/91 148/91 148/91 O2 Sat by Pulse 100 100 100 Oximetry 10/28/21 10/28/21 10/28/21 00:00 00:11 00:21 Temperature 100.1 F H Pulse Rate 105 H 108 H 107 H Pulse Rate [ 105 H From Monitor] Respiratory 15 15 15 Rate Blood Pressure 96/60 96/60 96/60 O2 Sat by Pulse 100 100 100 Oximetry 10/28/21 10/28/21 10/28/21 00:31 00:41 00:51 Temperature Pulse Rate 106 H 108 H 107 H Pulse Rate [ From Monitor] Respiratory 26 H 18 14 Rate Blood Pressure 96/60 96/60 96/60 O2 Sat by Pulse 100 100 100 Oximetry 10/28/21 10/28/21 10/28/21 01:00 01:11 01:21 Temperature Pulse Rate 109 H 107 H 95 H Pulse Rate [ From Monitor] Respiratory 13 20 22 Rate Blood Pressure 119/69 119/69 119/69 O2 Sat by Pulse 100 100 100 Oximetry 10/28/21 10/28/21 10/28/21 01:31 01:41 01:51 Temperature Pulse Rate 91 H 93 H 93 H Pulse Rate [ From Monitor] Respiratory 18 19 17 Rate Blood Pressure 119/69 119/69 119/69 O2 Sat by Pulse 100 98 100 Oximetry 10/28/21 10/28/21 10/28/21 02:00 02:11 02:21 Temperature Pulse Rate 97 H 101 H 93 H Pulse Rate [ From Monitor] Respiratory 15 16 20 Rate Blood Pressure 89/52 89/52 89/52 O2 Sat by Pulse 99 100 100 Oximetry 10/28/21 10/28/21 10/28/21 02:31 02:41 02:51 Temperature Pulse Rate 97 H 98 H 100 H Pulse Rate [ From Monitor] Respiratory 17 14 20 Rate Blood Pressure 89/52 89/52 89/52 O2 Sat by Pulse 100 100 100 Oximetry 10/28/21 10/28/21 10/28/21 03:00 03:11 03:21 Temperature Pulse Rate 98 H 92 H 92 H Pulse Rate [ From Monitor] Respiratory 18 16 16 Rate Blood Pressure 82/46 92/52 92/52 O2 Sat by Pulse 99 100 100 Oximetry 10/28/21 10/28/21 10/28/21 03:31 03:41 03:42 Temperature 99.4 F Pulse Rate 92 H 91 H Pulse Rate [ From Monitor] Respiratory 14 15 Rate Blood Pressure 92/52 92/52 O2 Sat by Pulse 100 100 Oximetry 10/28/21 10/28/21 10/28/21 03:51 04:00 04:11 Temperature Pulse Rate 97 H 94 H 95 H Pulse Rate [ 95 H From Monitor] Respiratory 18 19 15 Rate Blood Pressure 92/52 102/65 102/65 O2 Sat by Pulse 100 100 100 Oximetry 10/28/21 10/28/21 10/28/21 04:21 04:31 04:41 Temperature Pulse Rate 97 H 99 H 92 H Pulse Rate [ From Monitor] Respiratory 16 15 12 Rate Blood Pressure 102/65 102/65 102/65 O2 Sat by Pulse 100 100 99 Oximetry 10/28/21 10/28/21 10/28/21 04:51 05:00 05:11 Temperature Pulse Rate 88 83 81 Pulse Rate [ From Monitor] Respiratory 20 17 20 Rate Blood Pressure 102/65 136/79 136/79 O2 Sat by Pulse 100 100 99 Oximetry 10/28/21 10/28/21 10/28/21 05:21 05:31 05:41 Temperature Pulse Rate 79 80 86 Pulse Rate [ From Monitor] Respiratory 19 18 19 Rate Blood Pressure 136/79 136/79 136/79 O2 Sat by Pulse 100 100 100 Oximetry 10/28/21 10/28/21 10/28/21 05:51 06:00 06:11 Temperature Pulse Rate 86 90 92 H Pulse Rate [ From Monitor] Respiratory 16 16 19 Rate Blood Pressure 136/79 79/46 79/46 O2 Sat by Pulse 100 100 100 Oximetry 10/28/21 10/28/21 10/28/21 06:21 06:31 06:41 Temperature Pulse Rate 93 H 93 H 89 Pulse Rate [ From Monitor] Respiratory 17 17 17 Rate Blood Pressure 79/46 79/46 79/46 O2 Sat by Pulse 100 100 100 Oximetry 10/28/21 10/28/21 10/28/21 06:51 07:00 07:11 Temperature 98.2 F Pulse Rate 89 89 89 Pulse Rate [ From Monitor] Respiratory 17 18 17 Rate Blood Pressure 79/46 111/72 111/72 O2 Sat by Pulse 100 100 100 Oximetry 10/28/21 10/28/21 10/28/21 07:21 07:31 07:41 Temperature Pulse Rate 82 84 105 H Pulse Rate [ From Monitor] Respiratory 19 17 16 Rate Blood Pressure 111/72 111/72 111/72 O2 Sat by Pulse 100 100 Oximetry 10/28/21 10/28/21 10/28/21 07:51 08:00 08:01 Temperature Pulse Rate 103 H 85 94 H Pulse Rate [ 85 From Monitor] Respiratory 18 17 22 Rate Blood Pressure 111/72 121/73 O2 Sat by Pulse 100 Oximetry 10/28/21 10/28/21 10/28/21 08:11 08:21 08:31 Temperature Pulse Rate 92 H 94 H 92 H Pulse Rate [ From Monitor] Respiratory 14 27 H 21 Rate Blood Pressure 121/73 121/73 121/73 O2 Sat by Pulse Oximetry 10/28/21 10/28/21 10/28/21 08:41 08:51 09:00 Temperature Pulse Rate 90 97 H 91 H Pulse Rate [ From Monitor] Respiratory 15 25 H 20 Rate Blood Pressure 121/73 121/73 130/72 O2 Sat by Pulse 91 93 94 Oximetry 10/28/21 10/28/21 10/28/21 09:11 09:21 09:31 Temperature Pulse Rate 90 93 H 93 H Pulse Rate [ From Monitor] Respiratory 15 14 15 Rate Blood Pressure 130/72 130/72 130/72 O2 Sat by Pulse 96 98 98 Oximetry 10/28/21 10/28/21 10/28/21 09:41 09:51 10:00 Temperature Pulse Rate 89 91 H 87 Pulse Rate [ From Monitor] Respiratory 17 23 14 Rate Blood Pressure 130/72 130/72 101/64 O2 Sat by Pulse 97 97 97 Oximetry 10/28/21 10/28/21 10/28/21 10:11 10:21 10:22 Temperature Pulse Rate 90 89 Pulse Rate [ From Monitor] Respiratory 15 15 Rate Blood Pressure 101/64 101/64 O2 Sat by Pulse 97 98 98 Oximetry 10/28/21 10/28/21 10:31 10:41 Temperature Pulse Rate 86 86 Pulse Rate [ From Monitor] Respiratory 14 17 Rate Blood Pressure 101/64 101/64 O2 Sat by Pulse 98 96 Oximetry Constitutional: no acute distress Eyes: non-icteric ENT: oropharynx moist Neck: supple, no lymphadenopathy, no JVD Effort: normal Ascultation: Bilateral: clear Percussion: Bilateral: not dull Cardiovascular: regular rate and rhythm Gastrointestinal: normoactive bowel sounds, soft, non-tender, non-distended Integumentary: normal Extremities: no cyanosis, no edema, pulses normal, no ischemia or petechiae Neurologic: non-focal exam (grossly), pupils equal and round, CN II-XII normal, motor strength normal and Psychiatric: mood appropriate, affect normal CBC and BMP: 10/28/21 04:39 10/28/21 04:39 ABG, PT/INR, D-dimer: PT/INR, D-dimer PT 17.2 Sec. (12.2-14.9) H 10/26/21 11:50 INR 1.25 (0.87-1.13) H 10/26/21 11:50 Abnormal lab findings: Abnormal Labs 10/26/21 10/26/21 10/26/21 10:54 11:50 11:50 WBC 21.7 H MCV 107 H MCHC 30 L RDW 15.5 H Plt Count Seg Neuts % (Manual) 94.0 H Lymphocytes % (Manual) 2.0 L Seg Neutrophils # Man 20.4 H Lymphocytes # (Manual) 0.4 L PT 17.2 H INR 1.25 H VBG pH Sodium Potassium Chloride Carbon Dioxide BUN Creatinine Glucose POC Glucose > 600 H Hemoglobin A1c Lactic Acid Calcium Phosphorus Magnesium Troponin T Triglycerides Cholesterol LDL Cholesterol Direct HDL Cholesterol TSH 10/26/21 10/26/21 10/26/21 11:50 11:50 11:50 WBC MCV MCHC RDW Plt Count Seg Neuts % (Manual) Lymphocytes % (Manual) Seg Neutrophils # Man Lymphocytes # (Manual) PT INR VBG pH Sodium Potassium 7.9 H* Chloride 89.5 L Carbon Dioxide 3 L* BUN 33 H Creatinine 2.4 H Glucose 882 H* POC Glucose Hemoglobin A1c Lactic Acid 9.20 H* Calcium 10.3 H Phosphorus Magnesium 3.00 H Troponin T 0.051 H Triglycerides Cholesterol LDL Cholesterol Direct HDL Cholesterol TSH 4.730 H 10/26/21 10/26/21 10/26/21 11:50 11:50 14:25 WBC MCV MCHC RDW Plt Count Seg Neuts % (Manual) Lymphocytes % (Manual) Seg Neutrophils # Man Lymphocytes # (Manual) PT INR VBG pH 6.984 L* Sodium Potassium 5.9 H D Chloride Carbon Dioxide 3 L* BUN 32 H Creatinine 2.1 H Glucose 773 H* POC Glucose Hemoglobin A1c Lactic Acid Calcium 8.1 L D Phosphorus Magnesium Troponin T Triglycerides 204 H Cholesterol 278 H LDL Cholesterol Direct 190 H HDL Cholesterol 77 H TSH 10/26/21 10/26/21 10/26/21 14:25 14:39 16:40 WBC MCV MCHC RDW Plt Count Seg Neuts % (Manual) Lymphocytes % (Manual) Seg Neutrophils # Man Lymphocytes # (Manual) PT INR VBG pH Sodium Potassium Chloride Carbon Dioxide BUN Creatinine Glucose POC Glucose > 600 H > 600 H Hemoglobin A1c Lactic Acid 6.10 H* Calcium Phosphorus Magnesium Troponin T Triglycerides Cholesterol LDL Cholesterol Direct HDL Cholesterol TSH 10/26/21 10/26/21 10/26/21 17:42 18:30 18:35 WBC MCV MCHC RDW Plt Count Seg Neuts % (Manual) Lymphocytes % (Manual) Seg Neutrophils # Man Lymphocytes # (Manual) PT INR VBG pH Sodium Potassium Chloride Carbon Dioxide 9 L* BUN 31 H Creatinine 1.8 H Glucose 488 H POC Glucose > 600 H 514 H Hemoglobin A1c Lactic Acid Calcium Phosphorus Magnesium Troponin T Triglycerides Cholesterol LDL Cholesterol Direct HDL Cholesterol TSH 10/26/21 10/26/21 10/26/21 19:24 20:30 20:32 WBC MCV MCHC RDW Plt Count Seg Neuts % (Manual) Lymphocytes % (Manual) Seg Neutrophils # Man Lymphocytes # (Manual) PT INR VBG pH Sodium 147 H Potassium Chloride 109.4 H Carbon Dioxide 13 L BUN 29 H Creatinine 1.7 H Glucose 326 H POC Glucose 430 H 301 H Hemoglobin A1c Lactic Acid Calcium Phosphorus Magnesium Troponin T Triglycerides Cholesterol LDL Cholesterol Direct HDL Cholesterol TSH 10/26/21 10/26/21 10/26/21 21:29 22:32 23:43 WBC MCV MCHC RDW Plt Count Seg Neuts % (Manual) Lymphocytes % (Manual) Seg Neutrophils # Man Lymphocytes # (Manual) PT INR VBG pH Sodium Potassium Chloride Carbon Dioxide BUN Creatinine Glucose POC Glucose 258 H 246 H 200 H Hemoglobin A1c Lactic Acid Calcium Phosphorus Magnesium Troponin T Triglycerides Cholesterol LDL Cholesterol Direct HDL Cholesterol TSH 10/26/21 10/26/21 10/27/21 Unknown Unknown 00:39 WBC MCV MCHC RDW Plt Count Seg Neuts % (Manual) Lymphocytes % (Manual) Seg Neutrophils # Man Lymphocytes # (Manual) PT INR VBG pH Sodium Potassium Chloride Carbon Dioxide 5 L* BUN 34 H Creatinine 2.1 H Glucose 646 H* POC Glucose 136 H Hemoglobin A1c Lactic Acid Calcium Phosphorus 6.10 H Magnesium 2.60 H Troponin T 0.055 H Triglycerides Cholesterol LDL Cholesterol Direct HDL Cholesterol TSH 10/27/21 10/27/21 10/27/21 01:41 02:28 03:28 WBC MCV MCHC RDW Plt Count Seg Neuts % (Manual) Lymphocytes % (Manual) Seg Neutrophils # Man Lymphocytes # (Manual) PT INR VBG pH Sodium Potassium Chloride Carbon Dioxide BUN Creatinine Glucose POC Glucose 130 H 110 H 134 H Hemoglobin A1c Lactic Acid Calcium Phosphorus Magnesium Troponin T Triglycerides Cholesterol LDL Cholesterol Direct HDL Cholesterol TSH 10/27/21 10/27/21 10/27/21 04:20 04:20 04:20 WBC MCV MCHC RDW Plt Count 137 L Seg Neuts % (Manual) Lymphocytes % (Manual) Seg Neutrophils # Man Lymphocytes # (Manual) PT INR VBG pH Sodium 151 H Potassium Chloride 116.6 H Carbon Dioxide BUN 26 H Creatinine 1.4 H Glucose POC Glucose Hemoglobin A1c Lactic Acid Calcium Phosphorus 1.30 L D Magnesium Troponin T Triglycerides Cholesterol LDL Cholesterol Direct HDL Cholesterol TSH 10/27/21 10/27/21 10/27/21 04:20 04:28 05:29 WBC MCV MCHC RDW Plt Count Seg Neuts % (Manual) Lymphocytes % (Manual) Seg Neutrophils # Man Lymphocytes # (Manual) PT INR VBG pH Sodium Potassium Chloride Carbon Dioxide BUN Creatinine Glucose POC Glucose 117 H 117 H Hemoglobin A1c 14.9 H Lactic Acid Calcium Phosphorus Magnesium Troponin T Triglycerides Cholesterol LDL Cholesterol Direct HDL Cholesterol TSH 10/27/21 10/27/21 10/27/21 06:20 06:54 08:02 WBC MCV MCHC RDW Plt Count Seg Neuts % (Manual) Lymphocytes % (Manual) Seg Neutrophils # Man Lymphocytes # (Manual) PT INR VBG pH Sodium Potassium Chloride Carbon Dioxide BUN Creatinine Glucose POC Glucose 49 L 128 H 130 H Hemoglobin A1c Lactic Acid Calcium Phosphorus Magnesium Troponin T Triglycerides Cholesterol LDL Cholesterol Direct HDL Cholesterol TSH 10/27/21 10/27/21 10/27/21 11:20 13:18 16:23 WBC MCV MCHC RDW Plt Count Seg Neuts % (Manual) Lymphocytes % (Manual) Seg Neutrophils # Man Lymphocytes # (Manual) PT INR VBG pH Sodium 148 H Potassium Chloride 112.0 H Carbon Dioxide 17 L D BUN 21 H Creatinine Glucose 225 H POC Glucose 245 H 204 H Hemoglobin A1c Lactic Acid Calcium Phosphorus Magnesium Troponin T Triglycerides Cholesterol LDL Cholesterol Direct HDL Cholesterol TSH 10/27/21 10/28/21 10/28/21 21:24 04:39 04:39 WBC 11.9 H MCV MCHC RDW Plt Count 126 L Seg Neuts % (Manual) Lymphocytes % (Manual) Seg Neutrophils # Man Lymphocytes # (Manual) PT INR VBG pH Sodium 149 H Potassium Chloride 111.1 H Carbon Dioxide BUN Creatinine Glucose POC Glucose 206 H Hemoglobin A1c Lactic Acid Calcium Phosphorus 2.40 L D Magnesium Troponin T Triglycerides Cholesterol LDL Cholesterol Direct HDL Cholesterol TSH 10/28/21 10/28/21 08:07 11:05 WBC MCV MCHC RDW Plt Count Seg Neuts % (Manual) Lymphocytes % (Manual) Seg Neutrophils # Man Lymphocytes # (Manual) PT INR VBG pH Sodium Potassium Chloride Carbon Dioxide BUN Creatinine Glucose POC Glucose 58 L 247 H Hemoglobin A1c Lactic Acid Calcium Phosphorus Magnesium Troponin T Triglycerides Cholesterol LDL Cholesterol Direct HDL Cholesterol TSH Allied health notes reviewed: nursing
--- NOTE | 2021-10-28 13:29 | Electrocardiograph Report ---
[facility] Test Date: 2021-10-26 Test Time: 10:58:12 Pat Name: FELIX BERKOWITZ Department: Room: A263 Gender: M Sheet [employer]inter: LEVI : [id number] Requested By: KANG GIRON Order Number: [id number] Reading MD: Gricelda Castillo Measurements Intervals [place] Rate: 118 P: 0 ND: 71 QRS: -71 QRSD: 110 T: 87 QT: 472 QTc: 662 Interpretive Statements Sinus tachycardia Left anterior fascicular block Prolonged QT interval No previous ECG available for comparison Electronically Signed On 10-28-2021 13:28:32 EDT by Gricelda Castillo
[2021-10-28] MEDS: ENOXAPARIN 30 MG/0.3 ML INJ SUB-Q SCH (21:17)
[2021-10-28] MEDS: FAMOTIDINE 20 MG TAB PO SCH (21:18)
[2021-10-28] MEDS: ERYTHROMYCIN 5 MG/1 GM OPHTH OINT OD SCH (21:29)
[2021-10-28] MEDS ORDERED: INSULIN GLARGINE 100 UNITS/ML SUB-Q SCH (22:00)
[2021-10-29] MEDS: INSULIN LISPRO 100 UNIT/ML SUB-Q SCH ×3 (07:38→17:38)
[2021-10-29] MEDS ORDERED: INSULIN REGULAR, HUMAN 100 UNITS/1 ML SUB-Q ONE (09:00)
[2021-10-29 09:20] LABS: Hematocrit 40.5 % (35.5-45.6); Hemoglobin 13.6 gm/dl (11.8-15.2); Mean Corpuscular HGB Conc 34 % (32-34); Mean Corpuscular Volume 92 fl (84-94); Platelet Count 115 K/mm3 (140-440); Red Blood Count 4.42 M/mm3 (3.65-5.03); Red Cell Distribution Width 14.5 % (13.2-15.2)
[2021-10-29 09:42] LABS: BUN/Creatinine Ratio 18; Blood Urea Nitrogen 14 mg/dL (9-20); Calcium 9.7 mg/dL (8.4-10.2); Hemolysis Index 6
[2021-10-29] MEDS: GENTAMICIN 0.3% OPHTH SOLN 5 ML OD SCH ×2 (09:44→15:45)
--- NOTE | 2021-10-29 10:37 | Discharge Summary ---
Providers - Providers Date of Admission: 10/26/21 14:29 Attending physician: COLEMAN PRATER MD 10/26/21 Consult to Physician [CONS] Stat Comment: Consulting Provider: MARY NORWOOD Physician Instructions: Reason For Exam: dka 10/27/21 16:01 Consult to Case Management [CONS] Routine Services Needed at Discharge: Director Building Notified:: CM Additional Physician Instructions: 10/28/21 09:50 Occupational Therapy Evaluate and Treat [CONS] Routine Comment: Reason For Exam: Debility Physical Therapy Evaluation and Treat [CONS] Routine Comment: Reason For Exam: Debility Primary care physician: COLOR PASTE M[employer]ER Hospitalization Reason for admission: DKA Condition: Serious Hospital course: This is a 80-year-old male with known past medical history of DM, vascular Dementia, and cerebral vascular dementia admitted for DKA Hospital Course to Date: 10/27: Transitioned to subQ insulin this am. Now hypoglycemic treated per hypoglycemic protocol. Continue BG and SSI ACHS, basal insulin Qhs. Leukocytosis resolved, patient remains afebrile and lactic acidosis resolved. Procal and blood cultures are pending, consider D/C Empiric IV Abx if procal is normal and B.cultures are with no growth. Renal function improved post IVF hydration, continue to monitor renal function and replaced electrolytes as needed. 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 10/28: TOBY overnight. Hypoglycemic this am, treated per hypoglycemic protocol, Lantus reduced. Worsening hypernatremia this am, D5wX1L. Renal function normalized, continue to monitor renal function and electrolytes. Transfer to floor once bed is available. PT/OT eval pending. 10/29: Patient insists he is independent, will still request home health for him. educated him on preventive care planning considering his DM and associated risk,. Also recommended outpatient GI eval due to recurrent nausea. Assessment and Plan #Uncontrolled Diabetes #s/p DKA (diabetic ketoacidosis) #Anion Gap Metabolic Acidosis-resolved - Presented with severe metabolic acidosis 2/2 DKA - s/p DKA protocol - HgbA1C- 14.9 - Transitioned to subQ, now hypoglycemia - Tolerating PO intake this am, consistent carbs diet - Continue BG and SSI ACHS - Basal, Lantus, Qhs - Avoid hypoglycemia - Hypoglycemic protocol #Leukocytosis-resolved #Lactic Acidosis-resolved #Systemic inflammatory response syndrome without organ #Sepsis ruled out - most like due to DKA, volume depletion - Presented with severe acidosis, high lactic and leukocytosis - Sepsis protocol was initiated - Leukocytosis and lactic acidosis resolved this am, afebrile, VSS - UA is unremarkable for infectious process. Procal-2.38 and Blood cultures with NGTD - Will hold IV abx for now - Continue to F/U on cultures data - ID consult if febrile or leukocytosis reoccur #Acute Kidney Injury(KARRIE) most likely Vasomotor Nephropathy #Hypernatremia #Volume depletion/Dehydration - Due to DKA- s/p DKA protocol - Renal function normalized post IVF resuscitation therapy - With persistent hypernatremia, probably still volume depleted- D5wX1L - Continue to monitor renal function - Strict intake and output - Avoid nephrotoxic medications; Renally dose medications - Monitor and replace electrolytes as needed - Trend BMP #Toxic Metabolic Encephalopathy-resolved #H/o Vascular Dementia - Most likely due to severe acidosis/DKA - Avoid benzodiazepine to reduce the possibility of delirium - Prn analgesia for pain management - Verbal prompting and redirection - Maintenance of sleep-wake cycle #GI/DVT Prophylaxis - PPI- Pepcid - Lovenox SubQ - SCD to bilateral lower extremities while in bed #Advance Care Planning - Disease education conducted, care plan discussed, diagnoses discussed, prognosis discussed. 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 Disposition: HOME HEALTH CARE SERVICE Final Discharge Diagnosis (Prints w/discharge instructions): Diabetic ketoacidosis with systemic inflammatory response syndrome without organ dysfunction Time spent for discharge: 35 Core Measure Documentation - Palliative Care Palliative Care/ Comfort Measures: Not Applicable - Core Measures Any of the following diagnoses?: none Exam - Physical Exam Narrative exam: VITAL SIGNS: Reviewed. GENERAL: The patient appears normally developed, cachexia vital signs as documented. HEAD: No signs of head trauma. Temporal wasting EYES: Pupils are equal. Extraocular motions intact. EARS: Hearing grossly intact. MOUTH: Oropharynx is normal. NECK: No adenopathy, no JVD. CHEST: Chest with clear breath sounds bilaterally. No wheezes, rales, or r honchi. CARDIAC: Regular rate and rhythm. S1 and S2, without murmurs, gallops, or rubs. VASCULAR: No Edema. Peripheral pulses normal and equal in all extremities. ABDOMEN: Soft, non tender and non distended. No rebound or guarding, and no masses palpated. Bowel Sounds normal. MUSCULOSKELETAL: Good range of motion of all major joints. Extremities without clubbing, cyanosis or edema. NEUROLOGIC EXAM: Alert and oriented x 3 No focal sensory or strength deficits. Speech normal. Follows commands. PSYCHIATRIC: Mood normal. SKIN: detail exam as documented in skin assessment - Constitutional Vitals: Temp Pulse Resp BP Pulse Ox 98.2 F 92 H 18 141/85 96 10/29/21 00:00 10/29/21 05:00 10/29/21 01:00 10/28/21 23:04 10/29/21 01:00 Plan Activity: advance as tolerated, fall precautions Diet: diabetic Special Instructions: record daily weights, record daily BP diary, record blood sugar diary, home health RN Follow up with: PRIMARY CARE, [Primary Care Provider] - 3-5 Days PUNEET TREVIZO JR, MD [Staff Physician] - 7 Days PEE PULIDO MD [Staff Physician] - 7 Days Prescriptions: Insulin Regular, Human [HumuLIN R] 0 unit SQ AC #1 vial Insulin Glargine,Hum.rec.anlog [Lantus Solostar] 20 unit SQ HS #10 ml Ondansetron [Zofran Odt] 4 mg PO Q8HR #30 tab.jhoan
[2021-10-29] MEDS: CYCLOPENTOLATE 1% OD SCH ×2 (10:43→15:43)
[2021-10-29] MEDS: prednisoLONE ACETATE 1% OPHTH SUSP 5 ML OD SCH (10:56)
--- NOTE | 2021-10-29 12:14 | Progress Note ---
Assessment and Plan Diabetic ketoacidosis Acute toxic metabolic encephalopathy Intravascular volume depletion Hyperkalemia H/O vascular dementia Leukocytosis Severe metabolic acidosis at presentation Lactic acidosis Adult failure to thrive Hyperlipidemia - prn supplemental oxygen to keep O2 sats > 90% - prn bronchodilators (GLENN) with pulm hygiene per RT - avoid nephrotoxins, renally dose all medications - mobility protocols to prevent pressure ulcers - PT/OT as tolerated - Wound care per RN/WCT - continue accuchecks with glycemic control per SSI for target blood glucose < 180 mg/dL - continued tobacco abstinence strongly counseled at the bedside - home oxygen evaluation at discharge - prn analgesia per pain score - GI & VTE prophylaxis - Flu & pneumovax per protocol - Pulmonary out patient follow up for PFTs and optimization of respiratory status - continue other care per attending / other consultants ... re-evaluate in am & prn Subjective Date of service: 10/29/21 Principal diagnosis: DKA; AMS; IVVD; Hyperkalemia; metabolic acidosis; Lactic ac idosis Interval history: Patient is seen today for: DKA; AMS; IVVD; Hyperkalemia; Severe metabolic acidosis at presentation; Lactic acidosis; Hyperlipidemia Seen and examined at bedside; 24hour events reviewed; nursing and respiratory care staff consulted; no adverse overnight events reported to me; resting peacefully in bed; Objective Vital Signs - 12hr 10/29/21 10/29/21 01:00 05:00 Pulse Rate 92 H Pulse Rate [ 80 From Monitor] Respiratory 18 Rate O2 Sat by Pulse 96 Oximetry Constitutional: no acute distress Eyes: non-icteric ENT: oropharynx moist Neck: supple, no lymphadenopathy, no JVD Effort: normal Ascultation: Bilateral: clear Percussion: Bilateral: not dull Cardiovascular: regular rate and rhythm Gastrointestinal: normoactive bowel sounds, soft, non-tender, non-distended Integumentary: normal Extremities: no cyanosis, no edema, pulses normal, no ischemia or petechiae Neurologic: non-focal exam (grossly), pupils equal and round, CN II-XII normal, motor strength normal and Psychiatric: mood appropriate, affect normal CBC and BMP: 10/29/21 09:01 10/29/21 09:01 ABG, PT/INR, D-dimer: PT/INR, D-dimer PT 17.2 Sec. (12.2-14.9) H 10/26/21 11:50 INR 1.25 (0.87-1.13) H 10/26/21 11:50 Abnormal lab findings: Abnormal Labs 10/26/21 10/26/21 10/26/21 10:54 11:50 11:50 WBC 21.7 H MCV 107 H MCHC 30 L RDW 15.5 H Plt Count Seg Neuts % (Manual) 94.0 H Lymphocytes % (Manual) 2.0 L Seg Neutrophils # Man 20.4 H Lymphocytes # (Manual) 0.4 L PT 17.2 H INR 1.25 H VBG pH Sodium Potassium Chloride Carbon Dioxide BUN Creatinine Glucose POC Glucose > 600 H Hemoglobin A1c Lactic Acid Calcium Phosphorus Magnesium Troponin T Triglycerides Cholesterol LDL Cholesterol Direct HDL Cholesterol TSH 10/26/21 10/26/21 10/26/21 11:50 11:50 11:50 WBC MCV MCHC RDW Plt Count Seg Neuts % (Manual) Lymphocytes % (Manual) Seg Neutrophils # Man Lymphocytes # (Manual) PT INR VBG pH Sodium Potassium 7.9 H* Chloride 89.5 L Carbon Dioxide 3 L* BUN 33 H Creatinine 2.4 H Glucose 882 H* POC Glucose Hemoglobin A1c Lactic Acid 9.20 H* Calcium 10.3 H Phosphorus Magnesium 3.00 H Troponin T 0.051 H Triglycerides Cholesterol LDL Cholesterol Direct HDL Cholesterol TSH 4.730 H 10/26/21 10/26/21 10/26/21 11:50 11:50 14:25 WBC MCV MCHC RDW Plt Count Seg Neuts % (Manual) Lymphocytes % (Manual) Seg Neutrophils # Man Lymphocytes # (Manual) PT INR VBG pH 6.984 L* Sodium Potassium 5.9 H D Chloride Carbon Dioxide 3 L* BUN 32 H Creatinine 2.1 H Glucose 773 H* POC Glucose Hemoglobin A1c Lactic Acid Calcium 8.1 L D Phosphorus Magnesium Troponin T Triglycerides 204 H Cholesterol 278 H LDL Cholesterol Direct 190 H HDL Cholesterol 77 H TSH 10/26/21 10/26/21 10/26/21 14:25 14:39 16:40 WBC MCV MCHC RDW Plt Count Seg Neuts % (Manual) Lymphocytes % (Manual) Seg Neutrophils # Man Lymphocytes # (Manual) PT INR VBG pH Sodium Potassium Chloride Carbon Dioxide BUN Creatinine Glucose POC Glucose > 600 H > 600 H Hemoglobin A1c Lactic Acid 6.10 H* Calcium Phosphorus Magnesium Troponin T Triglycerides Cholesterol LDL Cholesterol Direct HDL Cholesterol TSH 10/26/21 10/26/21 10/26/21 17:42 18:30 18:35 WBC MCV MCHC RDW Plt Count Seg Neuts % (Manual) Lymphocytes % (Manual) Seg Neutrophils # Man Lymphocytes # (Manual) PT INR VBG pH Sodium Potassium Chloride Carbon Dioxide 9 L* BUN 31 H Creatinine 1.8 H Glucose 488 H POC Glucose > 600 H 514 H Hemoglobin A1c Lactic Acid Calcium Phosphorus Magnesium Troponin T Triglycerides Cholesterol LDL Cholesterol Direct HDL Cholesterol TSH 10/26/21 10/26/21 10/26/21 19:24 20:30 20:32 WBC MCV MCHC RDW Plt Count Seg Neuts % (Manual) Lymphocytes % (Manual) Seg Neutrophils # Man Lymphocytes # (Manual) PT INR VBG pH Sodium 147 H Potassium Chloride 109.4 H Carbon Dioxide 13 L BUN 29 H Creatinine 1.7 H Glucose 326 H POC Glucose 430 H 301 H Hemoglobin A1c Lactic Acid Calcium Phosphorus Magnesium Troponin T Triglycerides Cholesterol LDL Cholesterol Direct HDL Cholesterol TSH 10/26/21 10/26/21 10/26/21 21:29 22:32 23:43 WBC MCV MCHC RDW Plt Count Seg Neuts % (Manual) Lymphocytes % (Manual) Seg Neutrophils # Man Lymphocytes # (Manual) PT INR VBG pH Sodium Potassium Chloride Carbon Dioxide BUN Creatinine Glucose POC Glucose 258 H 246 H 200 H Hemoglobin A1c Lactic Acid Calcium Phosphorus Magnesium Troponin T Triglycerides Cholesterol LDL Cholesterol Direct HDL Cholesterol TSH 10/26/21 10/26/21 10/27/21 Unknown Unknown 00:39 WBC MCV MCHC RDW Plt Count Seg Neuts % (Manual) Lymphocytes % (Manual) Seg Neutrophils # Man Lymphocytes # (Manual) PT INR VBG pH Sodium Potassium Chloride Carbon Dioxide 5 L* BUN 34 H Creatinine 2.1 H Glucose 646 H* POC Glucose 136 H Hemoglobin A1c Lactic Acid Calcium Phosphorus 6.10 H Magnesium 2.60 H Troponin T 0.055 H Triglycerides Cholesterol LDL Cholesterol Direct HDL Cholesterol TSH 10/27/21 10/27/21 10/27/21 01:41 02:28 03:28 WBC MCV MCHC RDW Plt Count Seg Neuts % (Manual) Lymphocytes % (Manual) Seg Neutrophils # Man Lymphocytes # (Manual) PT INR VBG pH Sodium Potassium Chloride Carbon Dioxide BUN Creatinine Glucose POC Glucose 130 H 110 H 134 H Hemoglobin A1c Lactic Acid Calcium Phosphorus Magnesium Troponin T Triglycerides Cholesterol LDL Cholesterol Direct HDL Cholesterol TSH 10/27/21 10/27/21 10/27/21 04:20 04:20 04:20 WBC MCV MCHC RDW Plt Count 137 L Seg Neuts % (Manual) Lymphocytes % (Manual) Seg Neutrophils # Man Lymphocytes # (Manual) PT INR VBG pH Sodium 151 H Potassium Chloride 116.6 H Carbon Dioxide BUN 26 H Creatinine 1.4 H Glucose POC Glucose Hemoglobin A1c Lactic Acid Calcium Phosphorus 1.30 L D Magnesium Troponin T Triglycerides Cholesterol LDL Cholesterol Direct HDL Cholesterol TSH 10/27/21 10/27/21 10/27/21 04:20 04:28 05:29 WBC MCV MCHC RDW Plt Count Seg Neuts % (Manual) Lymphocytes % (Manual) Seg Neutrophils # Man Lymphocytes # (Manual) PT INR VBG pH Sodium Potassium Chloride Carbon Dioxide BUN Creatinine Glucose POC Glucose 117 H 117 H Hemoglobin A1c 14.9 H Lactic Acid Calcium Phosphorus Magnesium Troponin T Triglycerides Cholesterol LDL Cholesterol Direct HDL Cholesterol TSH 10/27/21 10/27/21 10/27/21 06:20 06:54 08:02 WBC MCV MCHC RDW Plt Count Seg Neuts % (Manual) Lymphocytes % (Manual) Seg Neutrophils # Man Lymphocytes # (Manual) PT INR VBG pH Sodium Potassium Chloride Carbon Dioxide BUN Creatinine Glucose POC Glucose 49 L 128 H 130 H Hemoglobin A1c Lactic Acid Calcium Phosphorus Magnesium Troponin T Triglycerides Cholesterol LDL Cholesterol Direct HDL Cholesterol TSH 10/27/21 10/27/21 10/27/21 11:20 13:18 16:23 WBC MCV MCHC RDW Plt Count Seg Neuts % (Manual) Lymphocytes % (Manual) Seg Neutrophils # Man Lymphocytes # (Manual) PT INR VBG pH Sodium 148 H Potassium Chloride 112.0 H Carbon Dioxide 17 L D BUN 21 H Creatinine Glucose 225 H POC Glucose 245 H 204 H Hemoglobin A1c Lactic Acid Calcium Phosphorus Magnesium Troponin T Triglycerides Cholesterol LDL Cholesterol Direct HDL Cholesterol TSH 10/27/21 10/28/21 10/28/21 21:24 04:39 04:39 WBC 11.9 H MCV MCHC RDW Plt Count 126 L Seg Neuts % (Manual) Lymphocytes % (Manual) Seg Neutrophils # Man Lymphocytes # (Manual) PT INR VBG pH Sodium 149 H Potassium Chloride 111.1 H Carbon Dioxide BUN Creatinine Glucose POC Glucose 206 H Hemoglobin A1c Lactic Acid Calcium Phosphorus 2.40 L D Magnesium Troponin T Triglycerides Cholesterol LDL Cholesterol Direct HDL Cholesterol TSH 10/28/21 10/28/21 10/28/21 08:07 11:05 20:46 WBC MCV MCHC RDW Plt Count Seg Neuts % (Manual) Lymphocytes % (Manual) Seg Neutrophils # Man Lymphocytes # (Manual) PT INR VBG pH Sodium Potassium Chloride Carbon Dioxide BUN Creatinine Glucose POC Glucose 58 L 247 H 389 H Hemoglobin A1c Lactic Acid Calcium Phosphorus Magnesium Troponin T Triglycerides Cholesterol LDL Cholesterol Direct HDL Cholesterol TSH 10/29/21 09:01 WBC MCV MCHC RDW Plt Count 115 L Seg Neuts % (Manual) Lymphocytes % (Manual) Seg Neutrophils # Man Lymphocytes # (Manual) PT INR VBG pH Sodium Potassium Chloride Carbon Dioxide BUN Creatinine Glucose POC Glucose Hemoglobin A1c Lactic Acid Calcium Phosphorus Magnesium Troponin T Triglycerides Cholesterol LDL Cholesterol Direct HDL Cholesterol TSH Allied health notes reviewed: nursing
[2021-10-29 17:51] VITALS: BP 114/64
== END 2021-10-29 17:57 | disposition home or self-care (01) | DRG 637 ==
LOC: ED 10:50 → CC1 14:29 → 3A 10-28 23:54
PROVIDERS: ADMIT Internal Medicine; ATTEND Internal Medicine
PROC: 06HY33Z Insertion of Infusion Device into Lower Vein, Percutaneous Approach (ICD-10-PCS; principal; 2021-10-26)
PROC: B54BZZA Ultrasonography of Right Lower Extremity Veins, Guidance (ICD-10-PCS; 2021-10-26)
DX: E10.10 Type 1 diabetes mellitus with ketoacidosis without coma (principal); N17.0 Acute kidney failure with tubular necrosis; G92.8 Other toxic encephalopathy; R65.10 Systemic inflammatory response syndrome (SIRS) of non-infectious origin without acute organ dysfunction; E87.0 Hyperosmolality and hypernatremia; F01.50 Vascular dementia, unspecified severity, without behavioral disturbance, psychotic disturbance, mood disturbance, and anxiety; I67.2 Cerebral atherosclerosis; E86.9 Volume depletion, unspecified; R62.7 Adult failure to thrive; E87.5 Hyperkalemia; Z79.4 Long term (current) use of insulin; Z82.49 Family history of ischemic heart disease and other diseases of the circulatory system; Z83.3 Family history of diabetes mellitus; Z87.891 Personal history of nicotine dependence
CPT/HCPCS: 36415; 71045; 80048; 80053; 80061; 81001; 82140; 82550; 82805; 82962; 83036; 83735; 84100; 84145; 84443; 84484; 85007; 85025; 85027; 85610; 86850; 86900; 86901; 87040; 93005; 94760; 96374; 96375; 99291; G0378; J3490; J7510; Q9967; J0696; J1650; J1815; J1956; J2405; J7030; J7040; J7070; J7120

== ENCOUNTER 2022-03-14 15:27 | Inpatient (IN) | payer MEDICARE ==
[2022-03-14] MEDS ORDERED: SODIUM CHLORIDE 0.9% 1000 ML 1,000 ML IV ONE ×3 (16:20→18:44)
--- NOTE | 2022-03-14 16:31 | XRay Report ---
CHEST 1 VIEW 03/14/2022 4:10 PM INDICATION / CLINICAL INFORMATION: Dyspnea. COMPARISON: October 26, 2021 FINDINGS: SUPPORT DEVICES: None. HEART / MEDIASTINUM: No significant abnormality. LUNGS / PLEURA: No significant pulmonary or pleural abnormality. No pneumothorax. ADDITIONAL FINDINGS: No significant additional findings. IMPRESSION: 1. No acute findings. Signer Name: Deshawn Lunsford MD Signed: 03/14/2022 4:27 PM Workstation Name: [id number] ([id number]
[2022-03-14 16:47] LABS: ABG Base Excess -26.3 mmol/L (-2.0-3.0); ABG HCO3 3.1 mmol/L (20.0-26.0); ABG Methemoglobin 0.7 % (0.0-1.5); ABG Oxygen Saturation 98.2 % (95.0-99.0); ABG PCO2 12.5 mm Hg; ABG PO2 146.7 mm Hg (80.0-90.0)
[2022-03-14 17:03] LABS: ABG PH 7.006 pH Units (7.350-7.450)
[2022-03-14 18:06] LABS: Mean Corpuscular HGB Conc 30 % (32-34); Mean Corpuscular Volume 105 fl (84-94); Platelet Count 200 K/mm3 (140-440); Red Blood Count 4.08 M/mm3 (3.65-5.03); Red Cell Distribution Width 15.9 % (13.2-15.2)
[2022-03-14 18:14] LABS: Hematocrit 42.7 % (35.5-45.6); Hemoglobin 12.7 gm/dl (11.8-15.2); INR 1.1 (0.87-1.13)
[2022-03-14 18:15] LABS: Partial Thromboplastin Time 27.7 Sec. (24.2-36.6)
[2022-03-14 18:24] LABS: Creatine Kinase MB 6.2 ng/mL (0.0-4.0)
[2022-03-14 18:25] LABS: Alanine Aminotransferase 23 units/L (7-56); BUN/Creatinine Ratio 18; Blood Urea Nitrogen 32 mg/dL (9-20); Calcium 9.5 mg/dL (8.4-10.2); Hemolysis Index 5
--- NOTE | 2022-03-14 18:27 | Emergency Department Report ---
ED Abdominal Pain HPI - General Chief Complaint: Dyspnea/Respdistress Stated Complaint: COLBY/VOMITING Time Seen by Provider: 03/14/22 16:16 Source: patient Mode of arrival: Wheelchair Limitations: No Limitations - History of Present Illness Initial Comments: Patient is an 81-year-old male with history of diabetes and DKA brought in by for evaluation of shortness of breath and vomiting beginning this morning. He was found to be tachycardic in triage with critical high glucose and altered level of consciousness. Severity scale (0 -10): 0 - Related Data Home Medications Medication Instructions Recorded Confirmed Last Taken Cyclopentolate 1% 1 applic OD 4XD 10/26/21 10/26/21 Unknown Erythromycin Ophth Oint 1 applic OD HS 10/26/21 10/26/21 Unknown Gentamicin 0.3% Ophth Oint 1 applic OD 4XD 10/26/21 10/26/21 Unknown Prednisolone Acet 1% Eye Drop 1 applicatio OD HS 10/26/21 10/26/21 Unknown Empagliflozin [Jardiance] 10 mg PO DAILY 10/27/21 10/27/21 Unknown Previous Rx's Medication Instructions Recorded Last Taken Type Insulin Glargine,Hum.rec.anlog 20 unit SQ HS #10 ml 10/29/21 Unknown Rx [Lantus Solostar] Insulin Regular, Human [HumuLIN R] 0 unit SQ AC #1 vial 10/29/21 Unknown Rx Ondansetron [Zofran Odt] 4 mg PO Q8HR #30 tab.rapdis 10/29/21 Unknown Rx Allergies Allergy/AdvReac Type Severity Reaction Status Date / Time No Known Allergies Allergy Verified 03/14/22 15:45 ED Review of Systems ROS: Stated complaint: COLBY/VOMITING Other details as noted in HPI Constitutional: denies: chills, fever Respiratory: shortness of breath. denies: cough, wheezing Cardiovascular: denies: chest pain, palpitations Gastrointestinal: nausea, vomiting Musculoskeletal: denies: back pain, joint swelling, arthralgia Skin: denies: rash, lesions Neurological: denies: headache, weakness, paresthesias Psychiatric: denies: anxiety, depression ED Past Medical Hx - Past Medical History Hx Congestive Heart Failure: No Hx Diabetes: Yes Hx Deep Vein Thrombosis: No Hx Asthma: No Hx COPD: No - Surgical History Hx Pacemaker: No Hx Internal Defibrillator: No Additional Surgical History: hernia repair - Social History Smoking Status: Never Smoker Substance Use Type: None - Medications Home Medications: Home Medications Medication Instructions Recorded Confirmed Last Taken Type Cyclopentolate 1% 1 applic OD 4XD 10/26/21 10/26/21 Unknown History Erythromycin Ophth Oint 1 applic OD HS 10/26/21 10/26/21 Unknown History Gentamicin 0.3% Ophth Oint 1 applic OD 4XD 10/26/21 10/26/21 Unknown History Prednisolone Acet 1% Eye Drop 1 applicatio OD HS 10/26/21 10/26/21 Unknown History Empagliflozin [Jardiance] 10 mg PO DAILY 10/27/21 10/27/21 Unknown History Insulin Glargine,Hum.rec.anlog 20 unit SQ HS #10 ml 10/29/21 Unknown Rx [Lantus Solostar] Insulin Regular, Human [HumuLIN R] 0 unit SQ AC #1 vial 10/29/21 Unknown Rx Ondansetron [Zofran Odt] 4 mg PO Q8HR #30 tab.rapdis 10/29/21 Unknown Rx ED Physical Exam - General Limitations: No Limitations General appearance: obtunded - Head Head exam: Present: atraumatic, normocephalic - Neck Neck exam: Present: normal inspection - Respiratory Respiratory exam: Present: normal lung sounds bilaterally, other (Patient tachypneic). Absent: respiratory distress - Cardiovascular Cardiovascular Exam: Present: normal rhythm, tachycardia, normal heart sounds - GI/Abdominal GI/Abdominal exam: Present: soft. Absent: distended, tenderness - Rectal Rectal exam: Present: deferred - Neurological Exam Neurological exam: Present: altered, oriented X3 (Oriented to person only) - Psychiatric Psychiatric exam: Present: normal affect, normal mood - Skin Skin exam: Present: warm, dry, intact, normal color ED Course Vital Signs 03/14/22 03/14/22 15:42 16:15 Temperature 98.4 F Pulse Rate 117 H 116 H Respiratory 18 26 H Rate Blood Pressure 122/61 Blood Pressure 103/62 122/61 [Left] O2 Sat by Pulse 99 100 Oximetry ED Medical Decision Making - Lab Data Result diagrams: 03/14/22 17:13 03/14/22 17:13 - Medical Decision Making Lab findings consistent with DKA. Patient given IV calcium gluconate for potassium of 6.9. Started on insulin bolus and infusion. He has received 2 L of saline thus far. Will admit to ICU to Dr Quinteros. Dr. Kwong consulted. Critical care attestation.: If time is entered above; I have spent that time in minutes in the direct care of this critically ill patient, excluding procedure time. ED Disposition Clinical Impression: DKA (diabetic ketoacidosis) Qualifiers: Diabetes mellitus type: type 1 Disposition: 09 ADMITTED INPATIENT Is pt being admited?: Yes Condition: Stable Instructions: Diabetic Ketoacidosis (ED)
[2022-03-14] MEDS ORDERED: DEXTROSE 50% IN WATER (25GM) 50 ML SYRINGE IV PRN (18:34)
[2022-03-14 18:41] LABS: Band Neutrophils # (Manual) 0.4 K/mm3; Basophils % (Manual) 0 % (0.0-1.8); Total Cells Counted 100
[2022-03-14 18:42] LABS: Anisocytosis 1+; Platelet Estimate Consistent w Auto; Toxic Granulation 1+
[2022-03-14] MEDS ORDERED: CALCIUM GLUCONATE 1,000 MG in SODIUM CHLORIDE 0.9% 100 ML IV ONE (18:45)
[2022-03-14] MEDS ORDERED: INSULIN REGULAR, HUMAN 100 UNITS/1 ML IV ONE (18:46)
--- NOTE | 2022-03-14 19:07 | Consultation ---
History of Present Illness Consult date: 03/14/22 Requesting physician: VERONICA DALTON Reason for consult: other (DKA) History of present illness: PCCM CONSULT NOTE (Full dictation # [id number]) Please see dictated notes for full details Medications and Allergies Allergies Allergy/AdvReac Type Severity Reaction Status Date / Time No Known Allergies Allergy Verified 03/14/22 15:45 Home Medications Medication Instructions Recorded Confirmed Last Taken Type Cyclopentolate 1% 1 applic OD 4XD 10/26/21 10/26/21 Unknown History Erythromycin Ophth Oint 1 applic OD HS 10/26/21 10/26/21 Unknown History Gentamicin 0.3% Ophth Oint 1 applic OD 4XD 10/26/21 10/26/21 Unknown History Prednisolone Acet 1% Eye Drop 1 applicatio OD HS 10/26/21 10/26/21 Unknown History Empagliflozin [Jardiance] 10 mg PO DAILY 10/27/21 10/27/21 Unknown History Insulin Glargine,Hum.rec.anlog 20 unit SQ HS #10 ml 10/29/21 Unknown Rx [Lantus Solostar] Insulin Regular, Human [HumuLIN R] 0 unit SQ AC #1 vial 10/29/21 Unknown Rx Ondansetron [Zofran Odt] 4 mg PO Q8HR #30 tab.rapdis 10/29/21 Unknown Rx Active Meds: Active Medications Dextrose (Dextrose 50% In Water (25gm) 50 Ml Syringe) 0 ml IV Q30MIN PRN; Protocol PRN Reason: Hypoglycemia Insulin Human Regular 100 (units/ Sodium Chloride) 100 mls @ 1 mls/hr IV TITR ZENY; Protocol Sodium Chloride (Nacl 0.9% 1000 Ml) 1,000 mls @ 999 mls/hr IV BOLUS ONE Stop: 03/14/22 19:44 Physical Examination Vital signs: Vital Signs Temp Pulse Resp BP Pulse Ox 98.4 F 117 H 18 103/62 99 03/14/22 15:42 03/14/22 15:42 03/14/22 15:42 03/14/22 15:42 03/14/22 15:42 Results - Laboratory Findings CBC and BMP: 03/14/22 17:13 03/14/22 18:46 ABG ABG pH 7.006 pH Units (7.350-7.450) L* 03/14/22 16:30 ABG pCO2 12.5 mm Hg 03/14/22 16:30 ABG pO2 146.7 mm Hg (80.0-90.0) H 03/14/22 16:30 ABG O2 Saturation 98.2 % (95.0-99.0) 03/14/22 16:30 PT/INR, D-dimer PT 15.5 Sec. (12.2-14.9) H 03/14/22 17:13 INR 1.10 (0.87-1.13) 03/14/22 17:13 Abnormal lab findings: Abnormal Labs 03/14/22 03/14/22 03/14/22 15:56 16:30 17:13 WBC 20.4 H MCV 105 H MCHC 30 L RDW 15.9 H Seg Neuts % (Manual) 78.0 H Lymphocytes % (Manual) 11.0 L Monocytes % (Manual) 8.0 H Seg Neutrophils # Man 15.9 H Monocytes # (Manual) 1.6 H PT ABG pH 7.006 L* ABG pO2 146.7 H ABG HCO3 3.1 L ABG Base Excess -26.3 L Potassium Chloride Carbon Dioxide BUN Creatinine Glucose POC Glucose > 600 H CK-MB (CK-2) Troponin T Total Protein 03/14/22 03/14/22 17:13 17:13 WBC MCV MCHC RDW Seg Neuts % (Manual) Lymphocytes % (Manual) Monocytes % (Manual) Seg Neutrophils # Man Monocytes # (Manual) PT 15.5 H ABG pH ABG pO2 ABG HCO3 ABG Base Excess Potassium 6.2 H* Chloride 96.0 L Carbon Dioxide < 2.0 L* BUN 32 H Creatinine 1.8 H Glucose 679 H* POC Glucose CK-MB (CK-2) 6.2 H Troponin T 0.037 H Total Protein 5.8 L
--- NOTE | 2022-03-14 19:18 | History and Physical Report ---
History of Present Illness Chief complaint: He got sick today History of present illness: 81 YO Male with HTN, DM, Vascular Dementia, Cerebral Atherosclerosis presents to ED for evaluation. Patient is confused with diminished cognition at time of evaluation and only provides minimal history. Patient history brought by EMS staff, ED staff, as well as the patient's was at bedside during exam and interview. As per patient's spouse the patient "got sick today". Patient experienced nausea, multiple episodes of vomiting and confusion. Patient was noted to have increased blood sugar levels. EMS was notified and upon arrival the patient was found to be in distress and subsequently transported to [facility] for further care and evaluation of the aforementioned symptoms. The patient was seen and evaluated in the emergency department. All lab and imaging studies reviewed. The patient was found to have suspected UTI complicated by sepsis, toxic metabolic encephalopathy, DKA, metabolic acidosis, KARRIE with ATN, and volume depletion. Patient admitted to ICU and initiated on sepsis protocol due to increased risk of worsening symptoms and for medical stabilization. Critical care team consulted in ED. No reports of fever, chills, chest pain, palpitation, productive cough, skin rash, recent contact, known exposure to COVID-19. Prior admission on 10/26/2021 reviewed.. All medication listed at time of admission has been reconciled. Advanced care planning conducted in ED. Patient has diminished cognition at the time my evaluation but has a positive gag reflex and is able to protect his airway without difficulty. Past History Past Medical History: diabetes, hypertension, other (See HPI) Past Surgical History: hernia repair Medications and Allergies Allergies Allergy/AdvReac Type Severity Reaction Status Date / Time No Known Allergies Allergy Verified 03/14/22 15:45 Home Medications Medication Instructions Recorded Confirmed Last Taken Type Cyclopentolate 1% 1 applic OD 4XD 10/26/21 10/26/21 Unknown History Erythromycin Ophth Oint 1 applic OD HS 10/26/21 10/26/21 Unknown History Gentamicin 0.3% Ophth Oint 1 applic OD 4XD 10/26/21 10/26/21 Unknown History Prednisolone Acet 1% Eye Drop 1 applicatio OD HS 10/26/21 10/26/21 Unknown H istory Empagliflozin [Jardiance] 10 mg PO DAILY 10/27/21 10/27/21 Unknown History Insulin Glargine,Hum.rec.anlog 20 unit SQ HS #10 ml 10/29/21 Unknown Rx [Lantus Solostar] Insulin Regular, Human [HumuLIN R] 0 unit SQ AC #1 vial 10/29/21 Unknown Rx Ondansetron [Zofran Odt] 4 mg PO Q8HR #30 tab.rapdis 10/29/21 Unknown Rx Active Meds: Active Medications Dextrose (Dextrose 50% In Water (25gm) 50 Ml Syringe) 0 ml IV Q30MIN PRN; Protocol PRN Reason: Hypoglycemia Insulin Human Regular 100 (units/ Sodium Chloride) 100 mls @ 1 mls/hr IV TITR ZENY; Protocol Sodium Chloride (Nacl 0.9% 1000 Ml) 1,000 mls @ 999 mls/hr IV BOLUS ONE Stop: 03/14/22 19:44 Review of Systems ROS unobtainable: due to mental status Exam - Constitutional Vitals: Temp Pulse Resp BP Pulse Ox 98.4 F 116 H 26 H 122/61 100 03/14/22 15:42 03/14/22 16:15 03/14/22 16:15 03/14/22 16:15 03/14/22 16:15 General appearance: Present: severe distress, cachectic - EENT Eyes: Present: PERRL ENT: hearing intact, clear oral mucosa - Respiratory Respiratory effort: normal Respiratory: bilateral: diminished - Cardiovascular Rhythm: other (Tachycardia) Heart Sounds: Present: S1 & S2. Absent: rub, click - Extremities Extremities: no ischemia Peripheral Pulses: abnormal (Capillary refill greater than 3.5 seconds) - Abdominal General gastrointestinal: Present: soft, non-tender, non-distended, normal bowel sounds Male genitourinary: Present: normal - Integumentary Integumentary: Present: clear, dry, clammy, decreased turgor - Musculoskeletal Musculoskeletal: generalized weakness - Psychiatric Psychiatric: no appropriate mood/affect, no intact judgment & insight, no memory intact - Neurologic Neurologic: CNII-XII intact, no focal deficits, moves all extremities, no gait normal HEART Score - HEART Score Troponin: Troponin T 0.037 ng/mL (0.00-0.029) H 03/14/22 17:13 Results - Labs CBC & Chem 7: 03/14/22 17:13 03/14/22 18:46 Labs: Abnormal lab results 03/14/22 03/14/22 03/14/22 Range/Units 15:56 16:30 17:13 WBC 20.4 H (4.5-11.0) K/mm3 MCV 105 H (84-94) fl MCHC 30 L (32-34) % RDW 15.9 H (13.2-15.2) % Seg Neuts % (Manual) 78.0 H (40.0-70.0) % Lymphocytes % (Manual) 11.0 L (13.4-35.0) % Monocytes % (Manual) 8.0 H (0.0-7.3) % Seg Neutrophils # Man 15.9 H (1.8-7.7) K/mm3 Monocytes # (Manual) 1.6 H (0.0-0.8) K/mm3 PT (12.2-14.9) Sec. ABG pH 7.006 L* (7.350-7.450) pH Units ABG pO2 146.7 H (80.0-90.0) mm Hg ABG HCO3 3.1 L (20.0-26.0) mmol/L ABG Base Excess -26.3 L (-2.0-3.0) mmol/L Potassium (3.6-5.0) mmol/L Chloride (98-107) mmol/L Carbon Dioxide (22-30) mmol/L BUN (9-20) mg/dL Creatinine (0.8-1.3) mg/dL Glucose (75-100) mg/dL POC Glucose > 600 H (70-105) mg/dL CK-MB (CK-2) (0.0-4.0) ng/mL Troponin T (0.00-0.029) ng/mL Total Protein (6.3-8.2) g/dL 03/14/22 03/14/22 Range/Units 17:13 17:13 WBC (4.5-11.0) K/mm3 MCV (84-94) fl MCHC (32-34) % RDW (13.2-15.2) % Seg Neuts % (Manual) (40.0-70.0) % Lymphocytes % (Manual) (13.4-35.0) % Monocytes % (Manual) (0.0-7.3) % Seg Neutrophils # Man (1.8-7.7) K/mm3 Monocytes # (Manual) (0.0-0.8) K/mm3 PT 15.5 H (12.2-14.9) Sec. ABG pH (7.350-7.450) pH Units ABG pO2 (80.0-90.0) mm Hg ABG HCO3 (20.0-26.0) mmol/L ABG Base Excess (-2.0-3.0) mmol/L Potassium 6.2 H* (3.6-5.0) mmol/L Chloride 96.0 L (98-107) mmol/L Carbon Dioxide < 2.0 L* (22-30) mmol/L BUN 32 H (9-20) mg/dL Creatinine 1.8 H (0.8-1.3) mg/dL Glucose 679 H* (75-100) mg/dL POC Glucose (70-105) mg/dL CK-MB (CK-2) 6.2 H (0.0-4.0) ng/mL Troponin T 0.037 H (0.00-0.029) ng/mL Total Protein 5.8 L (6.3-8.2) g/dL Assessment and Plan - Patient Problems (1) Sepsis Status: Acute Qualifiers: Acute renal failure type: with acute tubular necrosis Plan to address problem: Sepsis protocol: Chest x-ray, CBC, urinalysis, IV fluid resuscitation therapy, IV antibiotic therapy, maintain mean arterial pressure greater than equal 65, blood culture, serial lactic acid level, IV pressor support as clinically indicated, monitor fluid balance. The high probability of a clinically significant, sudden or life threatening deterioration of the [endocrine, neuro, renal, infectious disease] system(s) req uired my full and direct attention, intervention and personal management. The aggregate critical care time was [95] minutes. This time is in addition to time spent performing reported procedures but includes the following: [x] Data Review and interpretation [x] Patient assessment and monitoring of vital signs [x] Documentation [x] Medication orders and management (2) UTI (urinary tract infection) Status: Acute Qualifiers: Encounter type: initial encounter Plan to address problem: Urinalysis, IV antibiotic therapy, (3) Toxic metabolic encephalopathy Status: Acute Plan to address problem: Treat sepsis, seizure precaution, aspiration precaution, fall precautions. Neurochecks. (4) DKA (diabetic ketoacidosis) Status: Acute Qualifiers: Diabetes mellitus type: type 1 Plan to address problem: DKA protocol: IV fluid resuscitation therapy, insulin drip, serial BMP, monitor anion gap, potassium repletion as per protocol (5) Metabolic acidosis Status: Acute Plan to address problem: IV fluid resuscitation therapy, treat sepsis, treat DKA. Repeat BMP in a.m. (6) Acute kidney injury (KARRIE) with acute tubular necrosis (ATN) Status: Acute Plan to address problem: IV fluid resuscitation therapy, monitor urine output every shift, monitor fluid balance, (7) Vascular dementia Status: Acute Qualifiers: Dementia behavioral disturbance: without behavioral disturbance Qualified Code(s): F01.50 - Vascular dementia without behavioral disturbance Plan to address problem: Verbal prompting, verbal redirection, benzodiazepine therapy as clinically indicated. (8) Cerebral atherosclerosis Status: Acute (9) Malnutrition of moderate degree Status: Acute Plan to address problem: Increase protein intake, dietary supplementation when awake and alert only. (10) DVT prophylaxis Status: Acute Plan to address problem: SCD to bilateral lower extremities while in bed (11) Advance care planning Status: Acute Plan to address problem: Disease education data, care plan discussed, diagnoses discussed, prognosis discussed, patient is full code. Patient and family acknowledged understanding and agreement with care plan, +30 minutes. (12) Preventative health care Status: Acute Plan to address problem: Patient and family counseled regarding increased protein intake, dietary supplementation, outpatient follow-up with primary care physician for all age and risk factor appropriate screening test. +30 minutes.
[2022-03-14] MEDS ORDERED: HYDROmorphone 0.5 MG/0.5 ML INJ IV PRN (19:20)
[2022-03-14] MEDS ORDERED: SODIUM CHLORIDE 0.9% 1000 ML IV SOLN IV ONE (19:20)
[2022-03-14] MEDS ORDERED: oxyCODONE /ACETAMINOPHEN 5-325MG TAB PO PRN (19:20)
[2022-03-14] MEDS ORDERED: ALBUTEROL 2.5 MG/3 ML NEBU IH PRN (19:20)
[2022-03-14] MEDS ORDERED: ACETAMINOPHEN 325 MG TAB PO PRN (19:20)
[2022-03-14 19:23] LABS: BUN/Creatinine Ratio 17; Blood Urea Nitrogen 30 mg/dL (9-20); Calcium 9.5 mg/dL (8.4-10.2); Hemolysis Index 23
--- NOTE | 2022-03-14 20:04 | Procedure Note ---
Date of procedure: 03/14/22 Pre-op diagnosis: DKA Post-op diagnosis: same Procedure: Right femoral vein triple-lumen catheter under ultrasound guidance After informed consent was obtained the patient was prepped and draped in usual sterile fashion. A timeout was taken with the patient's nurse at bedside to verify the correct patient, the correct procedure, and the correct operative site. Local anesthesia obtained with 1% lidocaine. Ultrasound was utilized to localize the right femoral vein without difficulty. The Seldinger technique was utilized to access the right femoral vein under direct visualization with ultrasound while inserting a seeker needle into the right femoral vein without difficulty. A guidewire was then advanced into the right femoral vein without difficulty and the seeker needle removed. A scalpel was used to incise the skin at the insertion site. A dilator was then passed over the guidewire into the right femoral vein and subsequently removed. A preflush triple-lumen catheter was then advanced into the right femoral vein and the guidewire subsequently removed. All 3 ports flush and drawl with ease. 3-0 silk suture was utilized to suture the triple-lumen catheter in place. A Biopatch was placed at the insertion site. A sterile dressing was then utilized to cover the triple-lumen catheter. All 3 ports flush and drawl with ease. Estimated blood loss minimal. Complications none. Specimens none. Anesthesia: local Surgeon: SLAVA DANIELSON Estimated blood loss: minimal Pathology: none Condition: critical Disposition: ICU
[2022-03-14] MEDS: INSULIN REGULAR, HUMAN 100 UNITS in SODIUM CHLORIDE 0.9% 99 ML IV SCH (20:12)
[2022-03-14 20:40] LABS: Calcium 9.3 mg/dL (8.4-10.2)
[2022-03-14] MEDS: CEFEPIME/NS 2 GM/100 ML 2 GM/100 ML BAG IV SCH (20:47)
[2022-03-14] MEDS: SODIUM BICARBONATE 150 MEQ in WATER FOR INJECTION (PF) 1,000 ML IV SCH (22:30)
[2022-03-15 01:11] LABS: Calcium 8.7 mg/dL (8.4-10.2)
[2022-03-15] MEDS ORDERED: SODIUM CHLORIDE 0.9% 1000 ML 1,000 ML ONE (01:15)
--- NOTE | 2022-03-15 02:58 | Consultation ---
DATE OF CONSULTATION: 03/14/2022 PULMONARY CRITICAL CARE CONSULT NOTE CONSULTING PHYSICIAN: Dr. Coates. REASON FOR CONSULTATION: Diabetic ketoacidosis. CHIEF COMPLAINT AND HISTORY OF PRESENT ILLNESS: The patient is an 81-year-old gentleman I believe known to me from her prior hospital past medical history amongst other things significant for a diagnosis of diabetes, brought into the Emergency Room confused, altered mental status, unable to give much of the history. He is able to answer for some yes or no questions. He was brought in by [facility] with the patient's , she mentioned that he got sick today with nausea, vomiting and confusion. He was hyperglycemic. He had Kussmaul's breathing. Clinically evaluation was consistent with likely urinary tract infection, sepsis and diabetic ketoacidosis. ICU admission was requested and offered. We are asked to assist with management. When I stopped by to see him, he was resting in bed, IV insulin drip was about to start going. He just complained of feeling hot, was a little agitated. Since he has been here, I do not have any history of hematemesis or overt emesis. The patient appears to deny any trauma or falls. With regards to the patient's tobacco use/abuse history, I am unable to tease that history out of him. The past medical history on the chart describes him as a never smoker. The above is as much of the history of presentation as I have. I asked the patient if he was on any diabetic medications and if he was taking them, but he did not give me an answer. PAST MEDICAL HISTORY: Again, significant for diabetes, hypertension, vascular dementia. PAST SURGICAL HISTORY: Consists of hernia repair. MEDICATIONS: He was on at the time I stopped by to see him, according to the medication administration record included the following: Tylenol 650 mg p.o. q. 6 hours p.r.n. mild pain or fevers, albuterol 2.5 mg nebulized q. 3 hours p.r.n. shortness of breath, cefepime 2 grams IV q. 12 hours, Dilaudid 0.5 mg IV q. 3 hours p.r.n. severe pain, insulin drip was about to begin. Ordered to start at 1 unit per hour and quickly titrated per protocol. Percocet 5/325 one tablet p.o. q. 6 hours p.r.n. moderate pain. He had already earlier received 1 gram of calcium gluconate as well as 10 units of IV insulin x1. ALLERGIES: No known drug allergies. DIET: Cachectic looking gentleman, acute weight loss or gain history is unknown. FAMILY AND SOCIAL HISTORY: Lives in the community. He is . No current alcohol, tobacco or illicit drug use or abuse. FAMILY HISTORY: Otherwise unknown. REVIEW OF SYSTEMS: Difficult to obtain secondary to the patient's medical and mental condition. Since he has been here, no gross hematochezia or melena, no gross hematuria, no hematemesis, no hemoptysis. No witnessed seizures. Review of systems otherwise unobtainable or as in the body of history above. PHYSICAL EXAMINATION: VITAL SIGNS: At presentation, he is afebrile, temperature 98.4 degrees Fahrenheit, pulse of 117, respiratory rate as high as 33, blood pressure 103/62, O2 sats were 99%, inspired oxygen concentration at that time was not recorded. When I stopped by to see him, O2 sats 100% on 2 liters nasal cannula. GENERAL: He is an elderly looking, thin male. Normocephalic, atraumatic. Resting in bed with moderately increased respiratory effort at rest. HEAD, EYES, EARS, NOSE AND THROAT: Anicteric. No conjunctival erythema. Oropharynx was dry. NECK: No gross jugular venous distention, no thyromegaly. He did have some supraclavicular wasting and wasting to his temples. Grossly, there were no palpable lymph nodes in the supraclavicular or submandibular lymph node chains. LUNGS: Auscultation of both lung boogie significant only for diminished bilateral breath sounds, clear bilaterally though. HEART: Sounds 1 and 2 are heard, regular, tachycardia at the time of my evaluation without overt rubs or murmurs. ABDOMEN: Soft, flat, bowel sounds are positive. Mild epigastric tenderness. No palpable hepatosplenomegaly. EXTREMITIES: Without overt digital clubbing or cyanosis, no pedal edema. Pedal pulses are 2+ bilaterally. NEUROLOGIC: Pupils are equal, round, about 4 mm, reactive to light. Extraocular muscle movements are intact. He moves all 4 extremities spontaneously. SKIN: Poor turgor; however, without overt cellulitis or rash. Please see the wound care nurses' notes for full description of his skin. PSYCHIATRIC: Mood and affect were somewhat anxious. He did not have intact judgment and insight. LABORATORY DATA: From my review are as follows: Admission white cell count 20,400, hemoglobin 12.7, hematocrit 42.7, platelet count of 200, 2% band neutrophils on the manual differential. INR within normal limits. Arterial blood gas showed a pH of 7.01, pCO2 of 12, pO2 of 147 that was on room air. Serum sodium was 143, potassium 6.4, chloride 96, bicarbonate less than 2, BUN was 30, creatinine was 1.8, glucose was 709. Phosphorus and magnesium levels were elevated. Liver function tests essentially within normal limits. Troponin was up at 0.037. No microbiology studies for my review. Chest x-ray reveals chronic changes consistent with COPD, borderline cardiomegaly, especially considering the hyperinflation, increased chronic looking interstitial markings and a large right main pulmonary trunk consistent with an element of pulmonary hypertension. ASSESSMENT: 1. Diabetic ketoacidosis. 2. Acute toxic metabolic encephalopathy. 3. Reported history of a urinary tract infection. 4. Acute kidney injury. 5. Hyperkalemia. 6. High anion gap metabolic acidosis. 7. Non-ST elevation myocardial infarction. 8. Adult failure to thrive. 9. Protein calorie malnutrition. 10. Leukocytosis. PLAN: I do agree with beginning a DKA protocol. I do feel that the leukocytosis is probably stress leukocytosis. We will continue cefepime for now, but I will get a procalcitonin level and follow clinically to aid clinical decision making/de-escalation of anti-infective therapy, aggressive volume resuscitation is ongoing initially and then will be switching to the DKA medications. Oxygen will be offered as necessary to keep sats greater than or equal to about 90%. Aspiration precautions will be maintained. He may benefit from a bicarbonate drip and I will go ahead and order one liter of 3 amps of sodium bicarbonate per liter of sterile water and run that at about 100 per hour for about 1-2 liters and then continue with the DKA protocol, medications and drips. He will be placed on GI prophylaxis with Pepcid. DVT prophylaxis will be with heparin. Flu and pneumonia vaccination will be addressed per protocol. Chronic disease medications will be reintroduced as necessary. Urinalysis will be ordered and cultures if not already sent. Thank you very much for the consult. We will follow along with further recommendations as picture progresses/becomes clearer. He is critically ill on life-sustaining interventions including the IV insulin drip, at very high risk of from endocrine system decompensation. At this time, I spent about 35-40 minutes of critical care time without overlap and excluding any procedural time that may be necessary. TID: [id number] RECEIPT: [id number] SANDY/HAIM
[2022-03-15 03:10] LABS: Color,Urine Colorless (Yellow)
[2022-03-15 03:12] LABS: Bacteria,Urine 1+ /HPF (Negative); Granular Casts,Urine 9 /LPF; Mucus,Urine FEW /HPF
[2022-03-15] MEDS ORDERED: D5W/0.45% NACL/KCL 20 MEQ 20 MEQ/1,000 ML BAG IV SCH (07:00)
[2022-03-15] MEDS: CEFEPIME/NS 2 GM/100 ML 2 GM/100 ML BAG IV SCH ×2 (07:52→20:00)
[2022-03-15 08:31] LABS: Calcium 8.7 mg/dL (8.4-10.2)
[2022-03-15] MEDS ORDERED: LACTATED RINGERS 2,000 ML IV ONE (08:39)
--- NOTE | 2022-03-15 09:26 | Progress Note ---
Assessment and Plan 81 YO Male with HTN, DM, Vascular Dementia, Cerebral Atherosclerosis presents to ED for evaluation. Patient is confused with diminished cognition , Patient history brought by EMS staff, ED staff, as well as the patient's . Patient experienced nausea, multiple episodes of vomiting and confusion. Patient was noted to have increased blood sugar levels. EMS was notified and upon arrival the patient was found to be in distress and subsequently transported to [facility] for further care and evaluation of the aforementioned symptoms. The patient was found to have suspected UTI complicated by sepsis, toxic metabolic encephalopathy, DKA, metabolic acidosis, KARRIE with ATN, and volume depletion. Patient admitted to ICU and initiated on sepsis protocol due to increased risk of worsening symptoms and for medical stabilization. No reports of fever, chills, chest pain, palpitation, productive cough, skin rash, recent contact, known exposure to COVID-19. Prior admission on 10/26/2021 reviewed.. Patient has diminished cognition but has a positive gag reflex and is able to protect his airway without difficulty. Surgical history hernia repair. Patient sleeping at this time. Not responding to verbal stimuli. On room air. O2 saturation 96%. No acute respiratory distress at rest. Patient afebrile. No Leukocytosis , Blood pressure 129/67 , Pulse 106, respirations 15. Chest xray done 03/14/22 reported No acute findings. Patient is on cefepime, albuteral inhaler, S/C heparin, famotidine. K+ supplementation and insulin drip. I spent critical care time of 35 minutes by reviewing chart, examine the patient, review chest xray, lab results, talking to nursing staff and work up plan of treatment in this critically ill patient. - Patient Problems (1) Acute kidney injury (KARRIE) with acute tubular necrosis (ATN) Current Visit: No Status: Acute Plan to address problem: Mangement as per nephrology. (2) Cerebral atherosclerosis Current Visit: No Status: Acute Plan to address problem: Management as per primary care and neurology. (3) DKA (diabetic ketoacidosis) Current Visit: No Status: Acute Plan to address problem: Improving. Anion gap 19 Recent blood sugur 121. Management as per primary care. (4) Sepsis Current Visit: No Status: Acute Plan to address problem: Patient is on cefepime. (5) Toxic metabolic encephalopathy Current Visit: No Status: Acute Plan to address problem: Management as per primary care. (6) UTI (urinary tract infection) Current Visit: No Status: Acute Qualifiers: Encounter type: initial encounter Plan to address problem: Patient is on cefepime. (7) Vascular dementia Current Visit: No Status: Acute Qualifiers: Dementia behavioral disturbance: without behavioral disturbance Qualified Code(s): F01.50 - Vascular dementia without behavioral disturbance Plan to address problem: Management as per primary care and neurology. Subjective Date of service: 03/15/22 Interval history: 81 YO Male with HTN, DM, Vascular Dementia, Cerebral Atherosclerosis presents to ED for evaluation. Patient is confused with diminished cognition , Patient history brought by EMS staff, ED staff, as well as the patient's . Patient experienced nausea, multiple episodes of vomiting and confusion. Patient was noted to have increased blood sugar levels. EMS was notified and upon arrival the patient was found to be in distress and subsequently transported to [facility] for further care and evaluation of the aforementioned symptoms. The patient was found to have suspected UTI complicated by sepsis, toxic metabolic encephalopathy, DKA, metabolic acidosis, KARRIE with ATN, and volume depletion. Patient admitted to ICU and initiated on sepsis protocol due to increased risk of worsening symptoms and for medical stabilization. No reports of fever, chills, chest pain, palpitation, productive cough, skin rash, recent contact, known exposure to COVID-19. Prior admission on 10/26/2021 reviewed.. Patient has diminished cognition but has a positive gag reflex and is able to protect his airway without difficulty. Surgical history hernia repair. Patient sleeping at this time. Not responding to verbal stimuli. On room air. O2 saturation 96%. No acute respiratory distress at rest. Patient afebrile. No Leukocytosis , Blood pressure 129/67 , Pulse 106, respirations 15. Chest xray done 03/14/22 reported No acute findings. Patient is on cefepime, albuteral inhaler, S/C heparin, famotidine. K+ supplementation and insulin drip. Objective Vital Signs - 12hr 03/14/22 03/14/22 03/14/22 21:31 22:00 22:01 Temperature 94.7 F L Pulse Rate 112 H 112 H Pulse Rate [ From Monitor] Respiratory 22 21 Rate Blood Pressure Blood Pressure [Left] O2 Sat by Pulse 99 100 Oximetry 03/14/22 03/14/22 03/14/22 22:59 23:24 23:30 Temperature 97.1 F L Pulse Rate 109 H 117 H 115 H Pulse Rate [ 115 H From Monitor] Respiratory 22 26 H 28 H Rate Blood Pressure 130/67 Blood Pressure 106/63 [Left] O2 Sat by Pulse 98 100 Oximetry 03/15/22 03/15/22 03/15/22 00:00 00:01 00:14 Temperature 96.5 F L Pulse Rate 115 H 116 H Pulse Rate [ From Monitor] Respiratory 24 Rate Blood Pressure 133/52 Blood Pressure [Left] O2 Sat by Pulse 83 L Oximetry 03/15/22 03/15/22 03/15/22 00:31 01:00 01:30 Temperature Pulse Rate 117 H 119 H 117 H Pulse Rate [ From Monitor] Respiratory 17 17 16 Rate Blood Pressure 93/51 92/54 92/51 Blood Pressure [Left] O2 Sat by Pulse 95 100 100 Oximetry 03/15/22 03/15/22 03/15/22 02:00 02:30 03:00 Temperature Pulse Rate 122 H 121 H 119 H Pulse Rate [ From Monitor] Respiratory 24 34 H 22 Rate Blood Pressure 106/60 113/61 110/59 Blood Pressure [Left] O2 Sat by Pulse 100 100 100 Oximetry 03/15/22 03/15/22 03/15/22 03:30 04:00 04:30 Temperature Pulse Rate 120 H 119 H 117 H Pulse Rate [ 119 H From Monitor] Respiratory 19 20 22 Rate Blood Pressure 117/63 116/63 120/65 Blood Pressure [Left] O2 Sat by Pulse 100 100 100 Oximetry 03/15/22 03/15/22 03/15/22 04:33 05:00 05:30 Temperature 98.8 F Pulse Rate 118 H 115 H Pulse Rate [ From Monitor] Respiratory 19 17 Rate Blood Pressure 123/69 116/65 Blood Pressure [Left] O2 Sat by Pulse 100 100 Oximetry 03/15/22 03/15/22 03/15/22 06:00 06:30 07:00 Temperature Pulse Rate 116 H 114 H 115 H Pulse Rate [ From Monitor] Respiratory 28 H 18 22 Rate Blood Pressure 125/71 117/70 127/72 Blood Pressure [Left] O2 Sat by Pulse 100 100 100 Oximetry 03/15/22 07:30 Temperature Pulse Rate 117 H Pulse Rate [ From Monitor] Respiratory 28 H Rate Blood Pressure 139/79 Blood Pressure [Left] O2 Sat by Pulse Oximetry Constitutional: no acute distress, asleep Eyes: non-icteric ENT: oropharynx moist Neck: supple, no lymphadenopathy Effort: normal Ascultation: Bilateral: diminished breath sounds Cardiovascular: regular rate and rhythm Gastrointestinal: normoactive bowel sounds, soft, non-tender Integumentary: normal Extremities: no cyanosis, no edema Neurologic: non-focal exam, pupils equal and round Psychiatric: other (Sleeping at this time.) CBC and BMP: 03/15/22 11:03 03/15/22 11:03 ABG, PT/INR, D-dimer: ABG ABG pH 7.006 pH Units (7.350-7.450) L* 03/14/22 16:30 ABG pCO2 12.5 mm Hg 03/14/22 16:30 ABG pO2 146.7 mm Hg (80.0-90.0) H 03/14/22 16:30 ABG O2 Saturation 98.2 % (95.0-99.0) 03/14/22 16:30 PT/INR, D-dimer PT 15.5 Sec. (12.2-14.9) H 03/14/22 17:13 INR 1.10 (0.87-1.13) 03/14/22 17:13 Abnormal lab findings: Abnormal Labs 03/14/22 03/14/22 03/14/22 15:56 16:30 17:13 WBC 20.4 H MCV 105 H MCHC 30 L RDW 15.9 H Seg Neuts % (Manual) 78.0 H Lymphocytes % (Manual) 11.0 L Monocytes % (Manual) 8.0 H Seg Neutrophils # Man 15.9 H Monocytes # (Manual) 1.6 H PT ABG pH 7.006 L* ABG pO2 146.7 H ABG HCO3 3.1 L ABG Base Excess -26.3 L Sodium Potassium Chloride Carbon Dioxide BUN Creatinine Glucose POC Glucose > 600 H Lactic Acid Phosphorus Magnesium CK-MB (CK-2) Troponin T Total Protein 03/14/22 03/14/22 03/14/22 17:13 17:13 18:21 WBC MCV MCHC RDW Seg Neuts % (Manual) Lymphocytes % (Manual) Monocytes % (Manual) Seg Neutrophils # Man Monocytes # (Manual) PT 15.5 H ABG pH ABG pO2 ABG HCO3 ABG Base Excess Sodium Potassium 6.2 H* Chloride 96.0 L Carbon Dioxide < 2.0 L* BUN 32 H Creatinine 1.8 H Glucose 679 H* POC Glucose > 600 H Lactic Acid Phosphorus Magnesium CK-MB (CK-2) 6.2 H Troponin T 0.037 H Total Protein 5.8 L 03/14/22 03/14/22 03/14/22 18:46 18:46 20:11 WBC MCV MCHC RDW Seg Neuts % (Manual) Lymphocytes % (Manual) Monocytes % (Manual) Seg Neutrophils # Man Monocytes # (Manual) PT ABG pH ABG pO2 ABG HCO3 ABG Base Excess Sodium Potassium 6.4 H* 6.8 H* Chloride 96.4 L Carbon Dioxide < 2.0 L* 3 L* BUN 30 H 32 H Creatinine 1.8 H 1.9 H Glucose 709 H* 732 H* POC Glucose Lactic Acid Phosphorus 9.60 H Magnesium 2.50 H CK-MB (CK-2) Troponin T Total Protein 03/14/22 03/14/22 03/14/22 20:11 22:36 23:33 WBC MCV MCHC RDW Seg Neuts % (Manual) Lymphocytes % (Manual) Monocytes % (Manual) Seg Neutrophils # Man Monocytes # (Manual) PT ABG pH ABG pO2 ABG HCO3 ABG Base Excess Sodium Potassium Chloride Carbon Dioxide BUN Creatinine Glucose POC Glucose 551 H 548 H Lactic Acid 6.60 H* Phosphorus Magnesium CK-MB (CK-2) Troponin T Total Protein 03/14/22 03/15/22 03/15/22 23:45 00:00 01:01 WBC MCV MCHC RDW Seg Neuts % (Manual) Lymphocytes % (Manual) Monocytes % (Manual) Seg Neutrophils # Man Monocytes # (Manual) PT ABG pH ABG pO2 ABG HCO3 ABG Base Excess Sodium 146 H Potassium 5.2 H D Chloride Carbon Dioxide 5 L* BUN 35 H Creatinine 1.8 H Glucose 553 H* POC Glucose 463 H Lactic Acid 3.20 H* Phosphorus Magnesium CK-MB (CK-2) Troponin T Total Protein 03/15/22 03/15/22 03/15/22 02:00 03:06 03:50 WBC MCV MCHC RDW Seg Neuts % (Manual) Lymphocytes % (Manual) Monocytes % (Manual) Seg Neutrophils # Man Monocytes # (Manual) PT ABG pH ABG pO2 ABG HCO3 ABG Base Excess Sodium Potassium Chloride Carbon Dioxide BUN Creatinine Glucose POC Glucose 408 H 318 H 315 H Lactic Acid Phosphorus Magnesium CK-MB (CK-2) Troponin T Total Protein 03/15/22 03/15/22 03/15/22 05:00 05:05 06:00 WBC MCV MCHC RDW Seg Neuts % (Manual) Lymphocytes % (Manual) Monocytes % (Manual) Seg Neutrophils # Man Monocytes # (Manual) PT ABG pH ABG pO2 ABG HCO3 ABG Base Excess Sodium 151 H Potassium Chloride 112.6 H Carbon Dioxide 10 L BUN 31 H Creatinine 1.5 H Glucose 258 H POC Glucose 269 H 243 H Lactic Acid Phosphorus Magnesium CK-MB (CK-2) Troponin T Total Protein Chest x-ray: report reviewed, image reviewed Additional Studies: CHEST 1 VIEW 03/14/2022 4:10 PM INDICATION / CLINICAL INFORMATION: Dyspnea. COMPARISON: October 26, 2021 FINDINGS: SUPPORT DEVICES: None. HEART / MEDIASTINUM: No significant abnormality. LUNGS / PLEURA: No significant pulmonary or pleural abnormality. No pneumothorax. ADDITIONAL FINDINGS: No significant additional findings. IMPRESSION: 1. No acute findings.
[2022-03-15] MEDS: HEPARIN 5,000 UNIT/1 ML VIAL SUB-Q SCH ×2 (09:31→21:49)
[2022-03-15] MEDS: INSULIN REGULAR, HUMAN 100 UNITS in SODIUM CHLORIDE 0.9% 99 ML IV SCH (09:44)
[2022-03-15] MEDS: SODIUM BICARBONATE 150 MEQ in WATER FOR INJECTION (PF) 1,000 ML IV SCH (09:46)
[2022-03-15] MEDS ORDERED: FAMOTIDINE 20 MG/2 ML INJ IV SCH (10:00)
[2022-03-15 11:52] LABS: Hematocrit 33.4 % (35.5-45.6); Hemoglobin 11.5 gm/dl (11.8-15.2); Mean Corpuscular HGB Conc 35 % (32-34); Mean Corpuscular Volume 92 fl (84-94); Platelet Count 133 K/mm3 (140-440); Red Blood Count 3.65 M/mm3 (3.65-5.03); Red Cell Distribution Width 14.3 % (13.2-15.2)
[2022-03-15 11:55] LABS: BUN/Creatinine Ratio 22; Blood Urea Nitrogen 26 mg/dL (9-20); Calcium 8.7 mg/dL (8.4-10.2); Hemolysis Index 0
[2022-03-15] MEDS: METOCLOPRAMIDE 10 MG TAB PO SCH ×3 (12:05→21:49)
--- NOTE | 2022-03-15 13:40 | Progress Note ---
<KRISTAL ROLLE - Last Filed: 03/15/22 17:15> Assessment and Plan Assessment and plan: This is a 80-year-old male with known past medical history of DM, vascular Dementia, and Cerebral Atherosclerosis admitted for DKA Hospital Course to Date: 03/15: Fully AAO this am, on RA, VSS. Anion gap is still 33 with CO2-10 this am. Continue IVF resuscitation and insulin gtt per DKA protocol. Patient is also on sodium bcarb gtt due to severe metabolic acidosis. Patient is afebrile, UA and CXR are unremarkable, and leukocytosis resolved. Will hold IV abx for now, check procal, and continue to follow up on cultures result. Renal function continue to improved, post IVF hydration. Continue to Monitor and replace electrolytes as needed Assessment and Plan #DKA (Diabetic Ketoacidosis) #Uncontrolled Diabetes Mellitus #Anion Gap Metabolic Acidosis - HgbA1C- 14.9 - On DKA protocol - Transitioned once gap is closed - Continue insulin gtt and IVF resuscitation per protocol - Monitor and replace electrolytes as needed - Monitor anion gap, serial Labs ordered #Leukocytosis #Lactic Acidosis-resolved #R/o Sepsis - most like due to DKA, volume depletion - WBCs improved, VSS, lactic acidosis resolved - UA is unremarkable. Procal and Blood cultures pending - will hold IV Abx for now - Continue to F/U on cultures data #Acute Kidney Injury(KARRIE) most likely Vasomotor Nephropathy 2/2 #Volume depletion/Dehydration - Due to DKA- - Renal function improved post IVF resuscitation therapy - Continue to monitor renal function - Strict intake and output - Avoid nephrotoxic medications; Renally dose medications - Monitor and replace electrolytes as needed - Trend BMP #Acute Metabolic Encephalopathy-resolved #H/o Vascular Dementia - Most likely due to severe acidosis/DKA - Avoid benzodiazepine to reduce the possibility of delirium - Prn analgesia for pain management - Verbal prompting and redirection - Maintenance of sleep-wake cycle #Malnutrition of Moderate Degree - Increase protein intake, dietary supplementation once DKA resolved - Nutrition/Car Seat Coverer consult. #GI/DVT Prophylaxis - PPI- Pepcid - Heparin SubQ - SCD to bilateral lower extremities while in bed #Advance Care Planning - Disease education conducted, care plan discussed, diagnoses discussed, prognosis discussed. Patient verbalized understanding and agreed to current care plan. Patient is a FULL code The high probability of a clinically significant, sudden or life threatening deterioration of the [multiple] system(s) required my full and direct attention, intervention and personal management. The aggregate critical care time was [60] minutes. This time is in addition to time spent performing reported procedures but includes the following: [x] Data Review and interpretation [x] Patient assessment and monitoring of vital signs [x] Documentation [x] Medication orders and management Disposition Plan: ICU Total Time Spent with Patient (Minutes): 60 History Interval history: Patient seen and examined at the bedside. Fully AAO, on RA, complained of sore throat and dry mouth this morning. Denied any abdominal, nor any nausea/ vomiting. Remains on the DKA protocol and a bcarb gtt, VSS. Hospitalist Physical - Constitutional Vitals: Temp Pulse Resp BP Pulse Ox 98.7 F 108 H 16 126/72 97 03/15/22 11:54 03/15/22 13:00 03/15/22 13:00 03/15/22 13:00 03/15/22 13:00 General appearance: Present: no acute distress, cachectic - EENT Eyes: Present: PERRL, EOM intact ENT: other (Dry oral mucosa) - Neck Neck: Present: normal ROM - Respiratory Respiratory effort: normal Respiratory: bilateral: CTA - Cardiovascular Rhythm: regular Heart Sounds: Present: S1 & S2 - Extremities Extremities: no ischemia, pulses intact, pulses symmetrical Peripheral Pulses: within normal limits - Abdominal General gastrointestinal: soft, non-distended, normal bowel sounds - Integumentary Integumentary: Present: clear, warm, dry - Psychiatric Psychiatric: appropriate mood/affect, cooperative - Neurologic Neurologic: CNII-XII intact, moves all extremities - Allied Health Allied health notes reviewed: nursing HEART Score - HEART Score Troponin: Troponin T 0.037 ng/mL (0.00-0.029) H 03/14/22 17:13 Results - Labs CBC & Chem 7: 03/15/22 11:03 03/15/22 11:03 Labs: Laboratory Last Values WBC 9.0 K/mm3 (4.5-11.0) 03/15/22 11:03 RBC 3.65 M/mm3 (3.65-5.03) 03/15/22 11:03 Hgb 11.5 gm/dl (11.8-15.2) L 03/15/22 11:03 Hct 33.4 % (35.5-45.6) L D 03/15/22 11:03 MCV 92 fl (84-94) 03/15/22 11:03 MCH 32 pg (28-32) 03/15/22 11:03 MCHC 35 % (32-34) H 03/15/22 11:03 RDW 14.3 % (13.2-15.2) 03/15/22 11:03 Plt Count 133 K/mm3 (140-440) L 03/15/22 11:03 Add Manual Diff Complete 03/14/22 17:13 Total Counted 100 03/14/22 17:13 Seg Neuts % (Manual) 78.0 % (40.0-70.0) H 03/14/22 17:13 Band Neutrophils % 2.0 % 03/14/22 17:13 Lymphocytes % (Manual) 11.0 % (13.4-35.0) L 03/14/22 17:13 Reactive Lymphs % (Man) 0 % 03/14/22 17:13 Monocytes % (Manual) 8.0 % (0.0-7.3) H 03/14/22 17:13 Eosinophils % (Manual) 1.0 % (0.0-4.3) 03/14/22 17:13 Basophils % (Manual) 0 % (0.0-1.8) 03/14/22 17:13 Metamyelocytes % 0 % 03/14/22 17:13 Myelocytes % 0 % 03/14/22 17:13 Promyelocytes % 0 % 03/14/22 17:13 Blast Cells % 0 % 03/14/22 17:13 Nucleated RBC % Not Reportable 03/14/22 17:13 Seg Neutrophils # Man 15.9 K/mm3 (1.8-7.7) H 03/14/22 17:13 Band Neutrophils # 0.4 K/mm3 03/14/22 17:13 Lymphocytes # (Manual) 2.2 K/mm3 (1.2-5.4) 03/14/22 17:13 Abs React Lymphs (Man) 0.0 K/mm3 03/14/22 17:13 Monocytes # (Manual) 1.6 K/mm3 (0.0-0.8) H 03/14/22 17:13 Eosinophils # (Manual) 0.2 K/mm3 (0.0-0.4) 03/14/22 17:13 Basophils # (Manual) 0.0 K/mm3 (0.0-0.1) 03/14/22 17:13 Metamyelocytes # 0.0 K/mm3 03/14/22 17:13 Myelocytes # 0.0 K/mm3 03/14/22 17:13 Promyelocytes # 0.0 K/mm3 03/14/22 17:13 Blast Cells # 0.0 K/mm3 03/14/22 17:13 WBC Morphology Not Reportable 03/14/22 17:13 Hypersegmented Neuts Not Reportable 03/14/22 17:13 Hyposegmented Neuts Not Reportable 03/14/22 17:13 Hypogranular Neuts Not Reportable 03/14/22 17:13 Smudge Cells Not Reportable 03/14/22 17:13 Toxic Granulation 1+ 03/14/22 17:13 Toxic Vacuolation Not Reportable 03/14/22 17:13 Dohle Bodies Not Reportable 03/14/22 17:13 Pelger-Huet Anomaly Not Reportable 03/14/22 17:13 Carmen Rods Not Reportable 03/14/22 17:13 Platelet Estimate Consistent w auto 03/14/22 17:13 Clumped Platelets Not Reportable 03/14/22 17:13 Plt Clumps, EDTA Not Reportable 03/14/22 17:13 Large Platelets Not Reportable 03/14/22 17:13 Giant Platelets Not Reportable 03/14/22 17:13 Platelet Satelliting Not Reportable 03/14/22 17:13 Plt Morphology Comment Not Reportable 03/14/22 17:13 RBC Morphology Not Reportable 03/14/22 17:13 Dimorphic RBCs Not Reportable 03/14/22 17:13 Polychromasia Not Reportable 03/14/22 17:13 Hypochromasia Not Reportable 03/14/22 17:13 Poikilocytosis Not Reportable 03/14/22 17:13 Anisocytosis 1+ 03/14/22 17:13 Microcytosis Not Reportable 03/14/22 17:13 Macrocytosis Not Reportable 03/14/22 17:13 Spherocytes Not Reportable 03/14/22 17:13 Pappenheimer Bodies Not Reportable 03/14/22 17:13 Sickle Cells Not Reportable 03/14/22 17:13 Target Cells Not Reportable 03/14/22 17:13 Tear Drop Cells Not Reportable 03/14/22 17:13 Ovalocytes Not Reportable 03/14/22 17:13 Helmet Cells Not Reportable 03/14/22 17:13 Perez-Santee Bodies Not Reportable 03/14/22 17:13 Tebbetts Rings Not Reportable 03/14/22 17:13 [place] Cells Not Reportable 03/14/22 17:13 Bite Cells Not Reportable 03/14/22 17:13 Crenated Cell Not Reportable 03/14/22 17:13 Elliptocytes Not Reportable 03/14/22 17:13 Acanthocytes (Spur) Not Reportable 03/14/22 17:13 Rouleaux Not Reportable 03/14/22 17:13 Hemoglobin C Crystals Not Reportable 03/14/22 17:13 Schistocytes Not Reportable 03/14/22 17:13 Malaria parasites Not Reportable 03/14/22 17:13 Janes Bodies Not Reportable 03/14/22 17:13 Hem Pathologist Commnt No 03/14/22 17:13 PT 15.5 Sec. (12.2-14.9) H 03/14/22 17:13 INR 1.10 (0.87-1.13) 03/14/22 17:13 APTT 27.7 Sec. (24.2-36.6) 03/14/22 17:13 ABG pH 7.006 pH Units (7.350-7.450) L* 03/14/22 16:30 ABG pCO2 12.5 mm Hg 03/14/22 16:30 ABG pO2 146.7 mm Hg (80.0-90.0) H 03/14/22 16:30 ABG HCO3 3.1 mmol/L (20.0-26.0) L 03/14/22 16:30 ABG O2 Saturation 98.2 % (95.0-99.0) 03/14/22 16:30 ABG O2 Content 19.5 (0.0-44) 03/14/22 16:30 ABG Base Excess -26.3 mmol/L (-2.0-3.0) L 03/14/22 16:30 ABG Hemoglobin 14.2 gm/dl (14.0-18.0) 03/14/22 16:30 ABG Carboxyhemoglobin 1.4 % (0.0-5.0) 03/14/22 16:30 ABG Methemoglobin 0.7 % (0.0-1.5) 03/14/22 16:30 Oxyhemoglobin 96.1 % (95.0-99.0) 03/14/22 16:30 FiO2 21 % 03/14/22 16:30 Sodium 148 mmol/L (137-145) H 03/15/22 11:03 Potassium 3.9 mmol/L (3.6-5.0) 03/15/22 11:03 Chloride 112.9 mmol/L (98-107) H 03/15/22 11:03 Carbon Dioxide 20 mmol/L (22-30) L D 03/15/22 11:03 Anion Gap 19 mmol/L 03/15/22 11:03 BUN 26 mg/dL (9-20) H 03/15/22 11:03 Creatinine 1.2 mg/dL (0.8-1.3) 03/15/22 11:03 Estimated GFR > 60 ml/min 03/15/22 11:03 BUN/Creatinine Ratio 22 % 03/15/22 11:03 Glucose 140 mg/dL (75-100) H 03/15/22 11:03 POC Glucose 121 mg/dL (70-105) H 03/15/22 12:57 Ketones Quantitative Small (Negative) 03/14/22 17:13 Lactic Acid 1.50 mmol/L (0.7-2.0) 03/15/22 05:05 Calcium 8.7 mg/dL (8.4-10.2) 03/15/22 11:03 Phosphorus 1.40 mg/dL (2.5-4.5) L D 03/15/22 11:03 Magnesium 1.80 mg/dL (1.7-2.3) 03/15/22 11:03 Total Bilirubin < 0.20 mg/dL (0.1-1.2) 03/14/22 17:13 AST 28 units/L (5-40) 03/14/22 17:13 ALT 23 units/L (7-56) 03/14/22 17:13 Alkaline Phosphatase 96 units/L (35-129) 03/14/22 17:13 Total Creatine Kinase 159 units/L (55-170) 03/14/22 17:13 CK-MB (CK-2) 6.2 ng/mL (0.0-4.0) H 03/14/22 17:13 CK-MB (CK-2) Rel Index 3.8 (0-4) 03/14/22 17:13 Troponin T 0.037 ng/mL (0.00-0.029) H 03/14/22 17:13 Total Protein 5.8 g/dL (6.3-8.2) L 03/14/22 17:13 Albumin 4.0 g/dL (3.9-5) 03/14/22 17:13 Albumin/Globulin Ratio 2.2 % 03/14/22 17:13 Procalcitonin 1.29 ng/mL (<0.15) 03/15/22 11:03 Urine Color Colorless (Yellow) 03/15/22 02:48 Urine Turbidity Clear (Clear) 03/15/22 02:48 Specific [place] (Man) 1.015 (1.003-1.030) 03/15/22 02:48 Ur Protein (Man) 1+ mg/dL (Negative) 03/15/22 02:48 Ur Ketones (Man) 4+ (Negative) 03/15/22 02:48 Ur Nitrite (Man) Negative (Negative) 03/15/22 02:48 Urine Bilirubin (Man) Negative (Negative) 03/15/22 02:48 Leukocyte Esterase (Man) Negative (Negative) 03/15/22 02:48 Urine WBC (Auto) 2.0 /HPF (0.0-6.0) 03/15/22 02:48 Urine RBC (Auto) 1.0 /HPF (0.0-6.0) 03/15/22 02:48 Urine Bacteria (Auto) 1+ /HPF (Negative) 03/15/22 02:48 Urine RBC (Manual) 2+ (Negative) 03/15/22 02:48 Granular Casts 9 /LPF 03/15/22 02:48 Urine Mucus Few /HPF 03/15/22 02:48 Urine Yeast (Budding) 1+ /HPF 03/15/22 02:48 Blood Type O NEGATIVE 03/14/22 20:11 Antibody Screen Negative 03/14/22 20:11 Microbiology: Microbiology 03/14/22 20:11 Peripheral/Venous Blood Culture - Preliminary Culture in Progress 03/14/22 20:11 Peripheral/Venous Blood Culture - Preliminary Culture in Progress Manuel/IV: Voiding Method Urinal Active Medications - Current Medications Current Medications: Generic Name Dose Route Start Last Admin Trade Name Freq PRN Reason Stop Dose Admin Acetaminophen 650 mg 03/14/22 19:20 Acetaminophen 325 Mg Tab PO Q6H PRN Pain MILD(1-3)/Fever >100.5/COHEN Albuterol 2.5 mg 03/14/22 19:20 Albuterol 2.5 Mg/3 Ml Nebu IH Q3HRT PRN Shortness Of Breath Dextrose 0 ml 03/14/22 18:34 Dextrose 50% In Water (25gm) 50 Ml Syringe IV Q30MIN PRN Hypoglycemia Protocol Famotidine 20 mg 03/15/22 10:00 03/15/22 09:31 Famotidine 20 Mg/2 Ml Inj IV 03/16/22 09:59 20 mg QDAY ZENY Administration Famotidine 20 mg 03/16/22 10:00 Famotidine 20 Mg Tab PO QDAY ZENY Heparin Sodium (Porcine) 5,000 unit 03/15/22 10:00 03/15/22 09:31 Heparin 5,000 Unit/1 Ml Vial SUB-Q 5,000 unit Q12HR ZENY Administration Hydromorphone HCl 0.5 mg 03/14/22 19:20 Hydromorphone 0.5 Mg/0.5 Ml Inj IV Q3H PRN Pain , Severe (7-10) Insulin Human Regular 100 100 mls @ 1 mls/hr 03/14/22 19:00 03/15/22 13:00 units/ Sodium Chloride IV 1 units/hr TITR ZENY 1 mls/hr Titration Protocol 1 UNITS/HR Cefepime HCl 2 gm in 100 mls @ 200 mls/hr 03/14/22 20:00 03/15/22 07:52 Cefepime/Ns 2 Gm/100 Ml IV 200 mls/hr Q12H ZENY Administration Protocol Sodium Bicarbonate 150 meq/ 1,150 mls @ 100 mls/hr 03/14/22 21:00 03/15/22 09:46 Sterile Water IV 03/16/22 08:29 100 mls/hr DIRECT ZENY Administration Potassium Chloride/Dextrose/Sod Cl 20 meq in 1,000 mls @ 125 mls/hr 03/15/22 07:00 03/15/22 06:31 D5w/0.45% Nacl/Kcl 20 Meq IV 125 mls/hr DIRECT ZENY Administration Metoclopramide HCl 5 mg 03/15/22 11:30 03/15/22 12:05 Metoclopramide 10 Mg Tab PO 5 mg ACHS ZENY Administration Oxycodone/Acetaminophen 1 tab 03/14/22 19:20 Oxycodone /Acetaminophen 5-325mg Tab PO Q6H PRN Pain, Moderate (4-6) Sodium Chloride 10 ml 03/14/22 22:00 03/15/22 09:33 Sodium Chloride 0.9% 10 Ml Flush Syringe IV 10 ml BID ZENY Administration Sodium Chloride 10 ml 03/14/22 19:20 Sodium Chloride 0.9% 10 Ml Flush Syringe IV PRN PRN LINE FLUSH Nutrition/Malnutrition Assess - Dietary Evaluation Nutrition/Malnutrition Findings: Nutrition Notes Start: 03/15/22 10:30 Freq: Status: Active Protocol: Document 03/15/22 10:30 TW (Rec: 03/15/22 11:01 TW [id number]) Nutrition Notes Need for Assessment generated from: clerical support specialist,MST Initial or Follow up Assessment Current Diagnosis Diabetes,Hypertension Other Pertinent Diagnosis vascular dementia, cerebral atherosclerosis, Current Diet NPO Labs/Tests Na 151 BUN 31 Creatinine 1.5 Glucose 258 POC Glucose 243 Pertinent Medications D5w/0.45% Nacl/Kcl [address] [place] [address] mls @125/hr Sodium Bicarbonate 1150 mls @ 100 ml/hr Height 5 ft 7 in Weight 55.4 kg [place] Body Weight (kg) 67.27 BMI 19.1 Weight Status Appropriate Subjective/Other Information Pt screened for MST and Skin risk assessment. Pt presents with confusion and diminishing cognition. Suspected UTI/ Sepsis, DKA, Metabolic acidosis, metabolic encephalopathy. Pt has elevated blood glucose levels. Maxi Score is 15. Burn Absent Trauma Absent GI Symptoms Nausea,Vomiting Minimum of two criteria No #1 Nutrition Diagnosis Inadequate oral intake Etiology altered mental state As Evidenced by Signs and Symptoms Pt is NPO Is patient on ventilator? No Is Patient Ambulatory and/or Out of Bed No REE-([place]-confined to bed) [phone] Calculation Used for Recommendations [place] Additional Notes Protein: 55-66 g/day (1-1.2 g/ kg/day) Fluid: 1ml/kcal Nutrition Intervention Change Diet Order: Continue current diet order Goal #1 Patient diet advancement Follow-Up By: 03/17/22 Additional Comments F/U for diet advancements <COLEMAN PRATER - Last Filed: 03/16/22 12:33> Assessment and Plan Assessment and plan: I saw and evaluated the patient. I agree with the findings and the plan of care as documented in the Nurse Practitioner's~note, with the following corrections and additions. Hospitalist Physical - Constitutional Vitals: Temp Pulse Resp BP Pulse Ox 99.1 F 105 H 16 109/68 100 03/16/22 11:42 03/16/22 07:00 03/16/22 07:00 03/16/22 07:00 03/16/22 07:00 HEART Score - HEART Score Troponin: Troponin T 0.037 ng/mL (0.00-0.029) H 03/14/22 17:13 Results - Labs CBC & Chem 7: 03/16/22 05:15 03/16/22 05:15 Labs: Laboratory Last Values WBC 7.3 K/mm3 (4.5-11.0) 03/16/22 05:15 RBC 3.81 M/mm3 (3.65-5.03) 03/16/22 05:15 Hgb 12.1 gm/dl (11.8-15.2) 03/16/22 05:15 Hct 35.4 % (35.5-45.6) L 03/16/22 05:15 MCV 93 fl (84-94) 03/16/22 05:15 MCH 32 pg (28-32) 03/16/22 05:15 MCHC 34 % (32-34) 03/16/22 05:15 RDW 14.3 % (13.2-15.2) 03/16/22 05:15 Plt Count 115 K/mm3 (140-440) L 03/16/22 05:15 Add Manual Diff Complete 03/14/22 17:13 Total Counted 100 03/14/22 17:13 Seg Neuts % (Manual) 78.0 % (40.0-70.0) H 03/14/22 17:13 Band Neutrophils % 2.0 % 03/14/22 17:13 Lymphocytes % (Manual) 11.0 % (13.4-35.0) L 03/14/22 17:13 Reactive Lymphs % (Man) 0 % 03/14/22 17:13 Monocytes % (Manual) 8.0 % (0.0-7.3) H 03/14/22 17:13 Eosinophils % (Manual) 1.0 % (0.0-4.3) 03/14/22 17:13 Basophils % (Manual) 0 % (0.0-1.8) 03/14/22 17:13 Metamyelocytes % 0 % 03/14/22 17:13 Myelocytes % 0 % 03/14/22 17:13 Promyelocytes % 0 % 03/14/22 17:13 Blast Cells % 0 % 03/14/22 17:13 Nucleated RBC % Not Reportable 03/14/22 17:13 Seg Neutrophils # Man 15.9 K/mm3 (1.8-7.7) H 03/14/22 17:13 Band Neutrophils # 0.4 K/mm3 03/14/22 17:13 Lymphocytes # (Manual) 2.2 K/mm3 (1.2-5.4) 03/14/22 17:13 Abs React Lymphs (Man) 0.0 K/mm3 03/14/22 17:13 Monocytes # (Manual) 1.6 K/mm3 (0.0-0.8) H 03/14/22 17:13 Eosinophils # (Manual) 0.2 K/mm3 (0.0-0.4) 03/14/22 17:13 Basophils # (Manual) 0.0 K/mm3 (0.0-0.1) 03/14/22 17:13 Metamyelocytes # 0.0 K/mm3 03/14/22 17:13 Myelocytes # 0.0 K/mm3 03/14/22 17:13 Promyelocytes # 0.0 K/mm3 03/14/22 17:13 Blast Cells # 0.0 K/mm3 03/14/22 17:13 WBC Morphology Not Reportable 03/14/22 17:13 Hypersegmented Neuts Not Reportable 03/14/22 17:13 Hyposegmented Neuts Not Reportable 03/14/22 17:13 Hypogranular Neuts Not Reportable 03/14/22 17:13 Smudge Cells Not Reportable 03/14/22 17:13 Toxic Granulation 1+ 03/14/22 17:13 Toxic Vacuolation Not Reportable 03/14/22 17:13 Dohle Bodies Not Reportable 03/14/22 17:13 Pelger-Huet Anomaly Not Reportable 03/14/22 17:13 Carmen Rods Not Reportable 03/14/22 17:13 Platelet Estimate Consistent w auto 03/14/22 17:13 Clumped Platelets Not Reportable 03/14/22 17:13 Plt Clumps, EDTA Not Reportable 03/14/22 17:13 Large Platelets Not Reportable 03/14/22 17:13 Giant Platelets Not Reportable 03/14/22 17:13 Platelet Satelliting Not Reportable 03/14/22 17:13 Plt Morphology Comment Not Reportable 03/14/22 17:13 RBC Morphology Not Reportable 03/14/22 17:13 Dimorphic RBCs Not Reportable 03/14/22 17:13 Polychromasia Not Reportable 03/14/22 17:13 Hypochromasia Not Reportable 03/14/22 17:13 Poikilocytosis Not Reportable 03/14/22 17:13 Anisocytosis 1+ 03/14/22 17:13 Microcytosis Not Reportable 03/14/22 17:13 Macrocytosis Not Reportable 03/14/22 17:13 Spherocytes Not Reportable 03/14/22 17:13 Pappenheimer Bodies Not Reportable 03/14/22 17:13 Sickle Cells Not Reportable 03/14/22 17:13 Target Cells Not Reportable 03/14/22 17:13 Tear Drop Cells Not Reportable 03/14/22 17:13 Ovalocytes Not Reportable 03/14/22 17:13 Helmet Cells Not Reportable 03/14/22 17:13 Perez-Santee Bodies Not Reportable 03/14/22 17:13 Tebbetts Rings Not Reportable 03/14/22 17:13 Srinivas Cells Not Reportable 03/14/22 17:13 Bite Cells Not Reportable 03/14/22 17:13 Crenated Cell Not Reportable 03/14/22 17:13 Elliptocytes Not Reportable 03/14/22 17:13 Acanthocytes (Spur) Not Reportable 03/14/22 17:13 Rouleaux Not Reportable 03/14/22 17:13 Hemoglobin C Crystals Not Reportable 03/14/22 17:13 Schistocytes Not Reportable 03/14/22 17:13 Malaria parasites Not Reportable 03/14/22 17:13 Janes Bodies Not Reportable 03/14/22 17:13 Hem Pathologist Commnt No 03/14/22 17:13 PT 15.5 Sec. (12.2-14.9) H 03/14/22 17:13 INR 1.10 (0.87-1.13) 03/14/22 17:13 APTT 27.7 Sec. (24.2-36.6) 03/14/22 17:13 ABG pH 7.006 pH Units (7.350-7.450) L* 03/14/22 16:30 ABG pCO2 12.5 mm Hg 03/14/22 16:30 ABG pO2 146.7 mm Hg (80.0-90.0) H 03/14/22 16:30 ABG HCO3 3.1 mmol/L (20.0-26.0) L 03/14/22 16:30 ABG O2 Saturation 98.2 % (95.0-99.0) 03/14/22 16:30 ABG O2 Content 19.5 (0.0-44) 03/14/22 16:30 ABG Base Excess -26.3 mmol/L (-2.0-3.0) L 03/14/22 16:30 ABG Hemoglobin 14.2 gm/dl (14.0-18.0) 03/14/22 16:30 ABG Carboxyhemoglobin 1.4 % (0.0-5.0) 03/14/22 16:30 ABG Methemoglobin 0.7 % (0.0-1.5) 03/14/22 16:30 Oxyhemoglobin 96.1 % (95.0-99.0) 03/14/22 16:30 FiO2 21 % 03/14/22 16:30 Sodium 144 mmol/L (137-145) 03/16/22 05:15 Potassium 3.7 mmol/L (3.6-5.0) 03/16/22 05:15 Chloride 108.2 mmol/L (98-107) H 03/16/22 05:15 Carbon Dioxide 20 mmol/L (22-30) L 03/16/22 05:15 Anion Gap 20 mmol/L 03/16/22 05:15 BUN 14 mg/dL (9-20) 03/16/22 05:15 Creatinine 1.0 mg/dL (0.8-1.3) 03/16/22 05:15 Estimated GFR > 60 ml/min 03/16/22 05:15 BUN/Creatinine Ratio 14 % 03/16/22 05:15 Glucose 252 mg/dL (75-100) H 03/16/22 05:15 POC Glucose 191 mg/dL (70-105) H 03/16/22 07:42 Ketones Quantitative Small (Negative) 03/14/22 17:13 Lactic Acid 1.50 mmol/L (0.7-2.0) 03/15/22 05:05 Calcium 8.2 mg/dL (8.4-10.2) L 03/16/22 05:15 Phosphorus 2.00 mg/dL (2.5-4.5) L 03/16/22 05:15 Magnesium 2.40 mg/dL (1.7-2.3) H 03/16/22 05:15 Total Bilirubin < 0.20 mg/dL (0.1-1.2) 03/14/22 17:13 AST 28 units/L (5-40) 03/14/22 17:13 ALT 23 units/L (7-56) 03/14/22 17:13 Alkaline Phosphatase 96 units/L (35-129) 03/14/22 17:13 Total Creatine Kinase 159 units/L (55-170) 03/14/22 17:13 CK-MB (CK-2) 6.2 ng/mL (0.0-4.0) H 03/14/22 17:13 CK-MB (CK-2) Rel Index 3.8 (0-4) 03/14/22 17:13 Troponin T 0.037 ng/mL (0.00-0.029) H 03/14/22 17:13 Total Protein 5.8 g/dL (6.3-8.2) L 03/14/22 17:13 Albumin 4.0 g/dL (3.9-5) 03/14/22 17:13 Albumin/Globulin Ratio 2.2 % 03/14/22 17:13 Procalcitonin 1.29 ng/mL (<0.15) 03/15/22 11:03 Urine Color Colorless (Yellow) 03/15/22 02:48 Urine Turbidity Clear (Clear) 03/15/22 02:48 Specific [place] (Man) 1.015 (1.003-1.030) 03/15/22 02:48 Ur Protein (Man) 1+ mg/dL (Negative) 03/15/22 02:48 Ur Ketones (Man) 4+ (Negative) 03/15/22 02:48 Ur Nitrite (Man) Negative (Negative) 03/15/22 02:48 Urine Bilirubin (Man) Negative (Negative) 03/15/22 02:48 Leukocyte Esterase (Man) Negative (Negative) 03/15/22 02:48 Urine WBC (Auto) 2.0 /HPF (0.0-6.0) 03/15/22 02:48 Urine RBC (Auto) 1.0 /HPF (0.0-6.0) 03/15/22 02:48 Urine Bacteria (Auto) 1+ /HPF (Negative) 03/15/22 02:48 Urine RBC (Manual) 2+ (Negative) 03/15/22 02:48 Granular Casts 9 /LPF 03/15/22 02:48 Urine Mucus Few /HPF 03/15/22 02:48 Urine Yeast (Budding) 1+ /HPF 03/15/22 02:48 Blood Type O NEGATIVE 03/14/22 20:11 Antibody Screen Negative 03/14/22 20:11 Microbiology: Microbiology 03/14/22 20:11 Peripheral/Venous Blood Culture - Preliminary NO GROWTH AFTER 24 HOURS 03/14/22 20:11 Peripheral/Venous Blood Culture - Preliminary NO GROWTH AFTER 24 HOURS Manuel/IV: Voiding Method Urinal Active Medications - Current Medications Current Medications: Generic Name Dose Route Start Last Admin Trade Name Freq PRN Reason Stop Dose Admin Acetaminophen 650 mg 03/14/22 19:20 Acetaminophen 325 Mg Tab PO Q6H PRN Pain MILD(1-3)/Fever >100.5/COHEN Albuterol 2.5 mg 03/14/22 19:20 Albuterol 2.5 Mg/3 Ml Nebu IH Q3HRT PRN Shortness Of Breath Dextrose 50 ml 03/15/22 18:52 Dextrose 50% In Water (25gm) 50 Ml Syringe IV Q30MIN PRN Hypoglycemia Protocol Famotidine 20 mg 03/16/22 10:00 03/16/22 11:26 Famotidine 20 Mg Tab PO 20 mg QDAY ZENY Administration Heparin Sodium (Porcine) 5,000 unit 03/15/22 10:00 03/16/22 11:26 Heparin 5,000 Unit/1 Ml Vial SUB-Q 5,000 unit Q12HR ZENY Administration Hydromorphone HCl 0.5 mg 03/14/22 19:20 Hydromorphone 0.5 Mg/0.5 Ml Inj IV Q3H PRN Pain , Severe (7-10) Insulin Glargine 20 units 03/16/22 22:00 Insulin Glargine 100 Units/Ml SUB-Q QHS ZENY Insulin Human Regular 0 units 03/15/22 22:00 03/16/22 11:27 Insulin Regular, Human 100 Units/1 Ml SUB-Q 3 units Q4HR ZENY Administration Protocol Metoclopramide HCl 5 mg 03/15/22 11:30 03/16/22 11:58 Metoclopramide 10 Mg Tab PO Not Given ACHS ZENY Oxycodone/Acetaminophen 1 tab 03/14/22 19:20 Oxycodone /Acetaminophen 5-325mg Tab PO Q6H PRN Pain, Moderate (4-6) Sodium Chloride 10 ml 03/14/22 22:00 03/16/22 11:27 Sodium Chloride 0.9% 10 Ml Flush Syringe IV 10 ml BID ZENY Administration Sodium Chloride 10 ml 03/14/22 19:20 Sodium Chloride 0.9% 10 Ml Flush Syringe IV PRN PRN LINE FLUSH Sodium Phosphate 250 mg 03/16/22 11:00 03/16/22 11:58 K-Phos Neutral 250 Mg Tab PO 03/16/22 22:01 250 mg QID ZENY Administration Nutrition/Malnutrition Assess - Dietary Evaluation Nutrition/Malnutrition Findings: Nutrition Notes Start: 03/15/22 10: 30 Freq: Status: Active Protocol: Document 03/15/22 10:30 TW (Rec: 03/15/22 11:01 TW [id number]) Nutrition Notes 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 Pt presents with confusion and diminishing cognition. Suspected UTI/ Sepsis, DKA, Metabolic acidosis, metabolic encephalopathy. Pt has elevated blood glucose levels. Maxi Score is 15. Burn Absent Trauma Absent GI Symptoms Nausea,Vomiting Minimum of two criteria No #1 Nutrition Diagnosis Inadequate oral intake Etiology altered mental state As Evidenced by Signs and Symptoms Pt is NPO Is patient on ventilator? No Is Patient Ambulatory and/or Out of Bed No REE-([facility]-confined to bed) 2524.164 Calculation Used for Recommendations [facility] Additional Notes Protein: 55-66 g/day (1-1.2 g/ kg/day) Fluid: 1ml/kcal Nutrition Intervention Change Diet Order: Continue current diet order Goal #1 Patient diet advancement Follow-Up By: 03/17/22 Additional Comments F/U for diet advancements
[2022-03-15] MEDS ORDERED: POTASSIUM PHOSPHATE 15 MMOL in SODIUM CHLORIDE 0.9% 250ML 250 ML IV ONE (15:00)
[2022-03-15 18:31] LABS: BUN/Creatinine Ratio 21; Blood Urea Nitrogen 21 mg/dL (9-20); Calcium 8.7 mg/dL (8.4-10.2); Hemolysis Index 6
[2022-03-15] MEDS ORDERED: DEXTROSE 50% IN WATER (25GM) 50 ML SYRINGE IV PRN (18:52)
[2022-03-15] MEDS: INSULIN GLARGINE 100 UNITS/ML SUB-Q SCH ×2 (21:36→22:00)
[2022-03-15] MEDS ORDERED: MAGNESIUM SULFATE 2 GM/50 ML BAG IV ONE (22:00)
[2022-03-15] MEDS: INSULIN REGULAR, HUMAN 100 UNITS/1 ML SUB-Q SCH (22:00)
[2022-03-16] MEDS: INSULIN REGULAR, HUMAN 100 UNITS/1 ML SUB-Q SCH ×3 (02:55→11:27)
[2022-03-16 06:28] LABS: Hematocrit 35.4 % (35.5-45.6); Hemoglobin 12.1 gm/dl (11.8-15.2); Mean Corpuscular HGB Conc 34 % (32-34); Mean Corpuscular Volume 93 fl (84-94); Platelet Count 115 K/mm3 (140-440); Red Blood Count 3.81 M/mm3 (3.65-5.03); Red Cell Distribution Width 14.3 % (13.2-15.2)
[2022-03-16 06:49] LABS: BUN/Creatinine Ratio 14; Blood Urea Nitrogen 14 mg/dL (9-20); Calcium 8.2 mg/dL (8.4-10.2); Hemolysis Index 12
[2022-03-16] MEDS ORDERED: FAMOTIDINE 20 MG TAB PO SCH (10:00)
[2022-03-16] MEDS: HEPARIN 5,000 UNIT/1 ML VIAL SUB-Q SCH (11:26)
[2022-03-16] MEDS: METOCLOPRAMIDE 10 MG TAB PO SCH ×2 (11:27→11:58)
[2022-03-16] MEDS: K-PHOS NEUTRAL 250 MG TAB PO SCH ×2 (11:58→16:04)
--- NOTE | 2022-03-16 12:46 | Progress Note ---
Assessment and Plan 81 YO Male with HTN, DM, Vascular Dementia, Cerebral Atherosclerosis presents to ED for evaluation. Patient is confused with diminished cognition , Patient history brought by EMS staff, ED staff, as well as the patient's . Patient experienced nausea, multiple episodes of vomiting and confusion. Patient was noted to have increased blood sugar levels. EMS was notified and upon arrival the patient was found to be in distress and subsequently transported to [facility] for further care and evaluation of the aforementioned symptoms. The patient was found to have suspected UTI complicated by sepsis, toxic metabolic encephalopathy, DKA, metabolic acidosis, KARRIE with ATN, and volume depletion. Patient admitted to ICU and initiated on sepsis protocol due to increased risk of worsening symptoms and for medical stabilization. No reports of fever, chills, chest pain, palpitation, productive cough, skin rash, recent contact, known exposure to COVID-19. Prior admission on 10/26/2021 reviewed.. Patient has diminished cognition but has a positive gag reflex and is able to protect his airway without difficulty. Surgical history hernia repair. Patient sleeping at this time. Not responding to verbal stimuli. On room air. O2 saturation 96%. No acute respiratory distress at rest. Patient afebrile. No Leukocytosis , Blood pressure 129/67 , Pulse 106, respirations 15. Chest xray done 03/14/22 reported No acute findings. Patient is on cefepime, albuteral inhaler, S/C heparin, famotidine. K+ supplementation and insulin drip. I spent critical care time of 35 minutes by reviewing chart, examine the patient, review chest xray, lab results, talking to nursing staff and work up plan of treatment in this critically ill patient. - Patient Problems (1) Acute kidney injury (KARRIE) with acute tubular necrosis (ATN) Current Visit: No Status: Acute Plan to address problem: Mangement as per nephrology. (2) Cerebral atherosclerosis Current Visit: No Status: Acute Plan to address problem: Management as per primary care and neurology. (3) DKA (diabetic ketoacidosis) Current Visit: No Status: Acute Plan to address problem: Improving. Anion gap 19 Recent blood sugur 121. Management as per primary care. (4) Sepsis Current Visit: No Status: Acute Plan to address problem: Patient is on cefepime. (5) Toxic metabolic encephalopathy Current Visit: No Status: Acute Plan to address problem: Management as per primary care. (6) UTI (urinary tract infection) Current Visit: No Status: Acute Qualifiers: Encounter type: initial encounter Plan to address problem: Patient is on cefepime. (7) Vascular dementia Current Visit: No Status: Acute Qualifiers: Dementia behavioral disturbance: without behavioral disturbance Qualified Code(s): F01.50 - Vascular dementia without behavioral disturbance Plan to address problem: Management as per primary care and neurology. Subjective Date of service: 03/16/22 Interval history: 81 YO Male with HTN, DM, Vascular Dementia, Cerebral Atherosclerosis presents to ED for evaluation. Patient is confused with diminished cognition , Patient history brought by EMS staff, ED staff, as well as the patient's . Patient experienced nausea, multiple episodes of vomiting and confusion. Patient was noted to have increased blood sugar levels. EMS was notified and upon arrival the patient was found to be in distress and subsequently transported to [facility] for further care and evaluation of the aforementioned symptoms. The patient was found to have suspected UTI complicated by sepsis, toxic metabolic encephalopathy, DKA, metabolic acidosis, KARRIE with ATN, and volume depletion. Patient admitted to ICU and initiated on sepsis protocol due to increased risk of worsening symptoms and for medical stabilization. No reports of fever, chills, chest pain, palpitation, productive cough, skin rash, recent contact, known exposure to COVID-19. Prior admission on 10/26/2021 reviewed.. Patient has diminished cognition but has a positive gag reflex and is able to protect his airway without difficulty. Surgical history hernia repair. Patient sleeping at this time. Not responding to verbal stimuli. On room air. O2 saturation 96%. No acute respiratory distress at rest. Patient afebrile. No Leukocytosis , Blood pressure 129/67 , Pulse 106, respirations 15. Chest xray done 03/14/22 reported No acute findings. Patient is on cefepime, albuteral inhaler, S/C heparin, famotidine. K+ supplementation and insulin drip. Objective Vital Signs - 12hr 03/16/22 03/16/22 03/16/22 01:00 01:30 02:00 Temperature Pulse Rate 112 H 115 H 106 H Pulse Rate [ From Monitor] Respiratory 22 26 H 18 Rate Blood Pressure 127/77 120/73 115/62 O2 Sat by Pulse 100 Oximetry 03/16/22 03/16/22 03/16/22 02:30 03:00 03:30 Temperature Pulse Rate 105 H 103 H 108 H Pulse Rate [ From Monitor] Respiratory 18 25 H 20 Rate Blood Pressure 124/72 135/70 130/76 O2 Sat by Pulse 98 99 92 Oximetry 03/16/22 03/16/22 03/16/22 04:00 04:30 05:00 Temperature 100.2 F H Pulse Rate 109 H 109 H 108 H Pulse Rate [ 109 H From Monitor] Respiratory 20 20 23 Rate Blood Pressure 121/70 123/71 117/70 O2 Sat by Pulse 98 98 Oximetry 03/16/22 03/16/22 03/16/22 05:30 06:00 06:30 Temperature Pulse Rate 109 H 110 H 104 H Pulse Rate [ From Monitor] Respiratory 21 18 21 Rate Blood Pressure 124/72 113/69 126/73 O2 Sat by Pulse 100 99 98 Oximetry 03/16/22 03/16/22 03/16/22 07:00 07:18 11:42 Temperature 97.8 F 99.1 F Pulse Rate 105 H Pulse Rate [ From Monitor] Respiratory 16 Rate Blood Pressure 109/68 O2 Sat by Pulse 100 Oximetry Constitutional: no acute distress, asleep Eyes: non-icteric ENT: oropharynx moist Neck: supple, no lymphadenopathy Effort: normal Ascultation: Bilateral: diminished breath sounds Cardiovascular: regular rate and rhythm Gastrointestinal: normoactive bowel sounds, soft, non-tender Integumentary: normal Extremities: no cyanosis, no edema Neurologic: non-focal exam, pupils equal and round Psychiatric: other (Sleeping at this time.) CBC and BMP: 03/16/22 05:15 03/16/22 05:15 ABG, PT/INR, D-dimer: ABG ABG pH 7.006 pH Units (7.350-7.450) L* 03/14/22 16:30 ABG pCO2 12.5 mm Hg 03/14/22 16:30 ABG pO2 146.7 mm Hg (80.0-90.0) H 03/14/22 16:30 ABG O2 Saturation 98.2 % (95.0-99.0) 03/14/22 16:30 PT/INR, D-dimer PT 15.5 Sec. (12.2-14.9) H 03/14/22 17:13 INR 1.10 (0.87-1.13) 03/14/22 17:13 Abnormal lab findings: Abnormal Labs 03/14/22 03/14/22 03/14/22 15:56 16:30 17:13 WBC 20.4 H Hgb Hct MCV 105 H MCHC 30 L RDW 15.9 H Plt Count Seg Neuts % (Manual) 78.0 H Lymphocytes % (Manual) 11.0 L Monocytes % (Manual) 8.0 H Seg Neutrophils # Man 15.9 H Monocytes # (Manual) 1.6 H PT ABG pH 7.006 L* ABG pO2 146.7 H ABG HCO3 3.1 L ABG Base Excess -26.3 L Sodium Potassium Chloride Carbon Dioxide BUN Creatinine Glucose POC Glucose > 600 H Lactic Acid Calcium Phosphorus Magnesium CK-MB (CK-2) Troponin T Total Protein 03/14/22 03/14/22 03/14/22 17:13 17:13 18:21 WBC Hgb Hct MCV MCHC RDW Plt Count Seg Neuts % (Manual) Lymphocytes % (Manual) Monocytes % (Manual) Seg Neutrophils # Man Monocytes # (Manual) PT 15.5 H ABG pH ABG pO2 ABG HCO3 ABG Base Excess Sodium Potassium 6.2 H* Chloride 96.0 L Carbon Dioxide < 2.0 L* BUN 32 H Creatinine 1.8 H Glucose 679 H* POC Glucose > 600 H Lactic Acid Calcium Phosphorus Magnesium CK-MB (CK-2) 6.2 H Troponin T 0.037 H Total Protein 5.8 L 03/14/22 03/14/22 03/14/22 18:46 18:46 20:11 WBC Hgb Hct MCV MCHC RDW Plt Count Seg Neuts % (Manual) Lymphocytes % (Manual) Monocytes % (Manual) Seg Neutrophils # Man Monocytes # (Manual) PT ABG pH ABG pO2 ABG HCO3 ABG Base Excess Sodium Potassium 6.4 H* 6.8 H* Chloride 96.4 L Carbon Dioxide < 2.0 L* 3 L* BUN 30 H 32 H Creatinine 1.8 H 1.9 H Glucose 709 H* 732 H* POC Glucose Lactic Acid Calcium Phosphorus 9.60 H Magnesium 2.50 H CK-MB (CK-2) Troponin T Total Protein 03/14/22 03/14/22 03/14/22 20:11 22:36 23:33 WBC Hgb Hct MCV MCHC RDW Plt Count Seg Neuts % (Manual) Lymphocytes % (Manual) Monocytes % (Manual) Seg Neutrophils # Man Monocytes # (Manual) PT ABG pH ABG pO2 ABG HCO3 ABG Base Excess Sodium Potassium Chloride Carbon Dioxide BUN Creatinine Glucose POC Glucose 551 H 548 H Lactic Acid 6.60 H* Calcium Phosphorus Magnesium CK-MB (CK-2) Troponin T Total Protein 03/14/22 03/15/22 03/15/22 23:45 00:00 01:01 WBC Hgb Hct MCV MCHC RDW Plt Count Seg Neuts % (Manual) Lymphocytes % (Manual) Monocytes % (Manual) Seg Neutrophils # Man Monocytes # (Manual) PT ABG pH ABG pO2 ABG HCO3 ABG Base Excess Sodium 146 H Potassium 5.2 H D Chloride Carbon Dioxide 5 L* BUN 35 H Creatinine 1.8 H Glucose 553 H* POC Glucose 463 H Lactic Acid 3.20 H* Calcium Phosphorus Magnesium CK-MB (CK-2) Troponin T Total Protein 03/15/22 03/15/22 03/15/22 02:00 03:06 03:50 WBC Hgb Hct MCV MCHC RDW Plt Count Seg Neuts % (Manual) Lymphocytes % (Manual) Monocytes % (Manual) Seg Neutrophils # Man Monocytes # (Manual) PT ABG pH ABG pO2 ABG HCO3 ABG Base Excess Sodium Potassium Chloride Carbon Dioxide BUN Creatinine Glucose POC Glucose 408 H 318 H 315 H Lactic Acid Calcium Phosphorus Magnesium CK-MB (CK-2) Troponin T Total Protein 03/15/22 03/15/22 03/15/22 05:00 05:05 06:00 WBC Hgb Hct MCV MCHC RDW Plt Count Seg Neuts % (Manual) Lymphocytes % (Manual) Monocytes % (Manual) Seg Neutrophils # Man Monocytes # (Manual) PT ABG pH ABG pO2 ABG HCO3 ABG Base Excess Sodium 151 H Potassium Chloride 112.6 H Carbon Dioxide 10 L BUN 31 H Creatinine 1.5 H Glucose 258 H POC Glucose 269 H 243 H Lactic Acid Calcium Phosphorus Magnesium CK-MB (CK-2) Troponin T Total Protein 03/15/22 03/15/22 03/15/22 06:53 07:58 09:00 WBC Hgb Hct MCV MCHC RDW Plt Count Seg Neuts % (Manual) Lymphocytes % (Manual) Monocytes % (Manual) Seg Neutrophils # Man Monocytes # (Manual) PT ABG pH ABG pO2 ABG HCO3 ABG Base Excess Sodium Potassium Chloride Carbon Dioxide BUN Creatinine Glucose POC Glucose 190 H 183 H 159 H Lactic Acid Calcium Phosphorus Magnesium CK-MB (CK-2) Troponin T Total Protein 03/15/22 03/15/22 03/15/22 10:06 11:03 11:03 WBC Hgb 11.5 L Hct 33.4 L D MCV MCHC 35 H RDW Plt Count 133 L Seg Neuts % (Manual) Lymphocytes % (Manual) Monocytes % (Manual) Seg Neutrophils # Man Monocytes # (Manual) PT ABG pH ABG pO2 ABG HCO3 ABG Base Excess Sodium 148 H Potassium Chloride 112.9 H Carbon Dioxide 20 L D BUN 26 H Creatinine Glucose 140 H POC Glucose 149 H Lactic Acid Calcium Phosphorus 1.40 L D Magnesium CK-MB (CK-2) Troponin T Total Protein 03/15/22 03/15/22 03/15/22 11:11 12:03 12:57 WBC Hgb Hct MCV MCHC RDW Plt Count Seg Neuts % (Manual) Lymphocytes % (Manual) Monocytes % (Manual) Seg Neutrophils # Man Monocytes # (Manual) PT ABG pH ABG pO2 ABG HCO3 ABG Base Excess Sodium Potassium Chloride Carbon Dioxide BUN Creatinine Glucose POC Glucose 148 H 121 H 121 H Lactic Acid Calcium Phosphorus Magnesium CK-MB (CK-2) Troponin T Total Protein 03/15/22 03/15/22 03/15/22 14:53 17:08 17:18 WBC Hgb Hct MCV MCHC RDW Plt Count Seg Neuts % (Manual) Lymphocytes % (Manual) Monocytes % (Manual) Seg Neutrophils # Man Monocytes # (Manual) PT ABG pH ABG pO2 ABG HCO3 ABG Base Excess Sodium 149 H Potassium Chloride 111.6 H Carbon Dioxide BUN 21 H Creatinine Glucose 111 H POC Glucose 131 H 110 H Lactic Acid Calcium Phosphorus 1.70 L D Magnesium CK-MB (CK-2) Troponin T Total Protein 03/15/22 03/16/22 03/16/22 22:11 02:50 05:15 WBC Hgb Hct 35.4 L MCV MCHC RDW Plt Count 115 L Seg Neuts % (Manual) Lymphocytes % (Manual) Monocytes % (Manual) Seg Neutrophils # Man Monocytes # (Manual) PT ABG pH ABG pO2 ABG HCO3 ABG Base Excess Sodium Potassium Chloride Carbon Dioxide BUN Creatinine Glucose POC Glucose 214 H 283 H Lactic Acid Calcium Phosphorus Magnesium CK-MB (CK-2) Troponin T Total Protein 03/16/22 03/16/22 03/16/22 05:15 05:28 07:42 WBC Hgb Hct MCV MCHC RDW Plt Count Seg Neuts % (Manual) Lymphocytes % (Manual) Monocytes % (Manual) Seg Neutrophils # Man Monocytes # (Manual) PT ABG pH ABG pO2 ABG HCO3 ABG Base Excess Sodium Potassium Chloride 108.2 H Carbon Dioxide 20 L BUN Creatinine Glucose 252 H POC Glucose 241 H 191 H Lactic Acid Calcium 8.2 L Phosphorus 2.00 L Magnesium 2.40 H CK-MB (CK-2) Troponin T Total Protein
--- NOTE | 2022-03-16 13:46 | Discharge Summary ---
<KRISTAL ROLLE - Last Filed: 03/16/22 16:41> Providers - Providers Date of Admission: 03/14/22 19:20 Date of discharge: 03/16/22 Attending physician: COLEMAN PRATER MD 03/14/22 19:20 Consult to Physician [CONS] Stat Comment: Consulting Provider: MARY NORWOOD Physician Instructions: Reason For Exam: DKA Primary care physician: IVETT GORDILLO Hospitalization Reason for admission: DKA Condition: Stable Hospital course: This is a 80-year-old male with known past medical history of DM, vascular Dementia, and Cerebral Atherosclerosis admitted for DKA Hospital Course to Date: 03/15: Fully AAO this am, on RA, VSS. Anion gap is still 33 with CO2-10 this am. Continue IVF resuscitation and insulin gtt per DKA protocol. Patient is also on sodium bcarb gtt due to severe metabolic acidosis. Patient is afebrile, UA and CXR are unremarkable, and leukocytosis resolved. Will hold IV abx for now, check procal, and continue to follow up on cultures result. Renal function continue to improved, post IVF hydration. Continue to Monitor and replace electrolytes as needed. 03/16: Transitioned to subQ insulin, Home insulin regimen resumed. Patient is tolerating PO intake. Patient denied any abdominal pain, nor any N/V. Patient is stable for discharge home today. Thorough discussion with the patient and his via phone. Patient reported that he he been experiencing nausea whenever he eats, concern for possible gastroperesis. Reglan added ACHS and recommend follow up with GI outpatient for further workup. Patient and his agreed with current care plan and discharge. Assessment and Plan #DKA (Diabetic Ketoacidosis) #Uncontrolled Diabetes Mellitus #Anion Gap Metabolic Acidosis - HgbA1C- 14.9 - Transitioned to home regime - BG check and SSI ACHS, and Lantus qHs - Monitor and replace electrolytes as needed - Monitor anion gap, serial Labs ordered #Leukocytosis #Lactic Acidosis-resolved #R/o Sepsis - most like due to DKA, volume depletion - WBCs improved, VSS, lactic acidosis resolved - UA is unremarkable. Procal and Blood cultures pending - will hold IV Abx for now - Continue to F/U on cultures data #Acute Kidney Injury(KARRIE) most likely Vasomotor Nephropathy 2/2 #Volume depletion/Dehydration - Due to DKA- - Renal function improved post IVF resuscitation therapy - Continue to monitor renal function - Strict intake and output - Avoid nephrotoxic medications; Renally dose medications - Monitor and replace electrolytes as needed - Trend BMP #Acute Metabolic Encephalopathy-resolved #H/o Vascular Dementia - Most likely due to severe acidosis/DKA - Avoid benzodiazepine to reduce the possibility of delirium - Prn analgesia for pain management - Verbal prompting and redirection - Maintenance of sleep-wake cycle #Malnutrition of Moderate Degree #C/f Gastroperesis - Consistent Carb diet - Reglan added ACHS and recommend follow up with GI outpatient for further workup - Nutrition/[place] After Lasting consult. #GI/DVT Prophylaxis - PPI- Pepcid - Heparin SubQ - SCD to bilateral lower extremities while in bed #Advance Care Planning - Disease education conducted, care plan discussed, diagnoses discussed, prognosis discussed. Patient verbalized understanding and agreed to current care plan. Patient is a FULL code Disposition: 01 HOME / SELF CARE / HOMELESS Final Discharge Diagnosis (Prints w/discharge instructions): Uncontrolled Diabetes Mellitus. S/p DKA Time spent for discharge: 35 Core Measure Documentation - Palliative Care Palliative Care/ Comfort Measures: Not Applicable - Core Measures Any of the following diagnoses?: none Exam - Constitutional Vitals: Temp Pulse Resp BP Pulse Ox 99.1 F 105 H 16 109/68 100 03/16/22 11:42 03/16/22 07:00 03/16/22 07:00 03/16/22 07:00 03/16/22 07:00 General appearance: Present: no acute distress, cachectic - EENT Eyes: Present: PERRL, EOM intact ENT: hearing intact - Neck Neck: Present: normal ROM - Respiratory Respiratory effort: normal Respiratory: bilateral: diminished - Cardiovascular Rhythm: regular Heart Sounds: Present: S1 & S2 - Extremities Extremities: no ischemia, pulses intact, pulses symmetrical Peripheral Pulses: within normal limits - Abdominal General gastrointestinal: Present: soft, non-distended, normal bowel sounds Male genitourinary: Present: deferred - Rectal Rectal Exam: deferred - Integumentary Integumentary: Present: clear, warm, dry - Musculoskeletal Musculoskeletal: generalized weakness - Psychiatric Psychiatric: appropriate mood/affect, intact judgment & insight, cooperative - Neurologic Neurologic: CNII-XII intact, moves all extremities - Allied Health Allied health notes reviewed: nursing, case management Plan Activity: no restrictions Diet: diabetic Wound: open to air Care Plan Goals: - Follow up with your primary care provider within 7 to 10 days -Recommend follow up with GI for GI workup and management - Stay hydrated and take your medications as prescribed - If your symptoms return/worsen, please visit your nearest emergency department for further evaluation Follow up with: MARIA ELENA LLOYD MD [Staff Physician] - 7 Days IVETT GORDILLO MD [Primary Care Provider] - 7 Days Prescriptions: Metoclopramide [Reglan TAB] 5 mg PO ACHS 30 Days #120 tablet <COLEMAN PRATER - Last Filed: 03/17/22 07:13> Providers - Providers Date of Admission: 03/14/22 19:20 Attending physician: COLEMAN PRATER MD 03/14/22 19:20 Consult to Physician [CONS] Stat Comment: Consulting Provider: MARY NORWOOD Physician Instructions: Reason For Exam: DKA Primary care physician: IVETT GORDILLO Hospitalization Hospital course: I saw and evaluated the patient. I agree with the findings and the plan of care as documented in the Nurse Practitioner's~note, with the following corrections and additions. Exam - Constitutional Vitals: Temp Pulse Resp BP Pulse Ox 99.1 F 102 H 19 132/75 100 03/16/22 11:42 03/16/22 15:30 03/16/22 15:30 03/16/22 15:30 03/16/22 15:30
[2022-03-16 15:45] VITALS: BP 132/75
[2022-03-16] MEDS ORDERED: INSULIN GLARGINE 100 UNITS/ML SUB-Q SCH (22:00)
--- NOTE | 2022-03-18 09:27 | Electrocardiograph Report ---
[facility] Test Date: 2022-03-14 Test Time: 19:24:47 Pat Name: FELIX BERKOWITZ Department: Room: A260 1 Gender: M Animator: DIANE : 1940 Requested By: COLEMAN PRATER Order Number: [id number] Reading MD: Gustavo Vasquez Measurements Intervals [place] Rate: 110 P: 89 NC: 156 QRS: -40 QRSD: 107 T: 105 QT: 377 QTc: 512 Interpretive Statements Sinus tachycardia Left axis deviation and lafb Nonspecific T abnormalities, lateral leads Compared to ECG 03/14/2022 15:51:59 Left-axis deviation now present T-wave abnormality now present Electronically Signed On 03-18-2022 9:27:18 EDT by Gustavo Vasquez
--- NOTE | 2022-03-19 13:53 | Electrocardiograph Report ---
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
== END 2022-03-16 16:30 | disposition home or self-care (01) | DRG 871 ==
LOC: ED 15:27 → CC1 19:20
PROVIDERS: ADMIT Internal Medicine; ATTEND Internal Medicine
PROC: 4A033R1 Measurement of Arterial Saturation, Peripheral, Percutaneous Approach (ICD-10-PCS; principal; 2022-03-14)
PROC: 06HY33Z Insertion of Infusion Device into Lower Vein, Percutaneous Approach (ICD-10-PCS; 2022-03-14)
PROC: B54BZZA Ultrasonography of Right Lower Extremity Veins, Guidance (ICD-10-PCS; 2022-03-14)
DX: A41.9 Sepsis, unspecified organism (principal); E10.10 Type 1 diabetes mellitus with ketoacidosis without coma; G92.8 Other toxic encephalopathy; N17.0 Acute kidney failure with tubular necrosis; N39.0 Urinary tract infection, site not specified; E44.0 Moderate protein-calorie malnutrition; Z68.1 Body mass index [BMI] 19.9 or less, adult; F01.50 Vascular dementia, unspecified severity, without behavioral disturbance, psychotic disturbance, mood disturbance, and anxiety; I67.2 Cerebral atherosclerosis; I10 Essential (primary) hypertension; E86.9 Volume depletion, unspecified; E86.0 Dehydration
CPT/HCPCS: 36415; 71045; 80048; 80053; 81001; 82010; 82140; 82550; 82553; 82803; 82962; 83735; 84100; 84145; 84484; 85007; 85025; 85027; 85610; 85730; 86850; 86900; 86901; 87040; 93005; 96374; 99285; G0378; J3480; J3490; J7510; Q9967; J0610; J0692; J1644; J1815; J3475; J7030; J7050; J7120